=== PATIENT | female | born 1940 | race Caucasian/White ===

== ENCOUNTER 2016-09-26 14:00 | Emergency (ER) | payer MEDICARE, OTHER ==
--- NOTE | 2016-09-26 14:18 | ED ---
General Adult HPI - General Stated complaint: alter mental status Time Seen by Provider: 09/26/16 14:11 Source: RN notes reviewed, old records reviewed - History of Present Illness Initial comments: This is a 76-year-old female here for evaluation. Patient's breath ER for evaluation of decreased level responsiveness. Although upon arrival to emergency room patient is awake alert oriented answering directions appropriately. The patient denies any complaints, states she occasionally has a headache but that his symptoms been going on, she obtained from EMS is not conclusive, andreal history in the chart. Again at this time patient denies any chest pain source of breath abdominal pain or any other difficulties. Patient denies neurological complaints, no nausea vomiting - Related Data Home Medications Medication Instructions Recorded Confirmed FLUoxetine HCL 40 mg PO BID 04/22/15 09/26/16 Pantoprazole Sodium 40 mg PO DAILY 04/22/15 09/26/16 Potassium Chloride [Klor-Con 20] 20 meq PO DAILY 04/22/15 09/26/16 Atorvastatin [Lipitor] 80 mg PO HS 09/26/16 09/26/16 Donepezil [Aricept] 5 mg PO HS 09/26/16 09/26/16 Ibuprofen [Motrin] 800 mg PO Q8H PRN 09/26/16 09/26/16 busPIRone HCL 10 mg PO BID 09/26/16 09/26/16 Allergies Allergy/AdvReac Type Severity Reaction Status Date / Time iodine Allergy Rapid Verified 09/26/16 14:30 Heart Rate adhesive AdvReac Itching Verified 09/26/16 14:30 codeine AdvReac Confusion Verified 09/26/16 14:30 hydrocodone bitartrate AdvReac Confusion Verified 09/26/16 14:30 [From [place]] hydromorphone HCl AdvReac Confusion Verified 09/26/16 14:30 [From Dilaudid] morphine AdvReac Confusion Verified 09/26/16 14:30 Review of Systems ROS Statement: Those systems with pertinent positive or pertinent negative responses have been documented in the HPI. ROS Other: All systems not noted in ROS Statement are negative. Past Medical History Past Medical History: Coronary Artery Disease (CAD), Chest Pain / Angina, GERD/ Reflux, GI Bleed, Hyperlipidemia, Hypertension, Memory Impairment, Myocardial Infarction ([place]), Osteoarthritis (OA), Pneumonia, Rheumatoid Arthritis (RA) Additional Past Medical History / Comment(s): osteoporosis, falls-has struck head - needing pattie in head 6 weeks ago and suffering whiplash with fall 3 weeks ago, PAD, possible aspiration pneumonia, pneumonia osteoporosis,hiatal hernia, constipation and belching alot.has cardiac stents x2 to circ, UTI( ECOLI) 11. as a child, essential tremors, pt has hx of significant wt loss associated with sepsis and had a gastric tube for some time. pt stated wt down from 175 to 135# this past winter, has no appetite. t12 compression fx, cellulitis -knee. pt stated unable to bend rt knee(failed sx) is w/c bound but able to stand /pivot. 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 Date of Last Stent Placement:: 1999 Past Psychological History: Anxiety, Depression Additional Psychological History / Comment(s): Ongoing tobacco smoker. Pt started smoking about age [age] yrs old. She smokes about 6 CIG PER DAY. She is . Living with her son in an apartment here in the [facility]. She uses wheelchair. . She is able to stand and pivot to get into wheelchair. She feeds herself. She has home care thru [place] [facility] who assist her with bathing and cleaning 5 days a week. She and her. son manage her medications. Her son drives her to [employer]-pt does not drive. Smoking Status: Current every day smoker Past Alcohol Use History: None Reported Additional Past Alcohol Use History / Comment(s): Pt states she started smoking about age [age] yrs and is CURRENTLY SMOKING 5 CIG PER DAY Pt states she quit drinking alcohol 25 yrs ago. Past Drug Use History: None Reported - Past Family History Father Family Medical History: Coronary Artery Disease (CAD), Myocardial Infarction (DE ) Mother Family Medical History: Diabetes Mellitus, Hypertension General Exam - General Exam Comments Initial Comments: NIH of 0, no focal neurological deficit General appearance: alert, in no apparent distress Head exam: Present: atraumatic, normocephalic, normal inspection Eye exam: Present: normal appearance, PERRL, EOMI. Absent: scleral icterus, conjunctival injection, periorbital swelling ENT exam: Present: normal exam, mucous membranes moist Neck exam: Present: normal inspection. Absent: tenderness, meningismus, lymphadenopathy Respiratory exam: Present: normal lung sounds bilaterally. Absent: respiratory distress, wheezes, rales, rhonchi, stridor Cardiovascular Exam: Present: regular rate, normal rhythm, normal heart sounds. Absent: systolic murmur, diastolic murmur, rubs, gallop, clicks GI/Abdominal exam: Present: soft, normal bowel sounds. Absent: distended, tenderness, guarding, rebound, rigid Extremities exam: Present: normal inspection, full ROM, normal capillary refill. Absent: tenderness, pedal edema, joint swelling, calf tenderness Back exam: Present: normal inspection Neurological exam: Present: alert, oriented X3, CN II-XII intact Psychiatric exam: Present: normal affect, normal mood Skin exam: Present: warm, dry, intact, normal color. Absent: rash Course Vital Signs 09/26/16 09/26/16 09/26/16 14:26 15:00 16:00 Temperature 97.1 F L Pulse Rate 57 L 62 52 L Respiratory 16 16 16 Rate Blood Pressure 200/110 183/87 182/70 O2 Sat by Pulse 97 98 96 Oximetry - Reevaluation(s) Reevaluation #1: 09/26/16 16:57 She remains awake and alert, blood pressure improved with medications EKG Findings - EKG Comments: EKG Findings:: EKG shows sinus rhythm sounds good rate of 57, MA 204 QRS 100, QTC 484 Medical Decision Making - Medical Decision Making [place] female here for evaluation of possible altered mental status, no focal neurological deficits on exam, CT brain negative for acute disease, will return urine negative. Patient can be discharged home - Lab Data Result diagrams: 09/26/16 14:20 09/26/16 14:20 Lab Results 09/26/16 09/26/16 09/26/16 Range/Units 14:20 14:20 14:20 WBC 7.9 (3.8-10.6) k/uL RBC 4.90 (3.80-5.40) m/uL Hgb 13.5 (11.4-16.0) gm/dL Hct 41.4 (34.0-46.0) % MCV 84.5 (80.0-100.0) fL MCH 27.5 (25.0-35.0) pg MCHC 32.6 (31.0-37.0) g/dL RDW 15.9 H (11.5-15.5) % Plt Count 143 L (150-450) k/uL Neutrophils % 77 % Lymphocytes % 15 % Monocytes % 4 % Eosinophils % 3 % Basophils % 0 % Neutrophils # 6.1 (1.3-7.7) k/uL Lymphocytes # 1.2 (1.0-4.8) k/uL Monocytes # 0.3 (0-1.0) k/uL Eosinophils # 0.2 (0-0.7) k/uL Basophils # 0.0 (0-0.2) k/uL PT (9.0-12.0) sec INR (<1.1) APTT (22.0-30.0) sec Sodium 139 (137-145) mmol/L Potassium 3.9 (3.5-5.1) mmol/L Chloride 105 (98-107) mmol/L Carbon Dioxide 24 (22-30) mmol/L Anion Gap 10 mmol/L BUN 14 (7-17) mg/dL Creatinine 0.77 (0.52-1.04) mg/dL Est GFR (MDRD) Af Amer >60 (>60 ml/min/1.73 sqM) Est GFR (MDRD) Non-Af >60 (>60 ml/min/1.73 sqM) Glucose 91 (74-99) mg/dL Plasma Lactic Acid Justin (0.7-2.0) mmol/L Calcium 8.9 (8.4-10.2) mg/dL Phosphorus 4.5 (2.5-4.5) mg/dL Magnesium 1.4 L (1.6-2.3) mg/dL Total Bilirubin 0.7 (0.2-1.3) mg/dL AST 66 H (14-36) U/L ALT 76 H (9-52) U/L Alkaline Phosphatase 95 (38-126) U/L Total Creatine Kinase 58 (30-135) U/L CK-MB (CK-2) 1.4 (0.0-2.4) ng/mL CK-MB (CK-2) Rel Index 2.4 Troponin I <0.012 (0.000-0.034) ng/mL NT-Pro-B Natriuret Pep pg/mL Total Protein 6.8 (6.3-8.2) g/dL Albumin 3.7 (3.5-5.0) g/dL Urine Color Urine Appearance (Clear) Urine pH (5.0-8.0) Ur Specific [place] (1.001-1.035) Urine Protein (Negative) Urine Glucose (UA) (Negative) Urine Ketones (Negative) Urine Blood (Negative) Urine Nitrate (Negative) Urine Bilirubin (Negative) Urine Urobilinogen (<2.0) mg/dL Ur Leukocyte Esterase (Negative) 09/26/16 09/26/16 09/26/16 Range/Units 14:20 14:20 14:20 WBC (3.8-10.6) k/uL RBC (3.80-5.40) m/uL Hgb (11.4-16.0) gm/dL Hct (34.0-46.0) % MCV (80.0-100.0) fL MCH (25.0-35.0) pg MCHC (31.0-37.0) g/dL RDW (11.5-15.5) % Plt Count (150-450) k/uL Neutrophils % % Lymphocytes % % Monocytes % % Eosinophils % % Basophils % % Neutrophils # (1.3-7.7) k/uL Lymphocytes # (1.0-4.8) k/uL Monocytes # (0-1.0) k/uL Eosinophils # (0-0.7) k/uL Basophils # (0-0.2) k/uL PT 10.7 (9.0-12.0) sec INR 1.1 (<1.1) APTT 24.7 (22.0-30.0) sec Sodium (137-145) mmol/L Potassium (3.5-5.1) mmol/L Chloride (98-107) mmol/L Carbon Dioxide (22-30) mmol/L Anion Gap mmol/L BUN (7-17) mg/dL Creatinine (0.52-1.04) mg/dL Est GFR (MDRD) Af Amer (>60 ml/min/1.73 sqM) Est GFR (MDRD) Non-Af (>60 ml/min/1.73 sqM) Glucose (74-99) mg/dL Plasma Lactic Acid Justin 0.8 (0.7-2.0) mmol/L Calcium (8.4-10.2) mg/dL Phosphorus (2.5-4.5) mg/dL Magnesium (1.6-2.3) mg/dL Total Bilirubin (0.2-1.3) mg/dL AST (14-36) U/L ALT (9-52) U/L Alkaline Phosphatase (38-126) U/L Total Creatine Kinase (30-135) U/L CK-MB (CK-2) (0.0-2.4) ng/mL CK-MB (CK-2) Rel Index Troponin I (0.000-0.034) ng/mL NT-Pro-B Natriuret Pep 2330 pg/mL Total Protein (6.3-8.2) g/dL Albumin (3.5-5.0) g/dL Urine Color Urine Appearance (Clear) Urine pH (5.0-8.0) Ur Specific [place] (1.001-1.035) Urine Protein (Negative) Urine Glucose (UA) (Negative) Urine Ketones (Negative) Urine Blood (Negative) Urine Nitrate (Negative) Urine Bilirubin (Negative) Urine Urobilinogen (<2.0) mg/dL Ur Leukocyte Esterase (Negative) 09/26/16 Range/Units 16:15 WBC (3.8-10.6) k/uL RBC (3.80-5.40) m/uL Hgb (11.4-16.0) gm/dL Hct (34.0-46.0) % MCV (80.0-100.0) fL MCH (25.0-35.0) pg MCHC (31.0-37.0) g/dL RDW (11.5-15.5) % Plt Count (150-450) k/uL Neutrophils % % Lymphocytes % % Monocytes % % Eosinophils % % Basophils % % Neutrophils # (1.3-7.7) k/uL Lymphocytes # (1.0-4.8) k/uL Monocytes # (0-1.0) k/uL Eosinophils # (0-0.7) k/uL Basophils # (0-0.2) k/uL PT (9.0-12.0) sec INR (<1.1) APTT (22.0-30.0) sec Sodium (137-145) mmol/L Potassium (3.5-5.1) mmol/L Chloride (98-107) mmol/L Carbon Dioxide (22-30) mmol/L Anion Gap mmol/L BUN (7-17) mg/dL Creatinine (0.52-1.04) mg/dL Est GFR (MDRD) Af Amer (>60 ml/min/1.73 sqM) Est GFR (MDRD) Non-Af (>60 ml/min/1.73 sqM) Glucose (74-99) mg/dL Plasma Lactic Acid Justin (0.7-2.0) mmol/L Calcium (8.4-10.2) mg/dL Phosphorus (2.5-4.5) mg/dL Magnesium (1.6-2.3) mg/dL Total Bilirubin (0.2-1.3) mg/dL AST (14-36) U/L ALT (9-52) U/L Alkaline Phosphatase (38-126) U/L Total Creatine Kinase (30-135) U/L CK-MB (CK-2) (0.0-2.4) ng/mL CK-MB (CK-2) Rel Index Troponin I (0.000-0.034) ng/mL NT-Pro-B Natriuret Pep pg/mL Total Protein (6.3-8.2) g/dL Albumin (3.5-5.0) g/dL Urine Color Light Yellow Urine Appearance Clear (Clear) Urine pH 6.0 (5.0-8.0) Ur Specific [place] 1.006 (1.001-1.035) Urine Protein 1+ H (Negative) Urine Glucose (UA) Negative (Negative) Urine Ketones Negative (Negative) Urine Blood Negative (Negative) Urine Nitrate Negative (Negative) Urine Bilirubin Negative (Negative) Urine Urobilinogen <2.0 (<2.0) mg/dL Ur Leukocyte Esterase Negative (Negative) - Radiology Data Radiology results: report reviewed (CT brain, chest x-ray negative for acute disease), image reviewed Disposition Clinical Impression: Altered mental status, Hypertension Disposition: HOME SELF-CARE Condition: Good Instructions: Chronic Hypertension (ED), Hypertension (ED) Referrals: Anuj Maria DO [Primary Care Provider] - 1-2 days
[2016-09-26] MEDS ORDERED: MORPHINE SULFATE 4 MG/ML SYRINGE IV STA (14:21)
[2016-09-26] MEDS ORDERED: SODIUM CHLORIDE 0.9% 1,000 ML IV STA ×2 (14:21)
[2016-09-26] MEDS ORDERED: ACETAMINOPHEN IV (For NPO) 1,000 MG in EMPTY BAG 1 BAG IVPB STA (14:22)
[2016-09-26] MEDS ORDERED: ENALAPRILAT 1.25 MG/ML 1 ML VIAL IVP STA (14:22)
[2016-09-26 14:29] VITALS: RESP 16
[2016-09-26 14:44] LABS: INR 1.1 (<1.1); Partial Thromboplastin Time 24.7 sec (22.0-30.0); Prothrombin Time 10.7 sec (9.0-12.0)
[2016-09-26 14:45] LABS: ALT 76 U/L (9-52); AST 66 U/L (14-36); Alkaline Phosphatase 95 U/L (38-126); Anion Gap 10 mmol/L; Blood Urea Nitrogen 14 mg/dL (7-17); Calcium 8.9 mg/dL (8.4-10.2); Carbon Dioxide 24 mmol/L (22-30); Chloride 105 mmol/L (98-107); Glucose 91 mg/dL (74-99); Magnesium 1.4 mg/dL (1.6-2.3); Non-African American GFR(MDRD) >60 (>60 ml/min/1.73 sqM); Phosphorous 4.5 mg/dL (2.5-4.5); Potassium 3.9 mmol/L (3.5-5.1); Sodium 139 mmol/L (137-145); Total Bilirubin 0.7 mg/dL (0.2-1.3); Total Protein 6.8 g/dL (6.3-8.2)
--- NOTE | 2016-09-26 14:48 | XR ---
EXAMINATION TYPE: XR chest 2V DATE OF EXAM: 09/26/2016 2:43 PM COMPARISON: 04/19/2016 HISTORY: Shortness of breath TECHNIQUE: Frontal and lateral views of the chest are obtained. FINDINGS: Scattered senescent parenchymal changes noted. Hyperinflation compatible with COPD. No evidence for infiltrate. No evidence for atelectasis. Heart size is stable. Mediastinal structures are stable and grossly unremarkable. No evidence for hilar prominence. Degenerative changes dorsal spine. IMPRESSION: 1. No evidence for acute pulmonary disease.
[2016-09-26 14:59] LABS: Creatine Kinase 58 U/L (30-135)
[2016-09-26 15:06] LABS: Basophils % (A) 0 %; CH 27.8; CHCM 33.1; Eosinophils # (A) 0.2 k/uL (0-0.7); Eosinophils % (A) 3 %; HCT 41.4 % (34.0-46.0); HDW 2.91; HGB 13.5 gm/dL (11.4-16.0); Luc # (Auto) 0.11; Luc % (Auto) 1; Lymphocytes # (A) 1.2 k/uL (1.0-4.8); Lymphocytes % (A) 15 %; MCH 27.5 pg (25.0-35.0); MCHC 32.6 g/dL (31.0-37.0); MCV 84.5 fL (80.0-100.0); Mean Platelet Volume 8.2; Monocytes # (A) 0.3 k/uL (0-1.0); Monocytes % (A) 4 %; Neutrophils # (A) 6.1 k/uL (1.3-7.7); Neutrophils % (A) 77 %; RDW 15.9 % (11.5-15.5); WBC 7.9 k/uL (3.8-10.6); WBC (Perox) 8.24
[2016-09-26 15:11] LABS: Creatine Kinase MB 1.4 ng/mL (0.0-2.4); Troponin I <0.012 ng/mL (0.000-0.034)
--- NOTE | 2016-09-26 15:49 | CT ---
EXAMINATION TYPE: CT brain wo con DATE OF EXAM: 09/26/2016 3:46 PM COMPARISON: 02/23/2016 HISTORY: Altered mental status. CT DLP: 1115.[address] of the brain was performed. The ventricles, basal cisterns and sulci overlying the cerebral convexities demonstrate mild enlargem ent. There is no evidence for intracranial hemorrhage or sulcal effacement. There is decreased attenuation about the periventricular white matter and deep white matter of both c erebral hemispheres, compatible with chronic small vessel ischemia. Differential diagnosis does inclu de demyelination. No mass effects are seen.No midline shift. Osseous calvarium is intact. If symptoms persist consider MRI. IMPRESSION: 1. Age related atrophic and chronic small vessel ischemic change without acute intracranial process s een at this time.
[2016-09-26] MEDS ORDERED: MAGNESIUM OXIDE 400 MG TAB PO STA (16:14)
[2016-09-26 16:49] LABS: Appearance,Urine Clear (Clear); Bilirubin,Urine Negative (Negative); Glucose,Urine (UA) Negative (Negative); Ketones,Urine Negative (Negative); Leukocyte Esterase,Urine Negative (Negative); Nitrite,Urine Negative (Negative); Protein,Urine 1+ (Negative); Specific Gravity,Urine 1.006 (1.001-1.035); UA Billing (MACRO vs. MICRO) MICRO; Urobilinogen,Urine <2.0 mg/dL (<2.0)
[2016-09-26 17:21] VITALS: BP 147/68; PULSE 53; TEMP 97.4
== END 2016-09-26 17:20 | disposition home or self-care (01) ==
LOC: EC 14:00
DX: R41.82 Altered mental status, unspecified (principal); I10 Essential (primary) hypertension; E78.5 Hyperlipidemia, unspecified; I25.10 Atherosclerotic heart disease of native coronary artery without angina pectoris; I25.2 Old myocardial infarction; K21.9 Gastro-esophageal reflux disease without esophagitis; M06.9 Rheumatoid arthritis, unspecified; R51 Headache; Z82.49 Family history of ischemic heart disease and other diseases of the circulatory system; Z79.899 Other long term (current) drug therapy; Z88.5 Allergy status to narcotic agent; Z88.8 Allergy status to other drugs, medicaments and biological substances; R41.3 Other amnesia; G31.1 Senile degeneration of brain, not elsewhere classified
CPT/HCPCS: 36415; 93005; 83880; 80053; 82550; 82553; 83605; 83735; 84100; 84484; 85025; 85610; 85730; 81001; 71020; 70450; 99285; 96374; 96375; 96361 ×2; J2270; J0131

== ENCOUNTER 2016-10-20 01:13 | Inpatient (IN) | payer MEDICARE, OTHER ==
[2016-10-20] MEDS ORDERED: SODIUM CHLORIDE 0.9% 1,000 ML IV STA ×2 (01:19)
[2016-10-20] MEDS ORDERED: ACETAMINOPHEN IV (For NPO) 1,000 MG in SALINE 1 100ML.BAG IVPB STA (01:24)
[2016-10-20 01:48] LABS: Anisocytosis Slight; Basophils % (A) 0 %; CH 28.2; CHCM 33.9; Eosinophils # (A) 0.1 k/uL (0-0.7); Eosinophils % (A) 1 %; HCT 37.9 % (34.0-46.0); HDW 2.75; HGB 12.5 gm/dL (11.4-16.0); Luc # (Auto) 0.16; Luc % (Auto) 2; Lymphocytes % (A) 11 %; MCH 27.6 pg (25.0-35.0); MCHC 32.9 g/dL (31.0-37.0); MCV 83.8 fL (80.0-100.0); Mean Platelet Volume 8.2; Monocytes # (A) 0.7 k/uL (0-1.0); Monocytes % (A) 8 %; Neutrophils # (A) 6.8 k/uL (1.3-7.7); Neutrophils % (A) 78 %; RBC 4.52 m/uL (3.80-5.40); RDW 16.5 % (11.5-15.5); WBC 8.8 k/uL (3.8-10.6); WBC (Perox) 8.69
[2016-10-20 01:51] LABS: ALT 67 U/L (9-52); AST 47 U/L (14-36); Alkaline Phosphatase 96 U/L (38-126); Amylase <30 U/L (30-110); Anion Gap 11 mmol/L; Blood Urea Nitrogen 12 mg/dL (7-17); Calcium 8.4 mg/dL (8.4-10.2); Carbon Dioxide 22 mmol/L (22-30); Chloride 104 mmol/L (98-107); Glucose 118 mg/dL (74-99); Magnesium 1.4 mg/dL (1.6-2.3); Non-African American GFR(MDRD) >60 (>60 ml/min/1.73 sqM); Potassium 3.3 mmol/L (3.5-5.1); Sodium 137 mmol/L (137-145); Total Bilirubin 0.6 mg/dL (0.2-1.3); Total Protein 6.1 g/dL (6.3-8.2)
--- NOTE | 2016-10-20 01:51 | ED ---
Nausea/Vomiting/Diarrhea HPI - General Chief complaint: Nausea/Vomiting/Diarrhea Stated complaint: dehydration,pain Time Seen by Provider: 10/20/16 01:13 Source: patient, EMS, RN notes reviewed Mode of arrival: EMS Limitations: no limitations - History of Present Illness Initial comments: This is a 76-year-old female who presents with 2 days of nausea vomiting some weakness also complains of body aches and pain to her left shoulder left wrist. She was found have a fever upon arrival she does feel dry she thinks she might of less than many as 10 pounds. She denies any chest or bowel pain at this time. MD complaint: nausea, vomiting, other - Related Data Home Medications Medication Instructions Recorded Confirmed FLUoxetine HCL 40 mg PO BID 04/22/15 09/26/16 Pantoprazole Sodium 40 mg PO DAILY 04/22/15 09/26/16 Potassium Chloride [Klor-Con 20] 20 meq PO DAILY 04/22/15 09/26/16 Atorvastatin [Lipitor] 80 mg PO HS 09/26/16 09/26/16 Donepezil [Aricept] 5 mg PO HS 09/26/16 09/26/16 Ibuprofen [Motrin] 800 mg PO Q8H PRN 09/26/16 09/26/16 busPIRone HCL 10 mg PO BID 09/26/16 09/26/16 traMADol HCl [Ultram] 50 mg PO Q4H PRN 10/20/16 10/20/16 Allergies Allergy/AdvReac Type Severity Reaction Status Date / Time iodine Allergy Rapid Verified 10/20/16 01:22 Heart Rate adhesive AdvReac Itching Verified 10/20/16 01:22 codeine AdvReac Confusion Verified 10/20/16 01:22 hydrocodone bitartrate AdvReac Confusion Verified 10/20/16 01:22 [From [place]] hydromorphone HCl AdvReac Confusion Verified 10/20/16 01:22 [From Dilaudid] morphine AdvReac Confusion Verified 10/20/16 01:22 Review of Systems ROS Statement: Those systems with pertinent positive or pertinent negative responses have been documented in the HPI. ROS Other: All systems not noted in ROS Statement are negative. Past Medical History Past Medical History: Coronary Artery Disease (CAD), Chest Pain / Angina, GERD/ Reflux, GI Bleed, Hyperlipidemia, Hypertension, Memory Impairment, Myocardial Infarction ([place]), Osteoarthritis (OA), Pneumonia, Rheumatoid Arthritis (RA) Additional Past Medical History / Comment(s): osteoporosis, falls-has struck head - needing pattie in head 6 weeks ago and suffering whiplash with fall 3 weeks ago, PAD, possible aspiration pneumonia, pneumonia osteoporosis,hiatal hernia, constipation and belching alot.has cardiac stents x2 to circ, UTI( ECOLI) 11. as a child, essential tremors, pt has hx of significant wt loss associated with sepsis and had a gastric tube for some time. pt stated wt down from 175 to 135# this past winter, has no appetite. t12 compression fx, cellulitis -knee. pt stated unable to bend rt knee(failed sx) is w/c bound but able to stand /pivot. 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 Date of Last Stent Placement:: 1999 Past Psychological History: Anxiety, Depression Additional Psychological History / Comment(s): Ongoing tobacco smoker. Pt started smoking about age [age] yrs old. She smokes about 6 CIG PER DAY. She is . Living with her son in an apartment here in the [facility]. She uses wheelchair. . She is able to stand and pivot to get into wheelchair. She feeds herself. She has home care thru [place] [facility] who assist her with bathing and cleaning 5 days a week. She and her. son manage her medications. Her son drives her to [employer]-pt does not drive. Smoking Status: Current every day smoker Past Alcohol Use History: None Reported Additional Past Alcohol Use History / Comment(s): Pt states she started smoking about age [age] yrs and is CURRENTLY SMOKING 5 CIG PER DAY Pt states she quit drinking alcohol 25 yrs ago. Past Drug Use History: None Reported - Past Family History Father Family Medical History: Coronary Artery Disease (CAD), Myocardial Infarction ([place] ) Mother Family Medical History: Diabetes Mellitus, Hypertension General Exam - General Exam Comments Initial Comments: This is a well-developed well-nourished awake alert oriented x 3 female Limitations: no limitations General appearance: alert, in no apparent distress Head exam: Present: atraumatic, normocephalic, normal inspection Eye exam: Present: normal appearance, PERRL, EOMI. Absent: scleral icterus, conjunctival injection, periorbital swelling ENT exam: Present: mucous membranes dry Neck exam: Present: normal inspection. Absent: tenderness, meningismus, lymphadenopathy Respiratory exam: Present: normal lung sounds bilaterally. Absent: respiratory distress, wheezes, rales, rhonchi, stridor Cardiovascular Exam: Present: regular rate, normal rhythm, normal heart sounds. Absent: systolic murmur, diastolic murmur, rubs, gallop, clicks GI/Abdominal exam: Present: soft, normal bowel sounds. Absent: distended, tenderness, guarding, rebound, rigid Extremities exam: Present: normal inspection, full ROM, normal capillary refill. Absent: tenderness, pedal edema, joint swelling, calf tenderness Back exam: Present: normal inspection Neurological exam: Present: alert, oriented X3, CN II-XII intact Psychiatric exam: Present: normal affect, normal mood Skin exam: Present: warm, dry, intact, normal color. Absent: rash Course Vital Signs 10/20/16 01:16 Temperature 101 F H Pulse Rate 73 Respiratory 20 Rate Blood Pressure 185/84 O2 Sat by Pulse 96 Oximetry Medical Decision Making - Medical Decision Making The patient does have abdominal pain with evidence of an ileus she will be admitted I had a long discussion with her regarding the findings and the ALLERGY she has to contrast she can take oral contrast but IV contrast causes burning in her skin. She does not want to take this. - Lab Data Result diagrams: 10/20/16 01:30 10/20/16 01:30 Lab Results 10/20/16 10/20/16 10/20/16 Range/Units 01:30 01:30 01:30 WBC 8.8 (3.8-10.6) k/uL RBC 4.52 (3.80-5.40) m/uL Hgb 12.5 (11.4-16.0) gm/dL Hct 37.9 (34.0-46.0) % MCV 83.8 (80.0-100.0) fL MCH 27.6 (25.0-35.0) pg MCHC 32.9 (31.0-37.0) g/dL RDW 16.5 H (11.5-15.5) % Plt Count 149 L (150-450) k/uL Neutrophils % 78 % Lymphocytes % 11 % Monocytes % 8 % Eosinophils % 1 % Basophils % 0 % Neutrophils # 6.8 (1.3-7.7) k/uL Lymphocytes # 1.0 (1.0-4.8) k/uL Monocytes # 0.7 (0-1.0) k/uL Eosinophils # 0.1 (0-0.7) k/uL Basophils # 0.0 (0-0.2) k/uL Anisocytosis Slight Sodium 137 (137-145) mmol/L Potassium 3.3 L (3.5-5.1) mmol/L Chloride 104 (98-107) mmol/L Carbon Dioxide 22 (22-30) mmol/L Anion Gap 11 mmol/L BUN 12 (7-17) mg/dL Creatinine 0.70 (0.52-1.04) mg/dL Est GFR (MDRD) Af Amer >60 (>60 ml/min/1.73 sqM) Est GFR (MDRD) Non-Af >60 (>60 ml/min/1.73 sqM) Glucose 118 H (74-99) mg/dL Plasma Lactic Acid Justin (0.7-2.0) mmol/L Calcium 8.4 (8.4-10.2) mg/dL Magnesium 1.4 L (1.6-2.3) mg/dL Total Bilirubin 0.6 (0.2-1.3) mg/dL AST 47 H (14-36) U/L ALT 67 H (9-52) U/L Alkaline Phosphatase 96 (38-126) U/L Total Creatine Kinase 34 (30-135) U/L CK-MB (CK-2) 0.6 (0.0-2.4) ng/mL CK-MB (CK-2) Rel Index 1.8 Troponin I <0.012 (0.000-0.034) ng/mL Total Protein 6.1 L (6.3-8.2) g/dL Albumin 3.2 L (3.5-5.0) g/dL Amylase <30 L (30-110) U/L Lipase 16 L (23-300) U/L 10/20/16 Range/Units 01:30 WBC (3.8-10.6) k/uL RBC (3.80-5.40) m/uL Hgb (11.4-16.0) gm/dL Hct (34.0-46.0) % MCV (80.0-100.0) fL MCH (25.0-35.0) pg MCHC (31.0-37.0) g/dL RDW (11.5-15.5) % Plt Count (150-450) k/uL Neutrophils % % Lymphocytes % % Monocytes % % Eosinophils % % Basophils % % Neutrophils # (1.3-7.7) k/uL Lymphocytes # (1.0-4.8) k/uL Monocytes # (0-1.0) k/uL Eosinophils # (0-0.7) k/uL Basophils # (0-0.2) k/uL Anisocytosis Sodium (137-145) mmol/L Potassium (3.5-5.1) mmol/L Chloride (98-107) mmol/L Carbon Dioxide (22-30) mmol/L Anion Gap mmol/L BUN (7-17) mg/dL Creatinine (0.52-1.04) mg/dL Est GFR (MDRD) Af Amer (>60 ml/min/1.73 sqM) Est GFR (MDRD) Non-Af (>60 ml/min/1.73 sqM) Glucose (74-99) mg/dL Plasma Lactic Acid Justin 0.7 (0.7-2.0) mmol/L Calcium (8.4-10.2) mg/dL Magnesium (1.6-2.3) mg/dL Total Bilirubin (0.2-1.3) mg/dL AST (14-36) U/L ALT (9-52) U/L Alkaline Phosphatase (38-126) U/L Total Creatine Kinase (30-135) U/L CK-MB (CK-2) (0.0-2.4) ng/mL CK-MB (CK-2) Rel Index Troponin I (0.000-0.034) ng/mL Total Protein (6.3-8.2) g/dL Albumin (3.5-5.0) g/dL Amylase (30-110) U/L Lipase (23-300) U/L - Radiology Data Radiology results: report reviewed (I did review the x-ray report is evidence of an ileus.), image reviewed Disposition Clinical Impression: Abdominal pain, Ileus, unspecified, Dehydration, Hypokalemia, Hypomagnesemia Disposition: ADMITTED IP TO THIS [facility] Condition: Stable
[2016-10-20 02:01] LABS: Creatine Kinase 34 U/L (30-135)
--- NOTE | 2016-10-20 02:12 | XR ---
EXAMINATION TYPE: XR KUB DATE OF EXAM: 10/20/2016 1:47 AM CLINICAL HISTORY: Vomiting TECHNIQUE: Single supine KUB image of the abdomen is obtained. COMPARISON: 11/18/2015 FINDINGS: Mild to moderate gas distention of colonic bowel loops is noted. Mild gaseous distention of small bow el loops is also noted in the left abdomen with mild ileus or enteritis changes. No significant bowel obstruction is noted. There is no visceromegaly, pneumoperitoneum, or abnormal calcification apprec iated. The lung bases are clear and the osseous structures are intact. Postsurgical changes are note d in the right hip with metallic hardware in place. Moderate degenerative changes are noted in the th oracolumbar spine with levoscoliosis. IMPRESSION: Suggestion of mild ileus in the left abdomen. Overall nonobstructive bowel gas pattern.
[2016-10-20 02:14] LABS: Creatine Kinase MB 0.6 ng/mL (0.0-2.4); Troponin I <0.012 ng/mL (0.000-0.034)
[2016-10-20] MEDS ORDERED: traMADol 50 MG TAB PO STA (02:54)
[2016-10-20] MEDS ORDERED: MAGNESIUM SULFATE-D5W PMX 1 GM in DEXTROSE/WATER 1 100ML.BAG IVPB ONE (03:04)
[2016-10-20] MEDS ORDERED: NALOXONE 0.4 MG/ML 1 ML VIAL IV PRN (03:20)
[2016-10-20] MEDS ORDERED: ONDANSETRON 4 MG/2 ML VIAL IVP PRN (03:20)
[2016-10-20] MEDS ORDERED: IOHEXOL 350 MG/ML 25 ML BOTTLE (ORAL USE) PO PRN (03:27)
[2016-10-20] MEDS ORDERED: RX INFO: IV CONTRAST WAS GIVEN 1 EACH MISC MISCELLANE PRN (03:27)
[2016-10-20] MEDS: 0.9% NACL WITH KCL 20 MEQ/L 1,000 ML IV SCH ×3 (04:36→21:10)
[2016-10-20 04:49] LABS: Appearance,Urine Clear (Clear); Bilirubin,Urine Negative (Negative); Glucose,Urine (UA) Negative (Negative); Ketones,Urine Negative (Negative); Leukocyte Esterase,Urine Negative (Negative); Mucus,Urine Rare /hpf; Nitrite,Urine Negative (Negative); PH, Urine 6.5 (5.0-8.0); Particle Count 1481; Protein,Urine 1+ (Negative); RBC,Urine 5 /hpf (0-5); Specific Gravity,Urine 1.013 (1.001-1.035); Squamous Epithelial Cell,Urine 2 /hpf (0-4); UA Billing (MACRO vs. MICRO) MICRO; Urobilinogen,Urine <2.0 mg/dL (<2.0); WBC,Urine 1 /hpf (0-5)
--- NOTE | 2016-10-20 06:33 | CT ---
EXAMINATION TYPE: CT abdomen pelvis wo con DATE OF EXAM: 10/20/2016 5:58 AM COMPARISON: NONE HISTORY: PO contrast only, vomiting, gen abd pain, dehydration CT DLP: 306.30 mGycm Automated exposure control for dose reduction was used. TECHNIQUE: Helical acquisition of images was performed from the lung bases through the pelvis. Only oral contrast was given. FINDINGS: LUNG BASES: Mild atelectasis and scarring and emphysematous changes are noted in the visualized both lower lung whit[place]. Faint nodularity is noted in the right peripheral lung field measuring 4 mm in the axial image 1 and is probably related to focal scarring.. LIVER/GB: No significant abnormality is appreciated. PANCREAS: No significant abnormality is seen. SPLEEN: No significant abnormality is seen. ADRENALS: No significant abnormality is seen. KIDNEYS: Multiple benign-appearing cysts are noted in the right kidney with one of the largest cyst m easuring 3.3 x 5.0 cm in the axial image 37. No hydronephrosis or obstructing opaque stones are noted in the right kidney and right ureter. Left kidney also showed multiple benign-appearing cysts with the largest cyst measuring 4.0 x 5.1 cm in the axial image 35. RETROPERITONEAL ADENOPATHY: None visualized REPRODUCTIVE ORGANS: No significant abnormality is seen URINARY BLADDER: No significant abnormality is seen. PELVIC ADENOPATHY: None visualized. OSSEOUS STRUCTURES: Multilevel degenerative changes and degenerative disc disease changes are presen t in the thoracolumbar spine with mild old compression deformity of T12 vertebral body. BOWEL: Colon is opacified with contrast and fecal material without significant obstruction. Mild col onic diverticulosis is noted. Visualized opacified small bowel loops showed no significant obstruction. Appendix is not visualized. No significant inflammation is noted in the appendix area. Mild projection of bowel loops is noted into the right inguinal hernia area in the axial image 65 wit hout significant herniation. OTHER: Small stent is noted in the right common femoral artery in the axial image 65. Fat-containing left inguinal hernia is noted. Diffuse atherosclerotic calcification is noted in the a bdominal aorta and iliac arteries. IMPRESSION: 1. NO SIGNIFICANT ACUTE ABNORMALITY IS NOTED IN THE ABDOMEN AND PELVIS. 2. NO SIGNIFICANT BOWEL OBSTRUCTION. 3. APPENDIX IS NOT VISUALIZED. NO SIGNIFICANT INFLAMMATION IS NOTED IN THE APPENDIX AREA. 4. BILATERAL BENIGN-APPEARING RENAL CYSTS.
[2016-10-20] MEDS: PANTOPRAZOLE 40 MG/10 ML VIAL IV SCH ×2 (09:23→21:29)
[2016-10-20 11:18] VITALS: BMI 23.0
[2016-10-20] MEDS ORDERED: traMADol 50 MG TAB PO PRN (12:11)
--- NOTE | 2016-10-20 12:57 | HP ---
DATE OF ADMISSION: 10/20/2016 PRESENTING COMPLAINT: Nausea, vomiting and abdominal pain. HISTORY OF PRESENTING COMPLAINT: This is a 76-year-old patient of Dr. Maria who has got a rather extensive medical history. Patient's chronic stable medical conditions include osteoarthritis, rheumatoid arthritis, peripheral artery disease, tremors, coronary artery disease. Patient presents she says with nausea, vomiting for about 2 weeks, abdominal pain, normally has a regular bowel movement, decided to come in because she is getting really weak and tired. Denies any obvious fevers. REVIEW OF SYSTEMS: CONSTITUTIONAL: Weak and tired. HEENT: None. RESPIRATORY: Cough. Some wheezing. CARDIOVASCULAR: None. GASTROINTESTINAL: As above. GENITOURINARY: None. MUSCULOSKELETAL: Aches and pains in the joints. DERMATOLOGICAL: None. HEMATOLOGICAL: None. LYMPHATICS: None. PSYCHIATRY: Anxiety. NEUROLOGICAL: None. Past medical history of myocardial infarction, osteoarthritis, pneumonia, rheumatoid arthritis, arthritis, osteoporosis, whiplash injury, peripheral artery disease, tremors, MRSA in the right knee in 2011. PAST SURGICAL HISTORY: Appendectomy, cardiac cath with stent, joint replacement, tonsillectomy, stent to the circumflex, rotator cuff surgery, left shoulder surgery, gastric tube placement. SOCIAL HISTORY: The patient is smoking anywhere from 1/4 to a 1/2 pack since age 14. Patient lives with her son. Uses a wheelchair to get about. Able to take care of herself. FAMILY HISTORY: Coronary artery disease. HOME MEDICATIONS: 1. Ultram 50 mg q.8 p.r.n. 2. Buspirone 20 mg b.i.d. 3. Potassium 20 mEq daily. 4. Protonix 40 mg p.o. daily. 5. Ativan 0.5 p.o. b.i.d. p.r.n. 6. Motrin 800 mg p.o. q.8 p.r.n. 7. Prozac 40 mg b.i.d. 8. Aricept 5 mg p.o. q.h.s. 9. Lipitor 80 mg p.o. q.h.s. Allergies to IODINE, ADHESIVE, CODEINE, NORCO, MORPHINE. ON EXAMINATION: VITAL SIGNS ON PRESENTATION: Temperature 101, pulse 73, respirations 20, blood pressure 185/84, pulse ox 96% on room air. GENERAL APPEARANCE: Average build, lying in bed, very tired appearing. EYES: Pupils equal. Conjunctivae normal. HEENT: External appearance of nose and ears normal. Dry mucous membranes. NECK: JVD not raised. RESPIRATORY: Effort normal. LUNGS: Diminished breath sounds. Some wheezing. CARDIOVASCULAR: First and second sounds normal. No edema. ABDOMEN: Mild tenderness. Liver and spleen not palpable. LYMPHATIC: No lymph nodes palpable in neck or axillae. PSYCHIATRY: Alert and oriented x3. Mood and affect slightly anxious appearing. NEUROLOGICAL: Pupils equal. Cranial nerves grossly intact. Power and sensation grossly intact. MUSCULOSKELETAL: Evidence of osteoarthritis in multiple joints, bilaterally. INVESTIGATIONS: White count 8.8, hemoglobin 12.5. Potassium 3.3. BUN and creatinine are normal. UA is noted. CT scan of the abdomen and pelvis nonspecific. ASSESSMENT: 1. This a patient who presents with 2 weeks of vomiting, some abdominal pain. Did notice to have a fever of 100 on presentation. Normal white normal. Maybe patient has a gastroenteritis or enteritis. 2. Coronary artery disease with prior history of stent. 3. Primary osteoarthritis multiple joints, bilateral. 4. Rheumatoid arthritis multiple joints, bilateral. 5. Chronic gait dysfunction, uses a wheelchair to get about. 6. Depression, not otherwise specified. 7. Anxiety, not otherwise specified. 8. Essential hypertension. 9. Gastroesophageal reflux disease. 10. Peripheral arterial disease. 11. Hiatal hernia. 12. Coronary artery disease with stent to the circumflex in 1999. PLAN: Home medications will be resumed. Patient is put on IV fluids. We will empirically put the patient on Zosyn for now. Will try the patient on clear liquids. Care was discussed with the patient.
[2016-10-20] MEDS: PIPERACILLIN-TAZOBACTAM 3.375 GM in DEXTROSE/WATER 1 50ML.BAG IVPB SCH ×2 (14:46→23:48)
[2016-10-20] MEDS: FLUoxetine HCL 20 MG CAP PO SCH ×2 (15:49→21:10)
[2016-10-20] MEDS: busPIRone HCl 10 MG TAB PO SCH ×2 (15:49→21:09)
[2016-10-20] MEDS: ENOXAPARIN 40 MG/0.4 ML SYRINGE SQ SCH (15:49)
[2016-10-20] MEDS: NICOTINE 14MG/24HR PATCH TRANSDERM SCH (15:49)
[2016-10-20] MEDS: IPRATROPIUM-ALBUTEROL 3 ML NEB INHALATION SCH ×2 (16:15→19:42)
--- NOTE | 2016-10-20 17:51 | P.GSCN ---
History of Present Illness Consult date: 10/20/16 Reason for Consult: Abdominal pain Requesting physician: Kulwant Vargas History of present illness: The patient is a 76-year-old female with overall generalized debility including multiple medical problems who reports unwanted weight loss. She reports poor appetite over 3-5 days. She complains of diffuse spinal pain including neck pain for which she had completed rehab. At the time of my evaluation, she was complaining of new chest pain. Incidentally upon admission, she was also complaining of right lower quadrant abdominal pain. She reports that her appendix was removed as a child. Separately she also reports new onset blood in stools. She denies any diarrhea or constipation. Her last colonoscopy was November [address] Cameron with finding of an adenoma including ischemic colitis. She reports her pain is actually worse with exercise or lifting herself up out of bed. She has home health care where she is unable to perform her activities of daily living herself. Given her history of abdominal pain, Gen. surgery is consulted for further evaluation and management. She also complains of increased heartburn and reflux. Review of Systems CONSTITUTIONAL: Denies any fever or chills. Has recent weight loss. HEENT: Denies any trouble with vision, hearing or nosebleeds. No difficulty swallowing. LYMPHATIC: The patient denies any lumps and bumps around the neck. ENDOCRINE: Denies any thyroid disorders. Denies any blood sugar glucose intolerance. RESPIRATORY: Recent pneumonia. Has troubles with breathing or dyspnea on exertion. CARDIOVASCULAR: Has active chest pain. Previous heart attacks. GASTROINTESTINAL: Has heart burn. No constipation. Has bright red blood per rectum. GENITOURINARY: Has urinary incontinence. Has increased urinary frequency. MUSCULOSKELETAL: Has back pain, stiffness and joint arthritis. NEUROLOGIC: Denies any numbness or tingling along the distal extremities. No seizure disorders or headaches. PSYCHIATRIC: Has depression and dementia. No suidical ideation. HEMATOLOGIC: Has any abnormal bleeding or bruising. Past Medical History Past Medical History: Coronary Artery Disease (CAD), Chest Pain / Angina, GERD/ Reflux, GI Bleed, Hyperlipidemia, Hypertension, Memory Impairment, Myocardial Infarction (MT), Osteoarthritis (OA), Pneumonia, Rheumatoid Arthritis (RA) Additional Past Medical History / Comment(s): osteoporosis, falls-has struck head - needing pattie in head 6 weeks ago and suffering whiplash with fall 3 weeks ago, PAD, possible aspiration pneumonia, pneumonia osteoporosis,hiatal hernia, constipation and belching alot.has cardiac stents x2 to circ, UTI( [facility]) [age]. as a child, essential tremors, pt has hx of significant wt loss associated with sepsis and had a gastric tube for some time. pt stated wt down from 175 to 135# this past winter, has no appetite. t12 compression fx, cellulitis -knee. pt stated unable to bend rt knee(failed sx) is w/c bound but able to stand /pivot. Last Myocardial Infarction Date:: 1999 History of Any Multi-Drug Resistant Organisms: MRSA Year Discovered:: 2011 per patient in nursing history MDRO Source:: Right Knee Past Surgical History: Appendectomy, Heart Catheterization With Stent, Joint Replacement, Orthopedic Surgery, Tonsillectomy Additional Past Surgical History / Comment(s): PTCA with 2 stents to CX in 1999 , R shoulder arthroscopic rotator cuff repair, reverse L total shoulder, femoral bypass 1999, gastric tube placement and since removal, R total knee ( failed) Past Anesthesia/Blood Transfusion Reactions: Postoperative Nausea & Vomiting ( PONV) Additional Past Anesthesia/Blood Transfusion Reaction / Comm: Pt is uncertain if she has ever recieved blood. Date of Last Stent Placement:: 1999 Past Psychological History: Anxiety, Depression Additional Psychological History / Comment(s): Ongoing tobacco smoker. Pt started smoking about age 15-16 yrs old. She smokes about 6 CIG PER DAY. She is . Living with her son in an apartment here in the [facility]. She uses wheelchair. . She is able to stand and pivot to get into wheelchair. She feeds herself. She has home care thru [facility] who assist her with bathing and cleaning 5 days a week. She and her. son manage her medications. Her son drives her to [employer]pt does not drive. Smoking Status: Current every day smoker Past Alcohol Use History: None Reported Additional Past Alcohol Use History / Comment(s): Pt states she started smoking about age 14-16 yrs and is CURRENTLY SMOKING 5 CIG PER DAY Pt states she quit drinking alcohol 25 yrs ago. Past Drug Use History: None Reported - Past Family History Father Family Medical History: Coronary Artery Disease (CAD), Myocardial Infarction (MT ) Mother Family Medical History: Diabetes Mellitus, Hypertension Medications and Allergies Home Medications Medication Instructions Recorded Confirmed Type FLUoxetine HCL 40 mg PO BID 04/22/15 10/20/16 History Pantoprazole Sodium 40 mg PO DAILY 04/22/15 10/20/16 History Potassium Chloride [Klor-Con 20] 20 meq PO DAILY 04/22/15 10/20/16 History Donepezil [Aricept] 5 mg PO QAM 09/26/16 10/20/16 History Ibuprofen [Motrin] 800 mg PO Q8H PRN 09/26/16 10/20/16 History busPIRone HCL 20 mg PO BID 09/26/16 10/20/16 History LORazepam [Ativan] 0.5 mg PO BID PRN 10/20/16 10/20/16 History traMADol HCl [Ultram] 50 mg PO Q8H PRN 10/20/16 10/20/16 History Allergies Allergy/AdvReac Type Severity Reaction Status Date / Time iodine Allergy Rapid Verified 10/20/16 07:24 Heart Rate adhesive AdvReac Itching Verified 10/20/16 07:24 codeine AdvReac Confusion Verified 10/20/16 07:24 hydrocodone bitartrate AdvReac Confusion Verified 10/20/16 07:24 [From [place]] hydromorphone HCl AdvReac Confusion Verified 10/20/16 07:24 [From Dilaudid] morphine AdvReac Confusion Verified 10/20/16 07:24 Surgical - Exam Vital Signs Temp Pulse Resp BP Pulse Ox 101 F H 73 20 185/84 96 10/20/16 01:16 10/20/16 01:16 10/20/16 01:16 10/20/16 01:16 10/20/16 01:16 GENERAL: Well developed and in no acute distress. Pleasant. HEENT: No sclera icterus. Extraocular movements grossly intact. Moist buccal mucosa. Head is atraumatic, normocephalic. Hears conversational speech. No nasal drainage. NECK: Supple without lymphadenopathy. CHEST: Non-labored respirations and equal bilateral excursions. CARDIOVASCULAR: Regular rate and rhythm. Palpable 2+ radial pulses. ABDOMEN: Soft. Nondistended. Minimal tenderness along right lower quadrant. No peritonitis. MUSCULOSKELETAL: No clubbing, cyanosis or edema. NEUROLOGIC: No focal or lateralizing signs. Cranial nerve II-12 grossly intact. PSYCH: Appropriate affect. Alert and oriented to person, place and time. Results - Labs 10/20/16 01:30 10/20/16 01:30 Abnormal Lab Results - Last 24 Hours (Table) 10/20/16 Range/Units 04:30 Urine Protein 1+ H (Negative) Urine Blood Trace H (Negative) Urine Mucus Rare H (None) /hpf - Imaging CT scan - abdomen: image reviewed CT scan - pelvis: image reviewed (No evidence of bowel obstruction. No evidence of free air. Inguinal hernia identified, left.) Assessment and Plan (1) Debilitated Status: Chronic (2) Left inguinal hernia Status: Acute (3) Right lower quadrant pain Status: Acute (4) Ischemic colitis Status: Chronic (5) Urinary incontinence Status: Chronic (6) Gastroesophageal reflux Status: Chronic (7) Weight loss, unintentional Status: Acute (8) Abdominal pain Status: Acute (9) Hypokalemia Status: Acute (10) Rectal bleeding Status: Acute Plan: 1. At the time of my evaluation, she had active chest pain. No additional surgical intervention or procedures until chest pain is resolved and evaluated. 2. She had completed a colonoscopy a year ago with an adenoma identified however now she has recurrent rectal bleeding. May benefit from repeat colonoscopy. 3. She reports increased gastroesophageal reflux disease and weight loss, may benefit from upper endoscopy. 4. Imaging demonstrates potential inguinal hernia. This will be best addressed with surgery however with her cardiac status, recommend cardiology evaluation. 5. She is tolerating liquid diet. 6. No acute surgical intervention needed at this time. Thank you for this kind consultation.
[2016-10-20] MEDS ORDERED: ASPIRIN 81 MG CHEW PO STA (18:02)
[2016-10-20] MEDS: METOPROLOL TARTRATE 50 MG TAB PO SCH ×2 (18:30→23:20)
[2016-10-20 18:54] LABS: Creatine Kinase 41 U/L (30-135)
[2016-10-20 19:08] LABS: Creatine Kinase MB 1.1 ng/mL (0.0-2.4); Troponin I <0.012 ng/mL (0.000-0.034)
[2016-10-20] MEDS: ATORVASTATIN 80 MG TAB PO SCH (21:09)
[2016-10-20] MEDS: DONEPEZIL 5 MG TAB PO SCH (21:09)
[2016-10-20] MEDS: LORazepam 0.5 MG TAB PO PRN (22:41)
[2016-10-20] MEDS: amLODIPine 10 MG TAB PO SCH (23:48)
[2016-10-21] MEDS: 0.9% NACL WITH KCL 20 MEQ/L 1,000 ML IV SCH ×4 (04:31→21:26)
[2016-10-21 07:18] LABS: Anisocytosis Slight; Basophils % (A) 0 %; CH 27.8; Eosinophils # (A) 0.1 k/uL (0-0.7); Eosinophils % (A) 1 %; HCT 36.7 % (34.0-46.0); HGB 11.6 gm/dL (11.4-16.0); Luc # (Auto) 0.18; Luc % (Auto) 2; Lymphocytes # (A) 1.2 k/uL (1.0-4.8); Lymphocytes % (A) 15 %; MCH 27.7 pg (25.0-35.0); MCHC 31.7 g/dL (31.0-37.0); MCV 87.4 fL (80.0-100.0); Mean Platelet Volume 8.7; Monocytes # (A) 0.6 k/uL (0-1.0); Monocytes % (A) 8 %; Neutrophils # (A) 5.5 k/uL (1.3-7.7); Neutrophils % (A) 73 %; RDW 16.4 % (11.5-15.5); WBC 7.5 k/uL (3.8-10.6); WBC (Perox) 8.29
[2016-10-21] MEDS: IPRATROPIUM-ALBUTEROL 3 ML NEB INHALATION SCH ×4 (07:23→20:06)
[2016-10-21 07:34] LABS: Anion Gap 7 mmol/L; Blood Urea Nitrogen 5 mg/dL (7-17); Calcium 8.3 mg/dL (8.4-10.2); Carbon Dioxide 23 mmol/L (22-30); Chloride 107 mmol/L (98-107); Glucose 86 mg/dL (74-99); Non-African American GFR(MDRD) >60 (>60 ml/min/1.73 sqM); Potassium 3.9 mmol/L (3.5-5.1); Sodium 137 mmol/L (137-145)
[2016-10-21] MEDS: busPIRone HCl 10 MG TAB PO SCH ×3 (08:10→22:24)
[2016-10-21] MEDS: FLUoxetine HCL 20 MG CAP PO SCH ×3 (08:10→22:24)
[2016-10-21] MEDS: PANTOPRAZOLE 40 MG/10 ML VIAL IV SCH ×2 (08:11→22:24)
[2016-10-21] MEDS: ASPIRIN 81 MG CHEW PO SCH ×2 (08:11→10:56)
[2016-10-21] MEDS: ENOXAPARIN 40 MG/0.4 ML SYRINGE SQ SCH (08:11)
[2016-10-21] MEDS: PIPERACILLIN-TAZOBACTAM 3.375 GM in DEXTROSE/WATER 1 50ML.BAG IVPB SCH ×2 (08:11→15:07)
[2016-10-21] MEDS: NICOTINE 14MG/24HR PATCH TRANSDERM SCH (08:11)
[2016-10-21] MEDS: amLODIPine 10 MG TAB PO SCH ×2 (08:11→10:56)
[2016-10-21] MEDS: METOPROLOL TARTRATE 50 MG TAB PO SCH ×3 (08:11→11:07)
[2016-10-21] MEDS: LORazepam 0.5 MG TAB PO PRN (08:20)
[2016-10-21] MEDS ORDERED: ZIPRASIDONE 20 MG VIAL IM STA ×2 (10:49→14:06)
[2016-10-21] MEDS: QUEtiapine 25 MG TAB PO SCH ×2 (11:05→22:24)
--- NOTE | 2016-10-21 12:59 | P.CRDCN ---
History of Present Illness Consult date: 10/21/16 Chief complaint: Abdominal pain History of present illness: This is a pleasant 76-year-old female patient with a past medical history significant for coronary artery disease and prior coronary artery stenting with unknown details at this point, hypertension, dyslipidemia, peripheral arterial disease and status post right leg bypass again with unknown details at this point, presented to the hospital complaining of nausea, vomiting , and right lower quadrant abdominal discomfort. The patient is a poor historian and she's also slightly confused. The last time was seen in or office was in [address] Cameron but since then she never had any follow-up. She states that she is currently follow-up with a mine equipment design engineer at [facility]. The patient was seen and evaluated yesterday by surgical service regarding the abdominal discomfort and the differential Diagnosis is acute colitis versus hernia as an etiology for her abdominal discomfort. We get involved in the care of the patient because she was experiencing chest discomfort yesterday. She stated that she did not have any chest pain or shortness of breath today. The EKG showed sinus rhythm with very nonspecific changes in the septal leads. She underwent 3 sets of cardiac enzymes came in to be unremarkable. The patient was admitted to the hospital last time in February 2016 and at that point she underwent an echocardiogram without any stress test. The echo showed normal function without any significant valvular abnormalities. At this point, and if the surgery is urgent, the patient can proceed with the surgery. If the surgery is elective, I would like to proceed with a stress test to rule out any severe underlying coronary artery disease as an etiology for her chest discomfort in view of her history and multiple risk factors for CAD. Also I will obtain an echocardiogram with Doppler. I would continue the current medical treatment which include the aspirin, statin, and beta celestino. The blood pressure continues to be uncontrolled and I am going to add hydralazine to the current medical treatment. Past Medical History Past Medical History: Coronary Artery Disease (CAD), Chest Pain / Angina, GERD/ Reflux, GI Bleed, Hyperlipidemia, Hypertension, Memory Impairment, Myocardial Infarction (TX), Osteoarthritis (OA), Pneumonia, Rheumatoid Arthritis (RA) Additional Past Medical History / Comment(s): osteoporosis, falls-has struck head - needing pattie in head 6 weeks ago and suffering whiplash with fall 3 weeks ago, PAD, possible aspiration pneumonia, pneumonia osteoporosis,hiatal hernia, constipation and belching alot.has cardiac stents x2 to circ, UTI( [facility]) [age]. as a child, essential tremors, pt has hx of significant wt loss associated with sepsis and had a gastric tube for some time. pt stated wt down from 175 to 135# this past winter, has no appetite. t12 compression fx, cellulitis -knee. pt stated unable to bend rt knee(failed sx) is w/c bound but able to stand /pivot. Last Myocardial Infarction Date:: 1999 History of Any Multi-Drug Resistant Organisms: MRSA Date of last positivie culture/infection: 2011 per patient in nursing history MDRO Source:: Right Knee Past Surgical History: Appendectomy, Heart Catheterization With Stent, Joint Replacement, Orthopedic Surgery, Tonsillectomy Additional Past Surgical History / Comment(s): PTCA with 2 stents to CX in 1999 , R shoulder arthroscopic rotator cuff repair, reverse L total shoulder, femoral bypass 1999, gastric tube placement and since removal, R total knee ( failed) Past Anesthesia/Blood Transfusion Reactions: Postoperative Nausea & Vomiting ( PONV) Additional Past Anesthesia/Blood Transfusion Reaction / Comment(s): Pt is uncertain if she has ever recieved blood. Date of Last Stent Placement:: 1999 Past Psychological History: Anxiety, Depression Additional Psychological History / Comment(s): Ongoing tobacco smoker. Pt started smoking about age 15-16 yrs old. She smokes about 6 CIG PER DAY. She is . Living with her son in an apartment here in the [facility]. She uses wheelchair. . She is able to stand and pivot to get into wheelchair. She feeds herself. She has home care thru [facility] who assist her with bathing and cleaning 5 days a week. She and her. son manage her medications. Her son drives her to [facility] does not drive. Smoking Status: Current every day smoker Past Alcohol Use History: None Reported Additional Past Alcohol Use History / Comment(s): Pt states she started smoking about age 14-16 yrs and is CURRENTLY SMOKING 5 CIG PER DAY Pt states she quit drinking alcohol 25 yrs ago. Past Drug Use History: None Reported - Past Family History Father Family Medical History: Coronary Artery Disease (CAD), Myocardial Infarction ([place] ) Mother Family Medical History: Diabetes Mellitus, Hypertension Medications and Allergies Home Medications Medication Instructions Recorded Confirmed Type FLUoxetine HCL 40 mg PO BID 08/19/15 02/16/17 History Pantoprazole Sodium 40 mg PO DAILY 04/22/15 10/20/16 History Potassium Chloride [Klor-Con 20] 20 meq PO DAILY 04/22/15 10/20/16 History Donepezil [Aricept] 5 mg PO QAM 09/26/16 10/20/16 History Ibuprofen [Motrin] 800 mg PO Q8H PRN 09/26/16 10/20/16 History busPIRone HCL 20 mg PO BID 09/26/16 10/20/16 History LORazepam [Ativan] 0.5 mg PO BID PRN 10/20/16 10/20/16 History traMADol HCl [Ultram] 50 mg PO Q8H PRN 10/20/16 10/20/16 History Allergies Allergy/AdvReac Type Severity Reaction Status Date / Time iodine Allergy Rapid Verified 10/20/16 07:24 Heart Rate adhesive AdvReac Itching Verified 10/20/16 07:24 codeine AdvReac Confusion Verified 10/20/16 07:24 hydrocodone bitartrate AdvReac Confusion Verified 10/20/16 07:24 [From [place]] hydromorphone HCl AdvReac Confusion Verified 10/20/16 07:24 [From Dilaudid] morphine AdvReac Confusion Verified 10/20/16 07:24 Physical Exam Vitals: Vital Signs Temp Pulse Pulse Pulse Resp BP Pulse Ox 10/21/16 11:43 56 L 173/74 10/21/16 11:35 66 10/21/16 11:24 64 10/21/16 07:37 68 10/21/16 07:24 64 10/21/16 07:00 98.6 F 55 L 16 191/75 92 L 10/21/16 01:34 52 L 176/80 10/20/16 23:54 52 L 186/83 10/20/16 22:55 98.3 F 53 L 20 189/76 10/20/16 22:40 204/86 10/20/16 21:00 54 L 178/77 10/20/16 20:01 57 L 10/20/16 19:45 98 10/20/16 19:44 57 L 10/20/16 19:15 155/84 10/20/16 18:35 18 10/20/16 18:13 99 10/20/16 18:00 201/90 10/20/16 17:40 98.7 F 71 18 179/103 98 10/20/16 16:28 60 10/20/16 16:21 64 10/20/16 15:00 97.6 F 63 16 157/76 97 Intake and Output 10/20/16 10/21/16 10/21/16 22:59 06:59 14:59 Other: Voiding Method Bedpan Bedpan Diaper Diaper Incontinent Incontinent # Voids 2 1 1 # Bowel Movements 1 - Constitutional General appearance: no acute distress - Respiratory Respiratory: bilateral: CTA - Cardiovascular Rhythm: regular Heart sounds: normal: S1, S2 Results 10/21/16 07:00 10/21/16 07:00 Cardiac Enzymes 10/20/16 10/20/16 10/21/16 Range/Units 18:00 23:48 07:00 CK-MB (CK-2) 1.1 (0.0-2.4) ng/mL Troponin I <0.012 <0.012 0.017 (0.000-0.034) ng/mL CBC 10/21/16 Range/Units 07:00 WBC 7.5 (3.8-10.6) k/uL RBC 4.20 (3.80-5.40) m/uL Hgb 11.6 (11.4-16.0) gm/dL Hct 36.7 (34.0-46.0) % Plt Count 143 L (150-450) k/uL Comprehensive Metabolic Panel 10/21/16 Range/Units 07:00 Sodium 137 (137-145) mmol/L Potassium 3.9 (3.5-5.1) mmol/L Chloride 107 (98-107) mmol/L Carbon Dioxide 23 (22-30) mmol/L BUN 5 L (7-17) mg/dL Creatinine 0.80 (0.52-1.04) mg/dL Glucose 86 (74-99) mg/dL Calcium 8.3 L (8.4-10.2) mg/dL Current Medications Generic Name Dose Route Start Last Admin Trade Name Freq PRN Reason Stop Dose Admin Albuterol/Ipratropium 3 ml 10/20/16 16:00 10/21/16 11:24 Duoneb 0.5 Mg-3 Mg/3 Ml Soln INHALATION 3 ml RT-QID HANK Administration Amlodipine Besylate 10 mg 10/20/16 23:30 10/21/16 10:56 Norvasc PO Not Given DAILY HANK Aspirin 81 mg 10/21/16 09:00 10/21/16 10:56 Aspirin PO Not Given DAILY HANK Atorvastatin Calcium 80 mg 10/20/16 21:00 10/20/16 21:09 Lipitor PO 80 mg HS HANK Administration Buspirone HCl 20 mg 10/20/16 12:15 10/21/16 10:55 Buspar PO Not Given BID HANK Donepezil HCl 5 mg 10/20/16 21:00 10/20/16 21:09 Aricept PO 5 mg HS HANK Administration Enoxaparin Sodium 40 mg 10/20/16 12:15 10/21/16 08:11 Lovenox SQ 40 mg DAILY HANK Administration Fluoxetine HCl 40 mg 10/20/16 12:15 10/21/16 09:43 Prozac PO Not Given BID HANK Potassium Chloride/Sodium Chloride 1,000 mls @ 125 mls/hr 10/20/16 03:30 11:05 Ns-Kcl 20 Meq/L Iv Solution IV 125 mls/hr .Q8H HANK Administration Piperacillin/Tazobactam/ 50 mls @ 12.5 mls/hr 10/20/16 13:00 10/21/16 08:11 Dextrose 3.375 gm/ IV Solution IVPB 12.5 mls/hr Q8HR HANK Administration Lorazepam 0.5 mg 10/20/16 12:11 10/21/16 08:20 Ativan PO 0.5 mg BID PRN Administration Anxiety Metoprolol Tartrate 50 mg 10/20/16 18:02 10/21/16 11:07 Lopressor PO 50 mg BID HANK Administration Miscellaneous Information 1 each 10/20/16 03:27 Rx Info: Iv Contrast Was Given MISCELLANE 10/22/16 03:28 DAILY PRN Per Protocol Naloxone HCl 0.2 mg 10/20/16 03:20 Narcan IV Q2M PRN Opioid Reversal Nicotine 1 patch 10/20/16 12:15 10/21/16 08:11 Habitrol 14mg/24hr Patch TRANSDERM 1 patch DAILY HANK Administration Ondansetron HCl 4 mg 10/20/16 03:20 Zofran IVP Q8HR PRN Nausea And Vomiting Pantoprazole Sodium 40 mg 10/20/16 09:00 10/21/16 08:11 Protonix IV 40 mg BID HANK Administration Quetiapine Fumarate 25 mg 10/21/16 11:00 10/21/16 11:05 Seroquel PO 25 mg BID HANK Administration Tramadol HCl 50 mg 10/20/16 12:11 10/20/16 16:33 Ultram PO 50 mg Q8H PRN Administration Pain Intake and Output 10/20/16 10/21/16 10/21/16 22:59 06:59 14:59 Other: Voiding Method Bedpan Bedpan Diaper Diaper Incontinent Incontinent # Voids 2 1 1 # Bowel Movements 1 10/21/16 07:00 10/21/16 07:00 Assessment and Plan Plan: Assessment #1 right lower quadrant abdominal discomfort of unknown etiology at this point #2 known CAD and prior revascularization #3 known PAD with prior revascularization #4 change in mental status. The patient's baseline is unknown at this point #5 uncontrolled hypertension #6 multiple comorbid conditions Plan #1 add hydralazine to the current medical treatment #2 continue the current medical treatment which include aspirin, statin, beta celestino #3 obtain an echocardiogram was Doppler #4 follow-up with the patient
[2016-10-21] MEDS: hydrALAZINE HCL 25 MG TAB PO SCH ×3 (14:14→22:24)
--- NOTE | 2016-10-21 18:25 | CONS ---
DATE OF CONSULTATION: 10/21/2016 REASON FOR CONSULTATION: The patient has aggressive behavior. I did review the medical record. Also I discussed her case with nursing staff with her daughter who was at her bedside. In addition, I had clinical interview with the patient. HISTORY OF PRESENT ILLNESS: Patient is a 76 -year-old female who has been living with her son for the last 5 years. Patient presented to the emergency room with complaints of abdominal pain, nausea and vomiting. This morning patient was severely agitated. She refused all her oral medication and she did throw even her medication on the floor. Talking to the patient, she is aware that she refused medication as she said, "I don't have enough money to pay this pills, they look different than my own pills at home". Patient has underlying paranoia, suspicious feeling. She was very loud talking in detail about what triggered her recent episode, it is her son with whom she is living is trying to have guardianship on her. Patient kept repeating "I'm not incompetent and I can handle my own money." Patient stated that she has extensive history of mental illness according to her is depression since her early 20s, but she has been stable for 10 years on Prozac and BuSpar. Currently, she has been seen at [facility]. Even she has a school social worker coming to her house for counselling and she does see Dr. Hernandez once every couple of months for depression. Patient was very circumstantial. She talked in detail about her losing 3 children in 2014, as two sons committed suicide and the third one from massive heart attack. Also she talked in detail about her multiple medical problems and her knee replacement and the complication secondary to this. She stated that she has been frustrated lately because she is not able to work and she has to use the wheelchair. PAST MEDICAL HISTORY: 1. Osteoarthritis. 2. Peripheral artery disease. 3. Coronary artery disease. 4. History of osteoporosis. 5. History of Methicillin-resistant Staph aureus in the right knee. PAST PSYCHIATRIC HISTORY: Surgical status post appendicectomy, cardiac cats with stent, joint replacement, rotator cuff surgery, left shoulder surgery. Her home medications: 1. Ultram 50 mg every 8 hours p.r.n. 2. BuSpar 20 mg twice a day. 3. Potassium 20 meq. 4. Ativan 0.5 twice a day p.r.n. 5. Protonix 40 mg daily. 6. Motrin 800 every 8 hours p.r.n. 7. Prozac 40 twice a day. 8. Aricept 5 mg at bedtime. 9. Lipitor 80 mg at bedtime. ALLERGIES: IODINE, CODEINE, NORCO AND MORPHINE. Substance abuse history. She denied any current substance abuse history: She stated that she used to drink when she was young. NICOTINE: She smoking between half to one quarter a pack a day since age 14. PAST PSYCHIATRIC HISTORY: There is only one previous inpatient psychiatric hospitalization in [place] and this was in her early 20s. At that time she attempted suicide, then she was seen for 10 years by psychiatrist in [place]. She has been seen at [facility] for the last 4-[address] Hernandez since she moved to [place] to live with her son. Family history of psychiatric illness: Two sons killed themselves in , one shot himself and the other overdosed and from heroin. Her father had history of mental illness. She is not sure if it was depression or bipolar disorder. SOCIAL HISTORY: Patient stated that she was for 25 years and ended by divorce and she had 5 sons and one daughter and as I mentioned before 3 sons . She stated that her ex- used to be a copy technician and he left her as he fell in love with another lady and she said, "she is half of his age." Patient used to work at [employer] and she was living in [place] up to 5 years ago. She denied any current legal problem. MENTAL STATUS EXAMINATION: Patient is female in hospital clothes. She was very loud, easily agitated with her daughter. Her speech is circumstantial and there is some loose association. She has a lot of anger as her son is trying to get guardianship on her but she denied any suicidal or homicide ideation. She denied any hallucination. There is some underlying paranoia regarding the medication because "it's not the same color as the ones that I took at home." She is oriented to person, place and time. She did remember only one from 3 objects after 3 minutes. Her insight and judgment are fair. Regarding her cognitive function she scored 22 from 30 in the Mini-Mental status examination. DIAGNOSES: 1. Major depression, recurrent, mild to moderate, without psychotic feature. 2. Anxiety disorder. 3. Chronic pain syndrome. 4. 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 PLAN: I will add low dose of Seroquel for her anxiety. It is better than giving her Ativan as benzodiazepine for elderly people make them more confused. Patient does not meet any criteria for inpatient psychiatric hospitalization. Patient is stable on Prozac and BuSpar so I do recommend to refer her back to Dr. Hernandez and outpatient counseling.
--- NOTE | 2016-10-21 20:28 | P.PN ---
Subjective Principal diagnosis: Abdominal pain The patient is a 76-year-old female who was admitted for abdominal pain. Yesterday she was tolerating liquid diet. Today she is tolerating regular diet. She had acute psychoses and now has psychological evaluation. Per discussion with her nurse, she is tolerating diet. No further reports of abdominal pain. Additionally, the patient is having bowel movements. Objective - Vital Signs Vital signs: Vital Signs Temp 98.1 F 10/21/16 15:00 Pulse 51 L 10/21/16 15:00 Resp 16 10/21/16 15:00 BP 137/62 10/21/16 15:00 Pulse Ox 92 L 10/21/16 15:00 Intake & Output 10/21/16 10/21/16 10/22/16 06:59 18:59 06:59 Other: Voiding Method Bedpan Bedpan Diaper Diaper Incontinent Incontinent # Voids 1 1 - Exam GENERAL: Well developed and in no acute distress. Sedated. HEENT: No sclera icterus. Moist buccal mucosa. Head is atraumatic, normocephalic. No nasal drainage. NECK: Supple without lymphadenopathy. CHEST: Non-labored respirations and equal bilateral excursions. CARDIOVASCULAR: Regular rate and rhythm. Palpable 2+ radial pulses. ABDOMEN: Soft, nontender. Nondistended. MUSCULOSKELETAL: No clubbing, cyanosis or edema. NEUROLOGIC: No focal or lateralizing signs. PSYCH: Lethargic. - Labs CBC & Chem 7: 10/21/16 07:00 10/21/16 07:00 Labs: Abnormal Lab Results - Last 24 Hours (Table) 10/21/16 10/21/16 Range/Units 07:00 07:00 RDW 16.4 H (11.5-15.5) % Plt Count 143 L (150-450) k/uL BUN 5 L (7-17) mg/dL Calcium 8.3 L (8.4-10.2) mg/dL Assessment and Plan (1) Debilitated Status: Chronic (2) Left inguinal hernia Status: Acute (3) Right lower quadrant pain Status: Acute (4) Ischemic colitis Status: Chronic (5) Urinary incontinence Status: Chronic (6) Gastroesophageal reflux Status: Chronic (7) Weight loss, unintentional Status: Acute (8) Abdominal pain Status: Acute (9) Hypokalemia Status: Acute (10) Rectal bleeding Status: Acute (11) Acute psychosis Status: Acute Plan: 1. The patient is abdominal pain is resolved. Now she has a new concern of acute psychoses. 2. She's tolerating diet and having bowel movements. 3. No surgical intervention deemed. 4. Diet as tolerated. Gen. surgery will follow as needed. Please reconsult if needed
--- NOTE | 2016-10-21 21:49 | PN ---
DATE OF SERVICE: 10/21/2016 PRESENTING COMPLAINT: Nausea, vomiting, acute agitation. INTERVAL HISTORY: This is a patient who presented with severe acute gastroenteritis. It has actually improved, but this morning patient was extremely agitated. A psychiatric consult was requested. Patient refused the medication, though she had eaten better. Review of systems done for constitutional, cardiovascular, GI, pulmonary, psychiatric. Patient was agitated. Current medications are reviewed. On examination, temperature 98.6, pulse 55, respiration 16, blood pressure 191/75, pulse ox 92% on room air. GENERAL APPEARANCE: Lying in bed, not in distress. EYES: Pupils equal. Conjunctivae normal. NECK: JVD not raised. Mass not palpable. RESPIRATORY: Effort normal. LUNGS: Diminished breath sounds. Minimal wheezing. CARDIOVASCULAR: First and second sounds normal. No edema. ABDOMEN: Soft, nontender. Liver and spleen not palpable. PSYCHIATRY: Alert and oriented x3. Mood and affect somewhat anxious. INVESTIGATIONS: White count 7.5, hemoglobin 11.6. Potassium 3.9. ASSESSMENT: 1. Acute severe gastroenteritis with clinical improvement. 2. Coronary artery disease with prior history of stent. 3. Primary osteoarthritis in multiple joints, bilateral. 4. Rheumatoid arthritis in multiple joints, bilateral. 5. Chronic gait dysfunction; uses a wheelchair to get about. 6. Depression not otherwise specified. 7. Acute agitation. 8. Anxiety not otherwise specified, uncontrolled today. 9. Essential hypertension. 10. Gastroesophageal reflux disease. 11. Peripheral arterial disease. 12. Hiatal hernia. 13. Coronary artery disease with stent to the circumflex in 1999. PLAN: At this point will continue current medication and treatment plan. Await input from Psychiatry. Will follow.
[2016-10-21] MEDS: DONEPEZIL 5 MG TAB PO SCH (22:24)
[2016-10-21] MEDS: ATORVASTATIN 80 MG TAB PO SCH (22:24)
[2016-10-22] MEDS: PIPERACILLIN-TAZOBACTAM 3.375 GM in DEXTROSE/WATER 1 50ML.BAG IVPB SCH ×2 (00:51→08:06)
[2016-10-22] MEDS: 0.9% NACL WITH KCL 20 MEQ/L 1,000 ML IV SCH ×2 (06:15→11:20)
[2016-10-22] MEDS: IPRATROPIUM-ALBUTEROL 3 ML NEB INHALATION SCH ×2 (07:20→11:15)
[2016-10-22] MEDS: NICOTINE 14MG/24HR PATCH TRANSDERM SCH (08:06)
[2016-10-22] MEDS: ENOXAPARIN 40 MG/0.4 ML SYRINGE SQ SCH (08:06)
[2016-10-22] MEDS: hydrALAZINE HCL 25 MG TAB PO SCH ×2 (08:07→13:04)
[2016-10-22] MEDS: PANTOPRAZOLE 40 MG/10 ML VIAL IV SCH (08:07)
[2016-10-22] MEDS: busPIRone HCl 10 MG TAB PO SCH (08:07)
[2016-10-22] MEDS: QUEtiapine 25 MG TAB PO SCH (08:08)
[2016-10-22] MEDS: METOPROLOL TARTRATE 50 MG TAB PO SCH (08:08)
[2016-10-22] MEDS: amLODIPine 10 MG TAB PO SCH (08:08)
[2016-10-22] MEDS: FLUoxetine HCL 20 MG CAP PO SCH (08:09)
[2016-10-22] MEDS: ASPIRIN 81 MG CHEW PO SCH (08:09)
[2016-10-22 09:45] VITALS: BP 138/64; RESP 16; TEMP 97.4
[2016-10-22 11:29] VITALS: PULSE 55
--- NOTE | 2016-10-22 11:45 | P.PN ---
Subjective Principal diagnosis: Abdominal pain The patient is a 76-year-old female who was admitted for abdominal pain. She denies any abdominal pain this morning. She is getting breathing treatments. Her psychosis is resolved. No reports of nausea or vomiting. Objective - Vital Signs Vital signs: Vital Signs Temp 97.4 F L 10/22/16 07:00 Pulse 55 L 10/22/16 11:29 Resp 16 10/22/16 10:49 BP 138/64 10/22/16 09:45 Pulse Ox 94 L 10/22/16 07:20 Intake & Output 10/21/16 10/22/16 10/22/16 18:59 06:59 18:59 Other: Voiding Method Bedpan Bedpan Diaper Diaper Incontinent Incontinent # Voids 1 2 2 - Exam GENERAL: Well developed and in no acute distress. HEENT: No sclera icterus. Moist buccal mucosa. Head is atraumatic, normocephalic. No nasal drainage. NECK: Supple without lymphadenopathy. CHEST: Non-labored respirations and equal bilateral excursions. CARDIOVASCULAR: Regular rate and rhythm. Palpable 2+ radial pulses. ABDOMEN: Soft, nontender. Nondistended. MUSCULOSKELETAL: No clubbing, cyanosis or edema. NEUROLOGIC: No focal or lateralizing signs. PSYCH: Alert to person. - Labs CBC & Chem 7: 10/21/16 07:00 10/21/16 07:00 Assessment and Plan (1) Debilitated Status: Chronic (2) Left inguinal hernia Status: Acute (3) Right lower quadrant pain Status: Acute (4) Ischemic colitis Status: Chronic (5) Urinary incontinence Status: Chronic (6) Gastroesophageal reflux Status: Chronic (7) Weight loss, unintentional Status: Acute (8) Abdominal pain Status: Acute (9) Hypokalemia Status: Acute (10) Rectal bleeding Status: Acute (11) Acute psychosis Status: Acute Plan: 1. No surgical intervention. 2. Will follow as needed.
[2016-10-23] MEDS ORDERED: PANTOPRAZOLE 40 MG TABLET PO SCH (07:30)
--- NOTE | 2016-10-24 23:41 | DS ---
DATE OF ADMISSION: 10/20/2016 DATE OF DISCHARGE: 10/22/2016 FINAL DIAGNOSES: 1. Acute severe gastroenteritis. 2. Coronary artery disease with prior history of stent. 3. Primary osteoarthritis in multiple joints, bilateral. 4. Rheumatoid arthritis in multiple joints, bilateral. 5. Chronic gait dysfunction; uses a wheelchair to get about. 6. Depression not otherwise specified. 7. Anxiety not otherwise specified, uncontrolled. 8. Essential hypertension. 9. Gastroesophageal reflux disease. 10. Peripheral arterial disease. 11. Hiatal hernia. 12. Coronary artery disease with stent to the circumflex in 1999. 13. Major depression, recurrent, mild to moderate, without psychotic feature. HOSPITAL COURSE: This is a patient with acute severe gastroenteritis which settled down. Doing better at the time of discharge. Patient is tolerating a diet. Patient was seen by Dr. Antonio from Psychiatry, who adjusted some medications. CONSULTATIONS: 1. Dr. Antonio from Psychiatry. 2. Dr. Leahy from General Surgery. 3. Dr. Ramsey from Cardiology. Patient is doing much better at the time of discharge. DISCHARGE MEDICATIONS: 1. Prozac 40 mg b.i.d. 2. Protonix 40 mg b.i.d. 3. Potassium 20 mEq daily. 4. Aricept 5 mg daily. 5. Buspirone 20 mg b.i.d. 6. Ativan 0.5 p.o. b.i.d. p.r.n. 7. Ultram 50 mg p.o. q.8 p.r.n. 8. Aspirin 81 mg a day. 9. Lopressor 50 mg b.i.d. 10. Nicotine patch. 11. Seroquel 25 mg p.o. b.i.d. 12. Norvasc 10 mg p.o. daily. 13. Hydralazine 25 mg q.i.d. Follow up with Dr. Maria in one week. Follow up with [facility]. Follow up with Cardiology. Lungs are clear. CARDIOVASCULAR: First and second sound normal. ABDOMEN: Soft, nontender.
== END 2016-10-22 15:50 | disposition home health service (06) | DRG 392 ==
LOC: EC 01:13 → 4MS4W 03:21
PROVIDERS: ADMIT Hospitalist; ATTEND Hospitalist
DX: K52.9 Noninfective gastroenteritis and colitis, unspecified (principal); K55.9 Vascular disorder of intestine, unspecified; F33.1 Major depressive disorder, recurrent, moderate; K62.5 Hemorrhage of anus and rectum; F23 Brief psychotic disorder; E78.5 Hyperlipidemia, unspecified; E83.42 Hypomagnesemia; E86.0 Dehydration; E87.6 Hypokalemia; F09 Unspecified mental disorder due to known physiological condition; F17.210 Nicotine dependence, cigarettes, uncomplicated; F22 Delusional disorders; F41.9 Anxiety disorder, unspecified; G89.4 Chronic pain syndrome; I10 Essential (primary) hypertension; I25.10 Atherosclerotic heart disease of native coronary artery without angina pectoris; I25.2 Old myocardial infarction; I73.9 Peripheral vascular disease, unspecified; K21.9 Gastro-esophageal reflux disease without esophagitis; K40.90 Unilateral inguinal hernia, without obstruction or gangrene, not specified as recurrent; K44.9 Diaphragmatic hernia without obstruction or gangrene; M06.9 Rheumatoid arthritis, unspecified; M15.9 Polyosteoarthritis, unspecified; M81.0 Age-related osteoporosis without current pathological fracture; R32 Unspecified urinary incontinence; R26.9 Unspecified abnormalities of gait and mobility; R63.4 Abnormal weight loss; G25.0 Essential tremor; Z86.14 Personal history of Methicillin resistant Staphylococcus aureus infection; Z95.5 Presence of coronary angioplasty implant and graft; Z79.899 Other long term (current) drug therapy; Z88.5 Allergy status to narcotic agent; Z91.041 Radiographic dye allergy status; Z96.651 Presence of right artificial knee joint; Z96.612 Presence of left artificial shoulder joint; Z82.49 Family history of ischemic heart disease and other diseases of the circulatory system
CPT/HCPCS: 36415; 74000; 74176; 80048; 80053; 81001; 82150; 82550; 82553; 83605; 83690; 83735; 84484; 85025; 87040; 93005; 94640; 96361; 96374; 99285

== ENCOUNTER 2016-11-14 16:24 | Inpatient (IN) | payer MEDICARE, OTHER ==
[2016-11-14] MEDS ORDERED: SODIUM CHLORIDE 0.9% 1,000 ML IV STA (16:54)
[2016-11-14] MEDS ORDERED: ATROPINE SULFATE 0.1 MG/ML 10ML SYRINGE IV STA (16:55)
[2016-11-14] MEDS ORDERED: DOPamine DRIP 800 MG in DEXTROSE/WATER 1 500ML.BAG IV ONE (16:56)
[2016-11-14 17:28] LABS: Anisocytosis Slight; Basophils # (A) 0.1 k/uL (0-0.2); Basophils % (A) 1 %; CH 27.6; CHCM 31.9; Eosinophils # (A) 0.2 k/uL (0-0.7); Eosinophils % (A) 2 %; HCT 43.8 % (34.0-46.0); HDW 2.83; HGB 13.9 gm/dL (11.4-16.0); Hypochromasia Slight; Luc # (Auto) 0.22; Luc % (Auto) 3; Lymphocytes # (A) 2.1 k/uL (1.0-4.8); Lymphocytes % (A) 26 %; MCH 27.6 pg (25.0-35.0); MCHC 31.7 g/dL (31.0-37.0); MCV 86.9 fL (80.0-100.0); Mean Platelet Volume 8.3; Monocytes # (A) 0.4 k/uL (0-1.0); Monocytes % (A) 6 %; Neutrophils # (A) 4.9 k/uL (1.3-7.7); Neutrophils % (A) 62 %; RBC 5.05 m/uL (3.80-5.40); WBC 7.9 k/uL (3.8-10.6); WBC (Perox) 8.04
[2016-11-14 17:37] LABS: Partial Thromboplastin Time 23.6 sec (22.0-30.0); Prothrombin Time 10.5 sec (9.0-12.0)
[2016-11-14 17:42] LABS: Calcium 9.5 mg/dL (8.4-10.2); Magnesium 1.9 mg/dL (1.6-2.3); Potassium 5.5 mmol/L (3.5-5.1); Total Bilirubin 0.5 mg/dL (0.2-1.3); Total Protein 7.4 g/dL (6.3-8.2)
--- NOTE | 2016-11-14 17:43 | XR ---
EXAMINATION TYPE: XR chest 2V DATE OF EXAM: 11/14/2016 5:33 PM COMPARISON: Chest x-ray February 24, 2017 HISTORY: Chest pain, shortness of breath, and bradycardia. TECHNIQUE: Frontal and lateral views of the chest are obtained. FINDINGS: There is chronic minimal change without suspicious focal air space opacity, pleural effusi on, or pneumothorax seen. The cardiac silhouette size is upper limits of normal with atherosclerotic thoracic aorta. Metallic hardware left proximal humerus is redemonstrated. Metallic anchors right hu meral head level are noted IMPRESSION: Chronic parenchymal change without acute pulmonary process.
[2016-11-14 17:56] LABS: Creatine Kinase 31 U/L (30-135)
[2016-11-14 18:08] LABS: Creatine Kinase MB 0.6 ng/mL (0.0-2.4); Troponin I <0.012 ng/mL (0.000-0.034)
[2016-11-14] MEDS ORDERED: diphenhydrAMINE 50 MG/ML 1 ML VIAL IVP STA (18:43)
[2016-11-14] MEDS ORDERED: methylPREDNISolone SOD SUCCI 125 MG/2 ML VIAL IV STA (18:43)
[2016-11-14] MEDS ORDERED: LORazepam 1 MG TAB PO PRN (19:17)
[2016-11-14] MEDS ORDERED: ALBUTEROL NEBULIZED 2.5 MG/3 ML INHALATION PRN (19:17)
[2016-11-14] MEDS ORDERED: NITROGLYCERIN SL TABS 0.4 MG TAB SUBLINGUAL PRN (19:17)
[2016-11-14] MEDS ORDERED: ALPRAZolam 0.25 MG TAB PO PRN (19:17)
[2016-11-14] MEDS ORDERED: LORazepam 2 MG/ML SYRINGE IM STA (19:26)
[2016-11-14 19:30] LABS: Amylase 43 U/L (30-110)
--- NOTE | 2016-11-14 20:05 | ED ---
Chest Pain HPI - General Chief Complaint: Chest Pain Stated Complaint: Heart Problems Time Seen by Provider: 11/14/16 16:42 Source: patient Mode of arrival: wheelchair Limitations: no limitations - History of Present Illness Initial Comments: He said the she was seen now by Dr. cabrera and her doctor advised her to come to the ER considering her heart rate was quite slow on arrival her pulse rate was 34, she was complaining about chest pain and shortness of breath. She was requesting gum to see Dr. Finley he was then now very happy about some of her medications she denies any headaches or neck stiffness no abdominal pain no frequency urgency dysuria - Related Data Home Medications Medication Instructions Recorded Confirmed FLUoxetine HCL 40 mg PO BID 04/22/15 11/14/16 Pantoprazole Sodium 40 mg PO BID 04/22/15 11/14/16 Potassium Chloride [Klor-Con 20] 20 meq PO DAILY 04/22/15 11/14/16 Donepezil [Aricept] 5 mg PO QAM 09/26/16 11/14/16 busPIRone HCL 20 mg PO BID 09/26/16 11/14/16 LORazepam [Ativan] 1 mg PO BID PRN 10/20/16 11/14/16 traMADol HCl [Ultram] 50 mg PO Q8H PRN 10/20/16 11/14/16 Albuterol Inhaler [Ventolin Hfa 1 - 2 puff INHALATION RT-Q4H PRN 11/14/16 Inhaler] Magnesium Oxide [Mag-Ox] 400 mg PO HS 11/14/16 11/14/16 Metoprolol Tartrate [Lopressor] 50 mg PO BID 11/14/16 11/14/16 Nitroglycerin Sl Tabs [Nitrostat] 0.4 mg SUBLINGUAL Q5M PRN 11/14/16 11/14/16 Tiotropium [place] [Spiriva 1 cap INHALATION RT-DAILY 11/14/16 11/14/16 Respimat] Previous Rx's Medication Instructions Recorded Aspirin 81 mg PO DAILY chew 10/22/16 QUEtiapine [SEROquel] 25 mg PO BID #60 tab 10/22/16 amLODIPine [Norvasc] 10 mg PO DAILY #30 tab 10/22/16 Allergies Allergy/AdvReac Type Severity Reaction Status Date / Time iodine Allergy Rapid Verified 11/14/16 16:37 Heart Rate adhesive AdvReac Itching Verified 11/14/16 16:37 codeine AdvReac Confusion Verified 11/14/16 16:37 hydrocodone bitartrate AdvReac Confusion Verified 11/14/16 16:37 [From [place]] hydromorphone HCl AdvReac Confusion Verified 11/14/16 16:37 [From Dilaudid] morphine AdvReac Confusion Verified 11/14/16 16:37 Review of Systems ROS Statement: Those systems with pertinent positive or pertinent negative responses have been documented in the HPI. ROS Other: All systems not noted in ROS Statement are negative. EKG Findings - EKG Comments: EKG Findings:: noticed some ST depression in lead 1 seems like a prominent tenting T waves in V4 V5 and V6 Past Medical History Past Medical History: Coronary Artery Disease (CAD), Chest Pain / Angina, GERD/ Reflux, GI Bleed, Hyperlipidemia, Hypertension, Memory Impairment, Myocardial Infarction (MD), Osteoarthritis (OA), Pneumonia, Rheumatoid Arthritis (RA) Additional Past Medical History / Comment(s): osteoporosis, falls-has struck head - needing pattie in head 6 weeks ago and suffering whiplash with fall 3 weeks ago, PAD, possible aspiration pneumonia, pneumonia osteoporosis,hiatal hernia, constipation and belching alot.has cardiac stents x2 to circ, UTI( [facility]) 11--14. as a child, essential tremors, pt has hx of significant wt loss associated with sepsis and had a gastric tube for some time. pt stated wt down from 175 to 135# this past winter, has no appetite. t12 compression fx, cellulitis -knee. pt stated unable to bend rt knee(failed sx) is w/c bound but able to stand /pivot. Last Myocardial Infarction Date:: 1999 History of Any Multi-Drug Resistant Organisms: MRSA Date of last positivie culture/infection: 2011 per patient in nursing history MDRO Source:: Right Knee Past Surgical History: Appendectomy, Heart Catheterization With Stent, Joint Replacement, Orthopedic Surgery, Tonsillectomy Additional Past Surgical History / Comment(s): PTCA with 2 stents to CX in 1999 , R shoulder arthroscopic rotator cuff repair, reverse L total shoulder, femoral bypass 1999, gastric tube placement and since removal, R total knee ( failed) Past Anesthesia/Blood Transfusion Reactions: Postoperative Nausea & Vomiting ( PONV) Additional Past Anesthesia/Blood Transfusion Reaction / Comment(s): Pt is uncertain if she has ever recieved blood. Date of Last Stent Placement:: 1999 Past Psychological History: Anxiety, Depression Additional Psychological History / Comment(s): Ongoing tobacco smoker. Pt started smoking about age 15-16 yrs old. She smokes about 6 CIG PER DAY. She is . Living with her son in an apartment here in the [facility]. She uses wheelchair. . She is able to stand and pivot to get into wheelchair. She feeds herself. She has home care thru [facility] who assist her with bathing and cleaning 5 days a week. She and her. son manage her medications. Her son drives her to [place]-pt does not drive. Smoking Status: Current every day smoker Past Alcohol Use History: None Reported Additional Past Alcohol Use History / Comment(s): Pt states she started smoking about age 14-16 yrs and is CURRENTLY SMOKING 5 CIG PER DAY Pt states she quit drinking alcohol 25 yrs ago. Past Drug Use History: None Reported - Past Family History Father Family Medical History: Coronary Artery Disease (CAD), Myocardial Infarction (MD ) Mother Family Medical History: Diabetes Mellitus, Hypertension General Exam - General Exam Comments Initial Comments: General: The patient is awake and alert, he seems quite angry and agitated at one point she just wanted to sign AMA and Aleve Skin: Skin is warm and dry and no rashes or lesions are noted. Eye: Pupils are equal, round and reactive to light, extra-ocular movements are intact; there is normal conjunctiva bilaterally. Ears, nose, mouth and throat: There are moist mucous membranes and no oral lesions. Neck: The neck is supple, there is no tenderness or JVD. Cardiovascular: Significant bradycardia. Respiratory: To auscultation bilateral, severe COPD Gastrointestinal: Soft, non-distended, non-tender abdomen without masses or organomegaly noted. There is no rebound or guarding present. Bowel sounds are unremarkable. Back: There is no tenderness to palpation in the midline. There is no obvious deformity. Musculoskeletal: Normal ROM, no tenderness, There is no pedal edema. There is no calf tenderness or swelling. No cords were appreciated. Neurological: CN II-XII intact, Cranial nerves III through XII are intact. There are no obvious motor or sensory deficits. Coordination appears grossly intact. Speech is normal. Psychiatric: Cooperative, in the beginning when she got agitated and she got angry than she wanted to leave and she wanted to pull her IV out at that point recall the family that settle things down but still required restraints because she was trying to put her IV out Limitations: no limitations Course Vital Signs 11/14/16 11/14/16 11/14/16 16:32 16:40 17:09 Temperature 96.5 F L Pulse Rate 35 L 46 L Pulse Rate [ 38 L Bilateral Radial] Respiratory 18 Rate Blood Pressure 123/58 111/81 O2 Sat by Pulse 97 Oximetry 11/14/16 11/14/16 11/14/16 17:21 17:35 18:00 Temperature Pulse Rate 44 L 48 L 43 L Pulse Rate [ Bilateral Radial] Respiratory 18 14 Rate Blood Pressure 91/56 129/59 129/58 O2 Sat by Pulse 98 98 Oximetry 11/14/16 11/14/16 11/14/16 18:16 18:26 18:38 Temperature Pulse Rate 44 L 42 L 45 L Pulse Rate [ Bilateral Radial] Respiratory 15 Rate Blood Pressure 124/57 122/56 115/55 O2 Sat by Pulse 95 Oximetry 11/14/16 11/14/16 11/14/16 18:49 19:09 19:47 Temperature 98.0 F Pulse Rate 40 L 54 L 66 Pulse Rate [ Bilateral Radial] Respiratory 14 15 18 Rate Blood Pressure 133/51 101/57 O2 Sat by Pulse 95 99 Oximetry 11/14/16 20:40 Temperature Pulse Rate 52 L Pulse Rate [ Bilateral Radial] Respiratory 18 Rate Blood Pressure 93/47 O2 Sat by Pulse 99 Oximetry Critical Care Time Total Critical Care Time: 120 Critical Care Time: She was significantly bradycardic then she was angry on her about her medications with her different situations pertaining to different doctors different family members and she got agitated him on Aleve I did discuss that with the Dr. Finley and Dr. Brown and Dr. Tobar, atropine was used and now dopamine infusion help us to bring the heart rate up then she required some Ativan to help her registration there was about 1.2+ worse was normal several recesses were required to get her better hemodynamically and convince her to see needed to stay and she wanted to sign AMA finally her son came and does not settle things down then she wanted to call the asbestos surveyor in [facility] today him and explained her that the Dr. Guidry once she seen is not promotions director today then she was quite selective about who she wanted be admitted under considering that Dr. Finley was requested to see her Disposition Clinical Impression: Bradycardia, Confusion, Agitation Disposition: ADMITTED IP TO THIS [facility] Condition: Good
[2016-11-14] MEDS ORDERED: ACETAMINOPHEN TAB 325 MG TAB PO PRN (21:48)
[2016-11-14] MEDS ORDERED: NALOXONE 0.4 MG/ML 1 ML VIAL IV PRN (21:48)
[2016-11-14] MEDS ORDERED: FUROSEMIDE 10 MG/ML 4 ML VIAL IV STA (22:09)
[2016-11-14 22:44] LABS: Glucose,Whole Blood 142 mg/dL (75-99)
--- NOTE | 2016-11-14 23:25 | CT ---
EXAM: CT Head Without Intravenous Contrast. CLINICAL HISTORY: Reason: Pain TECHNIQUE: Axial computed tomography images of the head/brain without intravenous contrast. CTDI is 59.4 mGy and DLP is 1096.4 MGy-cm COMPARISON: CT head 09/26/2016 FINDINGS: Brain: Cerebral atrophy. Chronic white matter ischemic changes. No abnormal mass effect or midline shift. No evidence of acute cerebral infarction or intracranial hemorrhage. No abnormal extra-axial collections identified. Ventricles: Unremarkable. No ventriculomegaly. Bones/joints: No skull fractures identified. Soft tissues: Unremarkable. Sinuses: Unremarkable as visualized. No acute sinusitis. Mastoid air cells: Unremarkable as visualized. No mastoid effusion. No significant change since 09/26/2016. IMPRESSION: Cerebral atrophy and chronic white matter ischemic changes. No evidence of acute intracranial abnormality..
[2016-11-14] MEDS: QUEtiapine 25 MG TAB PO SCH (23:29)
[2016-11-14] MEDS: FLUoxetine HCL 20 MG CAP PO SCH (23:29)
[2016-11-15 00:07] LABS: Appearance,Urine Clear (Clear); Bilirubin,Urine Negative (Negative); Glucose,Urine (UA) Negative (Negative); Ketones,Urine Negative (Negative); Leukocyte Esterase,Urine Trace (Negative); Mucus,Urine Rare /hpf; Nitrite,Urine Negative (Negative); PH, Urine 5.5 (5.0-8.0); Particle Count 8163; Protein,Urine Trace (Negative); RBC,Urine 1 /hpf (0-5); Specific Gravity,Urine 1.016 (1.001-1.035); Squamous Epithelial Cell,Urine <1 /hpf (0-4); UA Billing (MACRO vs. MICRO) MICRO; Urobilinogen,Urine <2.0 mg/dL (<2.0); WBC,Urine 1 /hpf (0-5)
[2016-11-15] MEDS: TEMAZEPAM 15 MG CAP PO PRN (00:28)
[2016-11-15] MEDS: SODIUM CHLORIDE 0.9% 1,000 ML IV SCH (00:29)
[2016-11-15 04:56] LABS: Basophils % (A) 0 %; CH 27.4; CHCM 31.4; Eosinophils % (A) 0 %; HDW 2.72; HGB 14.1 gm/dL (11.4-16.0); Hypochromasia Slight; Luc # (Auto) 0.04; Luc % (Auto) 1; Lymphocytes % (A) 13 %; MCHC 30.6 g/dL (31.0-37.0); MCV 88.1 fL (80.0-100.0); Mean Platelet Volume 7.6; Monocytes # (A) 0.2 k/uL (0-1.0); Monocytes % (A) 3 %; Neutrophils # (A) 6.6 k/uL (1.3-7.7); Neutrophils % (A) 84 %; RBC 5.22 m/uL (3.80-5.40); RDW 15.9 % (11.5-15.5); WBC 7.8 k/uL (3.8-10.6); WBC (Perox) 7.98
[2016-11-15 05:21] LABS: Calcium 9.2 mg/dL (8.4-10.2); Magnesium 1.7 mg/dL (1.6-2.3); Phosphorous 5.1 mg/dL (2.5-4.5); Potassium 5.2 mmol/L (3.5-5.1); Total Bilirubin 0.7 mg/dL (0.2-1.3); Total Protein 7.8 g/dL (6.3-8.2)
[2016-11-15] MEDS ORDERED: Magnesium Replacement Protocol 1 EACH MISC MISCELLANE PRN (05:29)
[2016-11-15] MEDS: MAGNESIUM SULFATE-D5W PMX 1 GM in DEXTROSE/WATER 1 100ML.BAG IVPB SCH ×2 (05:50→06:59)
[2016-11-15] MEDS ORDERED: PANTOPRAZOLE 40 MG TABLET PO SCH (07:30)
[2016-11-15] MEDS: BUDESONIDE 0.5 MG/2 ML NEBU INHALATION SCH ×2 (07:41→19:24)
[2016-11-15] MEDS: IPRATROPIUM-ALBUTEROL 3 ML NEB INHALATION PRN ×2 (07:41→19:24)
--- NOTE | 2016-11-15 09:33 | HP ---
DATE OF ADMISSION: 11/14/2016 CHIEF COMPLAINT: Intermittent vomiting as well as headache and nausea and bradycardia. HISTORY OF PRESENT ILLNESS: This 76-year-old woman with a past history of coronary artery disease and stent, history of DJD, history of rheumatoid arthritis, history of chronic gait dysfunction, anxiety, depression, not otherwise specified, history of GERD, peripheral artery disease and history of hiatal hernia, history of CAD with stent, history of depression, being followed by Dr. Anuj Maria in the outpatient setting was recently admitted with acute severe gastroenteritis. The patient apparently improved significantly. The patient went home and the patient is having recurrent episodes of vomiting and as well as headache and also some nausea. The patient presented to Dr. Maria's office and [facility] Emergency Room Department. In the Emergency Room Department, the heart rate was found to be 35 indicating sinus bradycardia. The patient being evaluated. The patient also had hypertension, the blood pressure up to 91/56 and with atropine and dopamine. The heart rate is slightly improving in the 40s and 50s. There is no history of any fevers, rigors or chills. No history of chest pain, palpitations. No history of headache, loss of consciousness or seizures at this time. PAST MEDICAL HISTORY: History of coronary artery disease and stent, history of degenerative joint disease, history of rheumatoid arthritis, gait dysfunction, history of depression, anxiety, history of hypertension, history of GERD, peripheral vascular disease, hiatal hernia. Medications prior to admission the home medications include: 1. Ultram 50 mg q.8 p.r.n. 2. Buspirone 20 mg p.o. b.i.d. 3. Norvasc 10 mg p.o. daily. 4. Spiriva 1 puff daily. 5. Seroquel 25 mg b.i.d. 6. Klor-Con 20 meq p.o. daily. 7. Protonix 40 mg p.o. b.i.d. 8. Nitrostat 0.5 mg sublingual p.r.n. 9. Lopressor 50 mg p.o. b.i.d. 10. Magnesium oxide 400 mg p.o. q.h.s. 11. Ativan 1 mg b.i.d. p.r.n. 12. Fluoxetine 40 mg p.o. b.i.d. 14. Aspirin 81 mg p.o. daily. 15. Ventolin HFA One to 2 puffs every 4 p.r.n. ALLERGIES: IODINE, ADHESIVES, CODEINE, HYDROCODONE, HYDROMORPHONE AND MORPHINE. FAMILY HISTORY: No history of heart disease or strokes in the family. SOCIAL HISTORY: History of smoking on a regular basis. No history of alcohol intake. REVIEW OF SYSTEMS: ENT: No diminished hearing. No diminished vision. CARDIOVASCULAR: As mentioned earlier. RESPIRATORY: As mentioned earlier. GI: No nausea. No vomiting. : No dysuria. Nervous system: No numbness. No weakness. ALLERGY/IMMUNOLOGY: No asthma or hayfever. MUSCULOSKELETAL: As mentioned earlier. HEMATOLOGY/ONCOLOGY: No history of anemia. ENDOCRINE: No history of diabetes mellitus, hypothyroidism. CONSTITUTIONAL: As mentioned earlier. DERMATOLOGY: Negative. Rheumatology: Negative. PSYCHIATRY: As mentioned earlier. PHYSICAL EXAMINATION: The patient is alert and oriented x 3, pulse noted blood pressure 111/81, respiratory rate 18, temperature 96.4. Pulse ox is 97% on room air. HEENT: Conjunctivae normal. Oral mucosa moist. NECK: No jugular venous distention. No carotid bruit. No lymph node enlargement. CARDIOVASCULAR SYSTEM: S1, S2 muffled. No S3, no S4. RESPIRATORY: Breath sounds diminished at the bases. A few scattered rhonchi and crackles. ABDOMEN: Soft, scaphoid, nontender. No mass palpable. LEGS: No edema. No swelling. Nervous system: Higher functions as mentioned earlier. Moves all four limbs. No focal motor or sensory deficits. LYMPHATICS: No lymph nodes palpable in the neck, axillae or groin. SKIN: no ulcer, rash or bleeding. LABS: CBC within normal limits. INR is one. Sodium 140, potassium 5.5, creatinine is 1.11, AST 74, ALT is 83. ASSESSMENT: 1. Hypotension and bradycardia for evaluation possibly medication induced rule out sick sinus syndrome. 2. Headache and incessant vomiting for evaluation. 3. History of recent acute gastroenteritis. 4. History of coronary artery disease and stent. 5. History of degenerative joint disease. 6. History of rheumatoid arthritis. 7. History of gait dysfunction. 8. History of depression, anxiety, not otherwise specified. 9. Essential hypertension. 10. History of gastroesophageal reflux disease. 11. Peripheral arterial disease. 12. Hiatal hernia. 13. History of continued ongoing nicotine dependence. 14. Increased creatinine with mild acute renal failure, possible prerenal. 15. Mild hyperkalemia. 16. Increased AST, ALT, possible mild hepatitis of undetermined etiology. RECOMMENDATIONS AND DISCUSSION: This 76-year-old woman who presented with multiple complex medical issues, we will monitor the patient closely. Continue the current medications. Continue symptomatic treatment. Otherwise, the patient was started on dopamine and given dopamine and atropine. I would recommend to stop the beta blockers. Cardiology consultation. Full cardiovascular work-up. Continue the rest of the medications. Guarded prognosis because of multiple complex medical issues. Further recommendations to follow. A copy of dictation being forwarded to Dr. Anuj Maria who is the primary care physician. The patient also had other symptoms of headache, and vomiting the reasons of which are not clear at this point. Continue to monitor. Further recommendations to follow. Also obtain a gastroenterology consultation as well. SEAMUS
--- NOTE | 2016-11-15 09:34 | ECHOF ---
Referral Reason:Chest pain MEASUREMENTS -------- HEIGHT: 157.5 cm WEIGHT: 61.7 kg BP: 137/62 IVSd: 1.2 cm (0.6 - 1.1) LVIDd: 3.2 cm (3.9 - 5.3) LVPWd: 1.3 cm (0.6 - 1.1) IVSs: 1.5 cm LVIDs: 2.2 cm LVPWs: 0.8 cm MV EXCURSION: 14.013 mm (> 18.000) MV EF SLOPE: 32 mm/s (70 - 150) EPSS: 0.6 cm MV E Jose: 0.42 m/s MV DecT: 335 ms MV A Jose: 0.73 m/s MV E/A Ratio: 0.57 RAP: 5.00 mmHg RVSP: 30.58 mmHg FINDINGS -------- Sinus rhythm. Pt. not compliant. There is mild concentric left ventricular hypertrophy. Overall left ventricular systolic function is normal with, an EF between 55 - 60 %. The right ventricle is normal in size. The left atrial size is normal. The right atrial size is normal. There is mild aortic valve sclerosis. There is no evidence of aortic regurgitation. Mild mitral annular calcification present. Mild mitral regurgitation is present. Mild tricuspid regurgitation present. There is no evidence of pulmonary hypertension. The right ventricular systolic pressure, as measured by Doppler, is 30.58mmHg. There is no pulmonic regurgitation present. The aortic root size is normal. There is no pericardial effusion. CONCLUSIONS -------- 1. Pt. not compliant. 2. There is no pulmonic regurgitation present. 3. There is no pericardial effusion. 4. There is mild concentric left ventricular hypertrophy. 5. Overall left ventricular systolic function is normal with, an EF between 55 - 60 %. 6. There is mild aortic valve sclerosis. 7. Mild mitral annular calcification present. 8. Mild mitral regurgitation is present. 9. Mild tricuspid regurgitation present. 10. There is no evidence of pulmonary hypertension. 11. The right ventricular systolic pressure, as measured by Doppler, is 30.58mmHg. MANAGER IT TRAINING: Lata Moran RD
[2016-11-15] MEDS: ASPIRIN 81 MG CHEW PO SCH (09:42)
[2016-11-15] MEDS: DONEPEZIL 5 MG TAB PO SCH (09:42)
[2016-11-15] MEDS: busPIRone HCl 10 MG TAB PO SCH ×2 (09:42→20:36)
[2016-11-15] MEDS: QUEtiapine 25 MG TAB PO SCH ×2 (09:42→20:36)
[2016-11-15] MEDS: PANTOPRAZOLE 40 MG/10 ML VIAL IV SCH (09:43)
[2016-11-15] MEDS: FLUoxetine HCL 20 MG CAP PO SCH ×2 (09:43→20:37)
--- NOTE | 2016-11-15 09:51 | P.CRDCN ---
History of Present Illness Consult date: 11/14/16 Reason for Consult (text): Bradycardia Consult reason: chest pain, other History of present illness: 76-year-old lady with history of coronary artery disease status post angioplasty hypertension dementia who was recently admitted to hospital with symptoms of nausea vomiting and confusion was discharged home on metoprolol 50 twice a day and was subsequently seen by her primary care physician. She was sent to me for cardiac evaluation. I have seen her a few years ago but she hasn 't been seen by me in the office in the recent past. Patient complains of episodes of vague precordial chest pains that are sharp precordial without definite radiation to neck, or back she also has problem with arthritis. An EKG performed she seemed to be in sinus rhythm with accelerated with a junctional bradycardia with heart rate of around 31 bpm she did not have any syncope her blood pressure seems stable he did due to this I sent her to the emergency room to check and make sure that she does not have hyperkalemia rule out myocardial infarction and see what happens to her heart rhythm by plan was if her heart might heart rate improves off the beta blockers then we will continue to treat her and do an outpatient stress test if she remains bradycardic she will need a permanent pacemaker I discussed these issues at length with the patient she understands and was in agreement with the plans and is sending the patient to the ER. Review of Systems Constitutional: Denies chills. Denies fever. Eyes: Denies blurred vision. Denies pain. Ears, nose, mouth and throat: Denies headache. Denies sore throat. Cardiovascular: has chest pain. Denies shortness of breath. Respiratory: Denies cough. Gastrointestinal: Denies abdominal pain. Denies diarrhea. Denies nausea. Denies vomiting. Patient has nausea Musculoskeletal: Denies myalgias. Arthritis Integumentary: Denies pruritus. Denies rash. Neurological: Denies numbness. Denies weakness. Has mild dementia and confusion Psychiatric: Denies anxiety. Denies depression. Endocrine: Denies fatigue. Denies weight change. Genitourinary: Denies burning, hematuria, frequency of urination. Hematological: No anemia or excess bleeding. Past Medical History Past Medical History: Coronary Artery Disease (CAD), Chest Pain / Angina, GERD/ Reflux, GI Bleed, Hyperlipidemia, Hypertension, Memory Impairment, Myocardial Infarction (OR), Osteoarthritis (OA), Pneumonia, Rheumatoid Arthritis (RA), Syncope Additional Past Medical History / Comment(s): osteoporosis, falls-has struck head - needing pattie in head and suffering whiplash with fall, PAD, possible aspiration pneumonia, pneumonia, osteoporosis,hiatal hernia, constipation. Cardiac stents x2 to circ, UTI(ECOLI) 11--14. as a child, essential tremors, significant wt loss associated with sepsis and had a gastric tube for some time. weight down from 175 to 135# this past winter, has no appetite. t12 compression fx,cellulitis -knee. Unable to bend rt knee(failed surgery), w/c bound but able to stand /pivot. Last Myocardial Infarction Date:: 1999 History of Any Multi-Drug Resistant Organisms: MRSA Date of last positivie culture/infection: 2011 per patient in nursing history MDRO Source:: Right Knee Past Surgical History: Appendectomy, Heart Catheterization With Stent, Joint Replacement, Orthopedic Surgery, Tonsillectomy Additional Past Surgical History / Comment(s): PTCA with 2 stents to CX in 1999 , R shoulder arthroscopic rotator cuff repair, reverse L total shoulder, femoral bypass 1999, gastric tube placement and since removal, R total knee ( failed) Past Anesthesia/Blood Transfusion Reactions: Postoperative Nausea & Vomiting ( PONV) Additional Past Anesthesia/Blood Transfusion Reaction / Comment(s): uncertain if she has ever recieved blood. Date of Last Stent Placement:: 1999 Past Psychological History: Anxiety, Depression Additional Psychological History / Comment(s): Ongoing tobacco smoker. Pt started smoking about age 15-16 yrs old. She smokes about 6 CIG PER DAY. She is . Living with her son in an apartment in the [facility]. She uses a wheelchair. . She is able to stand and pivot to get into wheelchair. She feeds herself. She has home care thru [facility] who assist her with bathing and cleaning 5 days a week. She and her son manage her medications. Her son drives her to [employer] [employer]-pt does not drive. Smoking Status: Current every day smoker Past Alcohol Use History: None Reported Additional Past Alcohol Use History / Comment(s): Pt states she started smoking about age [age] yrs and is CURRENTLY SMOKING 6 CIG PER DAY Pt states she quit drinking alcohol 25 yrs ago. Past Drug Use History: None Reported - Past Family History Father Family Medical History: Coronary Artery Disease (CAD), Myocardial Infarction (OR ) Mother Family Medical History: Diabetes Mellitus, Hypertension Medications and Allergies Home Medications Medication Instructions Recorded Confirmed Type FLUoxetine HCL 40 mg PO BID 04/22/15 11/14/16 History Pantoprazole Sodium 40 mg PO DAILY 04/22/15 11/15/16 History Potassium Chloride [Klor-Con 20] 20 meq PO DAILY 04/22/15 11/14/16 History Donepezil [Aricept] 5 mg PO QAM 09/26/16 11/14/16 History busPIRone HCL 20 mg PO BID 09/26/16 11/14/16 History LORazepam [Ativan] 1 mg PO BID PRN 10/20/16 11/14/16 History traMADol HCl [Ultram] 50 mg PO Q8H PRN 10/20/16 11/14/16 History Albuterol Inhaler [Ventolin Hfa 1 - 2 puff INHALATION RT-Q4H PRN 11/14/16 History Inhaler] Magnesium Oxide [Mag-Ox] 400 mg PO HS 11/14/16 11/14/16 History Metoprolol Tartrate [Lopressor] 50 mg PO BID 11/14/16 11/14/16 History Nitroglycerin Sl Tabs [Nitrostat] 0.4 mg SUBLINGUAL Q5M PRN 11/14/16 11/14/16 History Tiotropium [place] [Spiriva 1 cap INHALATION RT-DAILY 11/14/16 11/14/16 History Respimat] hydrALAZINE HCL 25 mg PO QID 11/15/16 11/15/16 History Allergies Allergy/AdvReac Type Severity Reaction Status Date / Time iodine Allergy Rapid Verified 11/14/16 16:37 Heart Rate adhesive AdvReac Itching Verified 11/14/16 16:37 codeine AdvReac Confusion Verified 11/14/16 16:37 hydrocodone bitartrate AdvReac Confusion Verified 11/14/16 16:37 [From [place]] hydromorphone HCl AdvReac Confusion Verified 11/14/16 16:37 [From Dilaudid] morphine AdvReac Confusion Verified 11/14/16 16:37 Physical Exam Vitals: Vital Signs Temp Pulse Resp BP Pulse Ox 11/15/16 09:00 50 L 48 H 100/46 11/15/16 08:00 50 L 33 H 134/58 11/15/16 07:59 55 L 11/15/16 07:41 52 L 20 11/15/16 07:00 52 L 20 137/62 95 11/15/16 06:00 55 L 26 H 137/62 11/15/16 05:00 55 L 24 131/64 96 11/15/16 04:00 97.6 F 60 24 127/64 95 11/15/16 03:00 62 22 116/65 96 11/15/16 02:00 59 L 54 H 133/61 91 L 11/15/16 01:00 62 21 118/70 93 L 11/15/16 00:00 98.1 F 60 20 143/70 95 11/14/16 23:30 56 L 27 H 96 11/14/16 23:00 56 L 25 H 135/44 97 11/14/16 22:44 56 L 11/14/16 22:30 60 18 119/65 98 11/14/16 22:24 59 L 11/14/16 22:19 52 H 94/50 99 Intake and Output 11/14/16 11/15/16 11/15/16 22:59 06:59 14:59 Intake Total 320 40 Output Total 1795 185 Balance -1475 -145 Intake: IV 320 40 Magnesium Sulfate-D5w Pmx 100 1 gm In Dextrose/Water 1 100ml.bag @ 100 mls/hr IVPB Q1H [facility] Rx#: [id number] Sodium Chloride 0.9% 1, 100 000 ml @ 100 mls/hr IV . Q10H STA Rx#:[id number] Sodium Chloride 0.9% 1, 120 40 000 ml @ 20 mls/hr IV . Q24H [facility]ANK Rx#:[id number] Output: Urine 1795 185 Other: Voiding Method Indwelling Catheter Indwelling Catheter Weight 62 kg General: The patient is awake and alert, in no distress, and does not appear acutely ill. Skin: Skin is warm and dry and no rashes or lesions are noted. Eye: Pupils are equal, round and reactive to light, extra-ocular movements are intact; there is normal conjunctiva bilaterally. Ears, nose, mouth and throat: There are moist mucous membranes and no oral lesions. Neck: The neck is supple, there is no tenderness or JVD. Cardiovascular: There is a regular rate and rhythm. Systolic murmur at the apex Respiratory: Lungs are clear to auscultation, respirations are non-labored, breath sounds are equal. Gastrointestinal: Soft, non-distended, non-tender abdomen without masses or organomegaly noted. There is no rebound or guarding present. Bowel sounds are unremarkable. Back: There is no tenderness to palpation in the midline. There is no obvious deformity. Musculoskeletal: Normal ROM, no tenderness, There is no pedal edema. There is no calf tenderness or swelling. Extremities: No edema. Vascular: Femoral pulse is normal. Posterior tibial pulses are normal .Dorsalis pedis is palpable. Neurological: CN II-XII intact. There are no obvious motor or sensory deficits. Speech is normal. Psychiatric: Cooperative, appropriate mood & affect, normal judgment. Results 11/15/16 04:26 11/15/16 04:26 Cardiac Enzymes 11/15/16 Range/Units 04:26 AST 71 H (14-36) U/L Lipids 11/15/16 Range/Units 04:26 Triglycerides 56 (<150) mg/dL Cholesterol 291 H (<200) mg/dL HDL Cholesterol 76 H (40-60) mg/dL CBC 11/15/16 Range/Units 04:26 WBC 7.8 (3.8-10.6) k/uL RBC 5.22 (3.80-5.40) m/uL Hgb 14.1 (11.4-16.0) gm/dL Hct 46.0 (34.0-46.0) % Plt Count 171 (150-450) k/uL Comprehensive Metabolic Panel 11/15/16 Range/Units 04:26 Sodium 137 (137-145) mmol/L Potassium 5.2 H (3.5-5.1) mmol/L Chloride 101 (98-107) mmol/L Carbon Dioxide 19 L (22-30) mmol/L BUN 33 H (7-17) mg/dL Creatinine 1.10 H (0.52-1.04) mg/dL Glucose 172 H (74-99) mg/dL Calcium 9.2 (8.4-10.2) mg/dL AST 71 H (14-36) U/L ALT 78 H (9-52) U/L Alkaline Phosphatase 96 (38-126) U/L Total Protein 7.8 (6.3-8.2) g/dL Albumin 4.2 (3.5-5.0) g/dL Current Medications Generic Name Dose Route Start Last Admin Trade Name Freq PRN Reason Stop Dose Admin Acetaminophen 650 mg 11/14/16 21:48 Tylenol Tab PO Q4HR PRN Fever and/or Mild Pain Albuterol/Ipratropium 3 ml 11/14/16 21:48 11/15/16 07:41 Duoneb 0.5 Mg-3 Mg/3 Ml Soln INHALATION 3 ml RT-Q4H PRN Administration Shortness Of Breath Or Wheezing Aspirin 81 mg 11/15/16 09:00 Aspirin PO DAILY HANK Budesonide 0.5 mg 11/15/16 08:00 11/15/16 07:41 Pulmicort INHALATION 0.5 mg RT-BID HANK Administration Buspirone HCl 20 mg 11/15/16 09:00 Buspar PO BID HANK Donepezil HCl 5 mg 11/15/16 09:00 Aricept PO QAM HANK Fluoxetine HCl 40 mg 11/14/16 21:00 11/14/16 23:29 Prozac PO 40 mg BID HANK Administration Sodium Chloride 1,000 mls @ 20 mls/hr 11/14/16 23:45 11/15/16 00:29 Saline 0.9% IV 20 mls/hr .Q24H HANK Administration Lorazepam 1 mg 11/14/16 19:17 Ativan PO BID PRN Anxiety Magnesium Oxide 400 mg 11/15/16 21:00 Mag-Ox PO HS [facility] Miscellaneous Information 1 each 11/15/16 05:29 Magnesium Per Protocol MISCELLANE DAILY PRN Per Protocol Protocol Naloxone HCl 0.2 mg 11/14/16 21:48 Narcan IV Q2M PRN Opioid Reversal Nitroglycerin 0.4 mg 11/14/16 19:17 Nitrostat SUBLINGUAL Q5M PRN Chest Pain Pantoprazole Sodium 40 mg 11/15/16 09:00 Protonix IV DAILY [facility] Quetiapine Fumarate 25 mg 11/14/16 21:00 11/14/16 23:29 Seroquel PO 25 mg BID HANK Administration Temazepam 15 mg 11/14/16 19:17 11/15/16 00:28 Restoril PO 15 mg HS PRN Administration Insomnia Tiotropium [place] 1 puff 11/15/16 08:00 Spiriva INHALATION RT-DAILY [facility] Tramadol HCl 50 mg 11/14/16 21:52 Ultram PO Q8H PRN Pain Intake and Output 11/14/16 11/15/16 11/15/16 22:59 06:59 14:59 Intake Total 320 40 Output Total 1795 185 Balance -1475 -145 Intake: IV 320 40 Magnesium Sulfate-D5w Pmx 100 1 gm In Dextrose/Water 1 100ml.bag @ 100 mls/hr IVPB Q1H [facility] Rx#: [id number] Sodium Chloride 0.9% 1, 100 000 ml @ 100 mls/hr IV . Q10H STA Rx#:[id number] Sodium Chloride 0.9% 1, 120 40 000 ml @ 20 mls/hr IV . Q24H [facility] Rx#:[id number] Output: Urine 1795 185 Other: Voiding Method Indwelling Catheter Indwelling Catheter Weight 62 kg 11/15/16 04:26 11/15/16 04:26 EKG Interpretations (text) EKG in the office revealed sinus rhythm with junctional bradycardia labs were pending at the time Assessment and Plan Plan: Asymptomatic bradycardia History of hypertension History of CAD status post angioplasty Confusional state Arthritis Nausea vomiting Patient will be admitted to hospital will rule out electrolyte problems watch her on telemetry check an echocardiogram and see what happens to her heart rhythm if she remains bradycardic she will need a permanent pacemaker. Patient had an EKG at her recent admission few weeks ago at that time she was in sinus rhythm. Patient will have a TSH
[2016-11-15] MEDS: DOPamine DRIP 800 MG in DEXTROSE/WATER 1 500ML.BAG IV SCH (10:30)
--- NOTE | 2016-11-15 11:26 | P.PN ---
Subjective this patient was seen in consult by Dr. Sellers to my yesterday and was admitted for bradycardia. And was probably be taking Lopressor 50 mg twice a day. Initially her EKG showed junctional rhythm. Pacing was also treated with the dopamine since a heart rate now is in 50s to 60s per minute without any symptoms patient is in normal sinus rhythm the patient we will wean her off the dopamine slowly. Lopressor will be discontinued. We will hold off her blood pressure medications at present. Patient is a little bit lethargic and sleepy this morning. Objective - Vital Signs Vital signs: Vital Signs Temp 97.6 F 11/15/16 04:00 Pulse 52 L 11/15/16 10:00 Resp 14 11/15/16 10:00 BP 122/60 11/15/16 10:00 Pulse Ox 94 L 11/15/16 10:00 Intake & Output 11/14/16 11/15/16 11/15/16 18:59 06:59 18:59 Intake Total 320 68.718 Output Total 1795 185 Balance -1475 -116.282 Weight 62 kg Intake: IV 320 60 Magnesium Sulfate-D5w Pmx 100 1 gm In Dextrose/Water 1 100ml.bag @ 100 mls/hr IVPB Q1H [facility] Rx#: [id number] Sodium Chloride 0.9% 1, 100 000 ml @ 100 mls/hr IV . Q10H [facility] Rx#:[id number] Sodium Chloride 0.9% 1, 120 60 000 ml @ 20 mls/hr IV . Q24H [facility] Rx#:[id number] Intake, IV Titration 8.718 Amount DOPamine DRIP 800 mg In 8.718 Dextrose/Water 1 500ml. bag @ 10 MCG/KG/MIN 23.25 mls/hr IV .[id number] [facility] Rx#:[id number] Output: Urine 1795 185 Other: Voiding Method Indwelling Catheter Indwelling Catheter - Exam vital signs are reviewed. Patient is sleepy and tired. Heart first and second heart sounds are normal. Is a grade 2/6 ejection systolic murmur noted. Lungs are clinically clear to auscultation and percussion. Abdomen is soft. Echocardiogram reveals normal left ventricular systolic function. - Labs CBC & Chem 7: 11/15/16 04:26 11/15/16 04:26 Labs: Abnormal Lab Results - Last 24 Hours (Table) 11/14/16 11/14/16 11/15/16 Range/Units 22:42 23:40 04:26 MCHC 30.6 L (31.0-37.0) g/dL RDW 15.9 H (11.5-15.5) % Potassium (3.5-5.1) mmol/L Carbon Dioxide (22-30) mmol/L BUN (7-17) mg/dL Creatinine (0.52-1.04) mg/dL Glucose (74-99) mg/dL POC Glucose (mg/dL) 142 H (75-99) mg/dL Phosphorus (2.5-4.5) mg/dL AST (14-36) U/L ALT (9-52) U/L Cholesterol (<200) mg/dL LDL Cholesterol, Calc (0-99) mg/dL HDL Cholesterol (40-60) mg/dL Urine Protein Trace H (Negative) Urine Blood Trace H (Negative) Ur Leukocyte Esterase Trace H (Negative) Hyaline Casts 22 H (0-2) /lpf Urine Mucus Rare H (None) /hpf 11/15/16 Range/Units 04:26 MCHC (31.0-37.0) g/dL RDW (11.5-15.5) % Potassium 5.2 H (3.5-5.1) mmol/L Carbon Dioxide 19 L (22-30) mmol/L BUN 33 H (7-17) mg/dL Creatinine 1.10 H (0.52-1.04) mg/dL Glucose 172 H (74-99) mg/dL POC Glucose (mg/dL) (75-99) mg/dL Phosphorus 5.1 H (2.5-4.5) mg/dL AST 71 H (14-36) U/L ALT 78 H (9-52) U/L Cholesterol 291 H (<200) mg/dL LDL Cholesterol, Calc 204 H (0-99) mg/dL HDL Cholesterol 76 H (40-60) mg/dL Urine Protein (Negative) Urine Blood (Negative) Ur Leukocyte Esterase (Negative) Hyaline Casts (0-2) /lpf Urine Mucus (None) /hpf Microbiology - Last 24 Hours (Table) 11/14/16 23:40 Urine Culture - Preliminary Urine,Catheterized Assessment and Plan Plan: this patient's bradycardia is most likely secondary to Lopressor. Recent otherwise has remained stable. We will wean her off the dopamine and ambulated the patient.
--- NOTE | 2016-11-15 12:33 | P.CNPUL ---
History of Present Illness Consult date: 11/15/16 Chief complaint: Critically care management for hypotension and bradycardia History of present illness: A pleasant 76-year-old female patient with known history of coronary artery disease and previous angioplasty, hypertension, hyperlipidemia, rheumatoid arthritis, and dementia, who was recently hospitalized between 08/19/2017 and under the care of Dr. Vargas for symptoms of gastroenteritis which ultimately improved. During the same hospital stay, the patient was seen by cardiology and she was placed on beta blockers and upon discharge was given 50 mg of Lopressor by mouth twice a day. The patient was apparently taken a medication and she was seen yesterday at Dr. Cosme's office and she was found to be profoundly bradycardic. The rhythm strip showing significant slowing of the cardiac rhythm probably severe sinus bradycardia with rates in the low 30s with potential underlying atrial fibrillation. The patient was also hypotensive, dizzy, and the patient was having some nonspecific chest pain. Based on this, the patient was sent in to the hospital and she was admitted to the intensive care unit where she was started on dopamine. This morning, with Diprivan dose up to 15mics per KG /min which is essentially at pressor doses. No change in mental status. CAT scan of the brain showed no acute abnormalities and there is some chronic atrophy. There is no bleeding or CVA. The patient is afebrile. The patient has no nausea or vomiting. She is without any chest pain this point. No abdominal pain. No abdominal distention. No cough or sputum production. Chest x-ray was also clear. Beta blockers were placed on hold. Her most recent cardiac rhythm is sinus with a rate of 55-60. Review of Systems Further review of system was done and the positive findings are almost above in history of present illness Past Medical History Past Medical History: Coronary Artery Disease (CAD), Chest Pain / Angina, GERD/ Reflux, GI Bleed, Hyperlipidemia, Hypertension, Memory Impairment, Myocardial Infarction (MS), Osteoarthritis (OA), Pneumonia, Rheumatoid Arthritis (RA), Syncope Additional Past Medical History / Comment(s): Coronary artery disease with previous angioplasty and stenting, hypertension, dementia, osteoporosis,, Rheumatoid arthritis, osteoporosis, hyperlipidemia, previous fall with blunt trauma to the head, peripheral vascular disease, osteoporosis, hiatal hernia, chronic constipation, previous history of urine checked infections occurred back in August 2015, essential tremors, compression fracture of the T12 spine , cellulitis of the lower extremities, difficulty with mobility and gait and the patient has been wheelchair bound but she is able to stand up and pivot herself. Last Myocardial Infarction Date:: 1999 History of Any Multi-Drug Resistant Organisms: MRSA Date of last positivie culture/infection: 2011 per patient in nursing history MDRO Source:: Right Knee Past Surgical History: Appendectomy, Heart Catheterization With Stent, Joint Replacement, Orthopedic Surgery, Tonsillectomy Additional Past Surgical History / Comment(s): PTCA with 2 stents to CX in 1999 , R shoulder arthroscopic rotator cuff repair, reverse L total shoulder, femoral bypass 1999, gastric tube placement and since removal, R total knee ( failed) Past Anesthesia/Blood Transfusion Reactions: Postoperative Nausea & Vomiting ( PONV) Additional Past Anesthesia/Blood Transfusion Reaction / Comment(s): uncertain if she has ever recieved blood. Date of Last Stent Placement:: 1999 Past Psychological History: Anxiety, Depression Additional Psychological History / Comment(s): Ongoing tobacco smoker. Pt started smoking about age 15-16 yrs old. She smokes about 6 CIG PER DAY. She is . Living with her son in an apartment in the [facility]. She uses a wheelchair. . She is able to stand and pivot to get into wheelchair. She feeds herself. She has home care thru [facility] who assist her with bathing and cleaning 5 days a week. She and her son manage her medications. Her son drives her to [facility] does not drive. Smoking Status: Current every day smoker Past Alcohol Use History: None Reported Additional Past Alcohol Use History / Comment(s): Pt states she started smoking about age 15-16 yrs and is CURRENTLY SMOKING 6 CIG PER DAY Pt states she quit drinking alcohol 25 yrs ago. Past Drug Use History: None Reported - Past Family History Father Family Medical History: Coronary Artery Disease (CAD), Myocardial Infarction (MS ) Mother Family Medical History: Diabetes Mellitus, Hypertension Medications and Allergies Home Medications Medication Instructions Recorded Confirmed Type FLUoxetine HCL 40 mg PO BID 04/22/15 11/14/16 History Pantoprazole Sodium 40 mg PO DAILY 04/22/15 11/15/16 History Potassium Chloride [Klor-Con 20] 20 meq PO DAILY 04/22/15 11/14/16 History Donepezil [Aricept] 5 mg PO QAM 09/26/16 11/14/16 History busPIRone HCL 20 mg PO BID 09/26/16 11/14/16 History LORazepam [Ativan] 1 mg PO BID PRN 10/20/16 11/14/16 History traMADol HCl [Ultram] 50 mg PO Q8H PRN 10/20/16 11/14/16 History Albuterol Inhaler [Ventolin Hfa 1 - 2 puff INHALATION RT-Q4H PRN 11/14/16 History Inhaler] Magnesium Oxide [Mag-Ox] 400 mg PO HS 11/14/16 11/14/16 History Metoprolol Tartrate [Lopressor] 50 mg PO BID 11/14/16 11/14/16 History Nitroglycerin Sl Tabs [Nitrostat] 0.4 mg SUBLINGUAL Q5M PRN 11/14/16 11/14/16 History Tiotropium [place] [Spiriva 1 cap INHALATION RT-DAILY 11/14/16 11/14/16 History Respimat] hydrALAZINE HCL 25 mg PO QID 11/15/16 11/15/16 History Allergies Allergy/AdvReac Type Severity Reaction Status Date / Time iodine Allergy Rapid Verified 11/14/16 16:37 Heart Rate adhesive AdvReac Itching Verified 11/14/16 16:37 codeine AdvReac Confusion Verified 11/14/16 16:37 hydrocodone bitartrate AdvReac Confusion Verified 11/14/16 16:37 [From Smoot] hydromorphone HCl AdvReac Confusion Verified 11/14/16 16:37 [From Dilaudid] morphine AdvReac Confusion Verified 11/14/16 16:37 Physical Exam Vitals: Vital Signs Temp Pulse Resp BP Pulse Ox 11/15/16 11:00 97.9 F 51 L 12 120/59 11/15/16 10:00 52 L 14 122/60 94 L 11/15/16 09:00 50 L 48 H 100/46 11/15/16 08:00 50 L 33 H 134/58 11/15/16 07:59 55 L 11/15/16 07:41 52 L 20 11/15/16 07:00 52 L 20 137/62 95 11/15/16 06:00 55 L 26 H 137/62 11/15/16 05:00 55 L 24 131/64 96 11/15/16 04:00 97.6 F 60 24 127/64 95 11/15/16 03:00 62 22 116/65 96 11/15/16 02:00 59 L 54 H 133/61 91 L 11/15/16 01:00 62 21 118/70 93 L 11/15/16 00:00 98.1 F 60 20 143/70 95 11/14/16 23:30 56 L 27 H 96 11/14/16 23:00 56 L 25 H 135/44 97 11/14/16 22:44 56 L 11/14/16 22:30 60 18 119/65 98 11/14/16 22:24 59 L 11/14/16 22:19 52 H 94/50 99 Intake and Output 11/14/16 11/15/16 11/15/16 22:59 06:59 14:59 Intake Total 320 88.718 Output Total 1795 245 Balance -1475 -156.282 Intake: IV 320 80 Magnesium Sulfate-D5w Pmx 100 1 gm In Dextrose/Water 1 100ml.bag @ 100 mls/hr IVPB Q1H [facility] Rx#: [id number] Sodium Chloride 0.9% 1, 100 000 ml @ 100 mls/hr IV . Q10H STA Rx#:[id number] Sodium Chloride 0.9% 1, 120 80 000 ml @ 20 mls/hr IV . Q24H [facility] Rx#:[id number] Intake, IV Titration 8.718 Amount DOPamine DRIP 800 mg In 8.718 Dextrose/Water 1 500ml. bag @ 10 MCG/KG/MIN 23.25 mls/hr IV .[id number] [facility] Rx#:[id number] Output: Urine 1795 245 Other: Voiding Method Indwelling Catheter Indwelling Catheter Weight 62 kg Head exam was generally normal. There was no scleral icterus or corneal arcus. Mucous membranes were moist.Neck was supple and without jugular venous distension, thyromegaly, or carotid bruits. Carotids were easily palpable bilaterally. There was no adenopathy.Lungs were clear to auscultation and percussion, and with normal diaphragmatic excursion. No wheezes or rales were noted. Cardiac exam revealed the PMI to be normally situated and sized. The rhythm was regular and no extrasystoles were noted during several minutes of auscultation. The first and second heart sounds were normal and physiologic splitting of the second heart sound was noted. There were no murmurs, rubs, clicks, or gallops.Abdominal exam revealed normal bowel sounds. The abdomen was soft, non-tender, and without masses, organomegaly, or appreciable enlargement of the abdominal aorta.Examination of the extremities revealed easily palpable radial, femoral and pedal pulses. There was no cyanosis, clubbing or edema. Results - Laboratory Findings CBC and BMP: 11/15/16 04:26 11/15/16 04:26 PT/INR, D-dimer PT 10.5 sec (9.0-12.0) 11/14/16 17:00 INR 1.0 (<1.1) 11/14/16 17:00 Abnormal lab findings: Abnormal Labs 11/14/16 11/14/16 11/15/16 22:42 23:40 04:26 MCHC 30.6 L RDW 15.9 H Potassium Carbon Dioxide BUN Creatinine Glucose POC Glucose (mg/dL) 142 H Phosphorus AST ALT Cholesterol LDL Cholesterol, Calc HDL Cholesterol Urine Protein Trace H Urine Blood Trace H Ur Leukocyte Esterase Trace H Hyaline Casts 22 H Urine Mucus Rare H 11/15/16 04:26 MCHC RDW Potassium 5.2 H Carbon Dioxide 19 L BUN 33 H Creatinine 1.10 H Glucose 172 H POC Glucose (mg/dL) Phosphorus 5.1 H AST 71 H ALT 78 H Cholesterol 291 H LDL Cholesterol, Calc 204 H HDL Cholesterol 76 H Urine Protein Urine Blood Ur Leukocyte Esterase Hyaline Casts Urine Mucus - Diagnostic Findings Chest x-ray: image reviewed Assessment and Plan Plan: Assessment 1 sinus bradycardia and hypotension. Rule out secondary to beta blockers. The potential of beta celestino toxicity or overdose cannot be completely ruled out. The patient has normal cardiac function with an ejection fraction of 55-60%, no pericardial effusion and no other valvular abnormalities, no signs of septicemia , troponin is been negative and there is no other reason for this patient's underlying bradycardia and beta celestino intake. Potassium level is at 5.2. 2 coronary artery disease with previous coronary stent insertion, currently free of any chest pain 3 rheumatoid arthritis 4 dementia 5 hypertension 6 hyperlipidemia. 7 recent hospitalization for gastroenteritis, recovered 8 osteoarthritis. 9 chronic anxiety/depression Plan Hold the beta blockers for now. Continue with IV fluids. Continue weaning the dopamine off as the patient's heart rate and blood pressure improves. Echocardiogram results were noted. Cardiology to follow-up on the case in ICU.
[2016-11-15] MEDS: TIOTROPIUM 18 MCG/PUFF INHALER INHALATION SCH (13:30)
--- NOTE | 2016-11-15 15:42 | PN ---
DATE OF SERVICE: 11/15/2016 This 76-year-old woman who was admitted with hypotension, bradycardia secondary possibly to medication induced, is being closely monitored. Patient also had headache and incessant vomiting also. The patient is confused. Multiple consultants are following the patient closely. A 2-D echo with Doppler was done, which showed ejection fraction 50 to 60%, mild valvular abnormalities and CT of the brain showed chronic white matter change and atrophy, otherwise, no acute changes. Cardiology, Dr. Cameron, saw her from the cardiology point of view and recommended to continue to monitor and 2-D echo. Otherwise, Dr. Brown is also following the patient in ICU. The patient was given dopamine from the ER and as well as atropine. The dopamine is being tapered off at this time. Heart rate is in the 50s. PAST MEDICAL HISTORY: Reviewed. REVIEW OF SYSTEMS: CARDIOVASCULAR: As mentioned earlier. RESPIRATORY: As mentioned earlier. GI: No nausea. : No dysuria. NERVOUS SYSTEM: No numbness, weakness. Current medications are reviewed and include: 1. Tylenol 650 q.4 p.r.n. 2. DuoNeb q.i.d. and p.r.n. 3. Aspirin 81 mg. 4. Pulmicort 0.5 b.i.d. 5. BuSpar 20 mg p.o. b.i.d. 6. Aricept 5 mg q.a.m. 7. Dopamine drip. 8. Prilosec. 9. Ativan. 10. Magnesium oxide. 11. Narcan. 12. Aricept. 13. Protonix. 14. Seroquel. 15. Restoril. 16. Spiriva. 17. Ultram. PHYSICAL EXAM: Patient is alert and oriented x1. Pulse 52, blood pressure 120/67, respirations 14, temperature 97.8, pulse ox 92% on room air. HEENT: Conjunctivae normal. Oral mucosa moist. NECK: No jugular venous distention. No carotid bruit. No lymph node enlargement. CARDIOVASCULAR: S1 and S2, muffled. Bradycardic. RESPIRATORY: Breath sounds diminished at the bases. A few scattered rhonchi and crackles. ABDOMEN: Soft, nontender. LEGS: No edema, no swelling. NERVOUS SYSTEM: No focal deficits. Labs are CBC within normal limits. Potassium 5.2, creatinine is 1.10. Otherwise is cholesterol 291. LDH is 205, HDL is 76. ASSESSMENT: 1. Hypotension bradycardia for evaluation possibly medication induced secondary to beta blockers, rule out sick sinus syndrome. 2. Headache and incessant vomiting for evaluation. 3. History of recent acute gastroenteritis. 4. History of coronary artery disease and stent. 5. History of degenerative joint disease. 6. History of rheumatoid arthritis. 7. History of gait dysfunction. 8. History of depression and anxiety, not otherwise specified. 9. Essential hypertension. 10. History of gastroesophageal reflux disease. 11. Peripheral arterial disease history. 12. Hiatal hernia history. 13. History of continued ongoing nicotine dependence. 14. Increased creatinine with mild acute renal failure, possible prerenal. 15. Mild hyperkalemia, present on admission. 16. Increased AST, ALT, possible mild hepatitis of undetermined etiology. 17. FULL CODE. 18. Hyperlipidemia. RECOMMENDATIONS AND DISCUSSION: In this 76-year-old woman who presented with multiple medical issues. At this time, I recommend continue current medications, symptomatic treatment. Otherwise, heart rate seems to be improving at this time. Closely follow with Cardiology and Pulmonology. Hold beta blockers. Otherwise, I would recommend add Lipitor to the current regimen. Continue the rest of the medications. Guarded prognosis. I will repeat labs. Guarded prognosis because of multiple complex medical issues. Further recommendations to follow.
[2016-11-15] MEDS: MAGNESIUM OXIDE 400 MG TAB PO SCH (20:36)
[2016-11-15] MEDS ORDERED: ATORVASTATIN 20 MG TAB PO SCH (21:00)
[2016-11-16 04:41] LABS: Anisocytosis Slight; Basophils % (A) 0 %; CH 27.9; CHCM 31.5; Eosinophils % (A) 0 %; HCT 39.2 % (34.0-46.0); HDW 2.73; HGB 12.5 gm/dL (11.4-16.0); Hypochromasia Slight; Luc # (Auto) 0.18; Luc % (Auto) 2; Lymphocytes # (A) 1.1 k/uL (1.0-4.8); Lymphocytes % (A) 13 %; MCH 28.4 pg (25.0-35.0); MCHC 31.9 g/dL (31.0-37.0); MCV 89.1 fL (80.0-100.0); Mean Platelet Volume 8.7; Monocytes # (A) 0.5 k/uL (0-1.0); Monocytes % (A) 5 %; Neutrophils # (A) 6.6 k/uL (1.3-7.7); Neutrophils % (A) 79 %; RDW 16.3 % (11.5-15.5); WBC 8.4 k/uL (3.8-10.6); WBC (Perox) 8.93
[2016-11-16 05:02] LABS: ALT 61 U/L (9-52); AST 40 U/L (14-36); Alkaline Phosphatase 76 U/L (38-126); Anion Gap 11 mmol/L; Blood Urea Nitrogen 37 mg/dL (7-17); Calcium 8.7 mg/dL (8.4-10.2); Carbon Dioxide 21 mmol/L (22-30); Chloride 106 mmol/L (98-107); Glucose 98 mg/dL (74-99); Magnesium 2.5 mg/dL (1.6-2.3); Non-African American GFR(MDRD) 54 (>60 ml/min/1.73 sqM); Potassium 4.5 mmol/L (3.5-5.1); Sodium 138 mmol/L (137-145); Total Bilirubin 0.5 mg/dL (0.2-1.3); Total Protein 6.3 g/dL (6.3-8.2)
[2016-11-16] MEDS: IPRATROPIUM-ALBUTEROL 3 ML NEB INHALATION PRN ×2 (08:18→20:31)
[2016-11-16] MEDS: BUDESONIDE 0.5 MG/2 ML NEBU INHALATION SCH ×2 (08:18→20:31)
[2016-11-16] MEDS: busPIRone HCl 10 MG TAB PO SCH ×2 (09:24→20:52)
[2016-11-16] MEDS: SODIUM CHLORIDE 0.9% 1,000 ML IV SCH (09:24)
[2016-11-16] MEDS: DONEPEZIL 5 MG TAB PO SCH ×2 (09:25→13:57)
[2016-11-16] MEDS: PANTOPRAZOLE 40 MG/10 ML VIAL IV SCH (09:25)
[2016-11-16] MEDS: ASPIRIN 81 MG CHEW PO SCH (09:25)
[2016-11-16] MEDS: FLUoxetine HCL 20 MG CAP PO SCH ×2 (09:25→20:53)
[2016-11-16] MEDS: DOPamine DRIP 800 MG in DEXTROSE/WATER 1 500ML.BAG IV SCH (10:33)
[2016-11-16] MEDS ORDERED: guaiFENesin SYRUP 100MG/5ML 200 MG/10 ML CUP PO PRN (12:11)
--- NOTE | 2016-11-16 12:21 | P.PN ---
Subjective Principal diagnosis: Symptomatic bradycardia A pleasant 76-year-old female patient with known history of coronary artery disease and previous angioplasty, hypertension, hyperlipidemia, rheumatoid arthritis, and dementia, who was recently hospitalized between 08/19/2017 and under the care of Dr. Vargas for symptoms of gastroenteritis which ultimately improved. During the same hospital stay, the patient was seen by cardiology and she was placed on beta blockers and upon discharge was given 50 mg of Lopressor by mouth twice a day. The patient was apparently taken a medication and she was seen yesterday at Dr. Cosme's office and she was found to be profoundly bradycardic. The rhythm strip showing significant slowing of the cardiac rhythm probably severe sinus bradycardia with rates in the low 30s with potential underlying atrial fibrillation. The patient was also hypotensive, dizzy, and the patient was having some nonspecific chest pain. Based on this, the patient was sent in to the hospital and she was admitted to the intensive care unit where she was started on dopamine. This morning, with Diprivan dose up to 15mics per KG /min which is essentially at pressor doses. No change in mental status. CAT scan of the brain showed no acute abnormalities and there is some chronic atrophy. There is no bleeding or CVA. The patient is afebrile. The patient has no nausea or vomiting. She is without any chest pain this point. No abdominal pain. No abdominal distention. No cough or sputum production. Chest x-ray was also clear. Beta blockers were placed on hold. Her most recent cardiac rhythm is sinus with a rate of 55-60. The patient is seen again today 11/16/2016 in follow-up in the intensive care unit. She is awake and alert in no acute distress. She has been off her dopamine for approximately 20 hours. She is maintaining heart rate in the 50s, sinus. She denies any shortness of breath. She has a dry nonproductive cough. No chills or night sweats. She denies any chest pain, palpitations, dizziness or lightheadedness. She has been hemodynamically stable. Objective - Vital Signs Vital signs: Vital Signs Temp 97.8 F 11/16/16 08:00 Pulse 47 L 11/16/16 08:42 Resp 21 11/16/16 08:00 BP 161/74 11/16/16 08:00 Pulse Ox 96 11/16/16 08:00 Intake & Output 11/15/16 11/16/16 11/16/16 18:59 06:59 18:59 Intake Total 269.120 240 80 Output Total 540 625 350 Balance -270.880 -385 -270 Weight 61.6 kg Intake: IV 180 240 80 Sodium Chloride 0.9% 1, 180 240 80 000 ml @ 20 mls/hr IV . Q24H [facility] Rx#:[id number] Intake, IV Titration 89.120 Amount DOPamine DRIP 800 mg In 89.120 Dextrose/Water 1 500ml. bag @ 5 MCG/KG/MIN 11.62 mls/hr IV .Q24H [facility] Rx#: [id number] Output: Urine 540 625 350 Other: Voiding Method Indwelling Catheter Indwelling Catheter Indwelling Catheter - Exam Head exam was generally normal. There was no scleral icterus or corneal arcus. Mucous membranes were moist.Neck was supple and without jugular venous distension, thyromegaly, or carotid bruits. Carotids were easily palpable bilaterally. There was no adenopathy.Lungs were clear to auscultation and percussion, and with normal diaphragmatic excursion. No wheezes or rales were noted. Cardiac exam revealed the PMI to be normally situated and sized. The rhythm was regular and no extrasystoles were noted during several minutes of auscultation. The first and second heart sounds were normal and physiologic splitting of the second heart sound was noted. There were no murmurs, rubs, clicks, or gallops.Abdominal exam revealed normal bowel sounds. The abdomen was soft, non-tender, and without masses, organomegaly, or appreciable enlargement of the abdominal aorta.Examination of the extremities revealed easily palpable radial, femoral and pedal pulses. There was no cyanosis, clubbing or edema. - Labs CBC & Chem 7: 11/16/16 04:24 11/16/16 04:24 Labs: Abnormal Lab Results - Last 24 Hours (Table) 11/16/16 11/16/16 Range/Units 04:24 04:24 RDW 16.3 H (11.5-15.5) % Plt Count 147 L (150-450) k/uL Carbon Dioxide 21 L (22-30) mmol/L BUN 37 H (7-17) mg/dL Phosphorus 5.0 H (2.5-4.5) mg/dL Magnesium 2.5 H (1.6-2.3) mg/dL AST 40 H (14-36) U/L ALT 61 H (9-52) U/L Albumin 3.4 L (3.5-5.0) g/dL Microbiology - Last 24 Hours (Table) 11/14/16 23:40 Urine Culture - Preliminary Urine,Catheterized Assessment and Plan Plan: Assessment 1 sinus bradycardia and hypotension. Rule out secondary to beta blockers. The potential of beta celestino toxicity or overdose cannot be completely ruled out. The patient has normal cardiac function with an ejection fraction of 55-60%, no pericardial effusion and no other valvular abnormalities, no signs of septicemia , troponin is been negative and there is no other reason for this patient's underlying bradycardia and beta celestino intake. Potassium level is at 5.2. 11/16/2016. The patient is seen again today in follow-up in the intensive care unit. She is awake and alert in no acute distress. Her heart rate has remained stable in the 50s and the dopamine has been off for approximately 20 hours. 2 coronary artery disease with previous coronary stent insertion, currently free of any chest pain 3 rheumatoid arthritis 4 dementia 5 hypertension 6 hyperlipidemia. 7 recent hospitalization for gastroenteritis, recovered 8 osteoarthritis. 9 chronic anxiety/depression Plan Continue to hold beta blockers for now. Cardiology is on the case and there are no plans for permanent pacemaker implantation at this point. Increase activity as tolerated. She is cleared for transfer to the intensive care unit today. We will continue to follow.
[2016-11-16] MEDS: traMADol 50 MG TAB PO PRN ×2 (12:36→22:40)
[2016-11-16] MEDS: ATORVASTATIN 80 MG TAB PO SCH (12:36)
[2016-11-16] MEDS: amLODIPine 5 MG TAB PO SCH (12:40)
[2016-11-16] MEDS: QUEtiapine 25 MG TAB PO SCH ×2 (13:57→20:53)
--- NOTE | 2016-11-16 14:02 | XR ---
EXAMINATION TYPE: XR cervical spine limited DATE OF EXAM: 11/16/2016 1:43 PM TECHNIQUE: Frontal, lateral, swimmer's, and open mouth view of the cervical spine are obtained. HISTORY: chronic headache and neck pain COMPARISON: Prior cervical spine x-ray June 10, 2016. FINDINGS: Exam is suboptimal as patient could not stand. The cervical spine is visualized in its enti rety from C1 thru the mid C7 level, it is satisfactory in alignment without evidence of acute fractur e or dislocation. The pre-vertebral soft tissue appears within normal limits. The C1-C2 articulatio n is felt suboptimally evaluated even on open-mouth views, lateral recess narrowing and sclerosis is felt present bilaterally. Vertebral body heights are maintained. There is ossific fusion with advance d spurring C5-C6 level. There is moderate to advanced disc space narrowing and spurring C4-C5 level a nd C6-C7 level. Vascular calcification of bilateral carotid bulbs is noted. Bilateral multilevel unco vertebral facet degenerative changes in the upper to mid cervical spine are redemonstrated. IMPRESSION: Suboptimal study with moderate to advanced multilevel degenerative changes most prominent in the mid cervical spine redemonstrated, ossific fusion anterior elements C5-C6 level is seen. No s ignificant change from prior study is noted.
--- NOTE | 2016-11-16 14:04 | PN ---
This patient was admitted with confusion and weakness. Initially, patient was in junctional rhythm. Patient was taking Lipitor, Lopressor 50 mg b.i.d., which has been discontinued. Patient now remains stable. She denies any dizziness, lightheadedness or syncope. Patient's heart rate has remained in the range of 45 to 55 per minute. The blood pressure is 160/74 mmHg. HEART: S1 and S2 normal. Lungs are clinically clear to auscultation and percussion. No significant bradyarrhythmias are noted. Patient will be ambulated. We will start the patient on amlodipine 5 mg daily for the blood pressure. If patient's condition remains stable, patient can be discharged home in the next 24 to 48 hours.
[2016-11-16] MEDS: TIOTROPIUM 18 MCG/PUFF INHALER INHALATION SCH (14:16)
[2016-11-16 15:54] VITALS: RESP 20
--- NOTE | 2016-11-16 20:21 | PN ---
DATE OF SERVICE: 11/16/2016 This 76-year-old woman who was admitted with hypotension, bradycardia, possible medications secondary to beta blockers also complaining of neck pain. Cervical x-ray was recommended by me today which showed was suboptimal and advanced multilevel degenerative joint disease was noted. The previous study was noted with no significant change from the previous study was noted. The patient being closely monitored. Dr. Brown and as well as Dr. Sharp is following the patient closely. Past medical history reviewed. REVIEW OF SYSTEMS: CARDIOVASCULAR: No angina or palpitations. Otherwise as mentioned earlier. RESPIRATORY: No cough. GI: No nausea. : No dysuria. Nervous system: No numbness or weakness. Current medications are reviewed and include: 1. Tylenol 650 q.4 p.r.n. 2. DuoNeb q.i.d. and p.r.n. 3. Norvasc 5 mg daily. 4. Aspirin 81 mg. 5. Lipitor 80 mg. 6. Pulmicort . 7. Buspar 20 mg . 8. Aricept 5 mg q.a.m. 9. Prozac 50 mg b.i.d. 10. Robitussin. 11. Ativan 1 mg b.i.d. 12. magnesium oxide 400 mg q.h.s. 13. Narcan 0.2 q.2 p.r.n. 14. Nitrostat 0.4 sublingually p.r.n. 15. Protonix 40 mg daily. 16. Seroquel 25 mg b.i.d. 17. Restoril 15 mg q.h.s. 18. Spiriva 1 puff daily. 19. Ultram 50 mg q.8 p.r.n. PHYSICAL EXAMINATION: The patient is alert and oriented x3. Pulse is 62, blood pressure 136/60. Respiratory rate 20. Temperature 98.4, pulse ox 92% on room air. HEENT: Conjunctivae normal. Oral mucosa moist. NECK: no jugular venous distention. No carotid bruit. No lymph node enlargement. CARDIOVASCULAR SYSTEM: S1, S2 muffled. No S3, no S4. RESPIRATORY: Breath sounds diminished at the bases. A few scattered rhonchi, no crackles. ABDOMEN: Soft, nontender, no mass palpable. LEGS: No edema. No swelling. Nervous system: No focal deficits. LYMPHATICS: No lymph nodes palpable in the neck, axillae or groin. LABS: Platelets 147, creatinine is one, BUN is 37 and AST is 40, ALT 61, cholesterol levels noted. ASSESSMENT: 1. Hypotension bradycardia for evaluation with possible medication induced secondary to beta blockers, rule out sick sinus syndrome. 2. History of headache, incessant vomiting, improved. 3. Severe cervical degenerative joint disease. 4. History of recent acute gastroenteritis. 5. History of coronary artery disease and stent. 6. History of degenerative joint disease. 7. History of rheumatoid arthritis. 8. History of gait dysfunction. 9. History of depression, anxiety, not otherwise specified. 10. Essential hypertension. 11. History of gastroesophageal reflux disease. 12. Peripheral artery disease history. 13. Hiatal hernia history. 14. History of continued ongoing nicotine dependence. 15. Increased creatinine with mild acute renal failure, possible prerenal. 16. Mild hyperkalemia, present on admission. 17. Increased AST, ALT, possible mild hepatitis of undetermined etiology. 18. Hyperlipidemia. 19. FULL CODE. RECOMMENDATIONS AND DISCUSSION: In this 76-year-old woman who presented with multiple complex medical issues. We will monitor the patient closely. Continue the current medications. Continue symptomatic treatment. Otherwise, continue to monitor. Renal function is improving at this time. Increase ambulation. Avoid beta blockers. Further recommendations to follow. MTDD
[2016-11-16] MEDS: MAGNESIUM OXIDE 400 MG TAB PO SCH (20:53)
[2016-11-16] MEDS: TEMAZEPAM 15 MG CAP PO PRN (22:40)
[2016-11-17] MEDS ORDERED: PANTOPRAZOLE 40 MG TABLET PO SCH (07:30)
[2016-11-17 07:59] VITALS: BP 136/68; TEMP 97.1
[2016-11-17] MEDS: IPRATROPIUM-ALBUTEROL 3 ML NEB INHALATION PRN (08:08)
[2016-11-17] MEDS: BUDESONIDE 0.5 MG/2 ML NEBU INHALATION SCH (08:08)
[2016-11-17] MEDS: TIOTROPIUM 18 MCG/PUFF INHALER INHALATION SCH (08:33)
[2016-11-17 10:01] LABS: ALT 51 U/L (9-52); AST 40 U/L (14-36); Alkaline Phosphatase 76 U/L (38-126); Anion Gap 9 mmol/L; Blood Urea Nitrogen 32 mg/dL (7-17); Calcium 8.3 mg/dL (8.4-10.2); Carbon Dioxide 24 mmol/L (22-30); Chloride 109 mmol/L (98-107); Glucose 133 mg/dL (74-99); Magnesium 1.8 mg/dL (1.6-2.3); Non-African American GFR(MDRD) 58 (>60 ml/min/1.73 sqM); Phosphorous 2.6 mg/dL (2.5-4.5); Potassium 3.8 mmol/L (3.5-5.1); Sodium 142 mmol/L (137-145); Total Bilirubin 0.4 mg/dL (0.2-1.3); Total Protein 5.9 g/dL (6.3-8.2)
[2016-11-17 10:07] LABS: Anisocytosis Slight; Basophils % (A) 0 %; CH 28.1; Eosinophils # (A) 0.2 k/uL (0-0.7); Eosinophils % (A) 3 %; HCT 36.4 % (34.0-46.0); HDW 2.86; HGB 11.4 gm/dL (11.4-16.0); Hypochromasia Slight; Luc # (Auto) 0.13; Luc % (Auto) 2; Lymphocytes # (A) 1.2 k/uL (1.0-4.8); Lymphocytes % (A) 14 %; MCH 27.8 pg (25.0-35.0); MCHC 31.3 g/dL (31.0-37.0); MCV 88.6 fL (80.0-100.0); Mean Platelet Volume 8.6; Monocytes # (A) 0.6 k/uL (0-1.0); Monocytes % (A) 6 %; Neutrophils # (A) 6.5 k/uL (1.3-7.7); Neutrophils % (A) 75 %; RDW 16.5 % (11.5-15.5); WBC 8.6 k/uL (3.8-10.6); WBC (Perox) 8.69
[2016-11-17] MEDS: QUEtiapine 25 MG TAB PO SCH (10:46)
[2016-11-17] MEDS: ATORVASTATIN 80 MG TAB PO SCH (10:46)
[2016-11-17] MEDS: FLUoxetine HCL 20 MG CAP PO SCH (10:46)
[2016-11-17] MEDS: busPIRone HCl 10 MG TAB PO SCH (10:46)
[2016-11-17] MEDS: DONEPEZIL 5 MG TAB PO SCH (10:47)
[2016-11-17] MEDS: amLODIPine 5 MG TAB PO SCH (10:47)
[2016-11-17] MEDS: ASPIRIN 81 MG CHEW PO SCH (10:47)
[2016-11-17 11:12] VITALS: PULSE 47
--- NOTE | 2016-11-18 13:19 | DS ---
DATE OF ADMISSION: 11/14/2016 DATE OF DISCHARGE: 11/17/2016 FINAL DIAGNOSES: 1. Hypotension bradycardia for evaluation with possible medication-induced secondary to beta blockers. 2. History of headaches, incessant vomiting, improved. 3. Severe cervical degenerative joint disease. 4. History of recent acute gastroenteritis. 5. History of coronary artery disease and stent. 6. History of degenerative joint disease. 7. History of rheumatoid arthritis. 8. Gait dysfunction. 9. History of depression, anxiety, not otherwise specified. 10. Essential hypertension. 11. History of gastroesophageal reflux disease. 12. Peripheral arterial disease, history. 13. Hiatal hernia history. 14. History of continued ongoing nicotine dependence. 15. Increased creatinine with mild acute renal failure, possible prerenal. 16. Mild hyperkalemia, present on admission. 17. Increased AST, ALT with possible mild hepatitis of undermined etiology. 18. Hyperlipidemia. 19. FULL CODE. DISCHARGE DISPOSITION: The patient will be discharged in stable condition with guarded prognosis. Discharge cleared by Cardiology. HISTORY OF PRESENT ILLNESS: This 76-year-old woman with a past medical history of multiple medical problems admitted with hypotension bradycardia and possibly secondary to beta blockers. Cardiology saw the patient, recommended to continue the conservative line of management. Cervical spine x-ray did not show any new findings, severe DJD was visualized and possibly contributing to the neck pain. On exam, vitals are stable. CARDIOVASCULAR SYSTEM: S1, S2 muffled. ABDOMEN: Soft. NERVOUS SYSTEM: No focal deficits. The pulse rate is around 50. The patient will be discharged in stable condition. Diet is cardiac. Activity limited until followup. Follow up with Dr. Maria in 2 to 3 days. Follow up with [facility] as recommended. Medications are: 1. Albuterol in 1 to 2 puffs q.i.d. p.r.n. 2. Ecotrin 81 mg daily. 3. Lipitor 80 mg daily. 4. Aricept 5 mg q.a.m. 5. Fluoxetine 40 mg p.o. b.i.d. 6. Ativan 1 mg b.i.d. p.r.n. 7. Magnesium oxide 400 mg q.h.s. 8. Nitrostat 0.4 sublingual p.r.n. 9. Protonix 40 mg p.o. daily. 10. Seroquel 25 mg p.o. b.i.d. 11. Spiriva 1 puff daily. 12. Norvasc 5 mg p.o. daily. 13. Buspirone 20 mg p.o. b.i.d. 14. Ultram 50 mg q.8 p.r.n. Once again, the patient will be discharged in stable condition with guarded prognosis.
== END 2016-11-17 13:04 | disposition home health service (06) | DRG 309 ==
LOC: EC 16:24 → 6ICU 21:48 → 4MS4W 11-16 15:27
PROVIDERS: ADMIT Hospitalist; ATTEND Hospitalist
DX: R00.1 Bradycardia, unspecified (principal); N17.9 Acute kidney failure, unspecified; I95.9 Hypotension, unspecified; E87.5 Hyperkalemia; F03.90 Unspecified dementia, unspecified severity, without behavioral disturbance, psychotic disturbance, mood disturbance, and anxiety; K75.9 Inflammatory liver disease, unspecified; M06.9 Rheumatoid arthritis, unspecified; T44.7X5A Adverse effect of beta-adrenoreceptor antagonists, initial encounter; E78.5 Hyperlipidemia, unspecified; I25.10 Atherosclerotic heart disease of native coronary artery without angina pectoris; I73.9 Peripheral vascular disease, unspecified; K44.9 Diaphragmatic hernia without obstruction or gangrene; I10 Essential (primary) hypertension; R07.9 Chest pain, unspecified; K21.9 Gastro-esophageal reflux disease without esophagitis; R26.9 Unspecified abnormalities of gait and mobility; I25.2 Old myocardial infarction; R11.2 Nausea with vomiting, unspecified; M81.0 Age-related osteoporosis without current pathological fracture; F41.9 Anxiety disorder, unspecified; F32.9 Major depressive disorder, single episode, unspecified; R05 Cough; R06.02 Shortness of breath; R63.4 Abnormal weight loss; R51 Headache; M47.812 Spondylosis without myelopathy or radiculopathy, cervical region; I67.9 Cerebrovascular disease, unspecified; F17.210 Nicotine dependence, cigarettes, uncomplicated; G25.0 Essential tremor; K59.00 Constipation, unspecified; Z86.19 Personal history of other infectious and parasitic diseases; Z79.899 Other long term (current) drug therapy; Z79.82 Long term (current) use of aspirin; Z16.24 Resistance to multiple antibiotics; Z95.5 Presence of coronary angioplasty implant and graft; Z83.3 Family history of diabetes mellitus; Z82.49 Family history of ischemic heart disease and other diseases of the circulatory system; Z87.19 Personal history of other diseases of the digestive system; Z87.828 Personal history of other (healed) physical injury and trauma; Z99.3 Dependence on wheelchair; Z91.81 History of falling; Z87.440 Personal history of urinary (tract) infections; Z87.01 Personal history of pneumonia (recurrent); Z87.81 Personal history of (healed) traumatic fracture; Z86.14 Personal history of Methicillin resistant Staphylococcus aureus infection; Z87.311 Personal history of (healed) other pathological fracture; Z90.49 Acquired absence of other specified parts of digestive tract; Z96.651 Presence of right artificial knee joint; Z79.891 Long term (current) use of opiate analgesic; Z79.51 Long term (current) use of inhaled steroids; Z91.041 Radiographic dye allergy status; Z88.5 Allergy status to narcotic agent; Z91.048 Other nonmedicinal substance allergy status
CPT/HCPCS: 36415; 70450; 71020; 72040; 80053; 80061; 81001; 82150; 82550; 82553; 83690; 83735; 83880; 84100; 84443; 84484; 85025; 85610; 85730; 87086; 93005; 93306; 94640; 96365; 96366; 96372; 96375; 99291; 99292

== ENCOUNTER → 2017-03-28 | Outpatient (CLI) | payer MEDICARE, OTHER ==
--- NOTE | 2017-03-28 15:10 | XR ---
EXAMINATION TYPE: XR cervical spine limited DATE OF EXAM: 03/28/2017 CLINICAL HISTORY: pain TECHNIQUE: 3 views of the cervical spine are submitted. COMPARISON: 11/06/2016 FINDINGS: Again noted are changes of fusion at C5-6. Severe multilevel degenerative disc disease and spondylosis at visualized levels. Please note the examination is limited distal to the mid C7 level g iven overlying soft tissues. Visualized alignment appears to be near-anatomic. IMPRESSION: Stable degenerative change and postoperative change of the cervical spine.
== END | disposition home or self-care (01) ==
LOC: RADXRMAIN 14:29
PROVIDERS: ATTEND Family Medicine
DX: M47.812 Spondylosis without myelopathy or radiculopathy, cervical region (principal); Z98.890 Other specified postprocedural states
CPT/HCPCS: 12011; 72040; 99283

== ENCOUNTER 2018-02-03 12:33 | Emergency (ER) | payer MEDICARE, OTHER ==
[2018-02-03] MEDS ORDERED: SODIUM CHLORIDE 0.9% 1,000 ML IV STA (13:04)
--- NOTE | 2018-02-03 13:09 | ED ---
Nausea/Vomiting/Diarrhea HPI - General Chief complaint: Nausea/Vomiting/Diarrhea Stated complaint: Hemroid, Diarrhea & Altered mental status Time Seen by Provider: 02/03/18 12:51 Source: patient, RN notes reviewed Mode of arrival: wheelchair Limitations: no limitations - History of Present Illness Initial comments: This is a 77-year-old female who presents with complaints of loose stool for about the last 2 weeks. She apparently been having a lot of it last evening and this morning. Some nausea no vomiting no blood per rectum no dysuria hematuria she states she's unable eat and drink okay. Per triage reports patient also she has some problem with hemorrhoids and has had some confusion. No other reported issues at this time. She has seen a information technology officer for the loose stool. MD complaint: diarrhea - Related Data Home Medications Medication Instructions Recorded Confirmed FLUoxetine HCL 40 mg PO BID 04/22/15 06/05/17 Pantoprazole Sodium 40 mg PO DAILY 04/22/15 06/05/17 busPIRone HCL 20 mg PO BID 09/26/16 06/05/17 LORazepam [Ativan] 1 mg PO BID 10/20/16 06/05/17 traMADol HCl [Ultram] 50 mg PO Q8H PRN 10/20/16 06/05/17 Albuterol Inhaler [Ventolin Hfa 2 puff INHALATION RT-Q4H PRN 11/14/16 06/05/17 Inhaler] Magnesium Oxide [Mag-Ox] 400 mg PO HS 11/14/16 06/05/17 Nitroglycerin Sl Tabs [Nitrostat] 0.4 mg SUBLINGUAL Q5M PRN 11/14/16 06/05/17 Tiotropium [place] [Spiriva 1 cap INHALATION RT-DAILY 11/14/16 06/05/17 Respimat] Atorvastatin [Lipitor] 80 mg PO HS 06/05/17 06/05/17 Lidocaine 5% Patch [Lidoderm 5% 1 patch TOPICAL DAILY 06/05/17 06/05/17 Patch] Mirabegron [Myrbetriq] 50 mg PO DAILY 06/05/17 06/05/17 Ondansetron HCl [Zofran] 4 mg PO Q8H 06/05/17 06/05/17 Potassium Chloride ER [K-Dur 10] 10 meq PO DAILY 06/05/17 06/05/17 amLODIPine [Norvasc] 10 mg PO DAILY 06/05/17 06/05/17 Previous Rx's Medication Instructions Recorded Aspirin 81 mg PO DAILY chew 10/22/16 Nicotine 7Mg/24Hr Patch [Habitrol] 1 patch TRANSDERM DAILY patch 06/07/17 predniSONE 40 mg PO DAILY #30 tab 06/07/17 Hydrocortisone [Anusol-Hc] 1 applic RECTAL Q8HR #30 gm 02/03/18 Ibuprofen [Motrin] 600 mg PO Q6HR PRN #20 tab 02/03/18 Allergies Allergy/AdvReac Type Severity Reaction Status Date / Time iodine Allergy Rapid Verified 02/03/18 12:48 Heart Rate adhesive AdvReac Itching Verified 02/03/18 12:48 codeine AdvReac Confusion Verified 02/03/18 12:48 hydrocodone bitartrate AdvReac Confusion Verified 02/03/18 12:48 [From [place]] hydromorphone HCl AdvReac Confusion Verified 02/03/18 12:48 [From Dilaudid] morphine AdvReac Confusion Verified 02/03/18 12:48 Review of Systems ROS Statement: Those systems with pertinent positive or pertinent negative responses have been documented in the HPI. ROS Other: All systems not noted in ROS Statement are negative. Past Medical History Past Medical History: Coronary Artery Disease (CAD), Chest Pain / Angina, GERD/ Reflux, GI Bleed, Hyperlipidemia, Hypertension, Memory Impairment, Myocardial Infarction (DE), Osteoarthritis (OA), Pneumonia, Rheumatoid Arthritis (RA), Syncope Additional Past Medical History / Comment(s): Coronary artery disease with previous angioplasty and stenting, hypertension, dementia, osteoporosis,, Rheumatoid arthritis, osteoporosis, hyperlipidemia, previous fall with blunt trauma to the head, peripheral vascular disease, osteoporosis, hiatal hernia, chronic constipation,incont of urine-wears brief, previous history of uti, essential tremors, compression fracture of the T12 spine, cellulitis of the lower extremities, difficulty with mobility and gait and the patient has been wheelchair bound but she is able to stand up and pivot herself. Last Myocardial Infarction Date:: 1999 History of Any Multi-Drug Resistant Organisms: MRSA Date of last positivie culture/infection: 2011 per patient in nursing history MDRO Source:: Right Knee Past Surgical History: Appendectomy, Heart Catheterization With Stent, Joint Replacement, Orthopedic Surgery, Tonsillectomy Additional Past Surgical History / Comment(s): PTCA with 2 stents to CX in 1999 , R shoulder arthroscopic rotator cuff repair, reverse L total shoulder, femoral bypass 1999, gastric tube placement and since removal, R total knee ( failed) Past Anesthesia/Blood Transfusion Reactions: Postoperative Nausea & Vomiting ( PONV) Additional Past Anesthesia/Blood Transfusion Reaction / Comment(s): uncertain if she has ever recieved blood. Date of Last Stent Placement:: 1999 Past Psychological History: Anxiety, Depression Smoking Status: Current every day smoker - Past Family History Father Family Medical History: Coronary Artery Disease (CAD), Myocardial Infarction (DE ) Mother Family Medical History: Diabetes Mellitus, Hypertension General Exam - General Exam Comments Initial Comments: This is a well-developed well-nourished awake alert oriented 3 female Limitations: no limitations General appearance: alert, in no apparent distress Head exam: Present: atraumatic, normocephalic, normal inspection Eye exam: Present: normal appearance, PERRL, EOMI. Absent: scleral icterus, conjunctival injection, periorbital swelling ENT exam: Present: mucous membranes dry Neck exam: Present: normal inspection. Absent: tenderness, meningismus, lymphadenopathy Respiratory exam: Present: normal lung sounds bilaterally. Absent: respiratory distress, wheezes, rales, rhonchi, stridor Cardiovascular Exam: Present: normal rhythm, bradycardia, normal heart sounds. Absent: systolic murmur, diastolic murmur, rubs, gallop, clicks GI/Abdominal exam: Present: soft, tenderness (Mild periumbilical tenderness no guarding rebound masses or bruits), normal bowel sounds. Absent: distended, guarding, rebound, rigid Rectal exam: Present: normal rectal tone (A female nurse was present during the exam), hemorrhoids, other (Evaluation of the renal arteries reveals no obvious bleeding no fissures or is a hemorrhoid at about 7:00 o'clock that is tender pink in color no evidence of bleeding at this time.) Extremities exam: Present: normal inspection, full ROM, normal capillary refill. Absent: tenderness, pedal edema, joint swelling, calf tenderness Back exam: Present: normal inspection Neurological exam: Present: alert, oriented X3, CN II-XII intact Psychiatric exam: Present: normal affect, normal mood Skin exam: Present: warm, dry, intact, normal color. Absent: rash Course Vital Signs 06/02/18 06/02/18 06/02/18 12:41 13:28 13:40 Temperature 97.7 F Pulse Rate 46 L 58 L Respiratory 16 18 Rate Blood Pressure 153/67 163/74 O2 Sat by Pulse 98 98 Oximetry 02/03/18 15:11 Temperature Pulse Rate 60 Respiratory 18 Rate Blood Pressure 161/68 O2 Sat by Pulse 96 Oximetry Medical Decision Making - Medical Decision Making Patient is feeling improved I did discuss the findings with her. Patient does have chronic back pain. She also demonstrates evidence of an inflamed hemorrhoid. She will be placed on appropriate medication. She did demonstrate some dehydration. She will follow-up with her doctor and return when necessary - Lab Data Result diagrams: 02/03/18 13:45 02/03/18 13:45 Lab Results 02/03/18 02/03/18 02/03/18 Range/Units 13:45 13:45 13:45 WBC 9.2 (3.8-10.6) k/uL RBC 5.34 (3.80-5.40) m/uL Hgb 12.1 (11.4-16.0) gm/dL Hct 38.8 (34.0-46.0) % MCV 72.8 L (80.0-100.0) fL MCH 22.6 L (25.0-35.0) pg MCHC 31.1 (31.0-37.0) g/dL RDW 18.5 H (11.5-15.5) % Plt Count 222 (150-450) k/uL Neutrophils % 79 % Lymphocytes % 13 % Monocytes % 5 % Eosinophils % 2 % Basophils % 0 % Neutrophils # 7.3 (1.3-7.7) k/uL Lymphocytes # 1.2 (1.0-4.8) k/uL Monocytes # 0.4 (0-1.0) k/uL Eosinophils # 0.1 (0-0.7) k/uL Basophils # 0.0 (0-0.2) k/uL Hypochromasia Moderate Anisocytosis Slight Microcytosis Moderate Sodium 144 (137-145) mmol/L Potassium 3.8 (3.5-5.1) mmol/L Chloride 105 (98-107) mmol/L Carbon Dioxide 25 (22-30) mmol/L Anion Gap 14 mmol/L BUN 16 (7-17) mg/dL Creatinine 0.80 (0.52-1.04) mg/dL Est GFR (CKD-EPI)AfAm 82 (>60 ml/min/1.73 sqM) Est GFR (CKD-EPI)NonAf 71 (>60 ml/min/1.73 sqM) Glucose 121 H (74-99) mg/dL Calcium 9.1 (8.4-10.2) mg/dL Magnesium 1.9 (1.6-2.3) mg/dL Total Bilirubin 0.6 (0.2-1.3) mg/dL AST 74 H (14-36) U/L ALT 58 H (9-52) U/L Alkaline Phosphatase 115 (38-126) U/L Total Creatine Kinase 57 (30-135) U/L CK-MB (CK-2) 1.0 (0.0-2.4) ng/mL CK-MB (CK-2) Rel Index 1.8 Troponin I <0.012 (0.000-0.034) ng/mL Total Protein 7.0 (6.3-8.2) g/dL Albumin 4.0 (3.5-5.0) g/dL Amylase 31 (30-110) U/L Lipase 83 (23-300) U/L Urine Color Urine Appearance (Clear) Urine pH (5.0-8.0) Ur Specific [place] (1.001-1.035) Urine Protein (Negative) Urine Glucose (UA) (Negative) Urine Ketones (Negative) Urine Blood (Negative) Urine Nitrite (Negative) Urine Bilirubin (Negative) Urine Urobilinogen (<2.0) mg/dL Ur Leukocyte Esterase (Negative) Urine RBC (0-5) /hpf Urine WBC (0-5) /hpf Urine Bacteria (None) /hpf Hyaline Casts (0-2) /lpf Urine Mucus (None) /hpf 02/03/18 Range/Units 13:45 WBC (3.8-10.6) k/uL RBC (3.80-5.40) m/uL Hgb (11.4-16.0) gm/dL Hct (34.0-46.0) % MCV (80.0-100.0) fL MCH (25.0-35.0) pg MCHC (31.0-37.0) g/dL RDW (11.5-15.5) % Plt Count (150-450) k/uL Neutrophils % % Lymphocytes % % Monocytes % % Eosinophils % % Basophils % % Neutrophils # (1.3-7.7) k/uL Lymphocytes # (1.0-4.8) k/uL Monocytes # (0-1.0) k/uL Eosinophils # (0-0.7) k/uL Basophils # (0-0.2) k/uL Hypochromasia Anisocytosis Microcytosis Sodium (137-145) mmol/L Potassium (3.5-5.1) mmol/L Chloride (98-107) mmol/L Carbon Dioxide (22-30) mmol/L Anion Gap mmol/L BUN (7-17) mg/dL Creatinine (0.52-1.04) mg/dL Est GFR (CKD-EPI)AfAm (>60 ml/min/1.73 sqM) Est GFR (CKD-EPI)NonAf (>60 ml/min/1.73 sqM) Glucose (74-99) mg/dL Calcium (8.4-10.2) mg/dL Magnesium (1.6-2.3) mg/dL Total Bilirubin (0.2-1.3) mg/dL AST (14-36) U/L ALT (9-52) U/L Alkaline Phosphatase (38-126) U/L Total Creatine Kinase (30-135) U/L CK-MB (CK-2) (0.0-2.4) ng/mL CK-MB (CK-2) Rel Index Troponin I (0.000-0.034) ng/mL Total Protein (6.3-8.2) g/dL Albumin (3.5-5.0) g/dL Amylase (30-110) U/L Lipase (23-300) U/L Urine Color Yellow Urine Appearance Clear (Clear) Urine pH 6.0 (5.0-8.0) Ur Specific [place] 1.019 (1.001-1.035) Urine Protein 1+ H (Negative) Urine Glucose (UA) Negative (Negative) Urine Ketones Negative (Negative) Urine Blood Negative (Negative) Urine Nitrite Negative (Negative) Urine Bilirubin Negative (Negative) Urine Urobilinogen 2.0 (<2.0) mg/dL Ur Leukocyte Esterase Small H (Negative) Urine RBC 2 (0-5) /hpf Urine WBC 4 (0-5) /hpf Urine Bacteria Rare H (None) /hpf Hyaline Casts 3 H (0-2) /lpf Urine Mucus Rare H (None) /hpf - Radiology Data Radiology results: report reviewed (I did review the imaging and report no acute findings.), image reviewed Disposition Clinical Impression: Enteritis, Dehydration, Hemorrhoid Disposition: HOME SELF-CARE Condition: Good Instructions: Enteritis (ED), Dehydration (ED), Hemorrhoids (ED) Additional Instructions: A prescription for a stool sample for C. difficile Prescriptions: Hydrocortisone [Anusol-Hc] 1 applic RECTAL Q8HR #30 gm Ibuprofen [Motrin] 600 mg PO Q6HR PRN #20 tab PRN Reason: Pain Is patient prescribed a controlled substance at d/c from ED?: No Referrals: Anuj Maria DO [Primary Care Provider] - 1-2 days
[2018-02-03 14:00] LABS: Anisocytosis Slight; Basophils % (A) 0 %; Eosinophils # (A) 0.1 k/uL (0-0.7); Eosinophils % (A) 2 %; HCT 38.8 % (34.0-46.0); HGB 12.1 gm/dL (11.4-16.0); Hypochromasia Moderate; Lymphocytes # (A) 1.2 k/uL (1.0-4.8); Lymphocytes % (A) 13 %; MCH 22.6 pg (25.0-35.0); MCHC 31.1 g/dL (31.0-37.0); MCV 72.8 fL (80.0-100.0); Mean Platelet Volume 9.3; Microcytosis Moderate; Monocytes # (A) 0.4 k/uL (0-1.0); Monocytes % (A) 5 %; Neutrophils # (A) 7.3 k/uL (1.3-7.7); Neutrophils % (A) 79 %; Platelet Count 222 k/uL (150-450); RBC 5.34 m/uL (3.80-5.40); RDW 18.5 % (11.5-15.5); WBC 9.2 k/uL (3.8-10.6)
[2018-02-03 14:04] LABS: Appearance,Urine Clear (Clear); Bacteria,Urine Rare /hpf; Bilirubin,Urine Negative (Negative); Blood,Urine Negative (Negative); Color,Urine Yellow; Glucose,Urine (UA) Negative (Negative); Hyaline Casts,Urine 3 /lpf (0-2); Ketones,Urine Negative (Negative); Leukocyte Esterase,Urine Small (Negative); Mucus,Urine Rare /hpf; Nitrite,Urine Negative (Negative); Protein,Urine 1+ (Negative); RBC,Urine 2 /hpf (0-5); Specific Gravity,Urine 1.019 (1.001-1.035); WBC,Urine 4 /hpf (0-5)
[2018-02-03 14:19] LABS: Calcium 9.1 mg/dL (8.4-10.2); Creatine Kinase 57 U/L (30-135); Magnesium 1.9 mg/dL (1.6-2.3); Potassium 3.8 mmol/L (3.5-5.1); Total Bilirubin 0.6 mg/dL (0.2-1.3)
[2018-02-03] MEDS ORDERED: KETOROLAC 30 MG/ML 1 ML VIAL IVP STA (14:21)
--- NOTE | 2018-02-03 14:21 | XR ---
EXAMINATION TYPE: XR chest 2V DATE OF EXAM: 02/03/2018 COMPARISON: June 05, 2017 HISTORY: Shortness of breath TECHNIQUE: Frontal and lateral views of the chest are obtained. FINDINGS: Scattered senescent parenchymal changes noted. Hyperinflation compatible with COPD. No evidence for infiltrate. No evidence for atelectasis. Heart size is stable. Mediastinal structures are stable and grossly unremarkable. No evidence for hilar prominence. Degenerative changes dorsal spine. IMPRESSION: 1. No evidence for acute pulmonary disease.
--- NOTE | 2018-02-03 14:22 | XR ---
EXAMINATION TYPE: XR KUB DATE OF EXAM: 02/03/2018 COMPARISON: NONE HISTORY: Pain TECHNIQUE: Single supine KUB image of the abdomen is obtained FINDINGS: Small bowel demonstrates no evidence for dilatation or air fluid levels. Gas and fecal material is seen in non-distended colon. No convincing evidence for pneumoperitoneum. No unusual calcifications. The lung bases are clear. The osseous structures are intact. Curvature noted convex to the left. Postoperative changes right hi p. IMPRESSION: 1. Overall nonobstructive bowel gas pattern.
[2018-02-03 14:30] LABS: Troponin I <0.012 ng/mL (0.000-0.034)
[2018-02-03] MEDS ORDERED: SODIUM CHLORIDE 0.9% 500 ML IV STA (15:02)
[2018-02-03 15:23] VITALS: BP 154/71; PULSE 57; RESP 16; TEMP 96.9
== END 2018-02-03 16:11 | disposition home or self-care (01) ==
LOC: EC 12:33
DX: K52.9 Noninfective gastroenteritis and colitis, unspecified (principal); E86.0 Dehydration; K64.9 Unspecified hemorrhoids; M54.9 Dorsalgia, unspecified; G89.29 Other chronic pain; I25.10 Atherosclerotic heart disease of native coronary artery without angina pectoris; K21.9 Gastro-esophageal reflux disease without esophagitis; E78.5 Hyperlipidemia, unspecified; I10 Essential (primary) hypertension; I25.2 Old myocardial infarction; I73.9 Peripheral vascular disease, unspecified; F41.9 Anxiety disorder, unspecified; F32.9 Major depressive disorder, single episode, unspecified; F17.200 Nicotine dependence, unspecified, uncomplicated; Z86.14 Personal history of Methicillin resistant Staphylococcus aureus infection; Z79.899 Other long term (current) drug therapy; Z91.048 Other nonmedicinal substance allergy status; Z88.5 Allergy status to narcotic agent; Z95.5 Presence of coronary angioplasty implant and graft
CPT/HCPCS: 36415; 80053; 82150; 82550; 82553; 83690; 83735; 84484; 85025; 81001; 71046; 74018; 99285; 96374; 96361 ×2; J1885

== ENCOUNTER 2018-06-02 13:12 | Emergency (ER) | payer MEDICARE, OTHER ==
[2018-06-02 13:28] VITALS: RESP 18
--- NOTE | 2018-06-02 13:39 | ED ---
General Adult HPI - General Chief complaint: GI Bleed Stated complaint: Rectal Bleeding Time Seen by Provider: 06/02/18 13:29 Source: patient, EMS, RN notes reviewed Mode of arrival: EMS Limitations: no limitations - History of Present Illness Initial comments: Patient is a pleasant 77-year-old female presenting to the emergency Department with complaints of rectal bleeding. Onset was around 24 hours ago. Patient has had bleeding intermittently during this time. Bleeding is not necessarily associated with bowel movements. Patient does have some rectal pain. During exam this was discussed with patient regarding her hemorrhoid. Patient states this is a new thing for her and she doesn't believe the bleeding is coming from the hemorrhoid. Patient denies any abdominal discomfort. Patient is not on blood thinners. No nausea vomiting. No fevers. - Related Data Home Medications Medication Instructions Recorded Confirmed FLUoxetine HCL 40 mg PO BID 04/22/15 06/02/18 Pantoprazole Sodium 40 mg PO DAILY 04/22/15 06/02/18 busPIRone HCL 20 mg PO BID 09/26/16 06/02/18 Tiotropium [place] [Spiriva 1 cap INHALATION RT-DAILY 11/14/16 06/02/18 Respimat] Atorvastatin [Lipitor] 80 mg PO HS 06/05/17 06/02/18 amLODIPine [Norvasc] 10 mg PO DAILY 06/05/17 06/02/18 Donepezil [Aricept] 10 mg PO HS 06/02/18 06/02/18 Potassium Chloride ER [K-Dur 20] 20 meq PO DAILY 06/02/18 06/02/18 Previous Rx's Medication Instructions Recorded Aspirin 81 mg PO DAILY chew 10/22/16 Hydrocortisone [Anusol-Hc] 1 applic RECTAL BID #30 gm 06/02/18 Allergies Allergy/AdvReac Type Severity Reaction Status Date / Time iodine Allergy Rapid Verified 06/02/18 14:12 Heart Rate adhesive AdvReac Itching Verified 06/02/18 14:12 codeine AdvReac Confusion Verified 06/02/18 14:12 hydrocodone bitartrate AdvReac Confusion Verified 06/02/18 14:12 [From [place]] hydromorphone HCl AdvReac Confusion Verified 06/02/18 14:12 [From Dilaudid] morphine AdvReac Confusion Verified 06/02/18 14:12 Review of Systems ROS Statement: Those systems with pertinent positive or pertinent negative responses have been documented in the HPI. ROS Other: All systems not noted in ROS Statement are negative. Constitutional: Denies: fever Eyes: Denies: eye pain ENT: Denies: ear pain Respiratory: Denies: cough Cardiovascular: Denies: chest pain Endocrine: Denies: fatigue Gastrointestinal: Denies: abdominal pain, diarrhea, melena, hematochezia Genitourinary: Denies: dysuria Musculoskeletal: Denies: back pain Skin: Denies: rash Neurological: Denies: weakness Past Medical History Past Medical History: Coronary Artery Disease (CAD), Chest Pain / Angina, GERD/ Reflux, GI Bleed, Hyperlipidemia, Hypertension, Memory Impairment, Myocardial Infarction ([place]), Osteoarthritis (OA), Pneumonia, Rheumatoid Arthritis (RA), Syncope Additional Past Medical History / Comment(s): Coronary artery disease with previous angioplasty and stenting, hypertension, dementia, osteoporosis,, Rheumatoid arthritis, osteoporosis, hyperlipidemia, previous fall with blunt trauma to the head, peripheral vascular disease, osteoporosis, hiatal hernia, chronic constipation,incont of urine-wears brief, previous history of uti, essential tremors, compression fracture of the T12 spine, cellulitis of the lower extremities, difficulty with mobility and gait and the patient has been wheelchair bound but she is able to stand up and pivot herself. Last Myocardial Infarction Date:: 1999 History of Any Multi-Drug Resistant Organisms: MRSA Date of last positivie culture/infection: 2011 per patient in nursing history MDRO Source:: Right Knee Past Surgical History: Appendectomy, Heart Catheterization With Stent, Joint Replacement, Orthopedic Surgery, Tonsillectomy Additional Past Surgical History / Comment(s): PTCA with 2 stents to CX in 1999 , R shoulder arthroscopic rotator cuff repair, reverse L total shoulder, femoral bypass 1999, gastric tube placement and since removal, R total knee ( failed) Past Anesthesia/Blood Transfusion Reactions: Postoperative Nausea & Vomiting ( PONV) Additional Past Anesthesia/Blood Transfusion Reaction / Comment(s): uncertain if she has ever recieved blood. Date of Last Stent Placement:: 1999 Past Psychological History: Anxiety, Depression Smoking Status: Current every day smoker Past Alcohol Use History: None Reported Past Drug Use History: None Reported - Past Family History Father Family Medical History: Coronary Artery Disease (CAD), Myocardial Infarction ([place] ) Mother Family Medical History: Diabetes Mellitus, Hypertension General Exam Limitations: no limitations General appearance: alert Head exam: Present: atraumatic Eye exam: Present: normal appearance, PERRL ENT exam: Present: normal oropharynx Neck exam: Present: normal inspection Respiratory exam: Present: normal lung sounds bilaterally Cardiovascular Exam: Present: regular rate, normal rhythm GI/Abdominal exam: Present: soft. Absent: distended, tenderness, guarding Rectal exam: Present: hemorrhoids (Tender hemorrhoid in the 3 o'clock position without any active bleeding at this time.). Absent: black stool, bloody stool Extremities exam: Present: normal inspection Neurological exam: Present: alert Psychiatric exam: Present: normal affect, normal mood Skin exam: Present: normal color Course Vital Signs 06/02/18 13:20 Temperature 98.4 F Pulse Rate 62 Respiratory 18 Rate Blood Pressure 145/66 O2 Sat by Pulse 99 Oximetry Medical Decision Making - Medical Decision Making Patient's hemoglobin is similar to previous hemoglobin levels. Patient reevaluated and resting comfortably in bed. Patient agrees her symptoms are symptoms described to her consistent with a hemorrhoid. Patient is comfortable with discharge home and will be provided follow-up information. - Lab Data Result diagrams: 06/02/18 13:40 06/02/18 13:40 Lab Results 06/02/18 06/02/18 06/02/18 Range/Units 13:10 13:40 13:40 WBC 9.3 (3.8-10.6) k/uL RBC 5.01 (3.80-5.40) m/uL Hgb 11.0 L (11.4-16.0) gm/dL Hct 35.8 (34.0-46.0) % MCV 71.4 L (80.0-100.0) fL MCH 22.0 L (25.0-35.0) pg MCHC 30.8 L (31.0-37.0) g/dL RDW 18.8 H (11.5-15.5) % Plt Count 225 (150-450) k/uL Neutrophils % 76 % Lymphocytes % 15 % Monocytes % 5 % Eosinophils % 3 % Basophils % 1 % Neutrophils # 7.1 (1.3-7.7) k/uL Lymphocytes # 1.4 (1.0-4.8) k/uL Monocytes # 0.4 (0-1.0) k/uL Eosinophils # 0.2 (0-0.7) k/uL Basophils # 0.0 (0-0.2) k/uL Hypochromasia Marked Anisocytosis Slight Microcytosis Marked PT (9.0-12.0) sec INR (<1.2) APTT (22.0-30.0) sec Sodium 140 (137-145) mmol/L Potassium 4.0 (3.5-5.1) mmol/L Chloride 108 H (98-107) mmol/L Carbon Dioxide 23 (22-30) mmol/L Anion Gap 9 mmol/L BUN 13 (7-17) mg/dL Creatinine 0.84 (0.52-1.04) mg/dL Est GFR (CKD-EPI)AfAm 77 (>60 ml/min/1.73 sqM) Est GFR (CKD-EPI)NonAf 67 (>60 ml/min/1.73 sqM) Glucose 100 H (74-99) mg/dL Calcium 8.7 (8.4-10.2) mg/dL Total Bilirubin 0.5 (0.2-1.3) mg/dL AST 75 H (14-36) U/L ALT 61 H (9-52) U/L Alkaline Phosphatase 145 H (38-126) U/L Total Protein 6.8 (6.3-8.2) g/dL Albumin 3.7 (3.5-5.0) g/dL Stool Occult Blood Positive H (Negative) 06/02/18 Range/Units 13:40 WBC (3.8-10.6) k/uL RBC (3.80-5.40) m/uL Hgb (11.4-16.0) gm/dL Hct (34.0-46.0) % MCV (80.0-100.0) fL MCH (25.0-35.0) pg MCHC (31.0-37.0) g/dL RDW (11.5-15.5) % Plt Count (150-450) k/uL Neutrophils % % Lymphocytes % % Monocytes % % Eosinophils % % Basophils % % Neutrophils # (1.3-7.7) k/uL Lymphocytes # (1.0-4.8) k/uL Monocytes # (0-1.0) k/uL Eosinophils # (0-0.7) k/uL Basophils # (0-0.2) k/uL Hypochromasia Anisocytosis Microcytosis PT 10.3 (9.0-12.0) sec INR 1.0 (<1.2) APTT 23.6 (22.0-30.0) sec Sodium (137-145) mmol/L Potassium (3.5-5.1) mmol/L Chloride (98-107) mmol/L Carbon Dioxide (22-30) mmol/L Anion Gap mmol/L BUN (7-17) mg/dL Creatinine (0.52-1.04) mg/dL Est GFR (CKD-EPI)AfAm (>60 ml/min/1.73 sqM) Est GFR (CKD-EPI)NonAf (>60 ml/min/1.73 sqM) Glucose (74-99) mg/dL Calcium (8.4-10.2) mg/dL Total Bilirubin (0.2-1.3) mg/dL AST (14-36) U/L ALT (9-52) U/L Alkaline Phosphatase (38-126) U/L Total Protein (6.3-8.2) g/dL Albumin (3.5-5.0) g/dL Stool Occult Blood (Negative) Disposition Clinical Impression: External hemorrhoid Disposition: HOME SELF-CARE Condition: Stable Instructions: Hemorrhoids (ED) Additional Instructions: Please follow-up with primary care physician and general surgeon in the next couple of days for recheck. Return for weakness or fatigue, shortness of breath , abdominal pain, fevers, increased bleeding, worsening or changing symptoms or other concerns. Prescriptions: Hydrocortisone [Anusol-Hc] 1 applic RECTAL BID #30 gm Is patient prescribed a controlled substance at d/c from ED?: No Referrals: Anuj Maria DO [Primary Care Provider] - 1-2 days Tamar Leahy MD [STAFF PHYSICIAN] - 1-2 days Time of Disposition: 14:25
[2018-06-02 13:53] LABS: Anisocytosis Slight; Basophils % (A) 1 %; Eosinophils # (A) 0.2 k/uL (0-0.7); Eosinophils % (A) 3 %; HCT 35.8 % (34.0-46.0); Hypochromasia Marked; Lymphocytes # (A) 1.4 k/uL (1.0-4.8); Lymphocytes % (A) 15 %; MCHC 30.8 g/dL (31.0-37.0); MCV 71.4 fL (80.0-100.0); Mean Platelet Volume 7.3; Microcytosis Marked; Monocytes # (A) 0.4 k/uL (0-1.0); Monocytes % (A) 5 %; Neutrophils # (A) 7.1 k/uL (1.3-7.7); Neutrophils % (A) 76 %; Platelet Count 225 k/uL (150-450); RBC 5.01 m/uL (3.80-5.40); RDW 18.8 % (11.5-15.5); WBC 9.3 k/uL (3.8-10.6)
[2018-06-02 14:02] LABS: Partial Thromboplastin Time 23.6 sec (22.0-30.0); Prothrombin Time 10.3 sec (9.0-12.0)
[2018-06-02 14:03] LABS: Albumin 3.7 g/dL (3.5-5.0); Calcium 8.7 mg/dL (8.4-10.2); Total Bilirubin 0.5 mg/dL (0.2-1.3); Total Protein 6.8 g/dL (6.3-8.2)
[2018-06-02 14:59] VITALS: BP 140/72; PULSE 72; TEMP 97.9
== END 2018-06-02 15:28 | disposition home or self-care (01) ==
LOC: EC 13:12
DX: K64.4 Residual hemorrhoidal skin tags (principal); I25.10 Atherosclerotic heart disease of native coronary artery without angina pectoris; K21.9 Gastro-esophageal reflux disease without esophagitis; E78.5 Hyperlipidemia, unspecified; I10 Essential (primary) hypertension; I25.2 Old myocardial infarction; F03.90 Unspecified dementia, unspecified severity, without behavioral disturbance, psychotic disturbance, mood disturbance, and anxiety; I73.9 Peripheral vascular disease, unspecified; F41.9 Anxiety disorder, unspecified; F32.9 Major depressive disorder, single episode, unspecified; F17.200 Nicotine dependence, unspecified, uncomplicated; Z86.14 Personal history of Methicillin resistant Staphylococcus aureus infection; Z90.49 Acquired absence of other specified parts of digestive tract; Z95.5 Presence of coronary angioplasty implant and graft; Z79.899 Other long term (current) drug therapy; Z91.048 Other nonmedicinal substance allergy status; Z88.5 Allergy status to narcotic agent
CPT/HCPCS: 36415; 80053; 82272; 85025; 85610; 85730; 99284

== ENCOUNTER 2018-08-02 12:26 | Emergency (ER) | payer MEDICARE, OTHER ==
[2018-08-02 13:28] VITALS: BP 179/97; PULSE 75; RESP 18; TEMP 98.4
[2018-08-02] MEDS ORDERED: traMADol 50 MG TAB PO STA (14:02)
--- NOTE | 2018-08-02 14:03 | XR ---
EXAMINATION TYPE: XR elbow complete LT DATE OF EXAM: 08/02/2018 CLINICAL HISTORY: Left elbow pain after fall off bed TECHNIQUE: Frontal, lateral and oblique images of the left elbow are obtained. COMPARISON: None FINDINGS: There is a very subtle step-off of the dorsal and ulnar aspect of the radial head marked on the images with associated joint effusion. Presence of joint effusion support the diagnosis of a sma ll impaction fracture. The distal aspect of humeral postsurgical intramedullary nina is seen without m alalignment. No additional fracture is identified. There is diffuse osseous demineralization. IMPRESSION: Very subtle step-off is seen of the dorsal and ulnar aspect of the radial head compatible with a nondisplaced minimal impaction fracture of the radial head on a background of diffuse osseous demineralization.
--- NOTE | 2018-08-02 14:19 | ED ---
Upper Extremity HPI - General Chief Complaint: Extremity Injury, Upper Stated Complaint: Left Elbow pain Time Seen by Provider: 08/02/18 13:39 Source: patient, EMS, RN notes reviewed Mode of arrival: EMS Limitations: physical limitation - History of Present Illness Initial Comments: 77-year-old female presents emergency Department chief complaint of left arm pain. Patient states that she her arm caught in her hospital bed and twisted. Patient claims primarily pain over her left elbow. She has had prior left shoulder surgery no prior left elbow injuries.She is [id number]. Patient denies any current paresthesias or any other complaints. - Related Data Home Medications Medication Instructions Recorded Confirmed FLUoxetine HCL 40 mg PO BID 04/22/15 06/02/18 Pantoprazole Sodium 40 mg PO DAILY 04/22/15 06/02/18 busPIRone HCL 20 mg PO BID 09/26/16 06/02/18 Tiotropium [place] [Spiriva 1 cap INHALATION RT-DAILY 11/14/16 06/02/18 Respimat] Atorvastatin [Lipitor] 80 mg PO HS 06/05/17 06/02/18 amLODIPine [Norvasc] 10 mg PO DAILY 06/05/17 06/02/18 Donepezil [Aricept] 10 mg PO HS 06/02/18 06/02/18 Potassium Chloride ER [K-Dur 20] 20 meq PO DAILY 06/02/18 06/02/18 Previous Rx's Medication Instructions Recorded Aspirin 81 mg PO DAILY chew 10/22/16 Hydrocortisone [Anusol-Hc] 1 applic RECTAL BID #30 gm 06/02/18 Allergies Allergy/AdvReac Type Severity Reaction Status Date / Time iodine Allergy Rapid Verified 06/02/18 14:12 Heart Rate adhesive AdvReac Itching Verified 06/02/18 14:12 codeine AdvReac Confusion Verified 06/02/18 14:12 hydrocodone bitartrate AdvReac Confusion Verified 06/02/18 14:12 [From [place]] hydromorphone HCl AdvReac Confusion Verified 06/02/18 14:12 [From Dilaudid] morphine AdvReac Confusion Verified 06/02/18 14:12 Review of Systems ROS Statement: Those systems with pertinent positive or pertinent negative responses have been documented in the HPI. ROS Other: All systems not noted in ROS Statement are negative. Past Medical History Past Medical History: Coronary Artery Disease (CAD), Chest Pain / Angina, GERD/ Reflux, GI Bleed, Hyperlipidemia, Hypertension, Memory Impairment, Myocardial Infarction ([place]), Osteoarthritis (OA), Pneumonia, Rheumatoid Arthritis (RA), Syncope Additional Past Medical History / Comment(s): Coronary artery disease with previous angioplasty and stenting, hypertension, dementia, osteoporosis,, Rheumatoid arthritis, osteoporosis, hyperlipidemia, previous fall with blunt trauma to the head, peripheral vascular disease, osteoporosis, hiatal hernia, chronic constipation,incont of urine-wears brief, previous history of uti, essential tremors, compression fracture of the T12 spine, cellulitis of the lower extremities, difficulty with mobility and gait and the patient has been wheelchair bound but she is able to stand up and pivot herself. Last Myocardial Infarction Date:: 1999 History of Any Multi-Drug Resistant Organisms: MRSA Date of last positivie culture/infection: 2011 per patient in nursing history MDRO Source:: Right Knee Past Surgical History: Appendectomy, Heart Catheterization With Stent, Joint Replacement, Orthopedic Surgery, Tonsillectomy Additional Past Surgical History / Comment(s): PTCA with 2 stents to CX in 1999 , R shoulder arthroscopic rotator cuff repair, reverse L total shoulder, femoral bypass 1999, gastric tube placement and since removal, R total knee ( failed) Past Anesthesia/Blood Transfusion Reactions: Postoperative Nausea & Vomiting ( PONV) Additional Past Anesthesia/Blood Transfusion Reaction / Comment(s): uncertain if she has ever recieved blood. Date of Last Stent Placement:: 1999 Past Psychological History: Anxiety, Depression Smoking Status: Current every day smoker Past Alcohol Use History: None Reported Past Drug Use History: None Reported - Past Family History Father Family Medical History: Coronary Artery Disease (CAD), Myocardial Infarction ([place] ) Mother Family Medical History: Diabetes Mellitus, Hypertension General Exam Limitations: physical limitation General appearance: alert, in no apparent distress Respiratory exam: Present: normal lung sounds bilaterally. Absent: respiratory distress, wheezes, rales, rhonchi, stridor Cardiovascular Exam: Present: regular rate, normal rhythm, normal heart sounds. Absent: systolic murmur, diastolic murmur, rubs, gallop, clicks Extremities exam: Present: other (June there is tenderness palpation, swelling noted, neurovascular intact, limited range of motion secondary to pain. There is no pain proximal or distal left elbow.) Skin exam: Present: warm, dry, intact, normal color. Absent: rash Course Vital Signs 08/02/18 13:22 Temperature 98.4 F Pulse Rate 75 Respiratory 18 Rate Blood Pressure 179/97 O2 Sat by Pulse 99 Oximetry Procedures - Orthopedic Splinting/Casting Injury #1 Side: left Upper Extremity Injury Location: long arm, elbow Upper Extremity Immobilizer: sling/shoulder immobilizer, posterior splint, synthetic pre-padded splint Medical Decision Making - Medical Decision Making 77-year-old female presented for left elbow pain. Patient has a subtle fracture noted on x-ray. Patient was splinted in a long-arm splint neurovascular intact after procedure. Patient was placed in a sling and will follow-up with orthopedics. Disposition Clinical Impression: Left elbow fracture Disposition: HOME SELF-CARE Condition: Stable Instructions: Arm Fracture in Adults (ED) Additional Instructions: Please return to the Emergency Department if symptoms worsen or any other concerns. Is patient prescribed a controlled substance at d/c from ED?: No Referrals: Anuj Maria DO [Primary Care Provider] - 1-2 days Guy Boothe MD [Medical Doctor] - 1-2 days Time of Disposition: 14:19
[2018-08-02] MEDS ORDERED: traMADol 50 MG STARTER PACK 3 TAB BTL PO STA (14:29)
== END 2018-08-02 14:49 | disposition home or self-care (01) ==
LOC: EC 12:26
DX: S52.125A Nondisplaced fracture of head of left radius, initial encounter for closed fracture (principal); I25.10 Atherosclerotic heart disease of native coronary artery without angina pectoris; K21.9 Gastro-esophageal reflux disease without esophagitis; E78.5 Hyperlipidemia, unspecified; I10 Essential (primary) hypertension; I25.2 Old myocardial infarction; M19.90 Unspecified osteoarthritis, unspecified site; F03.90 Unspecified dementia, unspecified severity, without behavioral disturbance, psychotic disturbance, mood disturbance, and anxiety; F41.9 Anxiety disorder, unspecified; F32.9 Major depressive disorder, single episode, unspecified; Z86.14 Personal history of Methicillin resistant Staphylococcus aureus infection; Z90.49 Acquired absence of other specified parts of digestive tract; Z95.1 Presence of aortocoronary bypass graft; Z96.651 Presence of right artificial knee joint; Z98.61 Coronary angioplasty status; Z98.890 Other specified postprocedural states; Z79.899 Other long term (current) drug therapy; Z88.5 Allergy status to narcotic agent; Z91.048 Other nonmedicinal substance allergy status; X50.1XXA Overexertion from prolonged static or awkward postures, initial encounter; Y92.239 Unspecified place in hospital as the place of occurrence of the external cause
CPT/HCPCS: 29105; 99283

== ENCOUNTER 2018-08-23 20:20 | Observation (INO) | payer MEDICARE, OTHER ==
[2018-08-23] MEDS ORDERED: SODIUM CHLORIDE 0.9% 1,000 ML IV ONE (20:33)
[2018-08-23 20:39] LABS: Glucose,Whole Blood 120 mg/dL (75-99)
--- NOTE | 2018-08-23 20:40 | ED ---
Altered Mental Status HPI - General Chief Complaint: Altered Mental Status Stated Complaint: Confusion Time Seen by Provider: 08/23/18 20:20 Source: patient, police, EMS, RN notes reviewed Mode of arrival: EMS Limitations: altered mental status - History of Present Illness Initial Comments: This is a 77-year-old female history of multiple medical issues including dementia COPD GI bleed and hypertension UTI who is brought in because of severe agitation. She apparently was confused she has been living in the same place for 5 years and thought she just moved in she probably would have a altercation with her son. She denies any headache fevers chills sweats or nausea she does recognize me from previous encounters. She wanted to know if I still worked at that hospital she was brought in by EMS with police escort MD Complaint: altered mental status - Related Data Home Medications Medication Instructions Recorded Confirmed FLUoxetine HCL 40 mg PO BID 04/22/15 08/23/18 Pantoprazole Sodium 40 mg PO DAILY 04/22/15 08/23/18 busPIRone HCL 10 mg PO BID 09/26/16 08/23/18 Donepezil [Aricept] 10 mg PO HS 06/02/18 08/23/18 Potassium Chloride ER [K-Dur 20] 20 meq PO DAILY 06/02/18 08/23/18 Atorvastatin [Lipitor] 40 mg PO DAILY 08/23/18 08/23/18 Previous Rx's Medication Instructions Recorded Aspirin 81 mg PO DAILY chew 10/22/16 Allergies Allergy/AdvReac Type Severity Reaction Status Date / Time iodine Allergy Rapid Verified 08/23/18 20:54 Heart Rate adhesive AdvReac Itching Verified 08/23/18 20:54 codeine AdvReac Confusion Verified 08/23/18 20:54 hydrocodone bitartrate AdvReac Confusion Verified 08/23/18 20:54 [From [place]] hydromorphone HCl AdvReac Confusion Verified 08/23/18 20:54 [From Dilaudid] morphine AdvReac Confusion Verified 08/23/18 20:54 Review of Systems ROS Statement: Those systems with pertinent positive or pertinent negative responses have been documented in the HPI. ROS Other: All systems not noted in ROS Statement are negative. Limitations: ROS unobtainable due to patients medical condition Past Medical History Past Medical History: Coronary Artery Disease (CAD), Chest Pain / Angina, GERD/ Reflux, GI Bleed, Hyperlipidemia, Hypertension, Memory Impairment, Myocardial Infarction (HI), Osteoarthritis (OA), Pneumonia, Rheumatoid Arthritis (RA), Syncope Additional Past Medical History / Comment(s): Coronary artery disease with previous angioplasty and stenting, hypertension, dementia, osteoporosis,, Rheumatoid arthritis, osteoporosis, hyperlipidemia, previous fall with blunt trauma to the head, peripheral vascular disease, osteoporosis, hiatal hernia, chronic constipation,incont of urine-wears brief, previous history of uti, essential tremors, compression fracture of the T12 spine, cellulitis of the lower extremities, difficulty with mobility and gait and the patient has been wheelchair bound but she is able to stand up and pivot herself. Last Myocardial Infarction Date:: 1999 History of Any Multi-Drug Resistant Organisms: MRSA Date of last positivie culture/infection: 2011 per patient in nursing history MDRO Source:: Right Knee Past Surgical History: Appendectomy, Heart Catheterization With Stent, Joint Replacement, Orthopedic Surgery, Tonsillectomy Additional Past Surgical History / Comment(s): PTCA with 2 stents to CX in 1999 , R shoulder arthroscopic rotator cuff repair, reverse L total shoulder, femoral bypass 1999, gastric tube placement and since removal, R total knee ( failed) Past Anesthesia/Blood Transfusion Reactions: Postoperative Nausea & Vomiting ( PONV) Additional Past Anesthesia/Blood Transfusion Reaction / Comment(s): uncertain if she has ever recieved blood. Date of Last Stent Placement:: 1999 Past Psychological History: Anxiety, Depression Smoking Status: Current every day smoker Past Alcohol Use History: None Reported Past Drug Use History: None Reported - Past Family History Father Family Medical History: Coronary Artery Disease (CAD), Myocardial Infarction (HI ) Mother Family Medical History: Diabetes Mellitus, Hypertension General Exam - General Exam Comments Initial Comments: This is a well-developed sec appearing female who is awake alert but somewhat confused Limitations: altered mental status General appearance: alert, in no apparent distress Head exam: Present: atraumatic, normocephalic, normal inspection Eye exam: Present: normal appearance, PERRL, EOMI. Absent: scleral icterus, conjunctival injection, periorbital swelling ENT exam: Present: mucous membranes dry Neck exam: Present: normal inspection. Absent: tenderness, meningismus, lymphadenopathy Respiratory exam: Present: normal lung sounds bilaterally. Absent: respiratory distress, wheezes, rales, rhonchi, stridor Cardiovascular Exam: Present: regular rate, normal rhythm, normal heart sounds. Absent: systolic murmur, diastolic murmur, rubs, gallop, clicks GI/Abdominal exam: Present: soft, normal bowel sounds. Absent: distended, tenderness, guarding, rebound, rigid Extremities exam: Present: normal inspection, full ROM, normal capillary refill. Absent: tenderness, pedal edema, joint swelling, calf tenderness Back exam: Present: normal inspection Neurological exam: Present: alert, altered, CN II-XII intact Psychiatric exam: Present: normal affect, normal mood Skin exam: Present: warm, dry, intact, normal color. Absent: rash Course Vital Signs 08/23/18 08/23/18 08/23/18 20:21 22:00 23:06 Temperature 99.0 F Pulse Rate 90 72 68 Respiratory 18 18 20 Rate Blood Pressure 151/110 200/89 166/130 O2 Sat by Pulse 97 98 98 Oximetry - Reevaluation(s) Reevaluation #1: 08/24/18 00:51 The patient care will be endorsed to Dr. Sigala. Pending the final evaluation from the psychiatric service. Patient does have a petition filled out by her son. Medical Decision Making - Medical Decision Making Patient does not meet inpatient psychiatric criteria at this time. She will be admitted for observation with social service consultation - Lab Data Result diagrams: 08/23/18 20:40 08/23/18 20:40 Lab Results 08/23/18 08/23/18 08/23/18 Range/Units 20:30 20:40 20:40 WBC (3.8-10.6) k/uL RBC (3.80-5.40) m/uL Hgb (11.4-16.0) gm/dL Hct (34.0-46.0) % MCV (80.0-100.0) fL MCH (25.0-35.0) pg MCHC (31.0-37.0) g/dL RDW (11.5-15.5) % Plt Count (150-450) k/uL Neutrophils % % Lymphocytes % % Monocytes % % Eosinophils % % Basophils % % Neutrophils # (1.3-7.7) k/uL Lymphocytes # (1.0-4.8) k/uL Monocytes # (0-1.0) k/uL Eosinophils # (0-0.7) k/uL Basophils # (0-0.2) k/uL Hypochromasia Poikilocytosis Anisocytosis Microcytosis PT (9.0-12.0) sec INR (<1.2) APTT (22.0-30.0) sec Sodium (137-145) mmol/L Potassium (3.5-5.1) mmol/L Chloride (98-107) mmol/L Carbon Dioxide (22-30) mmol/L Anion Gap mmol/L BUN (7-17) mg/dL Creatinine (0.52-1.04) mg/dL Est GFR (CKD-EPI)AfAm (>60 ml/min/1.73 sqM) Est GFR (CKD-EPI)NonAf (>60 ml/min/1.73 sqM) Glucose (74-99) mg/dL POC Glucose (mg/dL) 120 H (75-99) mg/dL POC Glu [employer] ID Marco Antonio Kemp Calcium (8.4-10.2) mg/dL Total Bilirubin (0.2-1.3) mg/dL AST (14-36) U/L ALT (9-52) U/L Alkaline Phosphatase (38-126) U/L Ammonia 12 (<30) umol/L Total Creatine Kinase 51 (30-135) U/L CK-MB (CK-2) 1.1 (0.0-2.4) ng/mL CK-MB (CK-2) Rel Index 2.2 Troponin I <0.012 (0.000-0.034) ng/mL Total Protein (6.3-8.2) g/dL Albumin (3.5-5.0) g/dL Urine Color Urine Appearance (Clear) Urine pH (5.0-8.0) Ur Specific [place] (1.001-1.035) Urine Protein (Negative) Urine Glucose (UA) (Negative) Urine Ketones (Negative) Urine Blood (Negative) Urine Nitrite (Negative) Urine Bilirubin (Negative) Urine Urobilinogen (<2.0) mg/dL Ur Leukocyte Esterase (Negative) Urine RBC (0-5) /hpf Urine WBC (0-5) /hpf Ur Squamous Epith Cells (0-4) /hpf Urine Bacteria (None) /hpf Urine Mucus (None) /hpf Urine Opiates Screen (NotDetected) Ur Oxycodone Screen (NotDetected) Urine Methadone Screen (NotDetected) Ur Propoxyphene Screen (NotDetected) Ur Barbiturates Screen (NotDetected) U Tricyclic Antidepress (NotDetected) Ur Phencyclidine Scrn (NotDetected) Ur Amphetamines Screen (NotDetected) U Methamphetamines Scrn (NotDetected) U Benzodiazepines Scrn (NotDetected) Urine Cocaine Screen (NotDetected) U Marijuana (THC) Screen (NotDetected) 08/23/18 08/23/18 08/23/18 Range/Units 20:40 20:40 20:40 WBC 6.4 (3.8-10.6) k/uL RBC 4.88 (3.80-5.40) m/uL Hgb 9.9 L (11.4-16.0) gm/dL Hct 33.5 L (34.0-46.0) % MCV 68.6 L (80.0-100.0) fL MCH 20.3 L (25.0-35.0) pg MCHC 29.6 L (31.0-37.0) g/dL RDW 18.1 H (11.5-15.5) % Plt Count 222 (150-450) k/uL Neutrophils % 62 % Lymphocytes % 25 % Monocytes % 7 % Eosinophils % 3 % Basophils % 1 % Neutrophils # 4.0 (1.3-7.7) k/uL Lymphocytes # 1.6 (1.0-4.8) k/uL Monocytes # 0.4 (0-1.0) k/uL Eosinophils # 0.2 (0-0.7) k/uL Basophils # 0.0 (0-0.2) k/uL Hypochromasia Marked Poikilocytosis Slight Anisocytosis Slight Microcytosis Marked PT 10.5 (9.0-12.0) sec INR 1.0 (<1.2) APTT 23.7 (22.0-30.0) sec Sodium 141 (137-145) mmol/L Potassium 4.5 (3.5-5.1) mmol/L Chloride 108 H (98-107) mmol/L Carbon Dioxide 23 (22-30) mmol/L Anion Gap 10 mmol/L BUN 14 (7-17) mg/dL Creatinine 1.02 (0.52-1.04) mg/dL Est GFR (CKD-EPI)AfAm 61 (>60 ml/min/1.73 sqM) Est GFR (CKD-EPI)NonAf 53 (>60 ml/min/1.73 sqM) Glucose 121 H (74-99) mg/dL POC Glucose (mg/dL) (75-99) mg/dL POC Glu [employer] ID Calcium 8.7 (8.4-10.2) mg/dL Total Bilirubin 0.3 (0.2-1.3) mg/dL AST 63 H (14-36) U/L ALT 62 H (9-52) U/L Alkaline Phosphatase 108 (38-126) U/L Ammonia (<30) umol/L Total Creatine Kinase (30-135) U/L CK-MB (CK-2) (0.0-2.4) ng/mL CK-MB (CK-2) Rel Index Troponin I (0.000-0.034) ng/mL Total Protein 7.0 (6.3-8.2) g/dL Albumin 3.7 (3.5-5.0) g/dL Urine Color Urine Appearance (Clear) Urine pH (5.0-8.0) Ur Specific [place] (1.001-1.035) Urine Protein (Negative) Urine Glucose (UA) (Negative) Urine Ketones (Negative) Urine Blood (Negative) Urine Nitrite (Negative) Urine Bilirubin (Negative) Urine Urobilinogen (<2.0) mg/dL Ur Leukocyte Esterase (Negative) Urine RBC (0-5) /hpf Urine WBC (0-5) /hpf Ur Squamous Epith Cells (0-4) /hpf Urine Bacteria (None) /hpf Urine Mucus (None) /hpf Urine Opiates Screen (NotDetected) Ur Oxycodone Screen (NotDetected) Urine Methadone Screen (NotDetected) Ur Propoxyphene Screen (NotDetected) Ur Barbiturates Screen (NotDetected) U Tricyclic Antidepress (NotDetected) Ur Phencyclidine Scrn (NotDetected) Ur Amphetamines Screen (NotDetected) U Methamphetamines Scrn (NotDetected) U Benzodiazepines Scrn (NotDetected) Urine Cocaine Screen (NotDetected) U Marijuana (THC) Screen (NotDetected) 08/23/18 Range/Units 22:25 WBC (3.8-10.6) k/uL RBC (3.80-5.40) m/uL Hgb (11.4-16.0) gm/dL Hct (34.0-46.0) % MCV (80.0-100.0) fL MCH (25.0-35.0) pg MCHC (31.0-37.0) g/dL RDW (11.5-15.5) % Plt Count (150-450) k/uL Neutrophils % % Lymphocytes % % Monocytes % % Eosinophils % % Basophils % % Neutrophils # (1.3-7.7) k/uL Lymphocytes # (1.0-4.8) k/uL Monocytes # (0-1.0) k/uL Eosinophils # (0-0.7) k/uL Basophils # (0-0.2) k/uL Hypochromasia Poikilocytosis Anisocytosis Microcytosis PT (9.0-12.0) sec INR (<1.2) APTT (22.0-30.0) sec Sodium (137-145) mmol/L Potassium (3.5-5.1) mmol/L Chloride (98-107) mmol/L Carbon Dioxide (22-30) mmol/L Anion Gap mmol/L BUN (7-17) mg/dL Creatinine (0.52-1.04) mg/dL Est GFR (CKD-EPI)AfAm (>60 ml/min/1.73 sqM) Est GFR (CKD-EPI)NonAf (>60 ml/min/1.73 sqM) Glucose (74-99) mg/dL POC Glucose (mg/dL) (75-99) mg/dL POC Glu [employer] ID Calcium (8.4-10.2) mg/dL Total Bilirubin (0.2-1.3) mg/dL AST (14-36) U/L ALT (9-52) U/L Alkaline Phosphatase (38-126) U/L Ammonia (<30) umol/L Total Creatine Kinase (30-135) U/L CK-MB (CK-2) (0.0-2.4) ng/mL CK-MB (CK-2) Rel Index Troponin I (0.000-0.034) ng/mL Total Protein (6.3-8.2) g/dL Albumin (3.5-5.0) g/dL Urine Color Light Yellow Urine Appearance Clear (Clear) Urine pH 6.0 (5.0-8.0) Ur Specific [place] 1.007 (1.001-1.035) Urine Protein 1+ H (Negative) Urine Glucose (UA) Negative (Negative) Urine Ketones Negative (Negative) Urine Blood Negative (Negative) Urine Nitrite Negative (Negative) Urine Bilirubin Negative (Negative) Urine Urobilinogen <2.0 (<2.0) mg/dL Ur Leukocyte Esterase Moderate H (Negative) Urine RBC 1 (0-5) /hpf Urine WBC 4 (0-5) /hpf Ur Squamous Epith Cells <1 (0-4) /hpf Urine Bacteria Rare H (None) /hpf Urine Mucus Occasional H (None) /hpf Urine Opiates Screen Not Detected (NotDetected) Ur Oxycodone Screen Not Detected (NotDetected) Urine Methadone Screen Not Detected (NotDetected) Ur Propoxyphene Screen Not Detected (NotDetected) Ur Barbiturates Screen Not Detected (NotDetected) U Tricyclic Antidepress Not Detected (NotDetected) Ur Phencyclidine Scrn Not Detected (NotDetected) Ur Amphetamines Screen Not Detected (NotDetected) U Methamphetamines Scrn Not Detected (NotDetected) U Benzodiazepines Scrn Detected H (NotDetected) Urine Cocaine Screen Not Detected (NotDetected) U Marijuana (THC) Screen Not Detected (NotDetected) - EKG Data -: EKG Interpreted by Ut EKG shows normal: sinus rhythm (Normal sinus rhythm a 76. Interval 196 QRS duration 82 QT since QTC 444/[address]-T wave changes) - Radiology Data Radiology results: report reviewed (Review the imaging and report no acute findings.), image reviewed Disposition Clinical Impression: Dementia, Altered mental status, Delirium due to general medical condition, Failure to thrive, Anemia Disposition: ADMITTED IP TO THIS [facility] Condition: Stable Referrals: Anuj Maria DO [Primary Care Provider] - 1-2 days
[2018-08-23 21:05] LABS: Anisocytosis Slight; Basophils % (A) 1 %; Eosinophils # (A) 0.2 k/uL (0-0.7); Eosinophils % (A) 3 %; HCT 33.5 % (34.0-46.0); HGB 9.9 gm/dL (11.4-16.0); Hypochromasia Marked; Lymphocytes # (A) 1.6 k/uL (1.0-4.8); Lymphocytes % (A) 25 %; MCH 20.3 pg (25.0-35.0); MCHC 29.6 g/dL (31.0-37.0); MCV 68.6 fL (80.0-100.0); Mean Platelet Volume 6.7; Microcytosis Marked; Monocytes # (A) 0.4 k/uL (0-1.0); Monocytes % (A) 7 %; Neutrophils % (A) 62 %; Platelet Count 222 k/uL (150-450); Poikilocytosis Slight; RBC 4.88 m/uL (3.80-5.40); RDW 18.1 % (11.5-15.5); WBC 6.4 k/uL (3.8-10.6)
[2018-08-23 21:10] LABS: Albumin 3.7 g/dL (3.5-5.0); Calcium 8.7 mg/dL (8.4-10.2); Creatine Kinase 51 U/L (30-135); Partial Thromboplastin Time 23.7 sec (22.0-30.0); Potassium 4.5 mmol/L (3.5-5.1); Prothrombin Time 10.5 sec (9.0-12.0); Total Bilirubin 0.3 mg/dL (0.2-1.3)
--- NOTE | 2018-08-23 21:21 | CT ---
EXAMINATION TYPE: CT brain wo con DATE OF EXAM: 08/23/2018 COMPARISON: 11/14/2016 HISTORY: Confusion CT DLP: mGycm Automated exposure control for dose reduction was used. FINDINGS: There is cerebral cortical atrophy. There is no mass effect nor midline shift. There is no sign of in tracranial hemorrhage. There is periventricular white matter hypodensity. This is seen around the fro ntal horns of the lateral ventricles. IMPRESSION: CEREBRAL ATROPHY AND CHRONIC SMALL VESSEL ISCHEMIA. NO ACUTE INTRACRANIAL ABNORMALITY. NO SIGNIFICANT CHANGE.
[2018-08-23 21:22] LABS: Creatine Kinase MB 1.1 ng/mL (0.0-2.4); Troponin I <0.012 ng/mL (0.000-0.034)
--- NOTE | 2018-08-23 21:22 | XR ---
EXAMINATION TYPE: XR chest 2V DATE OF EXAM: 08/23/2018 COMPARISON: February 03, 2018 HISTORY: Confusion TECHNIQUE: Frontal and lateral views of the chest are obtained. FINDINGS: There is no heart failure nor confluent pneumonic infiltrate. Thoracic aorta is atheromato us. There is left shoulder prosthesis. Costophrenic angles are clear. There are chest leads. IMPRESSION: No active cardiopulmonary disease. No change.
[2018-08-23 22:53] LABS: Amphetamine Screen,Urine Not Detected (NotDetected); Barbiturate Screen,Urine Not Detected (NotDetected); Benzodiazepines Screen,Urine Detected (NotDetected); Cocaine Screen,Urine Not Detected (NotDetected); Methadone Screen, Urine Not Detected (NotDetected); Opiate Screen,Urine Not Detected (NotDetected); Oxycodone Screen, Urine Not Detected (NotDetected); Phencyclidine Screen,Urine Not Detected (NotDetected); Tricyclic Antidepressant,Urine Not Detected (NotDetected); Urn Cannabinoid Scrn Not Detected (NotDetected)
[2018-08-23 23:00] LABS: Appearance,Urine Clear (Clear); Bilirubin,Urine Negative (Negative); Blood,Urine Negative (Negative); Color,Urine Light Yellow; Glucose,Urine (UA) Negative (Negative); Ketones,Urine Negative (Negative); Leukocyte Esterase,Urine Moderate (Negative); Nitrite,Urine Negative (Negative); Protein,Urine 1+ (Negative); RBC,Urine 1 /hpf (0-5); Specific Gravity,Urine 1.007 (1.001-1.035); Urobilinogen,Urine <2.0 mg/dL (<2.0); WBC,Urine 4 /hpf (0-5)
[2018-08-23 23:05] LABS: Bacteria,Urine Rare /hpf; Mucus,Urine Occasional /hpf; Squamous Epithelial Cell,Urine <1 /hpf (0-4)
[2018-08-24] MEDS ORDERED: NALOXONE 0.4 MG/ML 1 ML VIAL IV PRN (01:07)
[2018-08-24] MEDS ORDERED: cloNIDine HCL 0.1 MG TAB PO STA (01:43)
[2018-08-24 03:10] VITALS: BMI 24.7
[2018-08-24] MEDS: PANTOPRAZOLE 40 MG TABLET PO SCH (09:54)
[2018-08-24] MEDS: ATORVASTATIN 40 MG TAB PO SCH (09:54)
[2018-08-24] MEDS: ASPIRIN 81 MG PO SCH (09:54)
[2018-08-24] MEDS: FLUoxetine HCL 20 MG CAP PO SCH ×2 (09:54→20:35)
[2018-08-24] MEDS: POTASSIUM CHLORIDE ER 20 MEQ TAB.ER PO SCH (09:55)
[2018-08-24] MEDS: busPIRone HCl 10 MG TAB PO SCH ×2 (09:56→20:34)
[2018-08-24] MEDS: SODIUM CHLORIDE 0.9% 1,000 ML IV SCH ×2 (10:03→20:35)
[2018-08-24] MEDS ORDERED: DONEPEZIL 10 MG TAB PO SCH (21:00)
[2018-08-24 21:40] VITALS: RESP 16
[2018-08-24] MEDS: CEPHALEXIN 250 MG CAP PO SCH (23:24)
--- NOTE | 2018-08-25 00:20 | HP ---
HISTORY AND PHYSICAL DATE OF ADMISSION: August 24, 2018 DATE OF SERVICE: August 24, 2018. PRESENTING COMPLAINT: Acute agitation. HISTORY OF PRESENTING COMPLAINT: This is a 77-year-old patient of Dr. Maria. The patient's chronic stable medical conditions include COPD, coronary artery disease, GERD, osteoarthritis, hiatal hernia, chronic T12 fracture. The patient normally is wheelchair bound and can stand up with assist. The patient was brought into the ER last night. The patient also has underlying dementia. The patient had become more confused and was agitated in the place where social history had been living the last 5 years and she thought she just moved in there and apparently was having an altercation with her son reportedly. When I saw the patient this morning, the patient knew that she was in the hospital. Did not know why she is here and could not tell me the month, etc. Why exactly she was here. I spoke to the patient's aide and the aide told me the patient had been rather strange and weird. Originally could not get a good hold of the history from her. REVIEW OF SYSTEMS: CONSTITUTIONAL: None. HEENT none. RESPIRATORY: Occasional short of breath. CARDIOVASCULAR: No chest pain. GASTROINTESTINAL: None. GENITOURINARY: None. MUSCULOSKELETAL: Some pain in joints. DERMATOLOGICAL: None. HEMATOLOGICAL: None. LYMPHATICS: None. PSYCHIATRY: As above. NEUROLOGICAL: Moving all 4 limbs. PAST MEDICAL HISTORY: Past medical history for COPD, coronary artery disease with stent and GERD. Primary osteoarthritis, hiatal hernia. Chronic urinary stress incontinence. Essential tremors. Chronic T12 fracture. Medical debility with dementia. PAST SURGICAL HISTORY: Appendectomy, cardiac cath with stent, joint replacement, tonsillectomy, angioplasty, 2 stents, circumflex 1999, right shoulder arthroscopy, rotator cuff repair, femoral bypass in 1999, gastric tube placements and removal, right total knee failed. Additional past medical history of GERD, GI bleed, osteoarthritis, peripheral vascular disease, hiatal hernia, chronic constipation, chronic urine incontinence. The patient is pretty much bed wheelchair-bound, is able to stand and pivot. SOCIAL HISTORY: The patient is a smoker, smoking about 5 cigarettes a day, smoking for close to 60 years. The patient stopped drinking about 25 years ago. FAMILY HISTORY: Coronary artery disease. HOME MEDICATIONS: 1. Lipitor 40 mg a day. 2. Buspirone 10 mg b.i.d. 3. Potassium 20 mEq a day. 4. Protonix 40 mg a day. 5. Prozac 40 mg b.i.d. 6. Aricept 10 mg q.h.s. 7. Aspirin 81 mg p.o. daily. ALLERGIES: TO IODINE, ADHESIVE, CODEINE, NORCO, DILAUDID, MORPHINE. PHYSICAL EXAMINATION: VITAL SIGNS: Vital signs on presentation: Temperature 99, pulse 98, respiratory 18, blood pressure 115/110, pulse ox 97% on room air. GENERAL APPEARANCE: Average build, lying in bed, somewhat anxious-appearing. EYES: Pupils equal. Conjunctivae normal. HEENT: External appearance of nose and ears normal. Oral cavity normal. NECK: JVD not raised. Mass not palpable. RESPIRATORY: Effort normal. LUNGS: Diminished breath sounds. CARDIOVASCULAR: 1st and 2nd sounds normal. No edema. ABDOMEN: Soft, nontender. Liver and spleen not palpable. LYMPHATIC: No lymph nodes palpable in neck or axillae. PSYCHIATRY: Patient knows her name, knows that she is in a hospital, does not know why she is here, cannot tell the year or the month. NEUROLOGICAL: Pupils equal. No facial asymmetry. Power sensation grossly intact. MUSCULOSKELETAL: Evidence of osteoarthritis especially in the hands. INVESTIGATIONS: White count 6.4, hemoglobin 9.9, platelets 222. Potassium 4.5, BUN and creatinine is normal. UA positive for leukocyte esterase, bacteria rare. Urine drug screen positive for benzodiazepine. ASSESSMENT: 1. Episode of acute confusion, agitation, could be delirium versus psychosis diagnosis is unclear at this point. 2. Possible acute urinary tract infection. 3. Chronic obstructive pulmonary disease in a current smoker. 4. Coronary artery prior history of stent. 5. Peripheral artery disease. 6. Gastroesophageal reflux disease. 7. Primary osteoarthritis multiple joints. 8. Hiatal hernia. 9. Chronic urinary stress incontinence. 10.Chronic T12 fracture. 11.Chronic medical debility. Patient is pretty much wheelchair-bound. PLAN: Home medications resumed. The patient was given IV fluids for 24 hours. We will put the patient on p.o. antibiotic. No indication for IV. We will get a psychiatry opinion. Copy to Dr. Maria. MMODL / IJN: [id number] /
[2018-08-25 05:39] VITALS: TEMP 97.9
[2018-08-25] MEDS ORDERED: ENOXAPARIN 40 MG/0.4 ML SYRINGE SQ SCH (09:00)
[2018-08-25] MEDS: ATORVASTATIN 40 MG TAB PO SCH (09:43)
[2018-08-25] MEDS: PANTOPRAZOLE 40 MG TABLET PO SCH (09:43)
[2018-08-25] MEDS: POTASSIUM CHLORIDE ER 20 MEQ TAB.ER PO SCH (09:44)
[2018-08-25] MEDS: FLUoxetine HCL 20 MG CAP PO SCH (09:44)
[2018-08-25] MEDS: ASPIRIN 81 MG PO SCH (09:44)
[2018-08-25] MEDS: busPIRone HCl 10 MG TAB PO SCH (09:45)
[2018-08-25] MEDS: CEPHALEXIN 250 MG CAP PO SCH (09:45)
[2018-08-25 12:31] VITALS: BP 133/80; PULSE 71
--- NOTE | 2018-08-26 02:38 | DS ---
DISCHARGE SUMMARY DATE OF ADMISSION: 08/24/2018 DATE OF DISCHARGE: 08/25/2018 FINAL DIAGNOSES: 1. Acute agitation probably related to mild cognitive impairment probably from late onset Alzheimer's dementia, early diagnosis possibly. 2. Chronic obstructive pulmonary disease in a current smoker. 3. Coronary artery disease with prior history of stent. 4. Peripheral arterial disease. 5. Gastroesophageal reflux disease. 6. Primary osteoarthritis multiple joints. 7. Hiatal hernia. 8. Chronic urinary stress incontinence. 9. Chronic T12 fracture. 10.Chronic medical debility, patient is wheelchair bound, able to get up. 11.Acute urinary tract infection with possible cystitis. HOSPITAL COURSE: This patient presented with some agitation, could be from mild cognitive impairment. The patient has also seen by the psychiatry nurse. It was felt that there is some social issues at home and did talk to the daughter . Otherwise patient able to carry out a regular conversation with mild impairment. On examination, temperature 97.9, pulse 71, respiratory 18, blood pressure 133/80. White count 6.4. The patient was seen by the psychiatry nurse. DISCHARGE MEDICATIONS: 1. Fluoxetine 40 mg b.i.d. 2. Protonix 40 mg a day. 3. Buspirone 10 mg p.o. b.i.d. 4. Aspirin 81 mg a day. 5. Aricept 10 mg q.h.s. 6. Potassium 20 mEq a day. 7. Lipitor 40 mg p.o. daily. 8. Keflex 250 mg p.o. t.i.d. FOLLOWUP: Follow up with Dr. Maria in 3 days. Follow up with [facility] in [address] Maria. MMODL / IJN: [id number] /
== END 2018-08-25 16:20 | disposition home or self-care (01) ==
LOC: EC 20:20 → 3NMEDONC 08-24 01:07
PROVIDERS: ADMIT Hospitalist; ATTEND Hospitalist
DX: R45.1 Restlessness and agitation (principal); F02.81 Dementia in other diseases classified elsewhere, unspecified severity, with behavioral disturbance; J44.9 Chronic obstructive pulmonary disease, unspecified; I25.10 Atherosclerotic heart disease of native coronary artery without angina pectoris; Z95.5 Presence of coronary angioplasty implant and graft; I73.9 Peripheral vascular disease, unspecified; K21.9 Gastro-esophageal reflux disease without esophagitis; M19.91 Primary osteoarthritis, unspecified site; K44.9 Diaphragmatic hernia without obstruction or gangrene; N39.3 Stress incontinence (female) (male); M84.48XA Pathological fracture, other site, initial encounter for fracture; Z99.3 Dependence on wheelchair; R53.81 Other malaise; N39.0 Urinary tract infection, site not specified; K59.09 Other constipation; M19.042 Primary osteoarthritis, left hand; M19.041 Primary osteoarthritis, right hand; F17.210 Nicotine dependence, cigarettes, uncomplicated; Z79.899 Other long term (current) drug therapy; Z82.49 Family history of ischemic heart disease and other diseases of the circulatory system; Z79.82 Long term (current) use of aspirin; Z88.5 Allergy status to narcotic agent; Z91.048 Other nonmedicinal substance allergy status; M06.9 Rheumatoid arthritis, unspecified; I25.2 Old myocardial infarction; I10 Essential (primary) hypertension; E78.5 Hyperlipidemia, unspecified; Z87.19 Personal history of other diseases of the digestive system; Z87.01 Personal history of pneumonia (recurrent); M81.0 Age-related osteoporosis without current pathological fracture; Z87.440 Personal history of urinary (tract) infections; G25.0 Essential tremor; Z86.19 Personal history of other infectious and parasitic diseases; Z86.14 Personal history of Methicillin resistant Staphylococcus aureus infection; F41.9 Anxiety disorder, unspecified; F32.9 Major depressive disorder, single episode, unspecified; Z83.3 Family history of diabetes mellitus; R62.7 Adult failure to thrive; D64.9 Anemia, unspecified; F05 Delirium due to known physiological condition
CPT/HCPCS: 96361 ×4; 96372; 96360; 99285; 36415; 94760; 93005; 80053; 82140; 82550; 82553; 84484; 85025; 85610; 85730; 81001; 80306; 71046; 70450; G0378 ×2; J1650

== ENCOUNTER → 2018-11-30 | Day surgery (SDC) | payer MEDICARE, OTHER ==
[2018-11-29 10:57] VITALS: BMI 25.2
[~2018-11-30] MED LIST: LACTATED RINGERS 1,000 ML IV ONE; LACTATED RINGERS 1,000 ML IV SCH; LIDOCAINE 1% 20 ML VIAL (10MG/ML) FOR IV START INTRADERMA PRN; PROPOFOL 10 MG/ML 20 ML VIAL IV ONE
[2018-11-30 12:52] VITALS: TEMP 97.4
--- NOTE | 2018-11-30 13:46 | P.PCN ---
Date of Procedure: 11/30/18 Procedure(s) Performed: BRIEF HISTORY: Patient is a 78-year-old pleasant white female, scheduled for an elective colonoscopy as a part of evaluation of prior history of colon polyps. Last coloscopy was 5 years ago and was noted to have an adenoma. PROCEDURE PERFORMED: Colonoscopy with snare polypectomy. PREOPERATIVE DIAGNOSIS: History of colon polyps. IV sedation per Anesthesia. PROCEDURE: After informed consent was obtained, the patient, was brought into the endoscopy unit. IV sedation was administered by Anesthesia under continuous monitoring. Digital rectal examination was normal. Initially the Olympus CF-160 flexible video colonoscope was then inserted in the rectum, gradually advanced into the cecum without any difficulty. Careful examination was performed as the scope was gradually being withdrawn. Ileocecal valve and the appendiceal orifice were visualized and appeared normal. Prep was excellent. Mucosa of the cecum, ascending colon, transverse colon, descending colon, sigmoid colon, and rectum appeared normal. Scattered sigmoid tic versus seen. Retroflexion was performed in the rectum and was a 1.75 cm polyp on the dentate line that was removed by snare polypectomy. The patient tolerated the procedure well. IMPRESSION: 1.5 cm anal polyp status post polypectomy Scattered sigmoid reticulosis RECOMMENDATIONS: Findings of this examination were discussed with the patient as well as a family. She was advised to follow with the biopsy results. Advised him fiber supplements a regular basis
[2018-11-30 13:59] VITALS: RESP 18
[2018-11-30 14:04] VITALS: BP 135/75; PULSE 50
== END ==
LOC: ORWHC2ENDO 11:50
PROVIDERS: ATTEND Internal Medicine Gastroenterology
DX: Z12.11 Encounter for screening for malignant neoplasm of colon (principal); K57.30 Diverticulosis of large intestine without perforation or abscess without bleeding; K64.9 Unspecified hemorrhoids; Z86.010 Personal history of colon polyps; I25.10 Atherosclerotic heart disease of native coronary artery without angina pectoris; J44.9 Chronic obstructive pulmonary disease, unspecified; F03.90 Unspecified dementia, unspecified severity, without behavioral disturbance, psychotic disturbance, mood disturbance, and anxiety; M19.90 Unspecified osteoarthritis, unspecified site; M06.9 Rheumatoid arthritis, unspecified; K21.9 Gastro-esophageal reflux disease without esophagitis; Z79.899 Other long term (current) drug therapy; Z88.5 Allergy status to narcotic agent; Z91.048 Other nonmedicinal substance allergy status; Z91.09 Other allergy status, other than to drugs and biological substances
CPT/HCPCS: 88305; 45385; J2704

== ENCOUNTER 2018-12-28 20:59 | Emergency (ER) | payer MEDICARE, OTHER ==
[2018-12-28 22:05] LABS: Anisocytosis Moderate; Basophils % (A) 0 %; Eosinophils # (A) 0.1 k/uL (0-0.7); Eosinophils % (A) 2 %; HCT 32.2 % (34.0-46.0); HGB 9.3 gm/dL (11.4-16.0); Hypochromasia Marked; Lymphocytes # (A) 1.4 k/uL (1.0-4.8); Lymphocytes % (A) 15 %; MCH 19.4 pg (25.0-35.0); Mean Platelet Volume 7.3; Microcytosis Marked; Monocytes # (A) 0.4 k/uL (0-1.0); Monocytes % (A) 5 %; Neutrophils # (A) 6.9 k/uL (1.3-7.7); Neutrophils % (A) 77 %; Platelet Count 136 k/uL (150-450); Poikilocytosis Slight; RBC 4.81 m/uL (3.80-5.40); WBC 8.9 k/uL (3.8-10.6)
[2018-12-28 22:15] LABS: ALT 32 U/L (9-52); AST 53 U/L (14-36); Albumin 3.1 g/dL (3.5-5.0); Alkaline Phosphatase 152 U/L (38-126); Amylase <30 U/L (30-110); Anion Gap 9 mmol/L; Blood Urea Nitrogen 13 mg/dL (7-17); Calcium 8.3 mg/dL (8.4-10.2); Carbon Dioxide 21 mmol/L (22-30); Chloride 108 mmol/L (98-107); Glucose 106 mg/dL (74-99); Lipase 39 U/L (23-300); Potassium 3.7 mmol/L (3.5-5.1); Sodium 138 mmol/L (137-145); Total Bilirubin 0.8 mg/dL (0.2-1.3); Total Protein 6.4 g/dL (6.3-8.2)
--- NOTE | 2018-12-28 22:26 | ED ---
Abdominal Pain HPI - General Chief Complaint: Abdominal Pain Stated Complaint: polyp hemorrhoid Time Seen by Provider: 12/28/18 21:17 Source: patient, family Mode of arrival: wheelchair Limitations: no limitations - History of Present Illness Initial Comments: This patient is a 78-year-old woman who presents to be evaluated for low abdominal and perianal pain. The patient states this been going on for weeks. She states she was having the symptoms a little bit when she went for colonoscopy on November 30 of this year. She states at that time however when she had the colonoscopy she will had severe pain even when the physician was performing the digital rectal exam. Patient states that she was not informed of any cause for the pain. She was informed that she had a polyp that was removed. She has continued to have the lower abdominal pain that she describes as "gassy feeling." It is intermittent. The severity can be from mild to severe. The pain also feels like it is at the perianal area. It is relieved somewhat with passing gas. She has not noted other worsening or relieving factors. They patient is with her son who is her caregiver and they have been using corn starch in the brief to attempt to clear up was described as a rash. No fever or chills. No change in bowel movements or urination. No vomiting. MD Complaint: abdominal pain -: week(s) Location: suprapubic Migration to: no migration Severity: moderate Quality: other (Gas-like) Consistency: intermittent Improves With: nothing Worsens With: nothing Context: foreign travel Associated Symptoms: denies other symptoms - Related Data Home Medications Medication Instructions Recorded Confirmed FLUoxetine HCL 40 mg PO BID 04/22/15 12/28/18 Pantoprazole Sodium 40 mg PO DAILY 04/22/15 12/28/18 busPIRone HCL 10 mg PO BID 09/26/16 12/28/18 Donepezil [Aricept] 10 mg PO HS 06/02/18 12/28/18 Atorvastatin [Lipitor] 40 mg PO HS 08/23/18 12/28/18 Albuterol Inhaler [Ventolin Hfa 1 - 2 puff INHALATION RT-Q6H PRN 11/29/18 12/28/18 Inhaler] Memantine HCl [Namenda] 5 mg PO DAILY 11/29/18 12/28/18 Mirabegron [Myrbetriq] 50 mg PO DAILY 11/29/18 12/28/18 Potassium Chloride ER [K-Dur 10] 10 meq PO DAILY 12/28/18 12/28/18 traMADol HCL [Ultram] 50 mg PO BID PRN 12/28/18 12/28/18 Previous Rx's Medication Instructions Recorded Aspirin 81 mg PO DAILY chew 10/22/16 Dicyclomine [Bentyl] 20 mg PO QID #15 tablet 12/28/18 Sulfamethox-Tmp 800-160Mg [Bactrim 1 each PO Q12HR #14 tab 12/28/18 Ds] Allergies Allergy/AdvReac Type Severity Reaction Status Date / Time iodine Allergy Rapid Verified 12/28/18 21:40 Heart Rate adhesive AdvReac Itching,"paper Verified 12/28/18 21:40 tape is ok" codeine AdvReac Confusion Verified 12/28/18 21:40 hydrocodone bitartrate AdvReac Confusion Verified 12/28/18 21:40 [From [place]] hydromorphone HCl AdvReac Confusion Verified 12/28/18 21:40 [From Dilaudid] morphine AdvReac Confusion Verified 12/28/18 21:40 Review of Systems ROS Statement: Those systems with pertinent positive or pertinent negative responses have been documented in the HPI. ROS Other: All systems not noted in ROS Statement are negative. Constitutional: Denies: fever, chills Respiratory: Denies: cough, dyspnea Cardiovascular: Denies: chest pain Gastrointestinal: Reports: as per HPI, abdominal pain. Denies: nausea, vomiting, diarrhea, constipation, melena, hematochezia Genitourinary: Denies: dysuria, hematuria Musculoskeletal: Denies: back pain Skin: Denies: rash Neurological: Denies: headache, weakness, numbness Past Medical History Past Medical History: Coronary Artery Disease (CAD), Chest Pain / Angina, LIAT D/Reflux, GI Bleed, Hyperlipidemia, Hypertension, Memory Impairment, Myocardial Infarction (IA), Osteoarthritis (OA), Pneumonia, Rheumatoid Arthritis (RA), Syncope Additional Past Medical History / Comment(s): pain with stools,hemorrhoids,dementia, osteoporosis,previous fall with blunt trauma to the head,hiatal hernia, chronic constipation,incont of urine-wears brief, previous history of uti, essential tremors, compression fracture of the T12 spine, cellulitis of the lower extremities, difficulty with mobility and gait and the patient has been wheelchair bound but she is able to stand up and pivot herself w/ asst Last Myocardial Infarction Date:: 1999 History of Any Multi-Drug Resistant Organisms: MRSA Date of last positivie culture/infection: 2011 per patient in nursing history MDRO Source:: Right Knee Past Surgical History: Appendectomy, Heart Catheterization With Stent, Joint Replacement, Orthopedic Surgery, Tonsillectomy Additional Past Surgical History / Comment(s): PTCA with 2 stents to CX in 1999, R shoulder arthroscopic rotator cuff repair, reverse L total shoulder, femoral bypass 1999, gastric tube placement and since removal, R total knee-no bend-Fly placed rt leg Past Anesthesia/Blood Transfusion Reactions: Postoperative Nausea & Vomiting (PONV) Additional Past Anesthesia/Blood Transfusion Reaction / Comment(s): no hx blood transfusion Date of Last Stent Placement:: 1999 Past Psychological History: Anxiety, Depression Smoking Status: Current every day smoker Past Alcohol Use History: None Reported Past Drug Use History: None Reported - Past Family History Father Family Medical History: Coronary Artery Disease (CAD), Myocardial Infarction (IA) Mother Family Medical History: Diabetes Mellitus, Hypertension General Exam Limitations: no limitations General appearance: alert, in no apparent distress Head exam: Present: atraumatic, normocephalic Eye exam: Present: normal appearance. Absent: scleral icterus, conjunctival injection ENT exam: Present: normal oropharynx Neck exam: Present: normal inspection Respiratory exam: Present: normal lung sounds bilaterally. Absent: respiratory distress, wheezes, rales, rhonchi, stridor Cardiovascular Exam: Present: regular rate, normal rhythm, normal heart sounds. Absent: systolic murmur, diastolic murmur, rubs, gallop GI/Abdominal exam: Present: soft, normal bowel sounds. Absent: distended, tenderness, guarding, rebound, rigid, mass, pulsatile mass, hernia Rectal exam: Present: normal inspection, normal rectal tone, tenderness, other (There is cornstarch caked near the anus). Absent: black stool, bloody stool, fecal impaction, hemorrhoids, mass Extremities exam: Present: normal inspection, normal capillary refill. Absent: pedal edema, calf tenderness Back exam: Present: normal inspection Neurological exam: Present: alert Skin exam: Present: warm, dry, intact, normal color. Absent: rash Course Vital Signs 04/26/19 21:08 Temperature 98.5 F Pulse Rate 65 Respiratory 18 Rate Blood Pressure 128/65 O2 Sat by Pulse 97 Oximetry Medical Decision Making - Lab Data Result diagrams: 12/28/18 21:51 12/28/18 21:51 Lab Results 12/28/18 12/28/18 12/28/18 Range/Units 21:27 21:51 21:51 WBC 8.9 (3.8-10.6) k/uL RBC 4.81 (3.80-5.40) m/uL Hgb 9.3 L (11.4-16.0) gm/dL Hct 32.2 L (34.0-46.0) % MCV 67.0 L (80.0-100.0) fL MCH 19.4 L (25.0-35.0) pg MCHC 29.0 L (31.0-37.0) g/dL RDW 21.0 H (11.5-15.5) % Plt Count 136 L (150-450) k/uL Neutrophils % 77 % Lymphocytes % 15 % Monocytes % 5 % Eosinophils % 2 % Basophils % 0 % Neutrophils # 6.9 (1.3-7.7) k/uL Lymphocytes # 1.4 (1.0-4.8) k/uL Monocytes # 0.4 (0-1.0) k/uL Eosinophils # 0.1 (0-0.7) k/uL Basophils # 0.0 (0-0.2) k/uL Hypochromasia Marked Poikilocytosis Slight Anisocytosis Moderate Microcytosis Marked Sodium 138 (137-145) mmol/L Potassium 3.7 (3.5-5.1) mmol/L Chloride 108 H (98-107) mmol/L Carbon Dioxide 21 L (22-30) mmol/L Anion Gap 9 mmol/L BUN 13 (7-17) mg/dL Creatinine 0.88 (0.52-1.04) mg/dL Est GFR (CKD-EPI)AfAm 73 (>60 ml/min/1.73 sqM) Est GFR (CKD-EPI)NonAf 63 (>60 ml/min/1.73 sqM) Glucose 106 H (74-99) mg/dL Calcium 8.3 L (8.4-10.2) mg/dL Total Bilirubin 0.8 (0.2-1.3) mg/dL AST 53 H (14-36) U/L ALT 32 (9-52) U/L Alkaline Phosphatase 152 H (38-126) U/L Total Protein 6.4 (6.3-8.2) g/dL Albumin 3.1 L (3.5-5.0) g/dL Amylase <30 L (30-110) U/L Lipase 39 (23-300) U/L Urine Color Yellow Urine Appearance Turbid H (Clear) Urine pH 6.5 (5.0-8.0) Ur Specific [place] 1.018 (1.001-1.035) Urine Protein 1+ H (Negative) Urine Glucose (UA) Negative (Negative) Urine Ketones Negative (Negative) Urine Blood Trace H (Negative) Urine Nitrite Negative (Negative) Urine Bilirubin Negative (Negative) Urine Urobilinogen 2.0 (<2.0) mg/dL Ur Leukocyte Esterase Large H (Negative) Urine RBC 34 H (0-5) /hpf Urine WBC >182 H (0-5) /hpf Ur Squamous Epith Cells 7 H (0-4) /hpf Amorphous Sediment Moderate H (None) /hpf Urine Mucus Rare H (None) /hpf Stool Occult Blood (Negative) 12/28/18 Range/Units 21:51 WBC (3.8-10.6) k/uL RBC (3.80-5.40) m/uL Hgb (11.4-16.0) gm/dL Hct (34.0-46.0) % MCV (80.0-100.0) fL MCH (25.0-35.0) pg MCHC (31.0-37.0) g/dL RDW (11.5-15.5) % Plt Count (150-450) k/uL Neutrophils % % Lymphocytes % % Monocytes % % Eosinophils % % Basophils % % Neutrophils # (1.3-7.7) k/uL Lymphocytes # (1.0-4.8) k/uL Monocytes # (0-1.0) k/uL Eosinophils # (0-0.7) k/uL Basophils # (0-0.2) k/uL Hypochromasia Poikilocytosis Anisocytosis Microcytosis Sodium (137-145) mmol/L Potassium (3.5-5.1) mmol/L Chloride (98-107) mmol/L Carbon Dioxide (22-30) mmol/L Anion Gap mmol/L BUN (7-17) mg/dL Creatinine (0.52-1.04) mg/dL Est GFR (CKD-EPI)AfAm (>60 ml/min/1.73 sqM) Est GFR (CKD-EPI)NonAf (>60 ml/min/1.73 sqM) Glucose (74-99) mg/dL Calcium (8.4-10.2) mg/dL Total Bilirubin (0.2-1.3) mg/dL AST (14-36) U/L ALT (9-52) U/L Alkaline Phosphatase (38-126) U/L Total Protein (6.3-8.2) g/dL Albumin (3.5-5.0) g/dL Amylase (30-110) U/L Lipase (23-300) U/L Urine Color Urine Appearance (Clear) Urine pH (5.0-8.0) Ur Specific [place] (1.001-1.035) Urine Protein (Negative) Urine Glucose (UA) (Negative) Urine Ketones (Negative) Urine Blood (Negative) Urine Nitrite (Negative) Urine Bilirubin (Negative) Urine Urobilinogen (<2.0) mg/dL Ur Leukocyte Esterase (Negative) Urine RBC (0-5) /hpf Urine WBC (0-5) /hpf Ur Squamous Epith Cells (0-4) /hpf Amorphous Sediment (None) /hpf Urine Mucus (None) /hpf Stool Occult Blood Positive H (Negative) Disposition Clinical Impression: Urinary tract infection, Abdominal pain, Proctalgia Disposition: HOME SELF-CARE Condition: Good Instructions (If sedation given, give patient instructions): Urinary Tract Infection in Women (ED), Rectal Pain (ED) Prescriptions: Sulfamethox-Tmp 800-160Mg [Bactrim Ds] 1 each PO Q12HR #14 tab Dicyclomine [Bentyl] 20 mg PO QID #15 tablet Is patient prescribed a controlled substance at d/c from ED?: No Referrals: Anuj Maria DO [Primary Care Provider] - 1-2 days Philip Rodriguez DO [Doctor of Osteopathic Medicine] - 1-2 days
[2018-12-28 22:44] LABS: Amorphous Sediment,Urine Moderate /hpf; Appearance,Urine Turbid (Clear); Bilirubin,Urine Negative (Negative); Blood,Urine Trace (Negative); Color,Urine Yellow; Glucose,Urine (UA) Negative (Negative); Ketones,Urine Negative (Negative); Leukocyte Esterase,Urine Large (Negative); Mucus,Urine Rare /hpf; Nitrite,Urine Negative (Negative); PH, Urine 6.5 (5.0-8.0); Protein,Urine 1+ (Negative); RBC,Urine 34 /hpf (0-5); Specific Gravity,Urine 1.018 (1.001-1.035); Squamous Epithelial Cell,Urine 7 /hpf (0-4); WBC,Urine >182 /hpf (0-5)
--- NOTE | 2018-12-28 23:12 | CT ---
EXAM: CT Abdomen and Pelvis Without Intravenous Contrast CLINICAL HISTORY: ITS.REASON CT Reason: Pain, lower abdomen, rectal TECHNIQUE: Axial computed tomography images of the abdomen and pelvis without intravenous contrast. This CT exam was performed using one or more of the following dose reduction techniques: automated exposure control, adjustment of the mA and/or kV according to patient size, and/or use of iterative reconstruction technique. COMPARISON: No relevant prior studies available. FINDINGS: Lung bases: Unremarkable. No mass. No consolidation. ABDOMEN: Liver: No suspicious mass. Gallbladder and bile ducts: No abnormal ductal dilation or stones. Pancreas: Unremarkable. No ductal dilation. Spleen: Unremarkable. No splenomegaly. Adrenals: Unremarkable. No mass. Kidneys and ureters: No obstructing stones. No hydronephrosis. Stomach and bowel: Colonic diverticulosis without inflammation. PELVIS: Appendix: No findings to suggest acute appendicitis. Bladder: Unremarkable. No stones. Reproductive: Unremarkable as visualized. ABDOMEN and PELVIS: Intraperitoneal space: Mild ascites. No free air. Bones/joints: No acute fracture. No dislocation. Soft tissues: Unremarkable. Vasculature: No abdominal aortic aneurysm. Lymph nodes: Unremarkable. No enlarged lymph nodes. IMPRESSION: Mild ascites.
[2018-12-28] MEDS ORDERED: SULFAMETHOX-TMP 800-160MG 1 EACH TAB PO STA (23:48)
[2018-12-29 00:12] VITALS: BP 137/65; PULSE 76; RESP 16; TEMP 98.4
== END 2018-12-29 00:10 | disposition home or self-care (01) ==
LOC: EC 20:59
DX: N39.0 Urinary tract infection, site not specified (principal); K62.89 Other specified diseases of anus and rectum; I25.119 Atherosclerotic heart disease of native coronary artery with unspecified angina pectoris; K21.9 Gastro-esophageal reflux disease without esophagitis; E78.5 Hyperlipidemia, unspecified; I10 Essential (primary) hypertension; I25.2 Old myocardial infarction; F03.90 Unspecified dementia, unspecified severity, without behavioral disturbance, psychotic disturbance, mood disturbance, and anxiety; M19.90 Unspecified osteoarthritis, unspecified site; F32.9 Major depressive disorder, single episode, unspecified; F41.9 Anxiety disorder, unspecified; F17.200 Nicotine dependence, unspecified, uncomplicated; Z88.5 Allergy status to narcotic agent; Z91.048 Other nonmedicinal substance allergy status; Z79.899 Other long term (current) drug therapy; Z87.448 Personal history of other diseases of urinary system; Z86.14 Personal history of Methicillin resistant Staphylococcus aureus infection; Z90.49 Acquired absence of other specified parts of digestive tract; Z99.3 Dependence on wheelchair; Z95.5 Presence of coronary angioplasty implant and graft; Z96.651 Presence of right artificial knee joint
CPT/HCPCS: 36415; 74176; 80053; 81001; 82150; 82272; 83690; 85025; 99284

== ENCOUNTER 2019-01-21 21:28 | Observation (INO) | payer MEDICARE, OTHER ==
[2019-01-21] MEDS ORDERED: ONDANSETRON 4 MG/2 ML VIAL IVP STA (22:23)
[2019-01-21] MEDS ORDERED: MORPHINE SULFATE 2 MG/ML SYRINGE IVP STA (22:23)
[2019-01-21] MEDS ORDERED: SODIUM CHLORIDE 0.9% 500 ML 500 ML IV STA (22:23)
[2019-01-21] MEDS ORDERED: methylPREDNISolone SOD SUCCI 125 MG/2 ML VIAL IV STA (22:43)
[2019-01-21] MEDS ORDERED: FAMOTIDINE 20 MG/2 ML VIAL IV STA (22:43)
[2019-01-21] MEDS ORDERED: diphenhydrAMINE 50 MG/ML 1 ML VIAL IVP STA (22:43)
[2019-01-21 23:21] LABS: Anisocytosis Moderate; Basophils # (A) 0.1 k/uL (0-0.2); Basophils % (A) 0 %; Eosinophils # (A) 0.2 k/uL (0-0.7); Eosinophils % (A) 1 %; HCT 37.1 % (34.0-46.0); HGB 10.6 gm/dL (11.4-16.0); Hypochromasia Marked; Lymphocytes % (A) 7 %; MCH 20.4 pg (25.0-35.0); MCHC 28.6 g/dL (31.0-37.0); MCV 71.1 fL (80.0-100.0); Mean Platelet Volume 7.5; Microcytosis Marked; Monocytes # (A) 0.5 k/uL (0-1.0); Monocytes % (A) 4 %; Neutrophils # (A) 11.9 k/uL (1.3-7.7); Neutrophils % (A) 87 %; Platelet Count 118 k/uL (150-450); Poikilocytosis Slight; RBC 5.22 m/uL (3.80-5.40); RDW 23.6 % (11.5-15.5); WBC 13.7 k/uL (3.8-10.6)
[2019-01-21 23:23] LABS: ALT 34 U/L (9-52); AST 60 U/L (14-36); Albumin 2.7 g/dL (3.5-5.0); Alkaline Phosphatase 179 U/L (38-126); Amylase <30 U/L (30-110); Anion Gap 10 mmol/L; Blood Urea Nitrogen 11 mg/dL (7-17); Carbon Dioxide 17 mmol/L (22-30); Chloride 111 mmol/L (98-107); Glucose 100 mg/dL (74-99); Lipase 43 U/L (23-300); Potassium 3.6 mmol/L (3.5-5.1); Sodium 138 mmol/L (137-145); Total Protein 6.2 g/dL (6.3-8.2)
--- NOTE | 2019-01-22 00:49 | CT ---
EXAM: CT Abdomen and Pelvis With Intravenous Contrast CLINICAL HISTORY: ITS.REASON CT Reason: abdominal pain TECHNIQUE: Axial computed tomography images of the abdomen and pelvis with intravenous contrast. This CT exam was performed using one or more of the following dose reduction techniques: automated exposure control, adjustment of the mA and/or kV according to patient size, and/or use of iterative reconstruction technique. COMPARISON: No relevant prior studies available. FINDINGS: Lung bases: Unremarkable. No mass. No consolidation. Pleural space: Right pleural effusion. ABDOMEN: Liver: Unremarkable. No mass. Gallbladder and bile ducts: No abnormal ductal dilation or stones. Pancreas: Unremarkable. No mass. No ductal dilation. Spleen: Unremarkable. No splenomegaly. Adrenals: Unremarkable. No mass. Kidneys and ureters: Unremarkable. No solid mass. No hydronephrosis. Stomach and bowel: No obstruction. No mucosal thickening. PELVIS: Appendix: No findings to suggest acute appendicitis. Bladder: Unremarkable. No mass. Reproductive: Unremarkable as visualized. ABDOMEN and PELVIS: Intraperitoneal space: Moderate ascites. No free air. Bones/joints: No acute fracture. No dislocation. Soft tissues: Unremarkable. Vasculature: No abdominal aortic aneurysm. Lymph nodes: Unremarkable. No enlarged lymph nodes. IMPRESSION: Moderate ascites.
[2019-01-22 01:28] LABS: Appearance,Urine Clear (Clear); Bilirubin,Urine Negative (Negative); Blood,Urine Negative (Negative); Color,Urine Yellow; Glucose,Urine (UA) Negative (Negative); Hyaline Casts,Urine 35 /lpf (0-2); Ketones,Urine Negative (Negative); Leukocyte Esterase,Urine Negative (Negative); Mucus,Urine Few /hpf; Nitrite,Urine Negative (Negative); Protein,Urine 1+ (Negative); RBC,Urine 2 /hpf (0-5); Squamous Epithelial Cell,Urine 1 /hpf (0-4); Urobilinogen,Urine <2.0 mg/dL (<2.0); WBC,Urine 1 /hpf (0-5)
[2019-01-22] MEDS ORDERED: SODIUM CHLORIDE 0.9% 500 ML 500 ML IV ONE (01:30)
[2019-01-22 01:36] LABS: Specific Gravity,Urine >1.050 (1.001-1.035)
--- NOTE | 2019-01-22 02:26 | ED ---
Abdominal Pain HPI - General Source: patient, EMS Mode of arrival: EMS Limitations: no limitations <Sanaz Gerardo - Last Filed: 01/22/19 02:17> <Marge Sigala - Last Filed: 01/22/19 22:24> - General Chief Complaint: Abdominal Pain Stated Complaint: Abdominal Pain Time Seen by Provider: 01/21/19 21:54 - History of Present Illness Initial Comments: 78-year-old female patient with multiple medical problems including dementia presents to the emergency department today for evaluation of abdominal pain. Hudson chen states the pain has been going on for the last 3-4 weeks. Patient states at times the pain is quite severe. She says at times she has no pain. Patient states she feels that her abdomen is bloated. She denies any vomiting or diarrhea. Denies any hematuria, dysuria, urinary frequency, urinary urgency. I will note that the patient is a poor historian related to the dementia. She has no family present. (Sanaz Gerardo) - Related Data Home Medications Medication Instructions Recorded Confirmed FLUoxetine HCL 40 mg PO BID 04/22/15 01/21/19 Pantoprazole Sodium 40 mg PO DAILY 04/22/15 01/21/19 busPIRone HCL 10 mg PO BID 09/26/16 01/21/19 Donepezil [Aricept] 10 mg PO HS 06/02/18 01/21/19 Atorvastatin [Lipitor] 40 mg PO HS 08/23/18 01/21/19 Albuterol Inhaler [Ventolin Hfa 1 - 2 puff INHALATION RT-Q6H PRN 11/29/18 01/21/19 Inhaler] Memantine HCl [Namenda] 5 mg PO DAILY 11/29/18 01/21/19 Mirabegron [Myrbetriq] 50 mg PO DAILY 11/29/18 01/21/19 Potassium Chloride ER [K-Dur 10] 10 meq PO DAILY 12/28/18 01/21/19 traMADol HCL [Ultram] 50 mg PO BID PRN 12/28/18 01/21/19 Previous Rx's Medication Instructions Recorded Aspirin 81 mg PO DAILY chew 10/22/16 Allergies Allergy/AdvReac Type Severity Reaction Status Date / Time iodine Allergy Rapid Verified 12/28/18 21:40 Heart Rate adhesive AdvReac Itching,"paper Verified 12/28/18 21:40 tape is ok" codeine AdvReac Confusion Verified 12/28/18 21:40 hydrocodone bitartrate AdvReac Confusion Verified 12/28/18 21:40 [From [place]] hydromorphone HCl AdvReac Confusion Verified 12/28/18 21:40 [From Dilaudid] morphine AdvReac Confusion Verified 12/28/18 21:40 Review of Systems ROS Other: All systems not noted in ROS Statement are negative. <Sanaz Gerardo - Last Filed: 01/22/19 02:17> ROS Other: All systems not noted in ROS Statement are negative. <Marge Sigala - Last Filed: 01/22/19 22:24> ROS Statement: Those systems with pertinent positive or pertinent negative responses have been documented in the HPI. Past Medical History Past Medical History: Coronary Artery Disease (CAD), Chest Pain / Angina, GERD/Reflux, GI Bleed, Hyperlipidemia, Hypertension, Memory Impairment, Myocardial Infarction (NV), Osteoarthritis (OA), Pneumonia, Rheumatoid Arthritis (RA), Syncope Additional Past Medical History / Comment(s): pain with stools,hemorrhoids,d ementia, osteoporosis,previous fall with blunt trauma to the head,hiatal hernia, chronic constipation,incont of urine-wears brief, previous history of uti, essential tremors, compression fracture of the T12 spine, cellulitis of the lower extremities, difficulty with mobility and gait and the patient has been wheelchair bound but she is able to stand up and pivot herself w/ asst Last Myocardial Infarction Date:: 1999 History of Any Multi-Drug Resistant Organisms: MRSA Date of last positivie culture/infection: 2011 per patient in nursing history MDRO Source:: Right Knee Past Surgical History: Appendectomy, Heart Catheterization With Stent, Joint Replacement, Orthopedic Surgery, Tonsillectomy Additional Past Surgical History / Comment(s): PTCA with 2 stents to CX in 1999, R shoulder arthroscopic rotator cuff repair, reverse L total shoulder, femoral bypass 1999, gastric tube placement and since removal, R total knee-no bend-Fly placed rt leg Past Anesthesia/Blood Transfusion Reactions: Postoperative Nausea & Vomiting (PONV) Additional Past Anesthesia/Blood Transfusion Reaction / Comment(s): no hx blood transfusion Date of Last Stent Placement:: 1999 Past Psychological History: Anxiety, Depression Smoking Status: Current every day smoker Past Alcohol Use History: None Reported Past Drug Use History: None Reported - Past Family History Father Family Medical History: Coronary Artery Disease (CAD), Myocardial Infarction (NV) Mother Family Medical History: Diabetes Mellitus, Hypertension <Sanaz Gerardo M - Last Filed: 01/22/19 02:17> General Exam Limitations: no limitations General appearance: alert, in no apparent distress, other (Physical well- developed, well-nourished elderly female patient in no acute distress. Vital signs upon presentation are temperature 99.0F, pulse 77, respirations 20, blood pressure 116/89, pulse ox 99% on room air.) Eye exam: Present: normal appearance, PERRL, EOMI. Absent: scleral icterus, conjunctival injection, periorbital swelling ENT exam: Present: normal exam, normal oropharynx, mucous membranes moist Respiratory exam: Present: normal lung sounds bilaterally. Absent: respiratory distress, wheezes, rales, rhonchi, stridor Cardiovascular Exam: Present: regular rate, normal rhythm, normal heart sounds. Absent: systolic murmur, diastolic murmur, rubs, gallop, clicks GI/Abdominal exam: Present: soft, tenderness (Generalized), normal bowel sounds. Absent: distended, guarding, rebound, rigid Neurological exam: Present: alert, CN II-XII intact. Absent: oriented X3 (Oriented 1) Psychiatric exam: Present: normal affect, normal mood Skin exam: Present: warm, dry, intact, normal color. Absent: rash <Sanaz Gerardo M - Last Filed: 01/22/19 02:17> Course Vital Signs 01/21/19 01/22/19 01/22/19 21:37 00:00 01:13 Temperature 99.0 F Pulse Rate 77 63 65 Pulse Rate [ Left Supine] Respiratory 20 20 20 Rate Blood Pressure 116/89 173/98 181/82 Blood Pressure [Left Arm Supine] O2 Sat by Pulse 99 97 98 Oximetry 01/22/19 01/22/19 03:45 04:39 Temperature 97.9 F 98.5 F Pulse Rate 76 Pulse Rate [ 82 Left Supine] Respiratory 16 17 Rate Blood Pressure 142/102 Blood Pressure 126/64 [Left Arm Supine] O2 Sat by Pulse 96 97 Oximetry Medical Decision Making - Lab Data Result diagrams: 01/21/19 23:00 01/21/19 23:00 - EKG Data -: EKG Interpreted by Me - Radiology Data Radiology results: report reviewed, image reviewed <Sanaz Gerardo - Last Filed: 01/22/19 02:17> - Lab Data Result diagrams: 01/21/19 23:00 01/21/19 23:00 <Magre Sigala - Last Filed: 01/22/19 22:24> - Medical Decision Making 78-year-old female patient presents the emergency department today for evaluation of abdominal pain. Physical examination did reveal generalized abdominal tenderness. Labs reviewed and did reveal white blood cell count of 13.7, hemoglobin 10.6 increased from 9.3 on 12/28. Patient has a lactic acid of 3.2, AST of 60, alk phos 179. Urinalysis showed no evidence of infection. Did perform CT abdomen and pelvis which showed moderate ascites which is increased from mild ascites on a CAT scan on 12/28. Given these findings patient will be admitted for IV hydration and further evaluation by GI. (Sanaz Gerardo) I was available for consultation in the emergency department. The history and physical exam were done by the midlevel provider. I was consulted for this patient's care. I reviewed the case with the midlevel provider and based on their presentation of the patient, I agree with the assessment, medical decision making and plan of care as documented. Chart was dictated using [employer] dictation software. Attempts were made to correct any dictation errors however some typographical errors may persist. (Marge Sigala) - Lab Data Lab Results 01/21/19 01/21/19 01/21/19 Range/Units 13:00 23:00 23:00 WBC 13.7 H (3.8-10.6) k/uL RBC 5.22 (3.80-5.40) m/uL Hgb 10.6 L (11.4-16.0) gm/dL Hct 37.1 (34.0-46.0) % MCV 71.1 L (80.0-100.0) fL MCH 20.4 L (25.0-35.0) pg MCHC 28.6 L (31.0-37.0) g/dL RDW 23.6 H (11.5-15.5) % Plt Count 118 L (150-450) k/uL Neutrophils % 87 % Lymphocytes % 7 % Monocytes % 4 % Eosinophils % 1 % Basophils % 0 % Neutrophils # 11.9 H (1.3-7.7) k/uL Lymphocytes # 1.0 (1.0-4.8) k/uL Monocytes # 0.5 (0-1.0) k/uL Eosinophils # 0.2 (0-0.7) k/uL Basophils # 0.1 (0-0.2) k/uL Hypochromasia Marked Poikilocytosis Slight Anisocytosis Moderate Microcytosis Marked Sodium 138 (137-145) mmol/L Potassium 3.6 (3.5-5.1) mmol/L Chloride 111 H (98-107) mmol/L Carbon Dioxide 17 L (22-30) mmol/L Anion Gap 10 mmol/L BUN 11 (7-17) mg/dL Creatinine 0.87 (0.52-1.04) mg/dL Est GFR (CKD-EPI)AfAm 73 (>60 ml/min/1.73 sqM) Est GFR (CKD-EPI)NonAf 64 (>60 ml/min/1.73 sqM) Glucose 100 H (74-99) mg/dL Lactic Ac Sepsis Rflx Plasma Lactic Acid Justin (0.7-2.0) mmol/L Calcium 8.0 L (8.4-10.2) mg/dL Iron 12 L (50-170) ug/dL TIBC 276 (228-460) ug/dL Iron Saturation 4.35 L (12.00-45.00) Ferritin 30.4 (10.0-291.0) ng/mL Total Bilirubin 1.0 (0.2-1.3) mg/dL AST 60 H (14-36) U/L ALT 34 (9-52) U/L Alkaline Phosphatase 179 H (38-126) U/L Troponin I (0.000-0.034) ng/mL Total Protein 6.2 L (6.3-8.2) g/dL Albumin 2.7 L (3.5-5.0) g/dL Amylase <30 L (30-110) U/L Lipase 43 (23-300) U/L Tumor Marker AFP (0.0-7.9) ng/mL Carcinoembryonic Ag 4.8 (0.0-4.9) ng/mL CA 19-9 Antigen 50.8 H (0.0-34.9) U/mL CA 125 Antigen 431.4 H (0.0-30.1) U/mL Urine Color Urine Appearance (Clear) Urine pH (5.0-8.0) Ur Specific [place] (1.001-1.035) Urine Protein (Negative) Urine Glucose (UA) (Negative) Urine Ketones (Negative) Urine Blood (Negative) Urine Nitrite (Negative) Urine Bilirubin (Negative) Urine Urobilinogen (<2.0) mg/dL Ur Leukocyte Esterase (Negative) Urine RBC (0-5) /hpf Urine WBC (0-5) /hpf Ur Squamous Epith Cells (0-4) /hpf Hyaline Casts (0-2) /lpf Urine Mucus (None) /hpf 01/21/19 01/21/19 01/21/19 Range/Units 23:00 23:00 23:03 WBC (3.8-10.6) k/uL RBC (3.80-5.40) m/uL Hgb (11.4-16.0) gm/dL Hct (34.0-46.0) % MCV (80.0-100.0) fL MCH (25.0-35.0) pg MCHC (31.0-37.0) g/dL RDW (11.5-15.5) % Plt Count (150-450) k/uL Neutrophils % % Lymphocytes % % Monocytes % % Eosinophils % % Basophils % % Neutrophils # (1.3-7.7) k/uL Lymphocytes # (1.0-4.8) k/uL Monocytes # (0-1.0) k/uL Eosinophils # (0-0.7) k/uL Basophils # (0-0.2) k/uL Hypochromasia Poikilocytosis Anisocytosis Microcytosis Sodium (137-145) mmol/L Potassium (3.5-5.1) mmol/L Chloride (98-107) mmol/L Carbon Dioxide (22-30) mmol/L Anion Gap mmol/L BUN (7-17) mg/dL Creatinine (0.52-1.04) mg/dL Est GFR (CKD-EPI)AfAm (>60 ml/min/1.73 sqM) Est GFR (CKD-EPI)NonAf (>60 ml/min/1.73 sqM) Glucose (74-99) mg/dL Lactic Ac Sepsis Rflx Plasma Lactic Acid Justin 3.2 H* (0.7-2.0) mmol/L Calcium (8.4-10.2) mg/dL Iron (50-170) ug/dL TIBC (228-460) ug/dL Iron Saturation (12.00-45.00) Ferritin (10.0-291.0) ng/mL Total Bilirubin (0.2-1.3) mg/dL AST (14-36) U/L ALT (9-52) U/L Alkaline Phosphatase (38-126) U/L Troponin I <0.012 (0.000-0.034) ng/mL Total Protein (6.3-8.2) g/dL Albumin (3.5-5.0) g/dL Amylase (30-110) U/L Lipase (23-300) U/L Tumor Marker AFP <2.5 (0.0-7.9) ng/mL Carcinoembryonic Ag (0.0-4.9) ng/mL CA 19-9 Antigen (0.0-34.9) U/mL CA 125 Antigen (0.0-30.1) U/mL Urine Color Urine Appearance (Clear) Urine pH (5.0-8.0) Ur Specific [place] (1.001-1.035) Urine Protein (Negative) Urine Glucose (UA) (Negative) Urine Ketones (Negative) Urine Blood (Negative) Urine Nitrite (Negative) Urine Bilirubin (Negative) Urine Urobilinogen (<2.0) mg/dL Ur Leukocyte Esterase (Negative) Urine RBC (0-5) /hpf Urine WBC (0-5) /hpf Ur Squamous Epith Cells (0-4) /hpf Hyaline Casts (0-2) /lpf Urine Mucus (None) /hpf 01/21/19 01/22/19 Range/Units 23:33 01:07 WBC (3.8-10.6) k/uL RBC (3.80-5.40) m/uL Hgb (11.4-16.0) gm/dL Hct (34.0-46.0) % MCV (80.0-100.0) fL MCH (25.0-35.0) pg MCHC (31.0-37.0) g/dL RDW (11.5-15.5) % Plt Count (150-450) k/uL Neutrophils % % Lymphocytes % % Monocytes % % Eosinophils % % Basophils % % Neutrophils # (1.3-7.7) k/uL Lymphocytes # (1.0-4.8) k/uL Monocytes # (0-1.0) k/uL Eosinophils # (0-0.7) k/uL Basophils # (0-0.2) k/uL Hypochromasia Poikilocytosis Anisocytosis Microcytosis Sodium (137-145) mmol/L Potassium (3.5-5.1) mmol/L Chloride (98-107) mmol/L Carbon Dioxide (22-30) mmol/L Anion Gap mmol/L BUN (7-17) mg/dL Creatinine (0.52-1.04) mg/dL Est GFR (CKD-EPI)AfAm (>60 ml/min/1.73 sqM) Est GFR (CKD-EPI)NonAf (>60 ml/min/1.73 sqM) Glucose (74-99) mg/dL Lactic Ac Sepsis Rflx Y Plasma Lactic Acid Justin (0.7-2.0) mmol/L Calcium (8.4-10.2) mg/dL Iron (50-170) ug/dL TIBC (228-460) ug/dL Iron Saturation (12.00-45.00) Ferritin (10.0-291.0) ng/mL Total Bilirubin (0.2-1.3) mg/dL AST (14-36) U/L ALT (9-52) U/L Alkaline Phosphatase (38-126) U/L Troponin I (0.000-0.034) ng/mL Total Protein (6.3-8.2) g/dL Albumin (3.5-5.0) g/dL Amylase (30-110) U/L Lipase (23-300) U/L Tumor Marker AFP (0.0-7.9) ng/mL Carcinoembryonic Ag (0.0-4.9) ng/mL CA 19-9 Antigen (0.0-34.9) U/mL CA 125 Antigen (0.0-30.1) U/mL Urine Color Yellow Urine Appearance Clear (Clear) Urine pH 6.0 (5.0-8.0) Ur Specific [place] >1.050 H (1.001-1.035) Urine Protein 1+ H (Negative) Urine Glucose (UA) Negative (Negative) Urine Ketones Negative (Negative) Urine Blood Negative (Negative) Urine Nitrite Negative (Negative) Urine Bilirubin Negative (Negative) Urine Urobilinogen <2.0 (<2.0) mg/dL Ur Leukocyte Esterase Negative (Negative) Urine RBC 2 (0-5) /hpf Urine WBC 1 (0-5) /hpf Ur Squamous Epith Cells 1 (0-4) /hpf Hyaline Casts 35 H (0-2) /lpf Urine Mucus Few H (None) /hpf - EKG Data EKG Comments: EKG obtained at 2311 shows sinus rhythm with PACs, prolonged QT interval, ventricular rate 74, VA interval 180, QRS duration 88, QT 472, QTc 523. No evidence of ST elevation or depression. (Sanaz Gerardo) - Radiology Data CT abdomen and pelvis is obtained. Report was reviewed in its entirety. Impression by Dr. Perez shows moderate ascites. (Sanaz Gerardo) Disposition Decision to Admit Reason: Admit from EC Decision Date: 01/22/19 Decision Time: 02:25 <Sanaz Gerardo - Last Filed: 01/22/19 02:17> <Marge Sigala - Last Filed: 01/22/19 22:24> Clinical Impression: Abdominal pain, Ascites Disposition: ADMITTED IP TO THIS [facility] Condition: Serious
[2019-01-22] MEDS ORDERED: NALOXONE 0.4 MG/ML 1 ML VIAL IV PRN (02:56)
[2019-01-22] MEDS ORDERED: ONDANSETRON 4 MG/2 ML VIAL IVP PRN (02:56)
[2019-01-22] MEDS ORDERED: MORPHINE SULFATE 2 MG/ML SYRINGE IVP PRN (02:58)
[2019-01-22 04:54] VITALS: BMI 34.7
[2019-01-22] MEDS ORDERED: HALOPERIDOL LACTATE 5 MG/ML 1 ML VIAL IM ONE ×2 (05:48→21:20)
[2019-01-22] MEDS ORDERED: traMADol 50 MG TAB PO PRN (09:38)
[2019-01-22] MEDS ORDERED: MEMANTINE 5 MG TAB PO SCH (09:45)
[2019-01-22] MEDS ORDERED: PANTOPRAZOLE 40 MG TABLET PO SCH (09:45)
[2019-01-22] MEDS: busPIRone HCl 10 MG TAB PO SCH ×2 (10:26→21:22)
[2019-01-22] MEDS: FLUoxetine HCL 20 MG CAP PO SCH ×2 (10:26→21:22)
[2019-01-22] MEDS: POTASSIUM CHLORIDE ER 10 MEQ TAB.ER.PRT PO SCH (10:26)
[2019-01-22] MEDS: ASPIRIN 81 MG PO SCH (10:26)
[2019-01-22] MEDS: NON-FORMULARY DRUG (Mirabegron [Myrbetriq] 50 MG) PO SCH (10:27)
--- NOTE | 2019-01-22 11:13 | P.CONS ---
History of Present Illness - Reason for Consult Consult date: 01/22/19 Ascites Requesting physician: Kulwant Vargas - Chief Complaint Abdominal pain - History of Present Illness 78-year-old female with a history of remote EtOH, CAD PCI stent, anemia, PEG tube insertion and removal, anxiety, depression, dementia admitted with acute upper epigastric and lower abdominal pain 3-4 weeks' duration without bleeding or fever. CT abdomen and pelvis reported moderate ascites consult requested for evaluation. Presently reports epigastric pain with difficulty swallowing sometime vomiting. Denies overt GI bleeding. No vaginal bleeding. White count 13.7. Hemoglobin 10.6. MCV 71. platelet 118. Total bilirubin 1.0. AST 60. ALT 34. AP 179. Lipase 43. BUN 11. Creatinine 0.8. December 2018 FOBT was positive. Elective colonoscopy November 2018 1.5 cm anal polyp status post polypectomy biopsy polypoid hemorrhoid with scattered sigmoid diverticulosis. No recent EGD. Previous CT imaging of the abdomen December 2018 no suspicious liver mass. Gallbladder bile ducts pancreas plane unremarkable. Mild ascites present at that time. Review of Systems Constitutional: Denies fever, chills, sweats, weight gain, or loss. History of dementia. HEENT: Negative for migraines, blurred vision or loss, earaches, drainage, tinnitus, oral mucosal lesions, dysphagia, or odynophagia. CARDIAC: Negative for chest pain, arrhythmias, or palpitation. RESPIRATORY: Negative for shortness of breath, hemoptysis, cough, or sputum production. GI: See HPI for pertinent findings. : Negative for hematuria, urgency, frequency, polyuria, or dysuria. GYNc: Denies possibility of . Negative vaginal discharge. MUSCULOSKELETAL: Negative for muscle aches, swelling, arthritis, and arthralgias. NEUROLOGIC: Negative for stroke or TIA. ENDOCRINE: Negative for thyroid problems. SKIN: Negative for rash or itching. PSYCHIATRIC: Negative history for depression and anxiety Past Medical History Past Medical History: Coronary Artery Disease (CAD), Chest Pain / Angina, GERD/Reflux, GI Bleed, Hyperlipidemia, Hypertension, Memory Impairment, Myocardial Infarction ([place]), Osteoarthritis (OA), Pneumonia, Rheumatoid Arthritis (RA), Syncope Additional Past Medical History / Comment(s): pain with stools,hemorrhoids,dementia, osteoporosis,previous fall with blunt trauma to the head,hiatal hernia, chronic constipation,incont of urine-wears brief, previous history of uti, essential tremors, compression fracture of the T12 spine, cellulitis of the lower extremities, difficulty with mobility and gait and the patient has been wheelchair bound but she is able to stand up and pivot herself w/ asst Last Myocardial Infarction Date:: 1999 History of Any Multi-Drug Resistant Organisms: MRSA Year Discovered:: 2011 per patient in nursing history MDRO Source:: Right Knee Past Surgical History: Appendectomy, Heart Catheterization With Stent, Joint Replacement, Orthopedic Surgery, Tonsillectomy Additional Past Surgical History / Comment(s): PTCA with 2 stents to CX in 1999, R shoulder arthroscopic rotator cuff repair, reverse L total shoulder, femoral bypass 1999, gastric tube placement and since removal, R total knee-no bend-Fly placed rt leg Past Anesthesia/Blood Transfusion Reactions: Postoperative Nausea & Vomiting (PONV) Additional Past Anesthesia/Blood Transfusion Reaction / Comm: no hx blood transfusion Date of Last Stent Placement:: 1999 Past Psychological History: Anxiety, Depression Additional Psychological History / Comment(s): Ongoing tobacco smoker. Pt started smoking about age 15-16 yrs old. She smokes about 5 CIG PER DAY. She is . Living with her son in an apartment in the [facility]. She uses a wheelchair. She is able to stand and pivot to get into wheelchair. She feeds herself. Her son drives her to [employer]-[facility] does not drive. Smoking Status: Former smoker Past Alcohol Use History: None Reported Additional Past Alcohol Use History / Comment(s): states she quit 3 months ago Past Drug Use History: None Reported - Past Family History Father Family Medical History: Coronary Artery Disease (CAD), Myocardial Infarction ([place]) Mother Family Medical History: Diabetes Mellitus, Hypertension Medications and Allergies Home Medications Medication Instructions Recorded Confirmed Type FLUoxetine HCL 40 mg PO BID 04/22/15 01/21/19 History Pantoprazole Sodium 40 mg PO DAILY 04/22/15 01/21/19 History busPIRone HCL 10 mg PO BID 09/26/16 01/21/19 History Aspirin 81 mg PO DAILY chew 10/22/16 01/21/19 Rx Donepezil [Aricept] 10 mg PO HS 06/02/18 01/21/19 History Atorvastatin [Lipitor] 40 mg PO HS 08/23/18 01/21/19 History Albuterol Inhaler [Ventolin Hfa 1 - 2 puff INHALATION RT-Q6H PRN 11/29/18 01/21/19 History Inhaler] Memantine HCl [Namenda] 5 mg PO DAILY 11/29/18 01/21/19 History Mirabegron [Myrbetriq] 50 mg PO DAILY 11/29/18 01/21/19 History Potassium Chloride ER [K-Dur 10] 10 meq PO DAILY 12/28/18 01/21/19 History traMADol HCL [Ultram] 50 mg PO BID PRN 12/28/18 01/21/19 History Allergies Allergy/AdvReac Type Severity Reaction Status Date / Time iodine Allergy Rapid Verified 12/28/18 21:40 Heart Rate adhesive AdvReac Itching,"paper Verified 12/28/18 21:40 tape is ok" codeine AdvReac Confusion Verified 12/28/18 21:40 hydrocodone bitartrate AdvReac Confusion Verified 12/28/18 21:40 [From [place]] hydromorphone HCl AdvReac Confusion Verified 12/28/18 21:40 [From Dilaudid] morphine AdvReac Confusion Verified 12/28/18 21:40 Physical Exam Vitals: Vital Signs Temp Pulse Pulse Resp BP BP Pulse Ox 01/22/19 08:59 97.6 F 64 18 149/74 90 L 01/22/19 04:39 98.5 F 82 17 126/64 97 01/22/19 03:45 97.9 F 76 16 142/102 96 01/22/19 01:13 65 20 181/82 98 01/22/19 00:00 63 20 173/98 97 01/21/19 21:37 99.0 F 77 20 116/89 99 Intake and Output 01/21/19 01/22/19 01/22/19 22:59 06:59 14:59 Other: Voiding Method Incontinent # Voids 0 0 # Bowel Movements 0 0 Weight 130 kg 86.183 kg General appearance: The patient is alert, oriented, in no acute distress. HET: Head is normocephalic and atraumatic. Pupils are equal and reactive. Oropharynx is clear without lesions. Neck: Supple without lymphadenopathy. Trachea midline. Heart: S1 S2. Regular rate and rhythm. Lungs: No crackles or wheezes are heard. Abdomen: Soft, nontender, nondistended with bowel sounds. No peritoneal signs. No palpable organomegaly or masses. Extremities: Normal skin color and turgor. No cyanosis, rash, ulceration, clubb ing, or edema. Radial and pedal pulses are 2/4 bilaterally. Neurological: No focal deficits. Strength and sensation are grossly intact. Results CBC & Chem 7: 01/21/19 23:00 01/21/19 23:00 Labs: Abnormal Lab Results - Last 24 Hours (Table) 01/21/19 01/21/19 01/21/19 Range/Units 23:00 23:00 23:00 WBC 13.7 H (3.8-10.6) k/uL Hgb 10.6 L (11.4-16.0) gm/dL MCV 71.1 L (80.0-100.0) fL MCH 20.4 L (25.0-35.0) pg MCHC 28.6 L (31.0-37.0) g/dL RDW 23.6 H (11.5-15.5) % Plt Count 118 L (150-450) k/uL Neutrophils # 11.9 H (1.3-7.7) k/uL Chloride 111 H (98-107) mmol/L Carbon Dioxide 17 L (22-30) mmol/L Glucose 100 H (74-99) mg/dL Plasma Lactic Acid Justin 3.2 H* (0.7-2.0) mmol/L Calcium 8.0 L (8.4-10.2) mg/dL AST 60 H (14-36) U/L Alkaline Phosphatase 179 H (38-126) U/L Total Protein 6.2 L (6.3-8.2) g/dL Albumin 2.7 L (3.5-5.0) g/dL Amylase <30 L (30-110) U/L Ur Specific Humble (1.001-1.035) Urine Protein (Negative) Hyaline Casts (0-2) /lpf Urine Mucus (None) /hpf 01/22/19 Range/Units 01:07 WBC (3.8-10.6) k/uL Hgb (11.4-16.0) gm/dL MCV (80.0-100.0) fL MCH (25.0-35.0) pg MCHC (31.0-37.0) g/dL RDW (11.5-15.5) % Plt Count (150-450) k/uL Neutrophils # (1.3-7.7) k/uL Chloride (98-107) mmol/L Carbon Dioxide (22-30) mmol/L Glucose (74-99) mg/dL Plasma Lactic Acid Justin (0.7-2.0) mmol/L Calcium (8.4-10.2) mg/dL AST (14-36) U/L Alkaline Phosphatase (38-126) U/L Total Protein (6.3-8.2) g/dL Albumin (3.5-5.0) g/dL Amylase (30-110) U/L Ur Specific Humble >1.050 H (1.001-1.035) Urine Protein 1+ H (Negative) Hyaline Casts 35 H (0-2) /lpf Urine Mucus Few H (None) /hpf CT scan - abdomen: report reviewed (Dr. Kelly) Assessment and Plan (1) Abdominal pain Narrative/Plan: 78 y/o female history of remote EtOH dementia admitted with a 2-3 month history of vague abdominal pain ranging from the mid epigastric region to the lower abdomen with reports of dysphagia and biochemical evidence of microcytic hypochromic anemia mild thrombocytopenia. Recent positive FOBT December 2018 status post unremarkable screening colonoscopy in November 2018 scattered sigmoid d iverticulosis. CT abdomen and pelvis 2 over the last 30 days reports ascites now moderate without obvious liver spleen gallbladder biliary duct abnormalities. Mild elevation of AST and alkaline phosphatase with normal bilirubin and ALT. Etiology of ascites is unclear at this time possible hepato biliary possible cardiac possible [employer] in origin. Current Visit: Yes Status: Acute Code(s): R10.9 - UNSPECIFIED ABDOMINAL PAIN SNOMED Code(s): 97362370 (2) History of dementia Current Visit: Yes Status: Acute Code(s): Z86.59 - PERSONAL HISTORY OF OTHER MENTAL AND BEHAVIORAL DISORDERS SNOMED Code(s): 431957296 (3) Ascites Current Visit: Yes Status: Acute Code(s): R18.8 - OTHER ASCITES SNOMED Code(s): 751246627 (4) Microcytic hypochromic anemia Current Visit: Yes Status: Acute Code(s): D50.9 - IRON DEFICIENCY ANEMIA, UNSPECIFIED SNOMED Code(s): 40195577 (5) Thrombocytopenia Current Visit: Yes Status: Acute Code(s): D69.6 - THROMBOCYTOPENIA, UNSPECIFIED SNOMED Code(s): 340114614 Plan: 1. We'll start with EGD evaluation for evaluation of microcytic anemia epigastric dysphagia complaints rule out upper GI pathology. 2. Will obtain iron indices CEA AFP CA-19-9 and CEA 125. 3. We'll check ammonia level. 4. Ultrasound abdomen for further assessment of ascites evaluate for possible diagnostic paracentesis. 5. Continue to monitor CBC. The car jockey has discussed the risks, benefits and alternative therapies for the above-mentioned procedure and for both sedation/analgesia as well as necessary blood product administration, if indicated, as they pertain to this patient. The patient advocate has indicated understanding and acceptance of the risks and procedures discussed. Thank you for this kind referral and the opportunity to participate in the care of your patient. This consultation was discussed with Dr. Kelly. The imp ression and plan of care have been directed as dictated.
[2019-01-22] MEDS ORDERED: LIDOCAINE 1% INJ 10MG/ML (20 ML MDV) ONE (14:27)
[2019-01-22] MEDS ORDERED: PROPOFOL 10 MG/ML 20 ML VIAL IV ONE (14:27)
[2019-01-22] MEDS ORDERED: IV FLUID CONTINUATION 1,000 ML IV ONE (14:27)
--- NOTE | 2019-01-22 15:00 | P.PCN ---
Date of Procedure: 01/22/19 Description of Procedure: BRIEF HISTORY: 78-year-old female with a history of CAD PCI stent, anemia, PEG tube insertion and removal, anxiety, depression, dementia admitted with acute upper epigastric and lower abdominal pain 3-4 weeks' duration without bleeding or fever. CT abdomen and pelvis reported moderate ascites consult requested for evaluation. Presently reports epigastric pain with difficulty swallowing sometime vomiting. Denies overt GI bleeding. No vaginal bleeding. FOBT was positive. Elective colonoscopy November 2018 1.5 cm anal polyp status post polypectomy with scattered sigmoid diverticulosis. No recent EGD. PROCEDURE PERFORMED: Esophagogastroduodenoscopy. PREOPERATIVE DIAGNOSIS: Abdominal pain, esophageal dysphagia. ESTIMATED BLOOD LOSS: Minimal. IV sedation per anesthesia. PROCEDURE: After informed consent was obtained, the patient was brought into the endoscopy unit. IV sedation was administered by Anesthesia under continuous monitoring. Initially the Olympus GIF-190 video endoscope was inserted into the mouth. Esophagus intubated without any difficulty. It was gradually advanced into the stomach and duodenum and carefully examined. The bulb and the second part of the duodenum appeared normal, with biopsies taken. The scope at this time was withdrawn to the stomach, adequately insufflated with air, and upon careful examination, mucosa of the antrum, body, cardia and the fundus appeared grossly normal, however erythema was noted throughout the stomach suggestive of mild gastritis, with biopsies of the antrum and body taken. Medium size hiatus hernia noted. The scope was then withdrawn into the esophagus. The GE junction was located at 35 cm from the incisors. The esophagus appeared somewhat tortuous but otherwise normal, biopsies of the midesophagus taken. There were no erosions or ulcerations seen and the patient tolerated the procedure well. IMPRESSION: 1. And mild gastritis, antrum and body biopsied. 2. Duodenal biopsies. 3. Mid esophageal biopsies, rule out EOE. 4. Hiatal hernia. RECOMMENDATIONS: The findings of this examination were discussed with the patient. Okay to start diet. Will increase Protonix to twice daily. Continue to monitor symptoms. Continue to monitor hemoglobin and hematocrit and transfuse as needed. No plans for further endoscopic evaluation at this time. Await pathology from biopsies.
--- NOTE | 2019-01-22 15:43 | US ---
EXAMINATION TYPE: US abdomen limited DATE OF EXAM: 01/22/2019 COMPARISON: CT CLINICAL HISTORY: assess ascites for paracentesis. Ascites check. Scanned four quadrants of abdomen. Fluid seen. Largest appearing pocket seen RLQ. IMPRESSION: There is a small amount amount of ascites.
[2019-01-22] MEDS: PANTOPRAZOLE 40 MG TABLET PO SCH (17:24)
--- NOTE | 2019-01-22 20:39 | HP ---
HISTORY AND PHYSICAL DATE OF ADMISSION: 01/22/2019 DATE OF SERVICE: 01/22/2019 PRESENTING COMPLAINT: Abdominal pain. HISTORY OF PRESENTING COMPLAINT: This is 78-year-old patient who follows with Dr. Maria. Chronic stable medical conditions include COPD, coronary artery disease, GERD, osteoarthritis, hiatal hernia, chronic T12 fracture. She normally uses a wheelchair to get about. She has advanced dementia. Currently living with her son. Patient presents with a few weeks of abdominal pain. Because of dementia, she cannot really give a good history. Sometimes she says she has pain; other times she says she does not. Her son points out that she is having fluctuation of pain. The patient's bowel pattern is also unclear, though it seems that she goes every other day. The patient recently had a colonoscopy that was unremarkable except for polyps. It looks like the patient's appetite is okay. There is no obvious fever or chills. Because of dementia, a good history cannot really be established. REVIEW OF SYSTEMS: CONSTITUTIONAL: None. HEENT: Decreased hearing. RESPIRATORY: Occasionally short of breath. CARDIOVASCULAR: None. GASTROINTESTINAL: As above. GENITOURINARY: None. MUSCULOSKELETAL: Pain in the joints. DERMATOLOGICAL: None. HEMATOLOGICAL: None. LYMPHATICS: None. PSYCHIATRY: A bit anxious. NEUROLOGICAL: None. Significantly forgetful. PAST MEDICAL HISTORY: 1. COPD. 2. Coronary artery disease with stent. 3. GERD. 4. Primary osteoarthritis. 5. Hiatal hernia. 6. Chronic urinary stress incontinence. 7. Essential tremors. 8. Chronic T12 fracture. 9. Medical debility with dementia. 10.GI bleed. 11.Osteoarthritis. 12.Peripheral arterial disease. 13.Chronic constipation. 14.Chronic urine incontinence. 15.Wheelchair-bound. PAST SURGICAL HISTORY: 1. Appendectomy. 2. Cardiac cath with stent. 3. Joint replacement. 4. Tonsillectomy. 5. Angioplasty; 2 stents to circumflex in 1999. 6. Right shoulder arthroscopy, rotator cuff repair. 7. Femoral bypass in 1999. 8. Gastric tube placement and removal. SOCIAL HISTORY: Patient has been smoking close to 60 years; smoking a few cigarettes a day now. Patient stopped drinking 25 years ago. Lives with her son. FAMILY HISTORY: Coronary artery disease. HOME MEDICATIONS: 1. Ultram 50 mg b.i.d. p.r.n. 2. Buspirone 10 mg b.i.d. 3. Potassium 10 mEq p.o. daily. 4. Protonix 40 mg p.o. daily. 5. Myrbetriq 50 mg p.o. daily. 6. Namenda 5 mg p.o. daily. 7. Prozac 40 mg b.i.d. 8. Aricept 10 mg at bedtime. 9. Lipitor 40 mg at bedtime. 10.Aspirin 81 mg p.o. daily. 11.Ventolin HFA 1 or 2 puffs q.6 p.r.n. ALLERGIES: 1. IODINE. 2. ADHESIVE. 3. CODEINE. 4. NORCO. 5. DILAUDID. 6. MORPHINE. PHYSICAL EXAMINATION: VITAL SIGNS ON PRESENTATION: Temperature 99, pulse 77, respiration 20, blood pressure 116/89, pulse ox 99% on room air. GENERAL APPEARANCE: Well built; BMI 34.8. Lying in bed, not in distress. EYES: Pupils equal. Conjunctivae normal. HEENT: External appearance of nose and ears normal. Oral cavity normal. NECK: JVD unable to assess. Mass not palpable. RESPIRATORY: Effort increased. LUNGS: Diminished breath sounds. CARDIOVASCULAR: First and second sounds normal. No edema. ABDOMEN: Soft, non-tender. Liver and spleen not palpable. LYMPHATIC: No lymph node palpable in neck or axillae. PSYCHIATRY: Patient can answer some questions. Otherwise rather forgetful during conversation. NEUROLOGICAL: Pupils equal. Cranial nerves grossly intact. Moving all 4 limbs. MUSCULOSKELETAL: Evidence of osteoarthritis. INVESTIGATIONS: White count 13.7, hemoglobin 10.6, platelets 118, potassium 3.6, BUN 11, creatinine 0.87. Lactic acid 3.2. Troponin less than 0.012. Amylase less than 30. Ammonia 38. Abdominal ultrasound shows a very small amount of ascites. CT scan of the abdomen and pelvis shows some ascites; otherwise unremarkable. ASSESSMENT: 1. Acute on chronic abdominal pain. Abdomen is rather soft. Ascites on ultrasound is minimal. This could simply be a spastic bowel. There is no obvious evidence of infection. Patient's appetite appears to be okay. Will have GI follow the same. 2. Gastroesophageal reflux disease. 3. Primary osteoarthritis. 4. Peripheral arterial disease. 5. Chronic hiatal hernia. 6. Chronic urinary stress incontinence. 7. Chronic medical debility. Patient is pretty much wheelchair-bound. 8. Chronic obstructive pulmonary disease in a current smoker. 9. Coronary artery disease with stent. 10.Hiatal hernia. 11.Essential tremors. 12.Chronic T12 fracture. 13.Coronary artery disease with angioplasty and stents. 14.Chronic rotator cuff injury. PLAN: Home medications are resumed. GI was consulted. I spoke to Mariluz; planning to do an EGD today. If the EGD is unremarkable, we will try to add Metamucil to regulate the bowels more. Other home medications are to be reviewed. Care was discussed with the patient's son at the bedside. Given her advanced dementia, we will also discontinue the Namenda and Aricept to take away any anticholinergic side effects. MMODL / IJN: [id number] /
[2019-01-22] MEDS ORDERED: DONEPEZIL 10 MG TAB PO SCH (21:00)
[2019-01-22] MEDS: ENOXAPARIN 40 MG/0.4 ML SYRINGE SQ SCH (21:07)
[2019-01-22] MEDS: ATORVASTATIN 40 MG TAB PO SCH (21:22)
[2019-01-22 21:31] LABS: Cancer Antigen 19-9 50.8 U/mL (0.0-34.9)
[2019-01-22 21:36] LABS: Iron Saturation 4.35 (12.00-45.00)
[2019-01-23] MEDS ORDERED: LACTULOSE 20 GM/30 ML CUP PO ONE (13:49)
--- NOTE | 2019-01-23 13:49 | P.PN ---
Subjective Progress Note Date: 01/23/19 Principal diagnosis: Abdominal pain Status post EGD yesterday for further evaluation of microcytic anemia no evidence of peptic ulcer disease or bleeding sources. Recent outpatient colonoscopy [address] abdomen and pelvis 2 over the last month reports ascites follow-up ultrasound yesterday reported no appreciable ascites for paracentesis small amount was seen. Tumor markers obtained AFP within normal limits. CEA 4.8. CA-19-9 50.8. CEA 125 was 431.4. No complaints presently. No bleeding. Afebrile. Ammonia level yesterday obtained slightly elevated at 38. Objective - Vital Signs Vital signs: Vital Signs Temp 98.4 F 01/22/19 19:00 Pulse 80 01/22/19 19:00 Resp 18 01/22/19 19:00 BP 125/66 01/22/19 19:00 Pulse Ox 91 L 01/22/19 19:00 Intake & Output 01/22/19 01/23/19 01/23/19 18:59 06:59 18:59 Intake Total 50 Output Total 1 Balance 50 -1 Intake: IV 50 Output: Urine/Stool Mix 1 Other: Voiding Method Incontinent Diaper Incontinent # Voids 1 1 1 # Bowel Movements 0 1 - Exam General appearance: The patient is alert, oriented, in no acute distress. HET: Head is normocephalic and atraumatic. Pupils are equal and reactive. Oropharynx is clear without lesions. Neck: Supple without lymphadenopathy. Trachea midline. Heart: S1 S2. Regular rate and rhythm. Lungs: No crackles or wheezes are heard. Abdomen: Soft, nontender, nondistended with bowel sounds. No peritoneal signs. No palpable organomegaly or masses. Extremities: Normal skin color and turgor. No cyanosis, rash, ulceration, clubbing, or edema. Radial and pedal pulses are 2/4 bilaterally. Neurological: No focal deficits. Strength and sensation are grossly intact. - Labs CBC & Chem 7: 01/25/19 06:49 01/24/19 07:41 Labs: Abnormal Lab Results - Last 24 Hours (Table) 01/21/19 Range/Units 13:00 Iron 12 L (50-170) ug/dL Iron Saturation 4.35 L (12.00-45.00) CA 19-9 Antigen 50.8 H (0.0-34.9) U/mL CA 125 Antigen 431.4 H (0.0-30.1) U/mL Assessment and Plan (1) Abdominal pain Narrative/Plan: 78 y/o female history of remote EtOH dementia admitted with a 2-3 month history of vague abdominal pain ranging from the mid epigastric region to the lower abdomen with reports of dysphagia and biochemical evidence of microcytic hypochromic anemia mild thrombocytopenia. Recent positive FOBT December 2018 status post unremarkable screening colonoscopy in November 2018 scattered sigmoid diverticulosis. EGD yesterday reported no evidence of bleeding or bleeding sources. CT abdomen and pelvis 2 over the last 30 days reports ascites now moderate without obvious liver spleen gallbladder biliary duct abnormalities. Mild elevation of AST and alkaline phosphatase with normal bilirubin and ALT. Etiology of ascites is unclear at this time possible hepatobiliary possible cardiac possible [employer] in origin. Current Visit: Yes Status: Acute Code(s): R10.9 - UNSPECIFIED ABDOMINAL PAIN SNOMED Code(s): 01813694 (2) History of dementia Current Visit: Yes Status: Acute Code(s): Z86.59 - PERSONAL HISTORY OF OTHER MENTAL AND BEHAVIORAL DISORDERS SNOMED Code(s): 430347740 (3) Ascites Current Visit: Yes Status: Acute Code(s): R18.8 - OTHER ASCITES SNOMED Code(s): 065908466 (4) Microcytic hypochromic anemia Current Visit: Yes Status: Acute Code(s): D50.9 - IRON DEFICIENCY ANEMIA, UNSPECIFIED SNOMED Code(s): 68173904 (5) Thrombocytopenia Current Visit: Yes Status: Acute Code(s): D69.6 - THROMBOCYTOPENIA, UNSPECIFIED SNOMED Code(s): 288042179 (6) Elevated CA-125 Narrative/Plan: Sometimes in the setting of acute on chronic liver disease elevation of CEA 125 is seen as a nonspecific response produced by the peritoneum secondary to the presence of ascites in the peritoneal cavity it's elevation doesn't necessarily mean underlying malignancy. Current Visit: Yes Status: Acute Code(s): R97.1 - ELEVATED CANCER ANTIGEN 125 [CA 125] SNOMED Code(s): 377263172 (7) Elevated CA 19-9 level Narrative/Plan: Unsure of clinical significance no obvious pancreatic abnormalities per CT imaging. Current Visit: Yes Status: Acute Code(s): R97.8 - OTHER ABNORMAL TUMOR MARKERS SNOMED Code(s): 218241180 Plan: 1. Abdominal pain unclear possible chronic pancreatitis. Tumor markers were reviewed elevated CA-19-[address] imaging reported ascites without mentioning of obvious pancreatic or [employer] pathology. She has a history of remote EtOH. Unsure if we are dealing with underlying alcohol liver disease possible cirrhosis. Unclear as to why her CA-19-9 is elevated no biochemical or radiographic evidence of pancreatitis on admission, sometimes in the setting of acute on chronic liver disease elevation of CEA 125 is seen as a nonspecific response produced by the peritoneum secondary to the presence of ascites in the peritoneal cavity it's elevation doesn't necessarily mean underlying malignancy. Pelvic ultrasound can also be ordered to rule out [employer] pathology. 2. Dr. Kelly we'll speak with family in regards to outpatient EUS if indicated for further evaluation of CA-19-9. CA-19-9 can be repeated 1-2 weeks and if there is improvement outpatient EUS will not be needed. Will provide one dose of lactulose. Repeat ammonia level in a.m. Assessment and plan a care discussed with Dr. Kelly
[2019-01-23] MEDS: PANTOPRAZOLE 40 MG TABLET PO SCH ×2 (15:29→19:47)
[2019-01-23] MEDS: PSYLLIUM HUSK 100% 6 GM PACKET PO SCH (15:30)
[2019-01-23] MEDS: FLUoxetine HCL 20 MG CAP PO SCH ×2 (15:30→20:16)
[2019-01-23] MEDS: ENOXAPARIN 40 MG/0.4 ML SYRINGE SQ SCH (15:30)
[2019-01-23] MEDS: ASPIRIN 81 MG PO SCH (15:30)
[2019-01-23] MEDS: POTASSIUM CHLORIDE ER 10 MEQ TAB.ER.PRT PO SCH (15:30)
[2019-01-23] MEDS: busPIRone HCl 10 MG TAB PO SCH ×2 (15:30→20:16)
[2019-01-23] MEDS: NON-FORMULARY DRUG (Mirabegron [Myrbetriq] 50 MG) PO SCH (15:30)
[2019-01-23] MEDS: ATORVASTATIN 40 MG TAB PO SCH (20:16)
[2019-01-24 08:10] LABS: Albumin 2.3 g/dL (3.5-5.0); Anisocytosis Marked; Basophils % (A) 0 %; Calcium 7.7 mg/dL (8.4-10.2); Eosinophils # (A) 0.2 k/uL (0-0.7); Eosinophils % (A) 2 %; HCT 30.8 % (34.0-46.0); Hypochromasia Marked; Lymphocytes # (A) 0.9 k/uL (1.0-4.8); Lymphocytes % (A) 8 %; MCH 19.9 pg (25.0-35.0); Microcytosis Marked; Monocytes # (A) 0.5 k/uL (0-1.0); Monocytes % (A) 4 %; Neutrophils # (A) 9.1 k/uL (1.3-7.7); Neutrophils % (A) 85 %; Platelet Count 105 k/uL (150-450); Poikilocytosis Slight; RBC 4.34 m/uL (3.80-5.40); Total Bilirubin 1.1 mg/dL (0.2-1.3); Total Protein 5.2 g/dL (6.3-8.2); WBC 10.7 k/uL (3.8-10.6)
[2019-01-24 08:11] LABS: HGB 8.6 gm/dL (11.4-16.0)
[2019-01-24 08:12] LABS: RDW 25.1 % (11.5-15.5)
--- NOTE | 2019-01-24 09:23 | PN ---
PROGRESS NOTE DATE OF SERVICE: 01/23/2019 PRESENTING COMPLAINT: Abdominal pain. INTERVAL HISTORY: Patient has multiple medical problems, dementia. EGD was unremarkable, being worked up by GI. The patient was somewhat agitated last night, had to be given a sedative. this afternoon. Really did not eat much. GI is following. REVIEW OF SYSTEMS: Cannot be done as patient is really tired. CURRENT MEDICATIONS: Current medications are reviewed. PHYSICAL EXAMINATION: On examination, temperature 98.3, pulse 65, respiration 16, blood pressure 138/65, pulse ox 92%. GENERAL APPEARANCE: Sleepy, but arousable. EYES: Pupils equal. Conjunctivae normal. NECK: JVD unable to assess. Mass not palpable. RESPIRATORY: Effort normal. LUNGS: Decreased breath sounds. CARDIOVASCULAR: First and second sounds normal. No edema. ABDOMEN: Soft, nontender. PSYCHIATRY: Patient is currently sleepy. INVESTIGATIONS: Ammonia 38. AFP less than 2.5. ASSESSMENT: 1. Acute on chronic abdominal pain. Ascites is minimal. This could be a spastic bowel. 2. Gastroesophageal reflux disease. 3. Primary osteoarthritis. 4. Peripheral arterial disease. 5. Chronic hiatal hernia. 6. Chronic urinary stress incontinence. 7. Chronic medical debility. Patient is wheelchair bound. 8. Chronic obstructive pulmonary disease in a current smoker. 9. Coronary artery disease with stent. 10.Hiatal hernia. 11.Essential tremors. 12.Chronic T12 fracture. 13.Coronary artery disease with angioplasty and stent. 14.Chronic rotator cuff injury. PLAN: Continue current medication and treatment plan. Repeat labs in the morning. Patient also may have ischemic bowel. She is rather vasculopath. Overall prognosis is guarded. MMODL / IJN: [id number] /
[2019-01-24] MEDS: busPIRone HCl 10 MG TAB PO SCH ×2 (09:26→21:30)
[2019-01-24] MEDS: POTASSIUM CHLORIDE ER 10 MEQ TAB.ER.PRT PO SCH (09:26)
[2019-01-24] MEDS: PANTOPRAZOLE 40 MG TABLET PO SCH ×2 (09:26→17:51)
[2019-01-24] MEDS: ASPIRIN 81 MG PO SCH (09:27)
[2019-01-24] MEDS: FLUoxetine HCL 20 MG CAP PO SCH ×2 (09:27→21:30)
[2019-01-24] MEDS: NON-FORMULARY DRUG (Mirabegron [Myrbetriq] 50 MG) PO SCH (09:27)
[2019-01-24] MEDS: ENOXAPARIN 40 MG/0.4 ML SYRINGE SQ SCH (09:28)
[2019-01-24] MEDS: PSYLLIUM HUSK 100% 6 GM PACKET PO SCH (09:29)
--- NOTE | 2019-01-24 14:29 | P.PN ---
Subjective Progress Note Date: 01/24/19 Principal diagnosis: Abdominal pain Status post EGD for further evaluation of microcytic anemia no evidence of peptic ulcer disease or bleeding sources. Recent outpatient colonoscopy [address] abdomen and pelvis 2 over the last month reports ascites follow-up ultrasound yesterday reported no appreciable ascites for paracentesis small amount was seen. Hemoglobin 8.6 today without GI bleeding. No abdominal complaints. Tumor markers obtained AFP within normal limits. CEA 4.8. CA-19-9 50.8. CEA 125 was 431.4. No complaints presently. No bleeding. Afebrile. Ammonia level normalized. Objective - Vital Signs Vital signs: Vital Signs Temp 98.5 F 01/24/19 13:33 Pulse 66 01/24/19 13:33 Resp 18 01/24/19 01:25 BP 133/72 01/24/19 13:33 Pulse Ox 92 L 01/24/19 13:33 Intake & Output 01/23/19 01/24/19 01/24/19 18:59 06:59 18:59 Intake Total 50 Balance 50 Intake: Oral 50 Other: Voiding Method Diaper Diaper Diaper Incontinent Incontinent Incontinent # Voids 1 1 # Bowel Movements 1 - Exam General appearance: The patient is alert, oriented, in no acute distress. HET: Head is normocephalic and atraumatic. Pupils are equal and reactive. Oropharynx is clear without lesions. Neck: Supple without lymphadenopathy. Trachea midline. Heart: S1 S2. Regular rate and rhythm. Lungs: No crackles or wheezes are heard. Abdomen: Soft, nontender, nondistended with bowel sounds. No peritoneal signs. No palpable organomegaly or masses. Extremities: Normal skin color and turgor. No cyanosis, rash, ulceration, clubbing, or edema. Radial and pedal pulses are 2/4 bilaterally. Neurological: No focal deficits. Strength and sensation are grossly intact. - Labs CBC & Chem 7: 01/24/19 07:41 01/24/19 07:41 Labs: Abnormal Lab Results - Last 24 Hours (Table) 01/24/19 01/24/19 Range/Units 07:41 07:41 WBC 10.7 H (3.8-10.6) k/uL Hgb 8.6 L D (11.4-16.0) gm/dL Hct 30.8 L (34.0-46.0) % MCV 71.0 L (80.0-100.0) fL MCH 19.9 L (25.0-35.0) pg MCHC 28.0 L (31.0-37.0) g/dL RDW 25.1 H (11.5-15.5) % Plt Count 105 L (150-450) k/uL Neutrophils # 9.1 H (1.3-7.7) k/uL Lymphocytes # 0.9 L (1.0-4.8) k/uL Chloride 117 H (98-107) mmol/L BUN 19 H (7-17) mg/dL Creatinine 1.07 H (0.52-1.04) mg/dL Calcium 7.7 L (8.4-10.2) mg/dL AST 44 H (14-36) U/L Alkaline Phosphatase 145 H (38-126) U/L Total Protein 5.2 L (6.3-8.2) g/dL Albumin 2.3 L (3.5-5.0) g/dL Assessment and Plan (1) Abdominal pain Narrative/Plan: 78 y/o female history of remote EtOH dementia admitted with a 2-3 month history of vague abdominal pain ranging from the mid epigastric region to the lower abdomen with reports of dysphagia and biochemical evidence of microcytic hypochromic anemia mild thrombocytopenia. Recent positive FOBT December 2018 status post unremarkable screening colonoscopy in November 2018 scattered sigmoid diverticulosis. EGD yesterday reported no evidence of bleeding or bleeding sources. CT abdomen and pelvis 2 over the last 30 days reports ascites now moderate without obvious liver spleen gallbladder biliary duct abnormalities. Mild elevation of AST and alkaline phosphatase with normal bilirubin and ALT. 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 Current Visit: Yes Status: Acute Code(s): R10.9 - UNSPECIFIED ABDOMINAL PAIN SNOMED Code(s): 53342672 (2) History of dementia Current Visit: Yes Status: Acute Code(s): Z86.59 - PERSONAL HISTORY OF OTHER MENTAL AND BEHAVIORAL DISORDERS SNOMED Code(s): 415547959 (3) Ascites Current Visit: Yes Status: Acute Code(s): R18.8 - OTHER ASCITES SNOMED Code(s): 501333718 (4) Microcytic hypochromic anemia Current Visit: Yes Status: Acute Code(s): D50.9 - IRON DEFICIENCY ANEMIA, UNSPECIFIED SNOMED Code(s): 10887835 (5) Thrombocytopenia Current Visit: Yes Status: Acute Code(s): D69.6 - THROMBOCYTOPENIA, UNSPECIFIED SNOMED Code(s): 348911480 (6) Elevated CA-125 Narrative/Plan: Sometimes in the setting of acute on chronic liver disease elevation of CEA 125 is seen as a nonspecific response produced by the peritoneum secondary to the presence of ascites in the peritoneal cavity it's elevation doesn't necessarily mean underlying malignancy. Current Visit: Yes Status: Acute Code(s): R97.1 - ELEVATED CANCER ANTIGEN 125 [CA 125] SNOMED Code(s): 004789713 (7) Elevated CA 19-9 level Narrative/Plan: Unsure of clinical significance no obvious pancreatic abnormalities per CT imaging. Current Visit: Yes Status: Acute Code(s): R97.8 - OTHER ABNORMAL TUMOR MA RKERS SNOMED Code(s): 083158427 Plan: 1. MRCP for evaluation of elevated CA-19-9. CBC in a.m. Question the validity of hemoglobin of 8.6 possible dilutional. No clinical evidence to suggest active GI bleed at this time status post EGD and recent colonoscopy in the outpatient setting 2 months ago. Assessment and plan a care discussed with Dr. Kelly
[2019-01-24] MEDS: ATORVASTATIN 40 MG TAB PO SCH (21:30)
--- NOTE | 2019-01-25 07:00 | PN ---
PROGRESS NOTE DATE OF SERVICE: 01/24/2019 PRESENTING COMPLAINT: Abdominal pain. INTERVAL HISTORY: The patient has multiple medical problems including dementia, has had chronic abdominal pain with acute flare up, being worked up by GI. The patient really did not eat much this morning. Resting in bed. REVIEW OF SYSTEMS: Done for constitutional, cardiovascular, GI, pulmonary. The patient is vague about her answers. CURRENT MEDICATIONS: Current medications are reviewed. PHYSICAL EXAMINATION: On examination, temperature 97.8, pulse 72, respiration 16, blood pressure 151/76, pulse ox 91% on room air. GENERAL APPEARANCE: Lying in bed, but arousable. EYES: Pupils equal. Conjunctivae normal. NECK: JVD unable to assess. Mass not palpable. RESPIRATORY: Effort normal. LUNGS: Decreased breath sounds. CARDIOVASCULAR: First and second sounds normal. No edema. ABDOMEN: Soft, nontender. Liver and spleen not palpable. Bowel sounds are present. PSYCHIATRY: Patient does answer simple questions. INVESTIGATIONS: White count 10.7, hemoglobin 8.6. Potassium 4.0. BUN 19, creatinine 1.07. ASSESSMENT: 1. Acute on chronic abdominal pain. Minimal ascites. This could be well be spastic bowel. Other causes are being worked up by GI. 2. Acute drop in hemoglobin could be from dilution. No evidence of gastrointestinal bleed. 3. Gastroesophageal reflux disease. 4. Primary osteoarthritis. 5. Peripheral arterial disease. 6. Chronic hiatal hernia. 7. Chronic urinary stress incontinence. 8. Chronic medical debility, patient is wheelchair bound. 9. Chronic obstructive pulmonary disease in a current smoker. 10.Coronary artery disease with stent. 11.Hiatal hernia. 12.Essential tremors. 13.Chronic T12 fracture. 14.Coronary artery disease with angioplasty, stent. 15.Chronic rotator cuff injury. PLAN: Continue current medication and treatment plan. Did talk at length with Mariluz from GI. They will be ordering some more radiological testing including an MRI. It is still possible patient may simply be having a spastic colon or even chronic ischemic bowel as the patient is a rather . The patient will have an MRCP tomorrow. We will keep a close eye on the hemoglobin. The patient recently did have an EGD and colonoscopy. MMODL / IJN: [id number] /
[2019-01-25 08:32] LABS: Anisocytosis Marked; Basophils % (A) 0 %; Eosinophils # (A) 0.4 k/uL (0-0.7); Eosinophils % (A) 3 %; HCT 30.6 % (34.0-46.0); Hypochromasia Marked; Lymphocytes # (A) 1.2 k/uL (1.0-4.8); Lymphocytes % (A) 9 %; MCH 21.3 pg (25.0-35.0); MCHC 29.5 g/dL (31.0-37.0); MCV 72.1 fL (80.0-100.0); Mean Platelet Volume 7.5; Microcytosis Marked; Monocytes # (A) 0.5 k/uL (0-1.0); Monocytes % (A) 4 %; Neutrophils # (A) 10.5 k/uL (1.3-7.7); Neutrophils % (A) 83 %; Poikilocytosis Slight; RBC 4.24 m/uL (3.80-5.40); RDW 24.1 % (11.5-15.5); WBC 12.6 k/uL (3.8-10.6)
[2019-01-25 08:42] VITALS: RESP 18
[2019-01-25 09:13] LABS: Platelet Count 91 k/uL (150-450)
[2019-01-25 09:18] LABS: RBC Fragments Present; Target Cells Present
[2019-01-25] MEDS: POTASSIUM CHLORIDE ER 10 MEQ TAB.ER.PRT PO SCH (10:35)
[2019-01-25] MEDS: FLUoxetine HCL 20 MG CAP PO SCH (10:35)
[2019-01-25] MEDS: busPIRone HCl 10 MG TAB PO SCH (10:35)
[2019-01-25] MEDS: ENOXAPARIN 40 MG/0.4 ML SYRINGE SQ SCH (10:35)
[2019-01-25] MEDS: ASPIRIN 81 MG PO SCH (10:35)
[2019-01-25] MEDS: PANTOPRAZOLE 40 MG TABLET PO SCH (10:35)
[2019-01-25] MEDS: NON-FORMULARY DRUG (Mirabegron [Myrbetriq] 50 MG) PO SCH (10:36)
[2019-01-25] MEDS: PSYLLIUM HUSK 100% 6 GM PACKET PO SCH (10:36)
--- NOTE | 2019-01-25 10:39 | P.PN ---
Subjective Progress Note Date: 01/25/19 Principal diagnosis: Abdominal pain Status post EGD for further evaluation of microcytic anemia no evidence of peptic ulcer disease or bleeding sources. Recent outpatient colonoscopy [address] abdomen and pelvis 2 over the last month reports ascites follow-up ultrasound yesterday reported no appreciable ascites for paracentesis small amount was seen. Tumor markers obtained AFP within normal limits. CEA 4.8. CA-19-9 50.8. CEA 125 was 431.4. No complaints presently. No bleeding. Afebrile. Hemoglobin 9.0. No GI bleeding. No abdominal complaints. MRI ordered yesterday not completed secondary to questionnaire not being competed. Objective - Vital Signs Vital signs: Vital Signs Temp 98.8 F 01/25/19 07:44 Pulse 71 01/25/19 07:44 Resp 18 01/25/19 07:44 BP 150/74 01/25/19 07:44 Pulse Ox 94 L 01/25/19 07:44 Intake & Output 01/24/19 01/25/19 01/25/19 18:59 06:59 18:59 Intake Total 50 430 Balance 50 430 Intake: Oral 50 430 Other: Voiding Method Diaper Incontinent # Voids 1 1 - Exam General appearance: The patient is alert, oriented, in no acute distress. HET: Head is normocephalic and atraumatic. Pupils are equal and reactive. Oropharynx is clear without lesions. Neck: Supple without lymphadenopathy. Trachea midline. Heart: S1 S2. Regular rate and rhythm. Lungs: No crackles or wheezes are heard. Abdomen: Soft, nontender, nondistended with bowel sounds. No peritoneal signs. No palpable organomegaly or masses. Extremities: Normal skin color and turgor. No cyanosis, rash, ulceration, clubbing, or edema. Radial and pedal pulses are 2/4 bilaterally. Neurological: No focal deficits. Strength and sensation are grossly intact. - Labs CBC & Chem 7: 01/25/19 06:49 01/24/19 07:41 Labs: Abnormal Lab Results - Last 24 Hours (Table) 01/25/19 Range/Units 06:49 WBC 12.6 H (3.8-10.6) k/uL Hgb 9.0 L (11.4-16.0) gm/dL Hct 30.6 L (34.0-46.0) % MCV 72.1 L (80.0-100.0) fL MCH 21.3 L (25.0-35.0) pg MCHC 29.5 L (31.0-37.0) g/dL RDW 24.1 H (11.5-15.5) % Plt Count 91 L (150-450) k/uL Neutrophils # 10.5 H (1.3-7.7) k/uL Assessment and Plan (1) Abdominal pain Narrative/Plan: 78 y/o female history of remote EtOH dementia admitted with a 2-3 month history of vague abdominal pain ranging from the mid epigastric region to the lower abdomen with reports of dysphagia and biochemical evidence of microcytic hypochromic anemia mild thrombocytopenia. Recent positive FOBT December 2018 status post unremarkable screening colonoscopy in November 2018 scattered sigmoid diverticulosis. EGD yesterday reported no evidence of bleeding or bleeding sources. CT abdomen and pelvis 2 over the last 30 days reports ascites now moderate without obvious liver spleen gallbladder biliary duct abnormalities. Mild elevation of AST and alkaline phosphatase with normal bilirubin and ALT. 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 Current Visit: Yes Status: Acute Code(s): R10.9 - UNSPECIFIED ABDOMINAL PAIN SNOMED Code(s): 95164195 (2) History of dementia Current Visit: Yes Status: Acute Code(s): Z86.59 - PERSONAL HISTORY OF OTHER MENTAL AND BEHAVIORAL DISORDERS SNOMED Code(s): 202285854 (3) Ascites Current Visit: Yes Status: Acute Code(s): R18.8 - OTHER ASCITES SNOMED Code(s): 694267957 (4) Microcytic hypochromic anemia Current Visit: Yes Status: Acute Code(s): D50.9 - IRON DEFICIENCY ANEMIA, UNSPECIFIED SNOMED Code(s): 89695083 (5) Thrombocytopenia Current Visit: Yes Status: Acute Code(s): D69.6 - THROMBOCYTOPENIA, UNSPECIFIED SNOMED Code(s): 220254439 (6) Elevated CA-125 Narrative/Plan: Sometimes in the setting of acute on chronic liver disease elevation of CEA 125 is seen as a nonspecific response produced by the peritoneum secondary to the presence of ascites in the peritoneal cavity it's elevation doesn't necessarily mean underlying malignancy. Current Visit: Yes Status: Acute Code(s): R97.1 - ELEVATED CANCER ANTIGEN 125 [CA 125] SNOMED Code(s): 365138157 (7) Elevated CA 19-9 level Narrative/Plan: Unsure of clinical significance no obvious pancreatic abnormalities per CT imaging. Current Visit: Yes Status: Acute Code(s): R97.8 - OTHER ABNORMAL TUMOR MARKERS SNOMED Code(s): 657919595 Plan: 1. Etiology of abdominal pain is unclear possible chronic pancreatitis. Tumor markers were reviewed elevated CA-19-[address] imaging reported ascites without mentioning of obvious pancreatic or ROLLER BEARING INSPECTOR pathology. She has a history of remote EtOH. Unsure if we are dealing with underlying alcohol liver disease possible cirrhosis. Unclear as to why her CA-19-9 is elevated no biochemical or radiographic evidence of pancreatitis on admission, sometimes in the setting of acute on chronic liver disease elevation of CEA 125 is seen as a nonspecific response produced by the peritoneum secondary to the presence of ascites in the peritoneal cavity it's elevation doesn't necessarily mean underlying malignancy. Pelvic ultrasound can also be ordered to rule out ROLLER BEARING INSPECTOR pathology. 2. Dr. Kelly recommends outpatient open MRI pancreas/MRCP with repeat CBC CMP CA 19-9 in 1 week. RTO w/ Dr. Cameron in 2 weeks for reevaluation. EUS if CA 19-9 remains elevated or worsens. Patient may benefit from open MRI considering her dementia and sundowner type symptoms. Closed MRI may cause her anxiety. Assessment and plan a care discussed with Dr. Kelly
[2019-01-25 13:01] VITALS: BP 156/76; PULSE 61; TEMP 98.3
--- NOTE | 2019-01-25 14:21 | DS ---
DISCHARGE SUMMARY DATE OF ADMISSION: 01/22/2019 DATE OF DISCHARGE: 01/25/2019 FINAL DIAGNOSES: 1. Acute on chronic abdominal pain, could be spastic bowel, other causes being worked up by GI. 2. Gastroesophageal reflux disease. 3. Primary osteoarthritis. 4. Peripheral artery disease. 5. Chronic hiatal hernia. 6. Chronic urinary stress incontinence. 7. Chronic medical debility, patient is wheelchair bound. 8. Chronic obstructive pulmonary disease in a current smoker. 9. Coronary artery disease with stent. 10.Hiatal hernia. 11.Essential tremor. 12.Chronic T12 fracture. 13.Chronic rotator cuff injury. 14.Microcytic anemia, cause unknown. HOSPITAL COURSE: This patient presented with acute on chronic abdominal pain with just fluctuate. Patient did undergo EGD by Dr. Kelly. Mild gastritis was found. CT scan of the abdomen and pelvis was nonspecific. Further workup will be done as an outpatient. Patient's oral intake is variable. PHYSICAL EXAMINATION: Temperature 98.3, pulse 51, respiratory 18, blood pressure 156/76. ABDOMEN: Soft, nontender. White count 12.6, hemoglobin 9, platelets 91. CONSULTATION: Dr. Kelly from GI. DISCHARGE MEDICATIONS: 1. Prozac 40 mg b.i.d. 2. Protonix 40 mg daily. 3. BuSpar 10 mg b.i.d. 4. Aspirin 81 mg p.o. daily. 5. Lipitor 40 mg q.h.s. 6. Ventolin 1-2 puffs q.6 p.r.n. 7. Myrbetriq 50 mg p.o. daily. 8. Bentyl 10 mg p.o. q.i.d. 9. Metamucil 6 g p.o. daily. 10.Ultram 50 mg p.o. b.i.d. p.r.n. Follow up with Dr. Julia Cameron on 02/06/2019. Follow up with Dr. Maria' [facility] LABS: CBC, CMP in 3 days. DISPOSITION[facility] CODE STATUS: FULL CODE MMODL / IJN: [id number] /
== END 2019-01-25 18:00 ==
LOC: EC 21:28 → 4SSUR 01-22 02:05
PROVIDERS: ADMIT Hospitalist; ATTEND Hospitalist
DX: R10.13 Epigastric pain (principal); R10.30 Lower abdominal pain, unspecified; G89.29 Other chronic pain; R18.8 Other ascites; I25.10 Atherosclerotic heart disease of native coronary artery without angina pectoris; Z95.5 Presence of coronary angioplasty implant and graft; D50.9 Iron deficiency anemia, unspecified; D69.6 Thrombocytopenia, unspecified; K44.9 Diaphragmatic hernia without obstruction or gangrene; K57.30 Diverticulosis of large intestine without perforation or abscess without bleeding; K29.50 Unspecified chronic gastritis without bleeding; K29.80 Duodenitis without bleeding; R13.19 Other dysphagia; F32.9 Major depressive disorder, single episode, unspecified; E78.5 Hyperlipidemia, unspecified; F17.210 Nicotine dependence, cigarettes, uncomplicated; F03.90 Unspecified dementia, unspecified severity, without behavioral disturbance, psychotic disturbance, mood disturbance, and anxiety; G25.0 Essential tremor; R97.0 Elevated carcinoembryonic antigen [CEA]; M48.54XA Collapsed vertebra, not elsewhere classified, thoracic region, initial encounter for fracture; M81.0 Age-related osteoporosis without current pathological fracture; I10 Essential (primary) hypertension; I73.9 Peripheral vascular disease, unspecified; J44.9 Chronic obstructive pulmonary disease, unspecified; K21.9 Gastro-esophageal reflux disease without esophagitis; M06.9 Rheumatoid arthritis, unspecified; R26.9 Unspecified abnormalities of gait and mobility; K59.09 Other constipation; M19.91 Primary osteoarthritis, unspecified site; N39.3 Stress incontinence (female) (male); Z99.3 Dependence on wheelchair; I25.2 Old myocardial infarction; Z87.440 Personal history of urinary (tract) infections; Z79.899 Other long term (current) drug therapy; Z79.82 Long term (current) use of aspirin; Z87.19 Personal history of other diseases of the digestive system; Z86.14 Personal history of Methicillin resistant Staphylococcus aureus infection; Z83.3 Family history of diabetes mellitus; Z82.49 Family history of ischemic heart disease and other diseases of the circulatory system
CPT/HCPCS: 96372 ×3; 96361 ×2; 96374; 96375; 99285; 36415 ×2; 93005; 97530; 97162; 97535 ×2; 97166; 88305; 80053 ×2; 86304; 82378; 82728; 82140 ×2; 82150; 83540; 83550; 83605 ×2; 83690; 84484; 85025 ×3; 81001; 82105; 86301; 76705; 74177; 43239; G0378 ×4; J1200; J1630; J2930; J2405; J2001; J1650 ×2; J2270; J2704; Q9967

== ENCOUNTER 2019-02-15 12:55 | Inpatient (IN) | payer MEDICARE, OTHER ==
[2019-02-15] MEDS ORDERED: SODIUM CHLORIDE 0.9% 1,000 ML IV ONE ×2 (13:07)
--- NOTE | 2019-02-15 13:12 | ED ---
Altered Mental Status HPI - General Stated Complaint: Altered Mental Status Time Seen by Provider: 02/15/19 12:55 Source: EMS, RN notes reviewed, old records reviewed Mode of arrival: EMS - History of Present Illness Initial Comments: This is a 78-year-old female who is brought in by EMS from a local fdc because of altered level of consciousness decreased oral intake hypoxemia. Other information currently is not available she did improve with respect her pulse oximetry after oxygen was applied. 80% and room air to 98 on oxygen. She is also given a 500 mL fluid bolus and route to. No reports of fevers chills nausea vomiting sweats diarrhea or other symptoms. MD Complaint: altered mental status, decreased responsiveness - Related Data Home Medications Medication Instructions Recorded Confirmed FLUoxetine HCL 40 mg PO BID 04/22/15 02/15/19 busPIRone HCL 10 mg PO BID 09/26/16 02/15/19 Atorvastatin [Lipitor] 40 mg PO HS 08/23/18 02/15/19 Albuterol Inhaler [Ventolin Hfa 1 - 2 puff INHALATION RT-Q6H PRN 11/29/1802/02 Inhaler] Mirabegron [Myrbetriq] 50 mg PO DAILY 11/29/18 02/15/19 Divalproex Sodium [Depakote 125 mg PO HS 02/15/19 02/15/19 Sprinkle] LORazepam [Ativan] 0.5 mg PO TID PRN 02/15/19 02/15/19 Magnesium Hydroxide [Milk of 2,400 mg PO DAILY PRN 02/15/19 02/15/19 Magnesia] Omeprazole 20 mg PO HS 02/15/19 02/15/19 Previous Rx's Medication Instructions Recorded Aspirin 81 mg PO DAILY chew 10/22/16 Dicyclomine [Bentyl] 10 mg PO QID #1 capsule 01/25/19 Psyllium Husk 100% [Metamucil 6 gm PO DAILY packet 01/25/19 Packet] traMADol HCL [Ultram] 50 mg PO BID PRN #6 tablet 01/25/19 Allergies Allergy/AdvReac Type Severity Reaction Status Date / Time iodine Allergy Rapid Verified 02/15/19 13:08 Heart Rate adhesive AdvReac Itching,"paper Verified 02/15/19 13:08 tape is ok" codeine AdvReac Confusion Verified 02/15/19 13:08 hydrocodone bitartrate AdvReac Confusion Verified 02/15/19 13:08 [From [place]] hydromorphone HCl AdvReac Confusion Verified 02/15/19 13:08 [From Dilaudid] morphine AdvReac Confusion Verified 02/15/19 13:08 Review of Systems ROS Statement: Those systems with pertinent positive or pertinent negative responses have been documented in the HPI. ROS Other: All systems not noted in ROS Statement are negative. Limitations: ROS unobtainable due to patients medical condition Past Medical History Past Medical History: Coronary Artery Disease (CAD), Chest Pain / Angina, GERD/Reflux, GI Bleed, Hyperlipidemia, Hypertension, Memory Impairment, Myocardial Infarction ([place]), Osteoarthritis (OA), Pneumonia, Rheumatoid Arthritis (RA), Syncope Additional Past Medical History / Comment(s): pain with stools,hemorrhoids,dementia, osteoporosis,previous fall with blunt trauma to the head,hiatal hernia, chronic constipation,incont of urine-wears brief, previous history of uti, essential tremors, compression fracture of the T12 spine, cellulitis of the lower extremities, difficulty with mobility and gait and the patient has been wheelchair bound but she is able to stand up and pivot herself w/ asst Last Myocardial Infarction Date:: 1999 History of Any Multi-Drug Resistant Organisms: MRSA Date of last positivie culture/infection: 2011 per patient in nursing history MDRO Source:: Right Knee Past Surgical History: Appendectomy, Heart Catheterization With Stent, Joint Replacement, Orthopedic Surgery, Tonsillectomy Additional Past Surgical History / Comment(s): PTCA with 2 stents to CX in 1999, R shoulder arthroscopic rotator cuff repair, reverse L total shoulder, femoral bypass 1999, gastric tube placement and since removal, R total knee-no bend-Fly placed rt leg Past Anesthesia/Blood Transfusion Reactions: Postoperative Nausea & Vomiting (PONV) Additional Past Anesthesia/Blood Transfusion Reaction / Comment(s): no hx blood transfusion Date of Last Stent Placement:: 1999 Past Psychological History: Anxiety, Depression Additional Psychological History / Comment(s): Ongoing tobacco smoker. Pt started smoking about age 15-16 yrs old. She smokes about 5 CIG PER DAY. She is . Living with her son in an apartment in the [facility]. She uses a wheelchair. She is able to stand and pivot to get into wheelchair. She feeds herself. Her son drives her to [employer]-pt does not drive. Smoking Status: Former smoker Past Alcohol Use History: None Reported Additional Past Alcohol Use History / Comment(s): states she quit 3 months ago Past Drug Use History: None Reported - Past Family History Father Family Medical History: Coronary Artery Disease (CAD), Myocardial Infarction ([place]) Mother Family Medical History: Diabetes Mellitus, Hypertension General Exam - General Exam Comments Initial Comments: This is a well-developed sec appearing female who is demonstrating obtundation Limitations: altered mental status, physical limitation General appearance: obtunded Head exam: Present: atraumatic, normocephalic, normal inspection Eye exam: Present: normal appearance, PERRL, EOMI. Absent: scleral icterus, conjunctival injection, periorbital swelling ENT exam: Present: mucous membranes dry, other (Evidence of pill fragments in the oral cavity.) Neck exam: Present: normal inspection, full ROM, other (No stridor JVD or bruits). Absent: tenderness, meningismus, lymphadenopathy Respiratory exam: Present: decreased breath sounds Cardiovascular Exam: Present: normal rhythm, tachycardia GI/Abdominal exam: Present: soft, normal bowel sounds. Absent: distended, tenderness, guarding, rebound, rigid Extremities exam: Present: normal inspection, full ROM, normal capillary refill. Absent: tenderness, pedal edema, joint swelling, calf tenderness Back exam: Present: normal inspection Neurological exam: Present: altered, CN II-XII intact Psychiatric exam: Present: other (Unable to fully evaluate) Skin exam: Present: warm, dry, intact, normal color. Absent: rash Course Vital Signs 02/15/19 02/15/19 02/15/19 13:08 13:31 14:35 Temperature 98.5 F Pulse Rate 84 71 78 Respiratory 22 22 18 Rate Blood Pressure 125/71 113/45 123/79 O2 Sat by Pulse 80 L 90 L 90 L Oximetry 02/15/19 15:06 Temperature Pulse Rate 71 Respiratory 18 Rate Blood Pressure 122/65 O2 Sat by Pulse 93 L Oximetry - Reevaluation(s) Reevaluation #1: 02/15/19 15:15 Reevaluation patient feels some improvement in her mentation and her vital signs after IV fluids and oxygen. She did have vigorous suction to remove all the particulate matter from the oropharynx. Concern is for aspiration. Medical Decision Making - Medical Decision Making I did discuss the case with Dr. jaeger the patient will be admitted for IV antibiotics IV hydration. No family members are doesn't at this time - Lab Data Result diagrams: 02/15/19 13:25 02/15/19 13:25 Lab Results 02/15/19 02/15/19 02/15/19 Range/Units 13:25 13:25 13:25 WBC 15.6 H (3.8-10.6) k/uL RBC 4.93 (3.80-5.40) m/uL Hgb 10.3 L (11.4-16.0) gm/dL Hct 35.8 (34.0-46.0) % MCV 72.5 L (80.0-100.0) fL MCH 20.8 L (25.0-35.0) pg MCHC 28.7 L (31.0-37.0) g/dL RDW 25.4 H (11.5-15.5) % Plt Count 77 L (150-450) k/uL Neutrophils % 91 % Lymphocytes % 5 % Monocytes % 3 % Eosinophils % 1 % Basophils % 0 % Neutrophils # 14.2 H (1.3-7.7) k/uL Lymphocytes # 0.8 L (1.0-4.8) k/uL Monocytes # 0.4 (0-1.0) k/uL Eosinophils # 0.1 (0-0.7) k/uL Basophils # 0.0 (0-0.2) k/uL Manual Slide Review Performed Toxic Granulation Present Polychromasia Present Hypochromasia Marked Poikilocytosis Slight Poikilocytosis (manual Present Anisocytosis Marked Microcytosis Marked Target Cells Present PT (9.0-12.0) sec INR (<1.2) APTT (22.0-30.0) sec Sodium 157 H (137-145) mmol/L Potassium 3.5 (3.5-5.1) mmol/L Chloride 129 H (98-107) mmol/L Carbon Dioxide 18 L (22-30) mmol/L Anion Gap 10 mmol/L BUN 52 H (7-17) mg/dL Creatinine 2.00 H (0.52-1.04) mg/dL Est GFR (CKD-EPI)AfAm 27 (>60 ml/min/1.73 sqM) Est GFR (CKD-EPI)NonAf 23 (>60 ml/min/1.73 sqM) Glucose 65 L (74-99) mg/dL POC Glucose (mg/dL) (75-99) mg/dL POC Glu Dry Molder ID Plasma Lactic Acid Justin 3.2 H* (0.7-2.0) mmol/L Calcium 7.3 L (8.4-10.2) mg/dL Magnesium 2.1 (1.6-2.3) mg/dL Total Bilirubin 2.9 H (0.2-1.3) mg/dL AST 81 H (14-36) U/L ALT 29 (9-52) U/L Alkaline Phosphatase 202 H (38-126) U/L Ammonia 20 (<30) umol/L Creatine Kinase 107 (30-135) U/L Troponin I (0.000-0.034) ng/mL Total Protein 6.2 L (6.3-8.2) g/dL Albumin 2.4 L (3.5-5.0) g/dL Urine Color Urine Appearance (Clear) Urine pH (5.0-8.0) Ur Specific [place] (1.001-1.035) Urine Protein (Negative) Urine Glucose (UA) (Negative) Urine Ketones (Negative) Urine Blood (Negative) Urine Nitrite (Negative) Urine Bilirubin (Negative) Urine Urobilinogen (<2.0) mg/dL Ur Leukocyte Esterase (Negative) Urine Opiates Screen (NotDetected) Ur Oxycodone Screen (NotDetected) Urine Methadone Screen (NotDetected) Ur Propoxyphene Screen (NotDetected) Ur Barbiturates Screen (NotDetected) Valproic Acid 14.9 ug/mL U Tricyclic Antidepress (NotDetected) Ur Phencyclidine Scrn (NotDetected) Ur Amphetamines Screen (NotDetected) U Methamphetamines Scrn (NotDetected) U Benzodiazepines Scrn (NotDetected) Urine Cocaine Screen (NotDetected) U Marijuana (THC) Screen (NotDetected) 02/15/19 02/15/19 02/15/19 Range/Units 13:25 13:25 13:25 WBC (3.8-10.6) k/uL RBC (3.80-5.40) m/uL Hgb (11.4-16.0) gm/dL Hct (34.0-46.0) % MCV (80.0-100.0) fL MCH (25.0-35.0) pg MCHC (31.0-37.0) g/dL RDW (11.5-15.5) % Plt Count (150-450) k/uL Neutrophils % % Lymphocytes % % Monocytes % % Eosinophils % % Basophils % % Neutrophils # (1.3-7.7) k/uL Lymphocytes # (1.0-4.8) k/uL Monocytes # (0-1.0) k/uL Eosinophils # (0-0.7) k/uL Basophils # (0-0.2) k/uL Manual Slide Review Toxic Granulation Polychromasia Hypochromasia Poikilocytosis Poikilocytosis (manual Anisocytosis Microcytosis Target Cells PT 23.6 H (9.0-12.0) sec INR 2.4 H (<1.2) APTT 28.4 (22.0-30.0) sec Sodium (137-145) mmol/L Potassium (3.5-5.1) mmol/L Chloride (98-107) mmol/L Carbon Dioxide (22-30) mmol/L Anion Gap mmol/L BUN (7-17) mg/dL Creatinine (0.52-1.04) mg/dL Est GFR (CKD-EPI)AfAm (>60 ml/min/1.73 sqM) Est GFR (CKD-EPI)NonAf (>60 ml/min/1.73 sqM) Glucose (74-99) mg/dL POC Glucose (mg/dL) (75-99) mg/dL POC Glu Dry Molder ID Plasma Lactic Acid Justin (0.7-2.0) mmol/L Calcium (8.4-10.2) mg/dL Magnesium (1.6-2.3) mg/dL Total Bilirubin (0.2-1.3) mg/dL AST (14-36) U/L ALT (9-52) U/L Alkaline Phosphatase (38-126) U/L Ammonia (<30) umol/L Creatine Kinase (30-135) U/L Troponin I 0.076 H* (0.000-0.034) ng/mL Total Protein (6.3-8.2) g/dL Albumin (3.5-5.0) g/dL Urine Color Yellow Urine Appearance Clear (Clear) Urine pH 5.5 (5.0-8.0) Ur Specific [place] 1.013 (1.001-1.035) Urine Protein Negative (Negative) Urine Glucose (UA) Negative (Negative) Urine Ketones Negative (Negative) Urine Blood Negative (Negative) Urine Nitrite Negative (Negative) Urine Bilirubin Negative (Negative) Urine Urobilinogen 3.0 (<2.0) mg/dL Ur Leukocyte Esterase Negative (Negative) Urine Opiates Screen Not Detected (NotDetected) Ur Oxycodone Screen Not Detected (NotDetected) Urine Methadone Screen Not Detected (NotDetected) Ur Propoxyphene Screen Not Detected (NotDetected) Ur Barbiturates Screen Not Detected (NotDetected) Valproic Acid ug/mL U Tricyclic Antidepress Not Detected (NotDetected) Ur Phencyclidine Scrn Not Detected (NotDetected) Ur Amphetamines Screen Not Detected (NotDetected) U Methamphetamines Scrn Not Detected (NotDetected) U Benzodiazepines Scrn Detected H (NotDetected) Urine Cocaine Screen Not Detected (NotDetected) U Marijuana (THC) Screen Not Detected (NotDetected) 02/15/19 Range/Units 14:38 WBC (3.8-10.6) k/uL RBC (3.80-5.40) m/uL Hgb (11.4-16.0) gm/dL Hct (34.0-46.0) % MCV (80.0-100.0) fL MCH (25.0-35.0) pg MCHC (31.0-37.0) g/dL RDW (11.5-15.5) % Plt Count (150-450) k/uL Neutrophils % % Lymphocytes % % Monocytes % % Eosinophils % % Basophils % % Neutrophils # (1.3-7.7) k/uL Lymphocytes # (1.0-4.8) k/uL Monocytes # (0-1.0) k/uL Eosinophils # (0-0.7) k/uL Basophils # (0-0.2) k/uL Manual Slide Review Toxic Granulation Polychromasia Hypochromasia Poikilocytosis Poikilocytosis (manual Anisocytosis Microcytosis Target Cells PT (9.0-12.0) sec INR (<1.2) APTT (22.0-30.0) sec Sodium (137-145) mmol/L Potassium (3.5-5.1) mmol/L Chloride (98-107) mmol/L Carbon Dioxide (22-30) mmol/L Anion Gap mmol/L BUN (7-17) mg/dL Creatinine (0.52-1.04) mg/dL Est GFR (CKD-EPI)AfAm (>60 ml/min/1.73 sqM) Est GFR (CKD-EPI)NonAf (>60 ml/min/1.73 sqM) Glucose (74-99) mg/dL POC Glucose (mg/dL) 170 H (75-99) mg/dL POC Glu Dry Molder ID [place], [place] Plasma Lactic Acid Justin (0.7-2.0) mmol/L Calcium (8.4-10.2) mg/dL Magnesium (1.6-2.3) mg/dL Total Bilirubin (0.2-1.3) mg/dL AST (14-36) U/L ALT (9-52) U/L Alkaline Phosphatase (38-126) U/L Ammonia (<30) umol/L Creatine Kinase (30-135) U/L Troponin I (0.000-0.034) ng/mL Total Protein (6.3-8.2) g/dL Albumin (3.5-5.0) g/dL Urine Color Urine Appearance (Clear) Urine pH (5.0-8.0) Ur Specific [place] (1.001-1.035) Urine Protein (Negative) Urine Glucose (UA) (Negative) Urine Ketones (Negative) Urine Blood (Negative) Urine Nitrite (Negative) Urine Bilirubin (Negative) Urine Urobilinogen (<2.0) mg/dL Ur Leukocyte Esterase (Negative) Urine Opiates Screen (NotDetected) Ur Oxycodone Screen (NotDetected) Urine Methadone Screen (NotDetected) Ur Propoxyphene Screen (NotDetected) Ur Barbiturates Screen (NotDetected) Valproic Acid ug/mL U Tricyclic Antidepress (NotDetected) Ur Phencyclidine Scrn (NotDetected) Ur Amphetamines Screen (NotDetected) U Methamphetamines Scrn (NotDetected) U Benzodiazepines Scrn (NotDetected) Urine Cocaine Screen (NotDetected) U Marijuana (THC) Screen (NotDetected) - EKG Data -: EKG Interpreted by Me ( some evidence of increased interstitial markings indeterminate rhythm evid) - Radiology Data Radiology results: report reviewed (I did review the imaging and report), image reviewed Critical Care Time Critical Care Time: Yes Critical Care Time: 31 minutes of critical care time which includes initial presentation with history physical labs x-rays multiple reevaluation the patient review of old charting discussed with the main physician admission orders and documentation of the above Disposition Clinical Impression: Acute respiratory distress syndrome, Hypoxemia, Dehydration, Delirium due to general medical condition, Hypernatremia, Acute kidney injury Disposition: ADMITTED IP TO THIS [facility] Condition: Fair Referrals: Eloy Mcnamara DO [Primary Care Provider] - 1-2 days
[2019-02-15 13:50] LABS: Anisocytosis Marked; Basophils % (A) 0 %; Eosinophils # (A) 0.1 k/uL (0-0.7); Eosinophils % (A) 1 %; HCT 35.8 % (34.0-46.0); HGB 10.3 gm/dL (11.4-16.0); Hypochromasia Marked; Lymphocytes # (A) 0.8 k/uL (1.0-4.8); Lymphocytes % (A) 5 %; MCH 20.8 pg (25.0-35.0); MCHC 28.7 g/dL (31.0-37.0); MCV 72.5 fL (80.0-100.0); Mean Platelet Volume 8.1; Microcytosis Marked; Monocytes # (A) 0.4 k/uL (0-1.0); Monocytes % (A) 3 %; Neutrophils # (A) 14.2 k/uL (1.3-7.7); Neutrophils % (A) 91 %; Poikilocytosis Slight; RBC 4.93 m/uL (3.80-5.40); WBC 15.6 k/uL (3.8-10.6)
[2019-02-15 13:55] LABS: Appearance,Urine Clear (Clear); Bilirubin,Urine Negative (Negative); Blood,Urine Negative (Negative); Color,Urine Yellow; Glucose,Urine (UA) Negative (Negative); Ketones,Urine Negative (Negative); Leukocyte Esterase,Urine Negative (Negative); Nitrite,Urine Negative (Negative); PH, Urine 5.5 (5.0-8.0); Protein,Urine Negative (Negative); Specific Gravity,Urine 1.013 (1.001-1.035)
[2019-02-15 14:02] LABS: INR 2.4 (<1.2); Partial Thromboplastin Time 28.4 sec (22.0-30.0); Prothrombin Time 23.6 sec (9.0-12.0)
[2019-02-15 14:05] LABS: Albumin 2.4 g/dL (3.5-5.0); Calcium 7.3 mg/dL (8.4-10.2); Magnesium 2.1 mg/dL (1.6-2.3); Potassium 3.5 mmol/L (3.5-5.1); Total Bilirubin 2.9 mg/dL (0.2-1.3); Total Protein 6.2 g/dL (6.3-8.2)
[2019-02-15 14:06] LABS: Amphetamine Screen,Urine Not Detected (NotDetected); Barbiturate Screen,Urine Not Detected (NotDetected); Benzodiazepines Screen,Urine Detected (NotDetected); Cocaine Screen,Urine Not Detected (NotDetected); Methadone Screen, Urine Not Detected (NotDetected); Opiate Screen,Urine Not Detected (NotDetected); Oxycodone Screen, Urine Not Detected (NotDetected); Phencyclidine Screen,Urine Not Detected (NotDetected); Tricyclic Antidepressant,Urine Not Detected (NotDetected); Urn Cannabinoid Scrn Not Detected (NotDetected)
[2019-02-15 14:10] LABS: Valproic Acid (Depakene) 14.9 ug/mL
[2019-02-15 14:12] LABS: RDW 25.4 % (11.5-15.5)
[2019-02-15 14:16] LABS: Lactic Acid, Venous 3.2 mmol/L (0.7-2.0)
--- NOTE | 2019-02-15 14:26 | XR ---
EXAMINATION TYPE: XR chest 2V DATE OF EXAM: 02/15/2019 COMPARISON: 08/23/2018 HISTORY: Altered mental status TECHNIQUE: Frontal and lateral views of the chest are obtained. FINDINGS: Mild pulmonary edema is seen is increased interstitial lung markings. No sizable pleural e ffusion or pneumothorax. Cardia mediastinal silhouette is prominent and stable from the prior. Dextro scoliosis of the thoracic spine is present with chronic sequela of rotator cuff injury on the right a nd rotator cuff repair. Reverse left humeral arthroplasty is present. IMPRESSION: Mild interstitial edema throughout may be on the basis of cardiogenic or noncardiogenic fluid overload.
--- NOTE | 2019-02-15 14:40 | CT ---
EXAMINATION TYPE: CT brain wo con DATE OF EXAM: 02/15/2019 COMPARISON: 08/23/2018 HISTORY: 78 year-old female altered mental status, history of dementia, confusion TECHNIQUE: Examination was done in axial plane without intravenous contrast. Coronal and sagittal r econstructions performed. CT DLP: 1131.4 mGycm Automated exposure control for dose reduction was used. FINDINGS: There is no evidence of acute intracranial hemorrhage, acute ischemic changes, mass, mass-effect, or extra-axial fluid collection. There is no effacement of cerebral sulci or basal subarachnoid cister ns. Mild hydrocephalus is unchanged with Prakash's ratio measured at 0.35. There is no midline shift. Pickett-white matter distinction is preserved. Stable focal area of encephalomalacia lateral anterior aspect of the left frontal lobe. There is mode rate generalized supratentorial volume loss redemonstrated. Some motion artifact towards the base of the brain. Paranasal sinuses and mastoid air cells are pneumatized. Orbits and globes appear intact. IMPRESSION: 1. Stable moderate atrophy. Mild ventriculomegaly could be on an ex vacuo basis. Correlate to exclude a component of NPH. 2. Stable encephalomalacia in the left frontal lobe related to prior vascular or traumatic insult. 3. Otherwise, no acute intracranial abnormality seen.
[2019-02-15 14:41] LABS: Glucose,Whole Blood 170 mg/dL (75-99)
[2019-02-15 14:52] LABS: Poikilocytosis (M) Present; Polychromasia Present
[2019-02-15 14:53] LABS: Target Cells Present; Toxic Granulation Present
[2019-02-15 14:54] LABS: Platelet Count 77 k/uL (150-450)
[2019-02-15] MEDS ORDERED: PIPERACILLIN-TAZOBACTAM 3.375 GM in SODIUM CHLORIDE 0.9% 100 ML IVPB STA (15:14)
[2019-02-15] MEDS ORDERED: ONDANSETRON 4 MG/2 ML VIAL IVP PRN (15:20)
[2019-02-15] MEDS ORDERED: NALOXONE 0.4 MG/ML 1 ML VIAL IV PRN (15:20)
[2019-02-15] MEDS ORDERED: ACETAMINOPHEN TAB 325 MG TAB PO PRN (15:20)
[2019-02-15] MEDS ORDERED: LORazepam 0.5 MG TAB PO PRN (15:22)
[2019-02-15] MEDS ORDERED: MAGNESIUM HYDROXIDE 2,400 MG/10 ML CUP PO PRN (15:22)
[2019-02-15] MEDS ORDERED: traMADol 50 MG TAB PO PRN (15:22)
[2019-02-15] MEDS ORDERED: SODIUM CHLORIDE 0.9% 1,000 ML IV SCH (15:30)
[2019-02-15] MEDS: PANTOPRAZOLE 40 MG TABLET PO SCH (18:10)
[2019-02-15] MEDS: DICYCLOMINE 10 MG CAP PO SCH ×2 (18:10→19:39)
[2019-02-15] MEDS: IPRATROPIUM-ALBUTEROL 3 ML NEB INHALATION SCH ×3 (19:36→23:07)
[2019-02-15] MEDS: busPIRone HCl 10 MG TAB PO SCH (19:39)
[2019-02-15] MEDS: FLUoxetine HCL 20 MG CAP PO SCH (19:39)
[2019-02-15 20:57] LABS: Glucose,Whole Blood 184 mg/dL (75-99)
[2019-02-15] MEDS ORDERED: ATORVASTATIN 40 MG TAB PO SCH (21:00)
[2019-02-15] MEDS ORDERED: DIVALPROEX SPRINKLE 125 MG CAP.SPRINK PO SCH (21:00)
[2019-02-15] MEDS: DEXTROSE 5%-0.45% NACL 1,000 ML IV SCH (21:02)
[2019-02-16] MEDS: IPRATROPIUM-ALBUTEROL 3 ML NEB INHALATION SCH ×4 (02:43→15:42)
[2019-02-16 06:03] LABS: Glucose,Whole Blood 152 mg/dL (75-99)
[2019-02-16 07:26] LABS: INR 2.5 (<1.2)
[2019-02-16 07:27] LABS: Partial Thromboplastin Time 35.5 sec (22.0-30.0); Prothrombin Time 24.5 sec (9.0-12.0)
[2019-02-16 07:36] LABS: Albumin 2.2 g/dL (3.5-5.0); Bilirubin, Conjugated 0.5 mg/dL (0.0-0.3); Bilirubin, Delta 1.4 mg/dL (0.0-0.2); Bilirubin,Unconjugated 1.1 mg/dL (0.0-1.1); Calcium 7.1 mg/dL (8.4-10.2); Potassium 2.8 mmol/L (3.5-5.1); Total Protein 5.8 g/dL (6.3-8.2)
[2019-02-16 08:01] LABS: Anisocytosis Marked; Basophils % (A) 0 %; Eosinophils # (A) 0.1 k/uL (0-0.7); Eosinophils % (A) 1 %; HCT 35.6 % (34.0-46.0); Hypochromasia Marked; Lymphocytes # (A) 0.6 k/uL (1.0-4.8); Lymphocytes % (A) 3 %; MCH 21.3 pg (25.0-35.0); MCHC 28.1 g/dL (31.0-37.0); Mean Platelet Volume 8.6; Microcytosis Marked; Monocytes # (A) 0.4 k/uL (0-1.0); Monocytes % (A) 2 %; Neutrophils # (A) 17.9 k/uL (1.3-7.7); Neutrophils % (A) 94 %; Poikilocytosis Slight; RBC 4.68 m/uL (3.80-5.40); WBC 19.2 k/uL (3.8-10.6)
[2019-02-16 08:03] LABS: Platelet Count 72 k/uL (150-450); RDW 25.2 % (11.5-15.5)
[2019-02-16] MEDS ORDERED: ASPIRIN 81 MG PO SCH (09:00)
[2019-02-16] MEDS ORDERED: PSYLLIUM HUSK 100% 6 GM PACKET PO SCH (09:00)
[2019-02-16] MEDS ORDERED: PANTOPRAZOLE 40 MG/10 ML VIAL IV SCH (09:00)
[2019-02-16] MEDS ORDERED: PATIENT'S OWN (Mirabegron [Myrbetriq] 50 MG) PO SCH (09:00)
[2019-02-16 09:51] LABS: RBC Fragments Present; Target Cells Present
[2019-02-16] MEDS: PIPERACILLIN-TAZOBACTAM 3.375 GM in SODIUM CHLORIDE 0.9% 100 ML IVPB SCH ×4 (10:15→16:31)
[2019-02-16] MEDS: busPIRone HCl 10 MG TAB PO SCH (10:16)
[2019-02-16] MEDS: DICYCLOMINE 10 MG CAP PO SCH ×3 (10:17→16:31)
[2019-02-16] MEDS: FLUoxetine HCL 20 MG CAP PO SCH (10:17)
[2019-02-16] MEDS: DEXTROSE 5%-0.45% NACL 1,000 ML IV SCH (10:18)
[2019-02-16 10:32] LABS: Glucose,Whole Blood 165 mg/dL (75-99)
[2019-02-16] MEDS ORDERED: SODIUM CHLORIDE 0.45% 1,000 ML IV SCH (10:45)
[2019-02-16] MEDS ORDERED: DEXTROSE 5%-0.45% NACL 1,000 ML IV SCH (10:45)
--- NOTE | 2019-02-16 10:48 | P.HPIM ---
History of Present Illness H&P Date: 02/15/19 Chief Complaint: Altered mental status/hypoxemia This is a 78-year-old female who is brought in by EMS from a local [facility] because of altered level of consciousness decreased oral intake hypoxemia. Other information currently is not available she did improve with respect her pulse oximetry after oxygen was applied. 80% and room air to 98 on oxygen. She is also given a 500 mL fluid bolus and route to. No reports of fevers chills nausea vomiting sweats diarrhea or other symptoms. Review of Systems ROS unobtainable: due to mental status Past Medical History Past Medical History: Coronary Artery Disease (CAD), Chest Pain / Angina, GERD/Reflux, GI Bleed, Hyperlipidemia, Hypertension, Memory Impairment, Myocardial Infarction (AL), Osteoarthritis (OA), Pneumonia, Rheumatoid Arthritis (RA), Syncope Additional Past Medical History / Comment(s): pain with stools,hemorrhoids,dementia, osteoporosis,previous fall with blunt trauma to the head,hiatal hernia, chronic constipation,incont of urine-wears brief, previous history of uti, essential tremors, compression fracture of the T12 spine, cellulitis of the lower extremities, difficulty with mobility and gait and the patient has been wheelchair bound but she is able to stand up and pivot herself w/ asst Last Myocardial Infarction Date:: 1999 History of Any Multi-Drug Resistant Organisms: MRSA Date of last positivie culture/infection: 2011 per patient in nursing history MDRO Source:: Right Knee Past Surgical History: Appendectomy, Heart Catheterization With Stent, Joint Rep lacement, Orthopedic Surgery, Tonsillectomy Additional Past Surgical History / Comment(s): PTCA with 2 stents to CX in 1999, R shoulder arthroscopic rotator cuff repair, reverse L total shoulder, femoral bypass 1999, gastric tube placement and since removal, R total knee-no bend-Fly placed rt leg Past Anesthesia/Blood Transfusion Reactions: Postoperative Nausea & Vomiting (PONV) Additional Past Anesthesia/Blood Transfusion Reaction / Comment(s): no hx blood transfusion Date of Last Stent Placement:: 1999 Past Psychological History: Anxiety, Depression Additional Psychological History / Comment(s): Ongoing tobacco smoker. Pt started smoking about age 15-16 yrs old. She smokes about 5 CIG PER DAY. She is . Living with her son in an apartment in the [facility]. She uses a wheelchair. She is able to stand and pivot to get into wheelchair. She feeds herself. Her son drives her to [employer]-pt does not drive. Smoking Status: Former smoker Past Alcohol Use History: None Reported Additional Past Alcohol Use History / Comment(s): states she quit 3 months ago Past Drug Use History: None Reported - Past Family History Father Family Medical History: Coronary Artery Disease (CAD), Myocardial Infarction (AL) Mother Family Medical History: Diabetes Mellitus, Hypertension Medications and Allergies Home Medications Medication Instructions Recorded Confirmed Type FLUoxetine HCL 40 mg PO BID 04/22/15 02/15/19 History busPIRone HCL 10 mg PO BID 09/26/16 02/15/19 History Aspirin 81 mg PO DAILY chew 10/22/16 02/15/19 Rx Atorvastatin [Lipitor] 40 mg PO HS 08/23/18 02/15/19 History Albuterol Inhaler [Ventolin Hfa 1 - 2 puff INHALATION RT-Q6H PRN 11/29/18 02/15/19 History Inhaler] Mirabegron [Myrbetriq] 50 mg PO DAILY 11/29/18 02/15/19 History Dicyclomine [Bentyl] 10 mg PO QID #1 capsule 01/25/19 02/15/19 Rx Psyllium Husk 100% [Metamucil 6 gm PO DAILY packet 01/25/19 02/15/19 Rx Packet] traMADol HCL [Ultram] 50 mg PO BID PRN #6 tablet 01/25/19 02/15/19 Rx Divalproex Sodium [Depakote 125 mg PO HS 02/15/19 02/15/19 History Sprinkle] LORazepam [Ativan] 0.5 mg PO TID PRN 02/15/19 02/15/19 History Magnesium Hydroxide [Milk of 2,400 mg PO DAILY PRN 02/15/19 02/15/19 History Magnesia] Omeprazole 20 mg PO HS 02/15/19 02/15/19 History Allergies Allergy/AdvReac Type Severity Reaction Status Date / Time iodine Allergy Rapid Verified 02/15/19 13:08 Heart Rate adhesive AdvReac Itching,"paper Verified 02/15/19 13:08 tape is ok" codeine AdvReac Confusion Verified 02/15/19 13:08 hydrocodone bitartrate AdvReac Confusion Verified 02/15/19 13:08 [From Elim] hydromorphone HCl AdvReac Confusion Verified 02/15/19 13:08 [From Dilaudid] morphine AdvReac Confusion Verified 02/15/19 13:08 Physical Exam Vitals: Vital Signs Temp Pulse Resp BP Pulse Ox 02/15/19 16:56 74 20 125/68 93 L 02/15/19 16:11 98.0 F 72 20 123/58 91 L 02/15/19 15:06 71 18 122/65 93 L 02/15/19 14:35 78 18 123/79 90 L 02/15/19 14:00 98.6 F 02/15/19 13:31 71 22 113/45 90 L 02/15/19 13:08 98.5 F 84 22 125/71 80 L Intake and Output 02/15/19 02/15/19 02/15/19 06:59 14:59 22:59 Other: Weight 57.3 kg General appearance: obtunded Head exam: Present: atraumatic, normocephalic, normal inspection Eye exam: Present: normal appearance, PERRL, EOMI. Absent: scleral icterus, conjunctival injection, periorbital swelling ENT exam: Present: mucous membranes dry, other (Evidence of pill fragments in the oral cavity.) Neck exam: Present: normal inspection, full ROM, other (No stridor JVD or bruits). Absent: tenderness, meningismus, lymphadenopathy Respiratory exam: Present: decreased breath sounds Cardiovascular Exam: Present: normal rhythm, tachycardia GI/Abdominal exam: Present: soft, normal bowel sounds. Absent: distended, tenderness, guarding, rebound, rigid Extremities exam: Present: normal inspection, full ROM, normal capillary refill. Absent: tenderness, pedal edema, joint swelling, calf tenderness Back exam: Present: normal inspection Neurological exam: Present: altered, CN II-XII intact Psychiatric exam: Present: other (Unable to fully evaluate) Skin exam: Present: warm, dry, intact, normal color. Absent: rash Results CBC & Chem 7: 02/16/19 06:40 02/16/19 06:40 Labs: Abnormal Lab Results - Last 24 Hours (Table) 02/15/19 02/15/19 02/15/19 Range/Units 13:25 13:25 13:25 WBC 15.6 H (3.8-10.6) k/uL Hgb 10.3 L (11.4-16.0) gm/dL MCV 72.5 L (80.0-100.0) fL MCH 20.8 L (25.0-35.0) pg MCHC 28.7 L (31.0-37.0) g/dL RDW 25.4 H (11.5-15.5) % Plt Count 77 L (150-450) k/uL Neutrophils # 14.2 H (1.3-7.7) k/uL Lymphocytes # 0.8 L (1.0-4.8) k/uL PT (9.0-12.0) sec INR (<1.2) Sodium 157 H (137-145) mmol/L Chloride 129 H (98-107) mmol/L Carbon Dioxide 18 L (22-30) mmol/L BUN 52 H (7-17) mg/dL Creatinine 2.00 H (0.52-1.04) mg/dL Glucose 65 L (74-99) mg/dL POC Glucose (mg/dL) (75-99) mg/dL Plasma Lactic Acid Justin 3.2 H* (0.7-2.0) mmol/L Calcium 7.3 L (8.4-10.2) mg/dL Total Bilirubin 2.9 H (0.2-1.3) mg/dL AST 81 H (14-36) U/L Alkaline Phosphatase 202 H (38-126) U/L Troponin I (0.000-0.034) ng/mL Total Protein 6.2 L (6.3-8.2) g/dL Albumin 2.4 L (3.5-5.0) g/dL U Benzodiazepines Scrn (NotDetected) 02/15/19 02/15/19 02/15/19 Range/Units 13:25 13:25 13:25 WBC (3.8-10.6) k/uL Hgb (11.4-16.0) gm/dL MCV (80.0-100.0) fL MCH (25.0-35.0) pg MCHC (31.0-37.0) g/dL RDW (11.5-15.5) % Plt Count (150-450) k/uL Neutrophils # (1.3-7.7) k/uL Lymphocytes # (1.0-4.8) k/uL PT 23.6 H (9.0-12.0) sec INR 2.4 H (<1.2) Sodium (137-145) mmol/L Chloride (98-107) mmol/L Carbon Dioxide (22-30) mmol/L BUN (7-17) mg/dL Creatinine (0.52-1.04) mg/dL Glucose (74-99) mg/dL POC Glucose (mg/dL) (75-99) mg/dL Plasma Lactic Acid Justin (0.7-2.0) mmol/L Calcium (8.4-10.2) mg/dL Total Bilirubin (0.2-1.3) mg/dL AST (14-36) U/L Alkaline Phosphatase (38-126) U/L Troponin I 0.076 H* (0.000-0.034) ng/mL Total Protein (6.3-8.2) g/dL Albumin (3.5-5.0) g/dL U Benzodiazepines Scrn Detected H (NotDetected) 02/15/19 Range/Units 14:38 WBC (3.8-10.6) k/uL Hgb (11.4-16.0) gm/dL MCV (80.0-100.0) fL MCH (25.0-35.0) pg MCHC (31.0-37.0) g/dL RDW (11.5-15.5) % Plt Count (150-450) k/uL Neutrophils # (1.3-7.7) k/uL Lymphocytes # (1.0-4.8) k/uL PT (9.0-12.0) sec INR (<1.2) Sodium (137-145) mmol/L Chloride (98-107) mmol/L Carbon Dioxide (22-30) mmol/L BUN (7-17) mg/dL Creatinine (0.52-1.04) mg/dL Glucose (74-99) mg/dL POC Glucose (mg/dL) 170 H (75-99) mg/dL Plasma Lactic Acid Justin (0.7-2.0) mmol/L Calcium (8.4-10.2) mg/dL Total Bilirubin (0.2-1.3) mg/dL AST (14-36) U/L Alkaline Phosphatase (38-126) U/L Troponin I (0.000-0.034) ng/mL Total Protein (6.3-8.2) g/dL Albumin (3.5-5.0) g/dL U Benzodiazepines Scrn (NotDetected) Assessment and Plan Assessment: 1. Altered mental status; possible metabolic encephalopathy; multifactorial - We will treat the underlying cause 2. Hypoxia; possible aspiration; patient had old tablets in mouth and pharynx area that was suctioned in ED - Chest x-ray is negative for acute infiltrate; high suspicion for pneumonia secondary to aspiration - We will continue with IV Zosyn; order blood cultures and sputum culture - O2 per nasal cannula per protocol - Consult SFP for swallow evaluation 3. Sepsis possibly secondary to 2 - Patient received IV fluids in ED per sepsis bundle; chest x-ray shows mild fluid overload; we will continue with slow IV fluid hydration - Cultures have been done and are pending - Monitor lactic acid levels; we will order CRP and pro-calcitonin 4. Acute renal failure/dehydration - Slow IV fluid hydration, strict FELISA's, daily weights, renal function and electrolytes, - Avoid hypotension and nephrotoxins 5. Elevated troponin; possible demand ischemia/ history of CAD/AL in the past - We will trend and consult cardiology if troponin trends up - We will order 2-D echo 6. Hypertension; stable 7. Hyperlipidemia; atorvastatin 40 mg by mouth daily at bedtime 8. Dementia; not clear about baseline 9. DVT prophylaxis; patient currently anticoagulated; home medication list does not indicate patient being on any anticoagulation therapy CODE STATUS; no code Time with Patient: Greater than 30
[2019-02-16] MEDS ORDERED: POTASSIUM CHLORIDE 2 MEQ/ML 20 ML VIAL IVPB ONE (10:55)
--- NOTE | 2019-02-16 11:04 | XR ---
EXAMINATION TYPE: XR chest 1V portable DATE OF EXAM: 02/16/2019 HISTORY: dyspnea. REFERENCE: Previous study dated 02/15/2019. FINDINGS: There is a left shoulder arthroplasty in place. The heart is upper limits of normal in size. There is vascular congestion and subtle interstitial danyell nge. Pleural spaces appear clear. IMPRESSION: CONTINUING SUBTLE CHANGES OF CONGESTIVE HEART FAILURE.
[2019-02-16 11:20] LABS: ABG Base Excess -5.3 mmol/L; ABG HCO3 19 mmol/L (21-25); ABG Oxygen Saturation 99.4 % (94-97); ABG PCO2 27 mmHg (35-45); ABG PH 7.45 (7.35-7.45); ABG PO2 190 mmHg (83-108); ABG TCO2 20 mmol/L (19-24); Allen Test Performed? Yes
[2019-02-16] MEDS: POTASSIUM CHLORIDE 20 MEQ in WATER FOR INJECTION 1 100ML.BAG IVPB SCH ×2 (11:54→16:29)
--- NOTE | 2019-02-16 11:54 | P.CRDCN ---
History of Present Illness Consult date: 02/16/19 History of present illness: This is a 78-year-old female was [facility] apparently with altered level of consciousness. Patient hasn't been eating and she developed hypoxia. Patient was treated with oxygen in the emergency room with some improvement of her symptoms. Patient is still noncommunicative and agitated and having difficulty with breathing. Apparently she may be a candidate for hospice care. She has history of previous ischemic heart disease and dementia. Her chest x-ray showed evidence of possible CHF. Her proBNP is elevated. Her cardiac rhythm is difficult to discern. This could be sinus rhythm with APCs, though atrial fibrillation cannot be excluded. Patient lab work showed severe hyponatremia, hypokalemia and evidence of renal failure and also acidosis. Considering her general health status and multiple medical problems, patient may be considered for hospice care. Her troponins were also mildly elevated but given her severe metabolic derangements and hypoxic state, most probably this is secondary to hypoxia. I'm not proposing any further cardiac evaluation at this time. May consider adding Lasix and also treating her with dextrose. We'll be seeing her on when necessary basis Review of Systems As per the chart Past Medical History Past Medical History: Coronary Artery Disease (CAD), Chest Pain / Angina, GERD/Reflux, GI Bleed, Hyperlipidemia, Hypertension, Memory Impairment, Myocardial Infarction (SC), Osteoarthritis (OA), Pneumonia, Rheumatoid Arthritis (RA), Syncope Additional Past Medical History / Comment(s): pain with stools,hemorrhoids,dementia, osteoporosis,previous fall with blunt trauma to the head,hiatal hernia, chronic constipation,incont of urine-wears brief, previous history of uti, essential tremors, compression fracture of the T12 spine, cellulitis of the lower extremities, difficulty with mobility and gait and the patient has been wheelchair bound but she is able to stand up and pivot herself w/ asst Last Myocardial Infarction Date:: 1999 History of Any Multi-Drug Resistant Organisms: MRSA Date of last positivie culture/infection: 2011 per patient in nursing history MDRO Source:: Right Knee Past Surgical History: Appendectomy, Heart Catheterization With Stent, Joint Replacement, Orthopedic Surgery, Tonsillectomy Additional Past Surgical History / Comment(s): PTCA with 2 stents to CX in 1999, R shoulder arthroscopic rotator cuff repair, reverse L total shoulder, femoral bypass 1999, gastric tube placement and since removal, R total knee-no bend-Fly placed rt leg Past Anesthesia/Blood Transfusion Reactions: Postoperative Nausea & Vomiting (PONV) Additional Past Anesthesia/Blood Transfusion Reaction / Comment(s): no hx blood transfusion Date of Last Stent Placement:: 1999 Past Psychological History: Anxiety, Depression Additional Psychological History / Comment(s): Ongoing tobacco smoker. Pt started smoking about age 15-16 yrs old. She smokes about 5 CIG PER DAY. She is . Living with her son in an apartment in the [facility]. She uses a wheelchair. She is able to stand and pivot to get into wheelchair. She feeds herself. Her son drives her to [employer]-pt does not drive. Smoking Status: Former smoker Past Alcohol Use History: None Reported Additional Past Alcohol Use History / Comment(s): states she quit 3 months ago Past Drug Use History: None Reported - Past Family History Father Family Medical History: Coronary Artery Disease (CAD), Myocardial Infarction (SC) Mother Family Medical History: Diabetes Mellitus, Hypertension Medications and Allergies Home Medications Medication Instructions Recorded Confirmed Type FLUoxetine HCL 40 mg PO BID 04/22/15 02/15/19 History busPIRone HCL 10 mg PO BID 09/26/16 02/15/19 History Aspirin 81 mg PO DAILY chew 10/22/16 02/15/19 Rx Atorvastatin [Lipitor] 40 mg PO HS 08/23/18 02/15/19 History Albuterol Inhaler [Ventolin Hfa 1 - 2 puff INHALATION RT-Q6H PRN 11/29/18 02/15/19 History Inhaler] Mirabegron [Myrbetriq] 50 mg PO DAILY 11/29/18 02/15/19 History Dicyclomine [Bentyl] 10 mg PO QID #1 capsule 01/25/19 02/15/19 Rx Psyllium Husk 100% [Metamucil 6 gm PO DAILY packet 01/25/19 02/15/19 Rx Packet] traMADol HCL [Ultram] 50 mg PO BID PRN #6 tablet 01/25/19 02/15/19 Rx Divalproex Sodium [Depakote 125 mg PO HS 02/15/19 02/15/19 History Sprinkle] LORazepam [Ativan] 0.5 mg PO TID PRN 02/15/19 02/15/19 History Magnesium Hydroxide [Milk of 2,400 mg PO DAILY PRN 02/15/19 02/15/19 History Magnesia] Omeprazole 20 mg PO HS 02/15/19 02/15/19 History Allergies Allergy/AdvReac Type Severity Reaction Status Date / Time iodine Allergy Rapid Verified 02/15/19 13:08 Heart Rate adhesive AdvReac Itching,"paper Verified 02/15/19 13:08 tape is ok" codeine AdvReac Confusion Verified 02/15/19 13:08 hydrocodone bitartrate AdvReac Confusion Verified 02/15/19 13:08 [From [place]] hydromorphone HCl AdvReac Confusion Verified 02/15/19 13:08 [From Dilaudid] morphine AdvReac Confusion Verified 02/15/19 13:08 Physical Exam Vitals: Vital Signs Temp Pulse Pulse Resp BP BP Pulse Ox 02/16/19 10:00 99.3 F 70 34 H 146/88 84 L 02/16/19 08:46 72 02/16/19 04:00 98.1 F 65 20 125/67 94 L 02/16/19 02:54 72 02/16/19 02:45 72 02/16/19 00:00 98.3 F 87 20 123/78 90 L 02/15/19 23:22 72 02/15/19 23:08 70 02/15/19 20:22 98.3 F 68 20 143/67 93 L 02/15/19 19:44 70 02/15/19 19:37 68 18 02/15/19 17:45 77 26 H 02/15/19 17:44 97.9 F 77 26 H 135/73 94 L 02/15/19 16:56 74 20 125/68 93 L 02/15/19 16:11 98.0 F 72 20 123/58 91 L 02/15/19 15:06 71 18 122/65 93 L 02/15/19 14:35 78 18 123/79 90 L 02/15/19 14:00 98.6 F 02/15/19 13:31 71 22 113/45 90 L 02/15/19 13:08 98.5 F 84 22 125/71 80 L Intake and Output 02/15/19 02/16/19 02/16/19 22:59 06:59 14:59 Other: # Voids 1 1 Weight 47 kg GENERAL EXAM: Patient is agitated and distress. She is morbidly ill with multiple metabolic derangements and hypoxia. HEENT: Normocephalic NECK: No masses, no nuchal rigidity. CHEST: No chest wall deformity. LUNGS: Diffuse rhonchi HEART: Distant heart sounds ABDOMEN: No hepatosplenomegaly, normal bowel sounds, no guarding or rigidity. SKIN: No rashes CENTRAL NERVOUS SYSTEM: No focal deficits. EXTREMITIES: No cyanosis, clubbing or edema. Mild ecchymosis Results 02/16/19 06:40 02/16/19 06:40 Cardiac Enzymes 02/15/19 02/15/19 02/16/19 Range/Units 13:25 13:25 06:40 AST 81 H 86 H (14-36) U/L Troponin I 0.076 H* (0.000-0.034) ng/mL 02/16/19 Range/Units 06:40 AST (14-36) U/L Troponin I 0.097 H* (0.000-0.034) ng/mL Coagulation 02/15/19 02/16/19 Range/Units 13:25 06:40 PT 23.6 H 24.5 H (9.0-12.0) sec APTT 28.4 35.5 H (22.0-30.0) sec CBC 02/15/19 02/16/19 Range/Units 13:25 06:40 WBC 15.6 H 19.2 H (3.8-10.6) k/uL RBC 4.93 4.68 (3.80-5.40) m/uL Hgb 10.3 L 10.0 L (11.4-16.0) gm/dL Hct 35.8 35.6 (34.0-46.0) % Plt Count 77 L 72 L (150-450) k/uL Comprehensive Metabolic Panel 02/15/19 02/16/19 Range/Units 13:25 06:40 Sodium 157 H 159 H (137-145) mmol/L Potassium 3.5 2.8 L (3.5-5.1) mmol/L Chloride 129 H 131 H* (98-107) mmol/L Carbon Dioxide 18 L 18 L (22-30) mmol/L BUN 52 H 50 H (7-17) mg/dL Creatinine 2.00 H 2.06 H (0.52-1.04) mg/dL Glucose 65 L 113 H (74-99) mg/dL Calcium 7.3 L 7.1 L (8.4-10.2) mg/dL Unconjugated Bilirubin 1.1 (0.0-1.1) mg/dL AST 81 H 86 H (14-36) U/L ALT 29 31 (9-52) U/L Alkaline Phosphatase 202 H 182 H (38-126) U/L Total Protein 6.2 L 5.8 L (6.3-8.2) g/dL Albumin 2.4 L 2.2 L (3.5-5.0) g/dL Current Medications Generic Name Dose Route Start Last Admin Trade Name Freq PRN Reason Stop Dose Admin Acetaminophen 650 mg 02/15/19 15:20 Tylenol Tab PO Q6HR PRN Mild Pain or Fever > 100.5 Albuterol/Ipratropium 3 ml 02/15/19 16:00 02/16/19 08:45 Duoneb 0.5 Mg-3 Mg/3 Ml Soln INHALATION 3 ml RT-Q4H HANK Administration Aspirin 81 mg 02/16/19 09:00 02/16/19 10:17 Aspirin PO Not Given DAILY [facility] Atorvastatin Calcium 40 mg 02/15/19 21:00 02/15/19 19:38 Lipitor PO Not Given HS [facility] Buspirone HCl 10 mg 02/15/19 21:00 02/16/19 10:16 Buspar PO Not Given BID [facility] Dicyclomine HCl 10 mg 02/15/19 18:00 02/16/19 10:17 Bentyl PO Not Given QID [facility] Divalproex Sodium 125 mg 02/15/19 21:00 02/15/19 19:39 Depakote Sprinkle PO Not Given HS [facility] Fluoxetine HCl 40 mg 02/15/19 21:00 02/16/19 10:17 Prozac PO Not Given BID [facility] Piperacillin Sod/Tazobactam 100 mls @ 25 mls/hr 02/16/19 00:00 02/16/19 10:15 Sod 3.375 gm/ Sodium Chloride IVPB 25 mls/hr Q8HR HANK Administration Dextrose/Sodium Chloride 1,000 mls @ 100 mls/hr 02/16/19 10:45 Dextrose 5%-1/2ns Iv Soln IV .Q10H [facility] Potassium Chloride 20 meq/ IV 100 mls @ 50 mls/hr 02/16/19 11:30 Solution IVPB 02/16/19 15:29 Q2H [facility]ANK Lorazepam 0.5 mg 02/15/19 15:22 02/16/19 10:57 Ativan PO 0.5 mg TID PRN Administration Anxiety Magnesium Hydroxide 2,400 mg 02/15/19 15:22 Milk Of Magnesia PO DAILY PRN Constipation Naloxone HCl 0.2 mg 02/15/19 15:20 Narcan IV Q2M PRN Opioid Reversal Patient's Own ( 50 mg 02/16/19 09:00 02/16/19 10:17 Mirabegron [ PO Not Given Myrbetriq] 50 Mg) DAILY [facility] Ondansetron HCl 4 mg 02/15/19 15:20 Zofran IVP Q8HR PRN Nausea And Vomiting Pantoprazole Sodium 40 mg 02/15/19 17:30 02/15/19 18:10 Protonix PO Not Given AC-SUPPER [facility]ANK Psyllium Hydrophilic Mucilloid 6 gm 02/16/19 09:00 02/16/19 10:17 Metamucil PO Not Given DAILY [facility] Tramadol HCl 50 mg 02/15/19 15:22 Ultram PO BID PRN MODERATE Pain Intake and Output 02/15/19 02/16/19 02/16/19 22:59 06:59 14:59 Other: # Voids 1 1 Weight 47 kg 02/16/19 06:40 02/16/19 06:40 EKG Interpretations (text) Probably sinus rhythm with APCs. Atypical fibrillation cannot be ruled out Assessment and Plan (1) Combined systolic and diastolic heart failure, acute Current Visit: Yes Status: Acute Code(s): I50.41 - ACUTE COMBINED SYSTOLIC AND DIASTOLIC (CONGESTIVE) HRT FAIL SNOMED Code(s): 703314397444402 (2) Acute kidney injury Current Visit: Yes Status: Acute Code(s): N17.9 - ACUTE KIDNEY FAILURE, UNSPECIFIED SNOMED Code(s): 34999909 (3) Acute respiratory distress syndrome Current Visit: Yes Status: Acute Code(s): J80 - ACUTE RESPIRATORY DISTRESS SYNDROME SNOMED Code(s): 78247039 (4) Hypernatremia Current Visit: Yes Status: Acute Code(s): E87.0 - HYPEROSMOLALITY AND HYPERNATREMIA SNOMED Code(s): 173046779 (5) Hypoxemia Current Visit: Yes Status: Acute Code(s): R09.02 - HYPOXEMIA SNOMED Code(s): 747926467 (6) Acute delirium Current Visit: No Status: Acute Code(s): R41.0 - DISORIENTATION, UNSPECIFIED SNOMED Code(s): 1274078 Plan: Patient is critically ill with multiple metabolic derangements. Troponin values are abnormal but most probably secondary to supply demand mismatch. No further cardiac workup is suggested. Patient apparently being considered for hospice care. We'll see her as needed
[2019-02-16 12:11] LABS: Calcium 7.2 mg/dL (8.4-10.2)
[2019-02-16 12:14] LABS: Potassium 2.7 mmol/L (3.5-5.1)
--- NOTE | 2019-02-16 13:32 | P.CNPUL ---
History of Present Illness Consult date: 02/16/19 Reason for consult: dyspnea, pneumonia History of present illness: 78-year-old female patient, assisted resident, comes into the hospital bec ause of an aspiration. She is unable to volunteer any history. She has significant drop in her level of consciousness and currently she is on a BiPAP at a pressure of 12/60 maintain a saturation above 90%. She sees a quite comfortable and tolerating the BiPAP well. She has congested cough. She has cracks in lung bases bilaterally. Chest x-ray showing pulmonary vessel congestion and subtle interstitial changes bilaterally. Echocardiogram from 2017 showed a preserved LV function with mild aortic sclerosis. No significant component hypertension. The patient is currently on IV Zosyn. The electrodes are showing hyperchloremic hypernatremia and the patient is receiving D5 half- normal saline. We'll scheduled a pH of 7.45 with a pCO2 of 27 and pO2 of 119 and this was on FiO2 of 100%. Sodium level is at 159. Chloride limited 132. BUN is at 48 with a creatinine of 2.03. Her cardiac rhythm is sinus with occasional PVCs and PACs. The baseline performance and functional status has b een extremely poor. The patient is known to have coronary artery disease with previous coronary intervention and stenting. She has undergone a previous left shoulder replacement. She had previous insertion and removal of gastric tubes. He has a combination of medical problems and comorbidities as stated in the records. The patient has been wheelchair bound and she has difficulty with mobility and gait. The patient was recently discharged from the hospital on 01/25/2019 after being admitted for abdominal pain and she underwent workup which included EGD by gastroenterology and showed mild gastritis. CAT scan of the abdomen and pelvis was nonspecific. She is known to have chronic hiatal hernia, essential tremors, chronic T12 fracture of the spine, osteoarthritis, peripheral vascular disease, acid reflux. Review of Systems ROS unobtainable: due to mental status Past Medical History Past Medical History: Coronary Artery Disease (CAD), Chest Pain / Angina, GERD/Reflux, GI Bleed, Hyperlipidemia, Hypertension, Memory Impairment, Myocardial Infarction (DE), Osteoarthritis (OA), Pneumonia, Rheumatoid Arthritis (RA), Syncope Additional Past Medical History / Comment(s): pain with stools,hemorrhoids,dementia, osteoporosis,previous fall with blunt trauma to the head,hiatal hernia, chronic constipation,incont of urine-wears brief, previous history of uti, essential tremors, compression fracture of the T12 spine, cellulitis of the lower extremities, difficulty with mobility and gait and the patient has been wheelchair bound but she is able to stand up and pivot herself w/ asst Last Myocardial Infarction Date:: 1999 History of Any Multi-Drug Resistant Organisms: MRSA Date of last positivie culture/infection: 2011 per patient in nursing history MDRO Source:: Right Knee Past Surgical History: Appendectomy, Heart Catheterization With Stent, Joint Re placement, Orthopedic Surgery, Tonsillectomy Additional Past Surgical History / Comment(s): PTCA with 2 stents to CX in 1999, R shoulder arthroscopic rotator cuff repair, reverse L total shoulder, femoral bypass 1999, gastric tube placement and since removal, R total knee-no bend-Fly placed rt leg Past Anesthesia/Blood Transfusion Reactions: Postoperative Nausea & Vomiting (PONV) Additional Past Anesthesia/Blood Transfusion Reaction / Comment(s): no hx blood transfusion Date of Last Stent Placement:: 1999 Past Psychological History: Anxiety, Depression Additional Psychological History / Comment(s): Ongoing tobacco smoker. Pt started smoking about age 15-16 yrs old. She smokes about 5 CIG PER DAY. She is . Living with her son in an apartment in the [facility]. She uses a wheelchair. She is able to stand and pivot to get into wheelchair. She feeds herself. Her son drives her to [email or web address] does not drive. Smoking Status: Former smoker Past Alcohol Use History: None Reported Additional Past Alcohol Use History / Comment(s): states she quit 3 months ago Past Drug Use History: None Reported - Past Family History Father Family Medical History: Coronary Artery Disease (CAD), Myocardial Infarction (DE) Mother Family Medical History: Diabetes Mellitus, Hypertension Medications and Allergies Home Medications Medication Instructions Recorded Confirmed Type FLUoxetine HCL 40 mg PO BID 04/22/15 02/15/19 History busPIRone HCL 10 mg PO BID 09/26/16 02/15/19 History Aspirin 81 mg PO DAILY chew 10/22/16 02/15/19 Rx Atorvastatin [Lipitor] 40 mg PO HS 08/23/18 02/15/19 History Albuterol Inhaler [Ventolin Hfa 1 - 2 puff INHALATION RT-Q6H PRN 11/29/18 02/15/19 History Inhaler] Mirabegron [Myrbetriq] 50 mg PO DAILY 11/29/18 02/15/19 History Dicyclomine [Bentyl] 10 mg PO QID #1 capsule 01/25/19 02/15/19 Rx Psyllium Husk 100% [Metamucil 6 gm PO DAILY packet 01/25/19 02/15/19 Rx Packet] traMADol HCL [Ultram] 50 mg PO BID PRN #6 tablet 01/25/19 02/15/19 Rx Divalproex Sodium [Depakote 125 mg PO HS 02/15/19 02/15/19 History Sprinkle] LORazepam [Ativan] 0.5 mg PO TID PRN 02/15/19 02/15/19 History Magnesium Hydroxide [Milk of 2,400 mg PO DAILY PRN 02/15/19 02/15/19 History Magnesia] Omeprazole 20 mg PO HS 02/15/19 02/15/19 History Allergies Allergy/AdvReac Type Severity Reaction Status Date / Time iodine Allergy Rapid Verified 02/15/19 13:08 Heart Rate adhesive AdvReac Itching,"paper Verified 02/15/19 13:08 tape is ok" codeine AdvReac Confusion Verified 02/15/19 13:08 hydrocodone bitartrate AdvReac Confusion Verified 02/15/19 13:08 [From Bentley] hydromorphone HCl AdvReac Confusion Verified 02/15/19 13:08 [From Dilaudid] morphine AdvReac Confusion Verified 02/15/19 13:08 Physical Exam Vitals: Vital Signs Temp Pulse Pulse Resp BP BP Pulse Ox 02/16/19 12:36 68 02/16/19 12:24 68 02/16/19 10:00 99.3 F 70 34 H 146/88 84 L 02/16/19 08:46 72 02/16/19 04:00 98.1 F 65 20 125/67 94 L 02/16/19 02:54 72 02/16/19 02:45 72 02/16/19 00:00 98.3 F 87 20 123/78 90 L 02/15/19 23:22 72 02/15/19 23:08 70 02/15/19 20:22 98.3 F 68 20 143/67 93 L 02/15/19 19:44 70 02/15/19 19:37 68 18 02/15/19 17:45 77 26 H 02/15/19 17:44 97.9 F 77 26 H 135/73 94 L 02/15/19 16:56 74 20 125/68 93 L 02/15/19 16:11 98.0 F 72 20 123/58 91 L 02/15/19 15:06 71 18 122/65 93 L 02/15/19 14:35 78 18 123/79 90 L 02/15/19 14:00 98.6 F 02/15/19 13:31 71 22 113/45 90 L Intake and Output 02/15/19 02/16/19 02/16/19 22:59 06:59 14:59 Other: # Voids 1 1 Weight 47 kg Debilitated elderly female patient tolerating a full face BiPAP mask. She looks quite cachectic and weak and emaciated. She looks also quite dehydrated. Head exam was generally normal. There was no scleral icterus or corneal arcus. Mucous membranes were moist. Neck was supple and without jugular venous distension, thyromegaly, or carotid bruits. Carotids were easily palpable bilaterally. There was no adenopathy. Ey es are sunken and the patient's mucus from veins are quite dry at this point. Positive JVDs are not present. Lungs sounds are diminished in the patient's crackles in lung bases bilaterally. Heart sounds are regular with a systolic ejection murmur grade 2/6 heard throughout the precordium. Abdominal exam revealed normal bowel sounds. The abdomen was soft, non-tender, and without masses, organomegaly, or appreciable enlargement of the abdominal aorta. Examination of the extremities revealed easily palpable radial, femoral and pedal pulses. There was no cyanosis, clubbing or edema. Examination of the skin revealed no evidence of significant rashes, suspicious appearing nevi or other concerning lesions. Neurologic the patient responds only to deep painful stimulation. Pupils are equal and reactive to light. Not communicating. Nonverbal. Motor function cannot be accurately assessed. Results - Laboratory Findings CBC and BMP: 02/16/19 06:40 02/16/19 11:37 ABG ABG pH 7.45 (7.35-7.45) 02/16/19 11:17 ABG pCO2 27 mmHg (35-45) L 02/16/19 11:17 ABG pO2 190 mmHg (83-108) H 02/16/19 11:17 ABG O2 Saturation 99.4 % (94-97) H 02/16/19 11:17 PT/INR, D-dimer PT 24.5 sec (9.0-12.0) H 02/16/19 06:40 INR 2.5 (<1.2) H 02/16/19 06:40 Abnormal lab findings: Abnormal Labs 02/15/19 02/15/19 02/15/19 13:25 13:25 13:25 WBC 15.6 H Hgb 10.3 L MCV 72.5 L MCH 20.8 L MCHC 28.7 L RDW 25.4 H Plt Count 77 L Neutrophils # 14.2 H Lymphocytes # 0.8 L PT INR APTT ABG pCO2 ABG pO2 ABG HCO3 ABG O2 Saturation Sodium 157 H Potassium Chloride 129 H Carbon Dioxide 18 L BUN 52 H Creatinine 2.00 H Glucose 65 L POC Glucose (mg/dL) Plasma Lactic Acid Justin 3.2 H* Calcium 7.3 L Total Bilirubin 2.9 H Conjugated Bilirubin Delta Bilirubin AST 81 H Alkaline Phosphatase 202 H Troponin I Total Protein 6.2 L Albumin 2.4 L U Benzodiazepines Scrn 02/15/19 02/15/19 02/15/19 13:25 13:25 13:25 WBC Hgb MCV MCH MCHC RDW Plt Count Neutrophils # Lymphocytes # PT 23.6 H INR 2.4 H APTT ABG pCO2 ABG pO2 ABG HCO3 ABG O2 Saturation Sodium Potassium Chloride Carbon Dioxide BUN Creatinine Glucose POC Glucose (mg/dL) Plasma Lactic Acid Justin Calcium Total Bilirubin Conjugated Bilirubin Delta Bilirubin AST Alkaline Phosphatase Troponin I 0.076 H* Total Protein Albumin U Benzodiazepines Scrn Detected H 02/15/19 02/15/19 02/15/19 14:38 17:44 20:55 WBC Hgb MCV MCH MCHC RDW Plt Count Neutrophils # Lymphocytes # PT INR APTT ABG pCO2 ABG pO2 ABG HCO3 ABG O2 Saturation Sodium Potassium Chloride Carbon Dioxide BUN Creatinine Glucose POC Glucose (mg/dL) 170 H 184 H Plasma Lactic Acid Justin 2.9 H* Calcium Total Bilirubin Conjugated Bilirubin Delta Bilirubin AST Alkaline Phosphatase Troponin I Total Protein Albumin U Benzodiazepines Scrn 02/16/19 02/16/19 02/16/19 06:02 06:40 06:40 WBC 19.2 H Hgb 10.0 L MCV 76.0 L MCH 21.3 L MCHC 28.1 L RDW 25.2 H Plt Count 72 L Neutrophils # 17.9 H Lymphocytes # 0.6 L PT INR APTT ABG pCO2 ABG pO2 ABG HCO3 ABG O2 Saturation Sodium 159 H Potassium 2.8 L Chloride 131 H* Carbon Dioxide 18 L BUN 50 H Creatinine 2.06 H Glucose 113 H POC Glucose (mg/dL) 152 H Plasma Lactic Acid Justin Calcium 7.1 L Total Bilirubin 3.0 H Conjugated Bilirubin 0.5 H Delta Bilirubin 1.4 H AST 86 H Alkaline Phosphatase 182 H Troponin I Total Protein 5.8 L Albumin 2.2 L U Benzodiazepines Scrn 02/16/19 02/16/19 02/16/19 06:40 06:40 06:40 WBC Hgb MCV MCH MCHC RDW Plt Count Neutrophils # Lymphocytes # PT 24.5 H INR 2.5 H APTT 35.5 H ABG pCO2 ABG pO2 ABG HCO3 ABG O2 Saturation Sodium Potassium Chloride Carbon Dioxide BUN Creatinine Glucose POC Glucose (mg/dL) Plasma Lactic Acid Justin 3.6 H* Calcium Total Bilirubin Conjugated Bilirubin Delta Bilirubin AST Alkaline Phosphatase Troponin I 0.097 H* Total Protein Albumin U Benzodiazepines Scrn 02/16/19 02/16/19 02/16/19 10:31 11:17 11:37 WBC Hgb MCV MCH MCHC RDW Plt Count Neutrophils # Lymphocytes # PT INR APTT ABG pCO2 27 L ABG pO2 190 H ABG HCO3 19 L ABG O2 Saturation 99.4 H Sodium 159 H Potassium 2.7 L* Chloride 132 H* Carbon Dioxide 19 L BUN 48 H Creatinine 2.03 H Glucose 136 H POC Glucose (mg/dL) 165 H Plasma Lactic Acid Justin Calcium 7.2 L Total Bilirubin Conjugated Bilirubin Delta Bilirubin AST Alkaline Phosphatase Troponin I Total Protein Albumin U Benzodiazepines Scrn 02/16/19 11:37 WBC Hgb MCV MCH MCHC RDW Plt Count Neutrophils # Lymphocytes # PT INR APTT ABG pCO2 ABG pO2 ABG HCO3 ABG O2 Saturation Sodium Potassium Chloride Carbon Dioxide BUN Creatinine Glucose POC Glucose (mg/dL) Plasma Lactic Acid Justin 3.1 H* Calcium Total Bilirubin Conjugated Bilirubin Delta Bilirubin AST Alkaline Phosphatase Troponin I Total Protein Albumin U Benzodiazepines Scrn - Diagnostic Findings Chest x-ray: image reviewed Assessment and Plan Plan: 1 acute hypoxic respiratory failure secondary to aspiration. The patient is currently on IV Zosyn. The patient is also on BiPAP for respiratory support at a pressure of 12/6 cm of water. Blood gases showing adequate oxidation ventilation. FiO2 can be gradually weaned off to maintain a saturation above 90%. The patient on IV Zosyn. 2 acute hyperchloremic hypernatremia, secondary to intravascular depletion currently on D5 half-normal saline at the rate of 100 mL an hour 3 altered mentation with an underlying dementia 4 acute kidney injury secondary to intravascular depletion 5 Known history of coronary artery disease with previous coronary intervention and stenting 6 hypertension 7 hyperlipidemia 8 significant events in cognitive impairments and dementia and memory impairment 9 rheumatoid arthritis 10 hiatal hernia 11 compression fracture of the T12 spine 12 essentially tremors 13 chronic gastritis with small hiatal hernia Plan Continue BiPAP for respiratory support. Continue IV Zosyn. Continue hydration. Obviously her prognosis poor. She is quite debilitated. Performance and functional status at baseline is very poor. May consider hospice if the caregivers of willing to proceed that option. Agree on the current management. DNR/DNI CODE STATUS. Nothing much can be offered other the treatment is being offered for now. Keep nothing by mouth for now.
[2019-02-16] MEDS ORDERED: MORPHINE CONC SOLN 10mg/0.5mL ORAL SYRG SL PRN (14:26)
[2019-02-16 14:49] VITALS: BMI 18.3
[2019-02-16] MEDS: PANTOPRAZOLE 40 MG TABLET PO SCH (16:30)
--- NOTE | 2019-02-16 16:31 | P.PN ---
Subjective Progress Note Date: 02/16/19 Principal diagnosis: Acute hypoxic respiratory failure/ aspiration pneumonia/ sepsis 02/16/2019 Patient is seen and evaluated and discussed with daughter sitting at bedside; patient's sepsis has seemed to worsen demonstrated by increase in white blood count and lactic acid level; chemical profile shows marked elevation of serum sodium levels; IV fluids have been changed to D5 half-normal saline with a plan to monitor electrolytes every 4 hours and make adjustments accordingly; patient remains on IV Zosyn and speech pathology consult has been placed for swallowing evaluation for aspiration; patient remains on BiPAP and remains minimally responsive Patient's condition was discussed with daughter in great detail who is agreeable to talk to hospice and wants to make patient comfort care as of now Objective - Vital Signs Vital signs: Vital Signs Temp 98.1 F 02/16/19 04:00 Pulse 72 02/16/19 08:46 Resp 20 02/16/19 04:00 BP 125/67 02/16/19 04:00 Pulse Ox 94 L 02/16/19 04:00 Intake & Output 02/15/19 02/16/19 02/16/19 18:59 06:59 18:59 Weight 57.3 kg 47 kg Other: # Voids 1 - Exam - Constitutional General appearance: Present: average body habitus, cooperative, no acute distress - EENT Eyes: Present: anicteric sclerae, EOMI, PERRLA, normal appearance ENT: Present: hearing grossly normal, normal oropharynx Ears: bilateral: normal - Neck Neck: Present: normal ROM. Absent: lymphadenopathy, rigidity, thyromegaly Carotids: negative: bruit present Thyroid: bilateral: normal size, negative: enlarged, nodule - Respiratory Respiratory: bilateral: CTA, negative: rales, rhonchi, wheezing - Cardiovascular Rhythm: regular Heart sounds: normal: S1, S2 Abnormal Heart Sounds: Absent: systolic murmur, diastolic murmur - Gastrointestinal General gastrointestinal: Present: normal bowel sounds, soft. Absent: distended, organomegaly, tenderness - Genitourinary Genitourinary Comment(s): deferred - Integumentary Integumentary: Present: normal turgor. Absent: jaundiced, rash, ulcer - Neurologic Neurologic: Present: CNII-XII intact. Absent: focal deficits - Musculoskeletal Musculoskeletal: Present: gait normal, strength equal bilaterally - Psychiatric Psychiatric: Present: A&O x's 3, appropriate affect, intact judgment & insight - Labs CBC & Chem 7: 02/16/19 06:40 02/16/19 11:37 Labs: Abnormal Lab Results - Last 24 Hours (Table) 02/15/19 02/15/19 02/15/19 Range/Units 13:25 13:25 13:25 WBC 15.6 H (3.8-10.6) k/uL Hgb 10.3 L (11.4-16.0) gm/dL MCV 72.5 L (80.0-100.0) fL MCH 20.8 L (25.0-35.0) pg MCHC 28.7 L (31.0-37.0) g/dL RDW 25.4 H (11.5-15.5) % Plt Count 77 L (150-450) k/uL Neutrophils # 14.2 H (1.3-7.7) k/uL Lymphocytes # 0.8 L (1.0-4.8) k/uL PT (9.0-12.0) sec INR (<1.2) APTT (22.0-30.0) sec Sodium 157 H (137-145) mmol/L Potassium (3.5-5.1) mmol/L Chloride 129 H (98-107) mmol/L Carbon Dioxide 18 L (22-30) mmol/L BUN 52 H (7-17) mg/dL Creatinine 2.00 H (0.52-1.04) mg/dL Glucose 65 L (74-99) mg/dL POC Glucose (mg/dL) (75-99) mg/dL Plasma Lactic Acid Justin 3.2 H* (0.7-2.0) mmol/L Calcium 7.3 L (8.4-10.2) mg/dL Total Bilirubin 2.9 H (0.2-1.3) mg/dL Conjugated Bilirubin (0.0-0.3) mg/dL Delta Bilirubin (0.0-0.2) mg/dL AST 81 H (14-36) U/L Alkaline Phosphatase 202 H (38-126) U/L Troponin I (0.000-0.034) ng/mL Total Protein 6.2 L (6.3-8.2) g/dL Albumin 2.4 L (3.5-5.0) g/dL U Benzodiazepines Scrn (NotDetected) 02/15/19 02/15/19 02/15/19 Range/Units 13:25 13:25 13:25 WBC (3.8-10.6) k/uL Hgb (11.4-16.0) gm/dL MCV (80.0-100.0) fL MCH (25.0-35.0) pg MCHC (31.0-37.0) g/dL RDW (11.5-15.5) % Plt Count (150-450) k/uL Neutrophils # (1.3-7.7) k/uL Lymphocytes # (1.0-4.8) k/uL PT 23.6 H (9.0-12.0) sec INR 2.4 H (<1.2) APTT (22.0-30.0) sec Sodium (137-145) mmol/L Potassium (3.5-5.1) mmol/L Chloride (98-107) mmol/L Carbon Dioxide (22-30) mmol/L BUN (7-17) mg/dL Creatinine (0.52-1.04) mg/dL Glucose (74-99) mg/dL POC Glucose (mg/dL) (75-99) mg/dL Plasma Lactic Acid Justin (0.7-2.0) mmol/L Calcium (8.4-10.2) mg/dL Total Bilirubin (0.2-1.3) mg/dL Conjugated Bilirubin (0.0-0.3) mg/dL Delta Bilirubin (0.0-0.2) mg/dL AST (14-36) U/L Alkaline Phosphatase (38-126) U/L Troponin I 0.076 H* (0.000-0.034) ng/mL Total Protein (6.3-8.2) g/dL Albumin (3.5-5.0) g/dL U Benzodiazepines Scrn Detected H (NotDetected) 02/15/19 02/15/19 02/15/19 Range/Units 14:38 17:44 20:55 WBC (3.8-10.6) k/uL Hgb (11.4-16.0) gm/dL MCV (80.0-100.0) fL MCH (25.0-35.0) pg MCHC (31.0-37.0) g/dL RDW (11.5-15.5) % Plt Count (150-450) k/uL Neutrophils # (1.3-7.7) k/uL Lymphocytes # (1.0-4.8) k/uL PT (9.0-12.0) sec INR (<1.2) APTT (22.0-30.0) sec Sodium (137-145) mmol/L Potassium (3.5-5.1) mmol/L Chloride (98-107) mmol/L Carbon Dioxide (22-30) mmol/L BUN (7-17) mg/dL Creatinine (0.52-1.04) mg/dL Glucose (74-99) mg/dL POC Glucose (mg/dL) 170 H 184 H (75-99) mg/dL Plasma Lactic Acid Justin 2.9 H* (0.7-2.0) mmol/L Calcium (8.4-10.2) mg/dL Total Bilirubin (0.2-1.3) mg/dL Conjugated Bilirubin (0.0-0.3) mg/dL Delta Bilirubin (0.0-0.2) mg/dL AST (14-36) U/L Alkaline Phosphatase (38-126) U/L Troponin I (0.000-0.034) ng/mL Total Protein (6.3-8.2) g/dL Albumin (3.5-5.0) g/dL U Benzodiazepines Scrn (NotDetected) 02/16/19 02/16/19 02/16/19 Range/Units 06:02 06:40 06:40 WBC 19.2 H (3.8-10.6) k/uL Hgb 10.0 L (11.4-16.0) gm/dL MCV 76.0 L (80.0-100.0) fL MCH 21.3 L (25.0-35.0) pg MCHC 28.1 L (31.0-37.0) g/dL RDW 25.2 H (11.5-15.5) % Plt Count 72 L (150-450) k/uL Neutrophils # 17.9 H (1.3-7.7) k/uL Lymphocytes # 0.6 L (1.0-4.8) k/uL PT (9.0-12.0) sec INR (<1.2) APTT (22.0-30.0) sec Sodium 159 H (137-145) mmol/L Potassium 2.8 L (3.5-5.1) mmol/L Chloride 131 H* (98-107) mmol/L Carbon Dioxide 18 L (22-30) mmol/L BUN 50 H (7-17) mg/dL Creatinine 2.06 H (0.52-1.04) mg/dL Glucose 113 H (74-99) mg/dL POC Glucose (mg/dL) 152 H (75-99) mg/dL Plasma Lactic Acid Justin (0.7-2.0) mmol/L Calcium 7.1 L (8.4-10.2) mg/dL Total Bilirubin 3.0 H (0.2-1.3) mg/dL Conjugated Bilirubin 0.5 H (0.0-0.3) mg/dL Delta Bilirubin 1.4 H (0.0-0.2) mg/dL AST 86 H (14-36) U/L Alkaline Phosphatase 182 H (38-126) U/L Troponin I (0.000-0.034) ng/mL Total Protein 5.8 L (6.3-8.2) g/dL Albumin 2.2 L (3.5-5.0) g/dL U Benzodiazepines Scrn (NotDetected) 02/16/19 02/16/19 02/16/19 Range/Units 06:40 06:40 06:40 WBC (3.8-10.6) k/uL Hgb (11.4-16.0) gm/dL MCV (80.0-100.0) fL MCH (25.0-35.0) pg MCHC (31.0-37.0) g/dL RDW (11.5-15.5) % Plt Count (150-450) k/uL Neutrophils # (1.3-7.7) k/uL Lymphocytes # (1.0-4.8) k/uL PT 24.5 H (9.0-12.0) sec INR 2.5 H (<1.2) APTT 35.5 H (22.0-30.0) sec Sodium (137-145) mmol/L Potassium (3.5-5.1) mmol/L Chloride (98-107) mmol/L Carbon Dioxide (22-30) mmol/L BUN (7-17) mg/dL Creatinine (0.52-1.04) mg/dL Glucose (74-99) mg/dL POC Glucose (mg/dL) (75-99) mg/dL Plasma Lactic Acid Justin 3.6 H* (0.7-2.0) mmol/L Calcium (8.4-10.2) mg/dL Total Bilirubin (0.2-1.3) mg/dL Conjugated Bilirubin (0.0-0.3) mg/dL Delta Bilirubin (0.0-0.2) mg/dL AST (14-36) U/L Alkaline Phosphatase (38-126) U/L Troponin I 0.097 H* (0.000-0.034) ng/mL Total Protein (6.3-8.2) g/dL Albumin (3.5-5.0) g/dL U Benzodiazepines Scrn (NotDetected) 02/16/19 Range/Units 10:31 WBC (3.8-10.6) k/uL Hgb (11.4-16.0) gm/dL MCV (80.0-100.0) fL MCH (25.0-35.0) pg MCHC (31.0-37.0) g/dL RDW (11.5-15.5) % Plt Count (150-450) k/uL Neutrophils # (1.3-7.7) k/uL Lymphocytes # (1.0-4.8) k/uL PT (9.0-12.0) sec INR (<1.2) APTT (22.0-30.0) sec Sodium (137-145) mmol/L Potassium (3.5-5.1) mmol/L Chloride (98-107) mmol/L Carbon Dioxide (22-30) mmol/L BUN (7-17) mg/dL Creatinine (0.52-1.04) mg/dL Glucose (74-99) mg/dL POC Glucose (mg/dL) 165 H (75-99) mg/dL Plasma Lactic Acid Justin (0.7-2.0) mmol/L Calcium (8.4-10.2) mg/dL Total Bilirubin (0.2-1.3) mg/dL Conjugated Bilirubin (0.0-0.3) mg/dL Delta Bilirubin (0.0-0.2) mg/dL AST (14-36) U/L Alkaline Phosphatase (38-126) U/L Troponin I (0.000-0.034) ng/mL Total Protein (6.3-8.2) g/dL Albumin (3.5-5.0) g/dL U Benzodiazepines Scrn (NotDetected) Assessment and Plan Assessment: 1. Altered mental status; possible metabolic encephalopathy; multifactorial - We will treat the underlying cause 2. Hypoxia; possible aspiration; patient had old tablets in mouth and pharynx area that was suctioned in ED - Chest x-ray is negative for acute infiltrate; high suspicion for pneumonia secondary to aspiration - We will continue with IV Zosyn; order blood cultures and sputum culture - O2 per nasal cannula per protocol - Consult SFP for swallow evaluation 3. Sepsis possibly secondary to 2 - Patient received IV fluids in ED per sepsis bundle; chest x-ray shows mild fluid overload; we will continue with slow IV fluid hydration - Cultures have been done and are pending - Monitor lactic acid levels; we will order CRP and pro-calcitonin 4. Acute renal failure/dehydration - Slow IV fluid hydration, strict FELISA's, daily weights, renal function and electrolytes, - Avoid hypotension and nephrotoxins 5. Elevated troponin; possible demand ischemia/ history of CAD/MN in the past - We will trend and consult cardiology if troponin trends up - We will order 2-D echo 6. Hypertension; stable 7. Hyperlipidemia; atorvastatin 40 mg by mouth daily at bedtime 8. Dementia; not clear about baseline 9. DVT prophylaxis; patient currently anticoagulated; home medication list does not indicate patient being on any anticoagulation therapy CODE STATUS; no code Time with Patient: Greater than 30
[2019-02-16 16:44] VITALS: PULSE 75
[2019-02-16 16:51] VITALS: BP 118/52; RESP 21; TEMP 98.4
--- NOTE | 2019-02-16 17:37 | ECHOF ---
Referral Reason:Elevated troponin MEASUREMENTS -------- HEIGHT: 63.0 cm WEIGHT: 103.0 kg BP: IVSd: 1.1 cm (0.6 - 1.1) LVIDd: 2.1 cm (3.9 - 5.3) LVPWd: 1.2 cm (0.6 - 1.1) EDV(Teich): 15 ml IVSs: 1.1 cm LVIDs: 1.6 cm LVPWs: 1.6 cm %IVS Thck: 5 % ESV(Teich): 7 ml EF(Teich): 49 % %FS: 23 % SV(Teich): 7 ml Ao Diam: 2.9 cm (2.0 - 3.7) LA Diam: 3.4 cm (2.7 - 3.8) AV Cusp: 1.5 cm (1.5 - 2.6) MV E Jose: 0.47 m/s MV DecT: 293 ms MV Dec Hamblen: 1.6 m/s MV A Jose: 0.79 m/s MV E/A Ratio: 0.59 MV PHT: 85 ms MR Vmax: 2.54 m/s MR maxP.88 mmHg AV Vmax: 1.58 m/s AV maxP.08 mmHg AV Vmax: 1.01 m/s AV Vmean: 0.60 m/s AV maxP.68 mmHg AV meanP.08 mmHg AV Env.Ti: 258 ms AV VTI: 16.7 cm TR Vmax: 2.32 m/s TR maxP.53 mmHg RAP: 5.00 mmHg RVSP: 26.53 mmHg FINDINGS -------- Atrial fibrillation. This was a technically difficult study with suboptimal views. The left ventricular size is normal. There is mild concentric left ventricular hypertrophy. Overa ll left ventricular systolic function is normal with, an EF between 55 - 60 %. The RV was not well visualized. The left atrial size is normal. The right atrial size is normal. The aortic valve was not well visualized. There is trace mitral regurgitation. Trace tricuspid regurgitation present. There is no evidence of pulmonary hypertension. The right ventricular systolic pressure, as measured by Doppler, is 26.53mmHg. The pulmonic valve was not well visualized. The aortic root size is normal. IVC Not well visulized. There is no pericardial effusion. CONCLUSIONS -------- 1. Atrial fibrillation. 2. This was a technically difficult study with suboptimal views. 3. The left ventricular size is normal. 4. There is mild concentric left ventricular hypertrophy. 5. Overall left ventricular systolic function is normal with, an EF between 55 - 60 %. 6. The RV was not well visualized. 7. The left atrial size is normal. 8. The right atrial size is normal. 9. The aortic valve was not well visualized. 10. There is trace mitral regurgitation. 11. Trace tricuspid regurgitation present. 12. There is no evidence of pulmonary hypertension. 13. The right ventricular systolic pressure, as measured by Doppler, is 26.53mmHg. 14. The pulmonic valve was not well visualized. 15. The aortic root size is normal. 16. IVC Not well visulized. 17. There is no pericardial effusion. MEDIA INTERN: Wendi Panda RDCS
== END 2019-02-16 17:28 | disposition hospice, inpatient (51) | DRG 871 ==
LOC: EC 12:55 → 3SCARD 15:20
PROVIDERS: ADMIT Internal Medicine; ATTEND Internal Medicine
PROC: 5A09357 Assistance with Respiratory Ventilation, Less than 24 Consecutive Hours, Continuous Positive Airway Pressure (ICD-10-PCS; principal; 2019-02-15)
DX: A41.9 Sepsis, unspecified organism (principal); I50.41 Acute combined systolic (congestive) and diastolic (congestive) heart failure; J69.0 Pneumonitis due to inhalation of food and vomit; J96.01 Acute respiratory failure with hypoxia; G93.41 Metabolic encephalopathy; E87.0 Hyperosmolality and hypernatremia; E87.2 Acidosis; M84.48XA Pathological fracture, other site, initial encounter for fracture; N17.9 Acute kidney failure, unspecified; R64 Cachexia; Z68.1 Body mass index [BMI] 19.9 or less, adult; I24.8 Other forms of acute ischemic heart disease; E78.5 Hyperlipidemia, unspecified; E86.0 Dehydration; E87.6 Hypokalemia; E87.8 Other disorders of electrolyte and fluid balance, not elsewhere classified; F03.90 Unspecified dementia, unspecified severity, without behavioral disturbance, psychotic disturbance, mood disturbance, and anxiety; F17.210 Nicotine dependence, cigarettes, uncomplicated; F32.9 Major depressive disorder, single episode, unspecified; F41.9 Anxiety disorder, unspecified; G25.0 Essential tremor; I11.0 Hypertensive heart disease with heart failure; I25.10 Atherosclerotic heart disease of native coronary artery without angina pectoris; I25.2 Old myocardial infarction; I49.3 Ventricular premature depolarization; I70.0 Atherosclerosis of aorta; I73.9 Peripheral vascular disease, unspecified; K21.9 Gastro-esophageal reflux disease without esophagitis; K29.70 Gastritis, unspecified, without bleeding; M06.9 Rheumatoid arthritis, unspecified; M81.0 Age-related osteoporosis without current pathological fracture; Z51.5 Encounter for palliative care; Z66 Do not resuscitate; Z79.82 Long term (current) use of aspirin; Z79.899 Other long term (current) drug therapy; Z82.49 Family history of ischemic heart disease and other diseases of the circulatory system; Z83.3 Family history of diabetes mellitus; Z87.440 Personal history of urinary (tract) infections; Z95.5 Presence of coronary angioplasty implant and graft; Z96.612 Presence of left artificial shoulder joint; Z99.3 Dependence on wheelchair; R32 Unspecified urinary incontinence; K59.09 Other constipation; Z91.81 History of falling; R26.9 Unspecified abnormalities of gait and mobility; Z87.01 Personal history of pneumonia (recurrent); Z86.14 Personal history of Methicillin resistant Staphylococcus aureus infection
CPT/HCPCS: 36415; 36600; 70450; 71045; 71046; 80048; 80053; 80076; 80164; 80306; 81003; 82140; 82550; 82805; 83605; 83735; 83880; 84484; 85025; 85610; 85730; 87040; 93005; 93306; 94640; 94660; 96361; 96365; 99291

== ENCOUNTER 2019-02-16 16:44 | Inpatient (IN) | payer MEDICAID ==
[2019-02-16] MEDS ORDERED: SCOPOLAMINE 1.5MG/72HR PATCH TRANSDERM SCH (17:00)
[2019-02-16] MEDS: ATROPINE OPHTH SOLN 1% 5ML BTL SUBLINGUAL PRN (17:47)
[2019-02-16] MEDS: LORazepam 0.5 MG TAB PO PRN (22:41)
[2019-02-16] MEDS: MORPHINE CONC SOLN 10mg/0.5mL ORAL SYRG SL PRN (22:52)
[2019-02-17] MEDS: MORPHINE CONC SOLN 10mg/0.5mL ORAL SYRG SL PRN (08:00)
[2019-02-17] MEDS: LORazepam 0.5 MG TAB PO PRN (08:00)
[2019-02-17] MEDS: ATROPINE OPHTH SOLN 1% 5ML BTL SUBLINGUAL PRN (08:03)
[2019-02-17 10:17] VITALS: BMI 18.3
[2019-02-17] MEDS ORDERED: MORPHINE CONC SOLN 10mg/0.5mL ORAL SYRG SL PRN (10:38)
[2019-02-17] MEDS ORDERED: LORazepam 0.5 MG TAB SUBLINGUAL SCH (10:45)
[2019-02-17] MEDS: LORazepam 0.5 MG TAB SUBLINGUAL SCH ×3 (12:57→19:58)
[2019-02-17] MEDS: MORPHINE CONC SOLN 10mg/0.5mL ORAL SYRG SL SCH ×3 (12:57→19:58)
--- NOTE | 2019-02-17 14:49 | P.HPIM ---
History of Present Illness H&P Date: 02/17/19 Chief Complaint: Sepsis 78-year-old female patient admitted to the hospital with sepsis, acute respiratory failure secondary to aspiration pneumonia, acute renal failure and severe hypernatremia; patient was started on IV fluids and IV antibiotics per sepsis protocol; while in the hospital patient continued to deteriorate and had to be placed on BiPAP without any improvement; patient's family was contacted and they decided to make patient hospice and comfort care Review of Systems ROS unobtainable: due to mental status Past Medical History Past Medical History: Coronary Artery Disease (CAD), Chest Pain / Angina, GERD/Reflux, GI Bleed, Hyperlipidemia, Hypertension, Memory Impairment, Myocardial Infarction ([place]), Osteoarthritis (OA), Pneumonia, Rheumatoid Arthritis (RA), Syncope Additional Past Medical History / Comment(s): pain with stools,hemorrhoids,dementia, osteoporosis,previous fall with blunt trauma to the head,hiatal hernia, chronic constipation,incont of urine-wears brief, previous history of uti, essential tremors, compression fracture of the T12 spine, cellulitis of the lower extremities, difficulty with mobility and gait and the patient has been wheelchair bound but she is able to stand up and pivot herself w/ asst Last Myocardial Infarction Date:: 1999 History of Any Multi-Drug Resistant Organisms: MRSA Date of last positivie culture/infection: 2011 per patient in nursing history MDRO Source:: Right Knee Past Surgical History: Appendectomy, Heart Catheterization With Stent, Joint Replacement, Orthopedic Surgery, Tonsillectomy Additional Past Surgical History / Comment(s): PTCA with 2 stents to CX in 1999, R shoulder arthroscopic rotator cuff repair, reverse L total shoulder, femoral bypass 1999, gastric tube placement and since removal, R total knee-no bend-Fly placed rt leg Past Anesthesia/Blood Transfusion Reactions: Postoperative Nausea & Vomiting (PONV) Additional Past Anesthesia/Blood Transfusion Reaction / Comment(s): no hx blood transfusion Date of Last Stent Placement:: 1999 Past Psychological History: Anxiety, Depression Additional Psychological History / Comment(s): Ongoing tobacco smoker. Pt started smoking about age 15-16 yrs old. She smokes about 5 CIG PER DAY. She is . Living with her son in an apartment in the [facility]. She uses a wheelchair. She is able to stand and pivot to get into wheelchair. She feeds herself. Her son drives her to [employer]-pt does not drive. Smoking Status: Former smoker Past Alcohol Use History: None Reported Additional Past Alcohol Use History / Comment(s): states she quit 3 months ago Past Drug Use History: None Reported - Past Family History Father Family Medical History: Coronary Artery Disease (CAD), Myocardial Infarction ([place]) Mother Family Medical History: Diabetes Mellitus, Hypertension Medications and Allergies Home Medications Medication Instructions Recorded Confirmed Type FLUoxetine HCL 40 mg PO BID 04/22/15 02/16/19 History busPIRone HCL 10 mg PO BID 09/26/16 02/16/19 History Aspirin 81 mg PO DAILY chew 10/22/16 02/16/19 Rx Atorvastatin [Lipitor] 40 mg PO HS 08/23/18 02/16/19 History Albuterol Inhaler [Ventolin Hfa 1 - 2 puff INHALATION RT-Q6H PRN 11/29/18 02/16/19 History Inhaler] Mirabegron [Myrbetriq] 50 mg PO DAILY 11/29/18 02/16/19 History Dicyclomine [Bentyl] 10 mg PO QID #1 capsule 01/25/19 02/16/19 Rx Psyllium Husk 100% [Metamucil 6 gm PO DAILY packet 01/25/19 02/16/19 Rx Packet] traMADol HCL [Ultram] 50 mg PO BID PRN #6 tablet 01/25/19 02/16/19 Rx Divalproex Sodium [Depakote 125 mg PO HS 02/15/19 02/16/19 History Sprinkle] LORazepam [Ativan] 0.5 mg PO TID PRN 02/15/19 02/16/19 History Magnesium Hydroxide [Milk of 2,400 mg PO DAILY PRN 02/15/19 02/16/19 History Magnesia] Omeprazole 20 mg PO HS 02/15/19 02/16/19 History Allergies Allergy/AdvReac Type Severity Reaction Status Date / Time iodine Allergy Rapid Verified 02/16/19 17:50 Heart Rate adhesive AdvReac Itching,"paper Verified 02/16/19 17:50 tape is ok" codeine AdvReac Confusion Verified 02/16/19 17:50 hydrocodone bitartrate AdvReac Confusion Verified 02/16/19 17:50 [From [place]] hydromorphone HCl AdvReac Confusion Verified 02/16/19 17:50 [From Dilaudid] morphine AdvReac Confusion Verified 02/16/19 17:50 Physical Exam Vitals: Vital Signs Pulse Resp 02/17/19 08:00 66 16 Intake and Output 02/16/19 02/17/19 02/17/19 22:59 06:59 14:59 Other: # Voids 1 Weight 47 kg 47 kg - Constitutional Unresponsive - Neck Neck: no lymphadenopathy - Respiratory Respiratory: bilateral: diminished, rales, rhonchi, wheezing - Cardiovascular Rhythm: regular - Gastrointestinal General gastrointestinal: normal bowel sounds, no tenderness Assessment and Plan Assessment: 1. Sepsis 2. Acute respiratory failure/aspiration pneumonia 3. Acute renal failure 4. Hypernatremia Patient is admitted to hospice care for pain and symptom management; all antibiotics and IVs have been discontinued Time with Patient: Less than 30
[2019-02-18] MEDS: LORazepam 0.5 MG TAB SUBLINGUAL SCH ×4 (00:01→13:39)
[2019-02-18] MEDS: MORPHINE CONC SOLN 10mg/0.5mL ORAL SYRG SL SCH ×4 (00:02→13:39)
[2019-02-18 03:28] VITALS: PULSE 69
[2019-02-18 08:50] VITALS: RESP 22
--- NOTE | 2019-02-19 06:46 | DS ---
DISCHARGE SUMMARY The PRELIMINARY CAUSE OF is aspiration pneumonia with acute hypoxic respiratory failure. OTHER DIAGNOSIS ARE: 1. Sepsis secondary to above. 2. Acute renal failure. 3. Severe hypernatremia, dehydration. 4. History of coronary artery disease. 5. Gastroesophageal reflux disease. 6. History of gastrointestinal bleed. 7. Hypertension. 8. Hyperlipidemia. 9. History of dementia. 10.History of pneumonia. 11.History of rheumatoid arthritis. 12.History of syncope. 13.History of methicillin-resistant Staphylococcus aureus. 14.History of coronary artery disease, stent. 15.History of anxiety, depression. 16.NO CODE. HISTORY OF PRESENT ILLNESS: This 78-year-old woman with a past medical history of multiple medical problems being followed by Dr. Mcnamara in the outpatient setting was admitted with aspiration pneumonia with hypoxic respiratory failure and as well as features of sepsis. The patient was treated intensively in the beginning, but however, apparently the patient did not improve and case was discussed with the family and the patient was transitioned into hospice and symptom management and the patient because of above mentioned multiple complex medical issues. The prognosis remained extremely guarded throughout the hospital stay and please refer to the multiple progress notes and other details which are noted in the chart and please also refer to multiple consultations and progress notes also. MMODL / IJN: [id number] / SEAMUS
== END 2019-02-18 15:55 | disposition expired | DRG 951 ==
LOC: 3SCARD 17:33
PROVIDERS: ADMIT Internal Medicine; ATTEND Internal Medicine
DX: Z51.5 Encounter for palliative care (principal); A41.9 Sepsis, unspecified organism; J69.0 Pneumonitis due to inhalation of food and vomit; J96.01 Acute respiratory failure with hypoxia; E87.0 Hyperosmolality and hypernatremia; N17.9 Acute kidney failure, unspecified; Z66 Do not resuscitate; M06.9 Rheumatoid arthritis, unspecified; F03.90 Unspecified dementia, unspecified severity, without behavioral disturbance, psychotic disturbance, mood disturbance, and anxiety; F17.210 Nicotine dependence, cigarettes, uncomplicated; E78.5 Hyperlipidemia, unspecified; F32.9 Major depressive disorder, single episode, unspecified; F41.9 Anxiety disorder, unspecified; G25.0 Essential tremor; I10 Essential (primary) hypertension; I25.10 Atherosclerotic heart disease of native coronary artery without angina pectoris; I25.2 Old myocardial infarction; K21.9 Gastro-esophageal reflux disease without esophagitis; M81.0 Age-related osteoporosis without current pathological fracture; K44.9 Diaphragmatic hernia without obstruction or gangrene; K59.09 Other constipation; K64.9 Unspecified hemorrhoids; M19.90 Unspecified osteoarthritis, unspecified site; R26.9 Unspecified abnormalities of gait and mobility; R32 Unspecified urinary incontinence; Z79.82 Long term (current) use of aspirin; Z79.899 Other long term (current) drug therapy; Z87.440 Personal history of urinary (tract) infections; Z99.3 Dependence on wheelchair; Z86.14 Personal history of Methicillin resistant Staphylococcus aureus infection; Z95.5 Presence of coronary angioplasty implant and graft; Z91.041 Radiographic dye allergy status; Z88.5 Allergy status to narcotic agent; Z91.048 Other nonmedicinal substance allergy status; Z96.651 Presence of right artificial knee joint; Z96.612 Presence of left artificial shoulder joint; Z90.49 Acquired absence of other specified parts of digestive tract; Z82.49 Family history of ischemic heart disease and other diseases of the circulatory system; Z83.3 Family history of diabetes mellitus